=== PATIENT | female | born 1940 | race Caucasian/White ===

== ENCOUNTER 2022-04-04 09:31 | Outpatient (CLI) | payer MEDICARE, BC, SELFPAY | END 2022-04-04 09:32 | disposition home or self-care (01) | LOC: AMB 04-22 16:05 | PROVIDERS: PCP Surgery; Visit Provider Emergency Medicine Emergency Medical Services | DX: R41.82 Altered mental status, unspecified (principal); R53.1 Weakness; R51.9 Headache, unspecified; R47.81 Slurred speech | CPT/HCPCS: A0425; A0427 ==

== ENCOUNTER 2022-04-04 09:51 | Emergency (ER) | payer MEDICARE, BC, SELFPAY ==
[2022-04-04] VITALS (16 sets, daily range): BP systolic 157–187; BP diastolic 68–90; PULSE 104–112; RESP 20; TEMP 36.8; O2SAT 88–97; BMI 27.6
--- NOTE | 2022-04-04 09:53 | CRLHL7_ITS ---
For Patients: As a result of the Century Cures Act, medical imaging exams and procedure reports are released immediately into your electronic medical record. You may view this report before your referring provider. If you have questions, please contact your health care provider. Indication : Right hemiparesis. Technique : CT of the brain without intravenous contrast. Repeated imaging was performed in region of motion. Comparison: CT head 06/23/2021 Findings: Images are degraded by patient motion. No acute blurring of the oswald-white differentiation. There is no intracranial hemorrhage. The ventricles are proportionate to the cerebral sulci. The 4th ventricle is midline. Basal cisterns appear patent. No abnormal extra-axial fluid collection identified. Mild to moderate parenchymal volume loss. There is moderate patchy periventricular hypodensity, favored to represent chronic ischemic microvascular disease. Right basal ganglia mineralization. There is no intracranial mass, mass effect or midline shift identified. No depressed calvarial fracture. Impression: 1. No definite acute intracranial process. 2. Moderate chronic ischemic microvascular disease. The above findings were communicated over the telephone with Dr. Yao by Dr. Morales at 1012 hours on 04/04/2022. Please note that all CT scans at this facility use dose modulation, iterative reconstruction, and/or weight-based dosing when appropriate to reduce radiation dose to as low as reasonably achievable. Dictated by Timothy Morales MD @ 04/04/2022 10:14:30 AM (Electronically Signed)
--- NOTE | 2022-04-04 10:18 | CT_ITS ---
Patient: AKIL PRADO Facility:?[facility] Patient ID:?[id number] Site Patient ID:?[id number]. Site :?[id number] Study:?CT-Neck Angio Angio 95cc Isovue 370-04/04/2022 11:51:53 AM Ordering Physician:Cristela Vaca Final Report: INDICATION: Transient right hemiparesis. TECHNIQUE: CTA neck with contrast bolus tracking and 3D MIP reconstruction. FINDINGS: Heavily calcified plaque at the origin of the left internal carotid artery results in a moderate stenosis, approximately 50 percent by NASCET criteria. There is also calcified plaque at the right carotid bifurcation without significant stenosis. There is no significant vertebral artery stenosis or dissection. The soft tissues of the neck are within normal limits. Advanced degenerative changes are incidentally noted in the cervical spine. Scarring and emphysematous changes are present in the lung apices. IMPRESSION: Moderate left ICA origin stenosis, 50 percent by NASCET criteria. No significant right carotid or vertebral artery stenosis or dissection. Please note that all CT scans at this facility use dose modulation, iterative reconstruction, and/or weight-based dosing when appropriate to reduce radiation dose to as low as reasonably achievable. Dictated by Scott Desai MD @ 04/04/2022 8:10:55 PM Signed by:?Scott Desai MD @04/04/2022 8:10:55 PM (Electronic Signature)
--- NOTE | 2022-04-04 10:18 | CT_ITS ---
Patient: AKIL PRADO Facility:?[facility] Patient ID:?[id number] Site Patient ID:?[id number]. Site :?[id number] Study:?CT-Head Angio 95cc Isovue 370-04/04/2022 11:53:35 AM Ordering Physician:Cristela Vaca Final Report: INDICATION: Transient right hemiparesis. TECHNIQUE: CTA head with contrast bolus tracking and 3D MIP reconstruction. FINDINGS: Heavily calcified atherosclerotic plaque is present around the carotid siphons without significant stenosis. There is no large vessel occlusion. No aneurysm is identified. IMPRESSION: No large vessel occlusion. Please note that all CT scans at this facility use dose modulation, iterative reconstruction, and/or weight-based dosing when appropriate to reduce radiation dose to as low as reasonably achievable. Dictated by Scott Desai MD @ 04/04/2022 8:06:20 PM Signed by:?Scott Desai MD @04/04/2022 8:06:20 PM (Electronic Signature)
--- NOTE | 2022-04-04 10:42 | ED.NEUROSD ---
HPI - Neuro Symptoms/Deficit General Chief Complaint: Neuro Symptoms/Altered Deficit Stated Complaint: Poss stroke Time Seen by Provider: 04/04/22 09:53 History of Present Illness HPI Narrative: This 82-year-old female comes in by ambulance who report a right hemiparesis that began 45 minutes prior to arrival here. 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 Later her daughter arrived who states that she had nausea, vomiting, diarrhea, and diaphoresis. The daughter states her speech seemed a little bit altered at the time that she vomited. The daughter reports that she did not notice any one-sided weakness or deficit. The patient states that she has had a previous TIA over 10 years ago. She arrives with blood pressure at 187/90 and heart rate at 111 beats per minute. She does not report any headache or other pain. Related Data Home Medications Medication Instructions Recorded Confirmed allopurinol 300 mg tablet mg 04/04/22 clopidogrel 75 mg tablet mg 04/04/22 furosemide 20 mg tablet mg 04/04/22 gabapentin 300 mg capsule mg 04/04/22 hydromorphone 8 mg tablet mg 04/04/22 insulin aspart U-100 100 unit/mL subcut 04/04/22 (3 mL) subcutaneous pen (Novolog Flexpen U-100 Insulin aspart) insulin degludec 100 unit/mL (3 unit subcut 04/04/22 mL) subcutaneous pen (Tresiba FlexTouch U-100 insulin) loperamide 2 mg capsule mg 04/04/22 methadone 5 mg tablet mg 04/04/22 rosuvastatin 20 mg tablet mg 04/04/22 semaglutide 1 mg/dose (4 mg/3 mL) mg subcut 04/04/22 subcutaneous pen injector (Ozempic) tamsulosin 0.4 mg capsule mg PO 04/04/22 Allergies Allergy/AdvReac Type Severity Reaction Status Date / Time cortisone Allergy Severe Anaphylaxis Verified 04/04/22 11:25 prednisone Allergy Severe Verified 04/04/22 11:25 amoxicillin Allergy Intermediate Verified 04/04/22 11:25 cephalexin [From Keflex] Allergy Intermediate Diarrhea Verified 04/04/22 11:25 doxycycline Allergy Intermediate Verified 04/04/22 11:25 duloxetine [From Cymbalta] Allergy Intermediate Verified 04/04/22 11:25 escitalopram [From Lexapro] Allergy Intermediate sleep Verified 04/04/22 11:25 disturbance febuxostat Allergy Intermediate vomitting Verified 04/04/22 11:25 latex Allergy Intermediate Verified 04/04/22 10:36 lisinopril Allergy Intermediate Verified 04/04/22 11:25 losartan [From Cozaar] Allergy Intermediate Verified 04/04/22 11:25 nitrofurantoin Allergy Intermediate Verified 04/04/22 11:25 [From Macrobid] pregabalin [From Lyrica] Allergy Intermediate Nausea Verified 04/04/22 11:25 propoxyphene Allergy Intermediate angioedema Verified 04/04/22 11:25 ramelteon [From Rozerem] Allergy Intermediate Verified 04/04/22 11:25 sulfamethoxazole Allergy Intermediate Verified 04/04/22 11:25 [From Bactrim] tramadol [From Ultram] Allergy Intermediate Verified 04/04/22 11:25 trimethoprim [From Bactrim] Allergy Intermediate Verified 04/04/22 11:25 venlafaxine [From Effexor] Allergy Intermediate Verified 04/04/22 11:25 zolpidem [From Ambien] Allergy Intermediate Confusion Verified 04/04/22 11:25 acetaminophen [From Vicodin] Allergy Mild Nausea Verified 04/04/22 11:25 hydrocodone [From Vicodin] Allergy Mild Nausea Verified 04/04/22 11:25 aspirin Allergy Unknown Verified 04/04/22 11:25 clindamycin Allergy Unknown Verified 04/04/22 11:25 ipratropium [From Atrovent] Allergy Unknown Verified 04/04/22 11:25 Penicillins Allergy Unknown Verified 04/04/22 10:36 pramipexole Allergy Unknown Verified 04/04/22 11:25 trazodone Allergy Unknown Verified 04/04/22 11:25 steri strips Allergy Intermediate Uncoded 04/04/22 11:25 Review of Systems Status of ROS: Reports: 10 or more systems reviewed and unremarkable except as noted in History and below Narrative: Constitutional: No fevers, no weight gain or loss. Eyes: No discharge. No vision changes. HENT: No congestion, no sore throat, no ear pain. Cardiovascular: No chest pain, no palpitations. Respiratory: No shortness of breath, no wheezes, no cough. Gastrointestinal: No abdominal pain, no vomiting, no diarrhea. Genitourinary: No dysuria, no hematuria. Musculoskeletal: Normal range of motion. Skin: No rashes, no pruritis. Neurological: Right sided weakness and garbled speech which have now resolved completely. Endo/Heme/Allergies: No bruising or bleeding. No polydipsia. Pysch: no suicidality, no anxiety, no insomnia. All other systems reviewed and are negative. [facility] Medical History (Updated 04/04/22 @ 13:43 by Lio Yoa MD) Acute insomnia CAD (coronary artery disease) Chronic pain Constipation COPD (chronic obstructive pulmonary disease) Depression Diabetes Gastroparesis GERD (gastroesophageal reflux disease) Hypercalcemia Hypertension Hypertriglyceridemia Hypokalemia Hypothyroidism Myocardial infarction Neurogenic bladder Neuropathy HUGO (obstructive sleep apnea) Peripheral vascular disease Pulmonary nodule TIA (transient ischemic attack) Surgical History (Updated 04/04/22 @ 11:34 by Lilliam Vivar RN) H/O: hysterectomy History of cholecystectomy Hx of appendectomy Hx of repair of rotator cuff Hx of tonsillectomy S/P bunionectomy Social History Smoking Status: Former smoker How often do you have a drink containing alcohol: never AUDIT-C Alcohol total score: 0 Non-prescribed substance use: denies use Exam Narrative: Exam Narrative: Constitutional: Well-developed, well-nourished, no acute distress. HEENT: Normocephalic, atraumatic. Neck: Normal range of motion. Nontender. Supple. Heart: Regular. No murmurs. Normal rate. Intact distal pulses. Lungs: Clear to auscultation. No chest discomfort. No wheezes, rhonchi, or rales. Abdomen: Normal bowel sounds. Nontender. No rebound tenderness. Genitalia: Deferred. Back: No midline tenderness. Normal range of motion. Extremities: Normal range of motion. No injury. Skin: Intact. No rash. Warm. No erythema or pallor. Neurologic: No altered sensation. No weakness. Alert and oriented. Normal speech. 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 Repeat neurologic exam after CT scan was completed shows no facial asymmetry, tongue is midline, [id number] is normal, no pronator drift. She is able to raise each leg up to touch my hand. Psychiatric: No suicidality. No anxiety or depression. No insomnia. Nursing notes and vitals signs are reviewed. Const: Vital Signs, click to edit/add: Vital Signs - 24 hr 04/04/22 10:00 04/04/22 10:26 04/04/22 10:25 Temperature 98.3 F Pulse Rate [Pulse Oximeter] 111 H 105 H Respiratory Rate 20 Blood Pressure [Ri ght Upper Arm] 187/90 H 180/78 H Pulse Oximetry 93 91 96 Oxygen Delivery Me thod Room Air Room Air Nasal Cannula Oxygen Flow Rate 2 04/04/22 11:00 Temperature Pulse Rate [Pulse Oximeter] 110 H Respiratory Rate Blood Pressure [Ri ght Upper Arm] 172/78 H Pulse Oximetry 97 Oxygen Delivery Me thod Room Air Oxygen Flow Rate Course Vital Signs Vital signs: Initial Vital Signs Temperature 98.3 F 04/04/22 10:00 Temperature Source Temporal Artery Scan 04/04/22 10:00 Pulse Rate 111 H 04/04/22 10:00 Respiratory Rate 20 04/04/22 10:00 Blood Pressure 187/90 H 04/04/22 10:00 Blood Pressure Mean 122 04/04/22 10:00 Blood Pressure Position Supine 04/04/22 10:00 Pulse Oximetry 93 04/04/22 10:00 Oxygen Delivery Method 04/04/22 10:00 Vital Signs Temperature 98.3 F 04/04/22 10:00 Pulse Rate 111 H 04/04/22 10:00 Respiratory Rate 20 04/04/22 10:00 Blood Pressure 187/90 H 04/04/22 10:00 Pulse Oximetry 93 04/04/22 10:00 Oxygen Delivery Method 04/04/22 10:00 Temperature 98.3 F 04/04/22 10:00 Pulse Rate 110 H 04/04/22 11:00 Respiratory Rate 20 04/04/22 10:00 Blood Pressure 172/78 H 04/04/22 11:00 Pulse Oximetry 97 04/04/22 11:00 Oxygen Delivery Method 04/04/22 11:00 Oxygen Flow Rate 2 04/04/22 10:26 MDM - Neuro Symptoms/Deficit MDM Narrative Medical decision making narrative: This patient comes in by ambulance and ambulance personnel state that she had stroke-like symptoms. Upon arrival here there was no evidence of altered speech or unilateral weakness. She went immediately to CT scan which returns with no acute findings. An IV was established where she had labs drawn in these returned with reassuring results also. Her white count is slightly elevated at 14. COVID and influenza are both negative. The patient is reporting a dry mouth and did receive a L of normal saline intravenously. She continues to have normal neurologic exam throughout her stay here. I did also do a CT a of the neck and head which returns with no acute findings. This patient is okay to return home to continue current plans. It seems unlikely that she had a stroke or even a TIA. More likely this was gastroenteritis with some volume depletion. Lab Data Labs: Lab Results 04/04/22 04/04/22 04/04/22 Range/Units 10:30 10:30 10:30 WBC 14.05 H (4.50-11.00) K/uL RBC 4.95 (4.00-5.20) m/uL Hgb 14.6 (12.0-16.0) gm/dL Hct 43.9 (33.0-51.0) % MCV 89 (80-100) fL MCH 30 (26-34) pg MCHC 33 (32-36) gm/dL RDW Coeff of Thais 13.5 (11.5-15.5) % Plt Count 181 (140-440) K/uL Neut % (Auto) 90.1 H (42.0-72.0) % Lymph % (Auto) 4.3 L (20-44) % Craven % (Auto) 4.6 (0.0-11.0) % Eos % (Auto) 0.4 (0.0-7.0) % Baso % (Auto) 0.1 (0.0-3.0) % Neut # (Auto) 12.70 H (1.7-7.0) K/uL Lymph # (Auto) 0.60 L (0.90-2.90) K/uL Craven # (Auto) 0.60 (0.00-0.90) K/UL Eos # (Auto) 0.10 (0.00-0.50) K/uL Baso # (Auto) 0.00 (0.00-0.30) K/uL Abs Immat Gran (auto) 0.07 (0.00-0.30) K/uL INR 1.09 (0.91-1.10) Sodium 138 (135-149) mmol/L Potassium 3.8 (3.6-5.1) mmol/L Chloride 103 (96-114) mmol/L Carbon Dioxide 25 (20-32) mmol/L BUN 10 (7-30) mg/dL Creatinine 0.8 (0.5-1.5) mg/dL Estimated Creat Clear 34.64 Estimated GFR 73 ml/min Glucose 302 H (60-115) mg/dL Calcium 8.8 (8.4-10.6) mg/dL SARS-CoV-2 (PCR) (Negative) Influenza Type A (PCR) (Negative) Influenza Type B (PCR) (Negative) 04/04/22 Range/Units 10:57 WBC (4.50-11.00) K/uL RBC (4.00-5.20) m/uL Hgb (12.0-16.0) gm/dL Hct (33.0-51.0) % MCV (80-100) fL MCH (26-34) pg MCHC (32-36) gm/dL RDW Coeff of Thais (11.5-15.5) % Plt Count (140-440) K/uL Neut % (Auto) (42.0-72.0) % Lymph % (Auto) (20-44) % Craven % (Auto) (0.0-11.0) % Eos % (Auto) (0.0-7.0) % Baso % (Auto) (0.0-3.0) % Neut # (Auto) (1.7-7.0) K/uL Lymph # (Auto) (0.90-2.90) K/uL Craven # (Auto) (0.00-0.90) K/UL Eos # (Auto) (0.00-0.50) K/uL Baso # (Auto) (0.00-0.30) K/uL Abs Immat Gran (auto) (0.00-0.30) K/uL INR (0.91-1.10) Sodium (135-149) mmol/L Potassium (3.6-5.1) mmol/L Chloride (96-114) mmol/L Carbon Dioxide (20-32) mmol/L BUN (7-30) mg/dL Creatinine (0.5-1.5) mg/dL Estimated Creat Clear Estimated GFR ml/min Glucose (60-115) mg/dL Calcium (8.4-10.6) mg/dL SARS-CoV-2 (PCR) Negative SARS-CoV-2 (Negative) Influenza Type A (PCR) Negative PCR FLU A (Negative) Influenza Type B (PCR) Negative PCR FLU B (Negative) Imaging Data CT scan - head: Radiologist's impression: 1. No definite acute intracranial process. 2. Moderate chronic ischemic microvascular disease. ECG Data Attestation: I personally reviewed and interpreted this ECG as follows: Interpretation: Sinus tachycardia. Rate 110 beats per minute. First degree AV block. There are no specific ST or T-wave abnormalities. Discharge Plan Discharge Clinical Impression: Gastroenteritis, Volume depletion Patient Disposition: Home w/ Parent or Adult Condition: Improved Additional Instructions: Continue current plans. Take plenty of fluids. Return if recurrent or worsening symptoms happen. Prescriptions: No Action loperamide 2 mg capsule hydromorphone 8 mg tablet Label Comments: Take 1 Tablet (8 mg) by mouth every 6 hours if needed for DIABETIC FOOT Pain. DO NOT EXCEED 4 TABLETS IN 24 HOURS. Use dates: 03/13/22-04/11 clopidogrel 75 mg tablet Label Comments: TAKE ONE TABLET BY MOUTH ONE TIME DAILY tamsulosin 0.4 mg capsule PO Label Comments: Take 1 Capsule (0.4 mg) by mouth once daily after a meal. gabapentin 300 mg capsule Label Comments: Take 1 Capsule (300 mg) by mouth once daily. allopurinol 300 mg tablet Label Comments: TAKE 1/2 TABLET BY MOUTH DAILY furosemide 20 mg tablet Label Comments: Take 1 Tablet (20 mg) by mouth every morning. methadone 5 mg tablet Label Comments: Take 1 Tablet (5 mg) by mouth 3 times daily. Use dates: 03/13/22-04/11/22 insulin aspart U-100 [Novolog Flexpen U-100 Insulin] 100 unit/mL (3 mL) insulin pen SUBCUT Label Comments: INJECT 9 UNITS BY SUBCUTANEOUS ROUTE WITH BREAKFAST, 14 UNITS WITH LUNCH, AND 22 UNITS WITH EVENING MEAL PLUS CORRECTIVE DOSE INSULIN NEE rosuvastatin 20 mg tablet Label Comments: Take 1 Tablet (20 mg) by mouth at bedtime. Tresiba FlexTouch U-100 100 unit/mL (3 mL) insulin pen SUBCUT Label Comments: inject 32 units subcutaneously once daily at bedtime. Ozempic 1 mg/dose (4 mg/3 mL) pen injector SUBCUT Follow Up/Referrals: Michael Sandy MD [Primary Care Provider] - Stand Alone Forms: [employer] Info Instructions
[2022-04-04 10:50] LABS: Basophils Percent Auto 0.1 % (0.0-3.0); Eosinophils Percent Auto 0.4 % (0.0-7.0); Hematocrit 43.9 % (33.0-51.0); Hemoglobin* 14.6 gm/dL (12.0-16.0); Immature Granulocytes Abs Auto 0.07 K/uL (0.00-0.30); Lymphocytes Percent Auto 4.3 % (20-44); Mean Corpuscular HGB Conc 33 gm/dL (32-36); Mean Corpuscular Hemoglobin 30 pg (26-34); Mean Corpuscular Volume 89 fL (80-100); Monocytes Percent Auto 4.6 % (0.0-11.0); Neutrophils Percent Auto 90.1 % (42.0-72.0); Platelet Count* 181 K/uL (140-440); RDW Coefficient of Variation % 13.5 % (11.5-15.5); Red Blood Count 4.95 m/uL (4.00-5.20); White Blood Count* 14.05 K/uL (4.50-11.00)
[2022-04-04 10:52] LABS: Slide Review Reflex No
--- NOTE | 2022-04-04 10:57 | ED.NURSE ---
pt arrived by ems at 0950, dr. landis met pt in [place], pt went immediately to ct. upon arrival pt answering questions and speech clear. pt had R side paralysis per ems and garbled speech. pt able to squeeze with R hand. pt arrives incont of stool.
[2022-04-04 11:05] LABS: Chloride* 103 mmol/L (96-114); Potassium* 3.8 mmol/L (3.6-5.1); Sodium* 138 mmol/L (135-149)
[2022-04-04 11:08] LABS: Blood Urea Nitrogen* 10 mg/dL (7-30); Carbon Dioxide* 25 mmol/L (20-32); Creatinine* 0.8 mg/dL (0.5-1.5); Est. Creatinine Clearance* 34.64; Estimated Glomerular Filt Rate 73 ml/min
[2022-04-04 11:09] LABS: Calcium* 8.8 mg/dL (8.4-10.6); Glucose* 302 mg/dL (60-115); INR 1.09 (0.91-1.10); Prothrombin Time 14.6 Seconds
[2022-04-04 12:34] LABS: PCR FLU A Negative PCR FLU A (Negative); PCR FLU B Negative PCR FLU B (Negative)
[2022-04-04 13:02] LABS: SARS PCR* Negative SARS-CoV-2 (Negative)
[2022-04-04] MEDS: 0.9 % SODIUM CHLORIDE 1000 ml 1,000 ML IV (13:15)
--- NOTE | 2022-04-04 14:21 | ED.NURSE ---
pt sitting up on edge of bed, c/o slight dizziness, improves while sitting there. pt requests commode. up to commode with sba, voids large amount. pt took steps to wheelchair and brought to vehicle via wheelchair.
== END 2022-04-04 14:23 | disposition home or self-care (01) ==
PROVIDERS: Emergency Provider Emergency Medicine Emergency Medical Services; PCP Surgery
DX: K52.9 Noninfective gastroenteritis and colitis, unspecified (principal); E86.9 Volume depletion, unspecified
CPT/HCPCS: 36415; 70450; 70496; 70498; 80048; 85025; 85610; 87631; 93005; 94761; 96360; 99284; 99285; J7030; Q9967

== ENCOUNTER 2022-04-11 09:39 | Emergency (ER) | payer MEDICARE, BC, SELFPAY ==
[2022-04-11 09:42] VITALS: BP 116/70; PULSE 86; RESP 18; TEMP 36.1; O2SAT 98; BMI 27.3
--- NOTE | 2022-04-11 11:00 | ED.SKABFB ---
HPI - Skin/Abscess/Foreign Bdy General Date Seen: 04/11/22 Chief complaint: Skin/Abscess/Foreign Body Stated complaint: Cellulitis Time Seen by Provider: 04/11/22 09:52 Source: patient and family Mode of arrival: ambulatory Limitations: no limitations History of Present Illness HPI narrative: Patient is the 82-year-old female who presents here for evaluation of right leg cellulitis she has had now for the last 5 days. She was initially started on Cipro, and this was changed to Cefopoxidime 2 days ago, she want to get her leg checked, because she notices that it is redness, the redness is about the same, in fact when she elevates it wakes up in the morning there is really no swelling at all in her leg. As she gets up and moves around she notes the swelling increases. She has had no fevers or chills associated with this, she was also placed on nystatin rinses, and also vault tracks, for possible most sores. MD complaint: rash Onset (ago): day(s) Tetanus up to date: yes Location: RLE Severity: moderate Quality: burning Pain Consistency: constant Relieving factors: rest and other (Elevation) Exacerbating factors: none Context: recent antibiotic Associated symptoms: denies other symptoms Related Data Home Medications Medication Instructions Recorded Confirmed allopurinol 300 mg tablet mg 04/04/22 clopidogrel 75 mg tablet 75 mg 04/04/22 furosemide 20 mg tablet 20 mg 04/04/22 gabapentin 300 mg capsule 300 mg 04/04/22 hydromorphone 8 mg tablet 8 mg 04/04/22 insulin aspart U-100 100 unit/mL subcut 04/04/22 (3 mL) subcutaneous pen (Novolog Flexpen U-100 Insulin aspart) insulin degludec 100 unit/mL (3 unit subcut 04/04/22 mL) subcutaneous pen (Tresiba FlexTouch U-100 insulin) loperamide 2 mg capsule 5 mg 04/04/22 methadone 5 mg tablet 5 mg 04/04/22 rosuvastatin 20 mg tablet 20 mg 04/04/22 semaglutide 1 mg/dose (4 mg/3 mL) mg subcut 04/04/22 subcutaneous pen injector (Ozempic) tamsulosin 0.4 mg capsule mg PO 04/04/22 benzonatate 100 mg capsule mg PO 04/11/22 cefpodoxime 200 mg tablet mg 04/11/22 colchicine 0.6 mg tablet mg 04/11/22 nystatin 100,000 unit/mL oral 04/11/22 suspension valacyclovir 1 gram tablet mg 04/11/22 Previous Rx's Medication Instructions Recorded cefpodoxime 200 mg tablet 400 mg PO BID #20 tabs 04/11/22 Allergies Allergy/AdvReac Type Severity Reaction Status Date / Time cortisone Allergy Severe Anaphylaxis Verified 04/11/22 10:05 prednisone Allergy Severe Verified 04/11/22 10:05 amoxicillin Allergy Intermediate Verified 04/11/22 10:05 cephalexin [From Keflex] Allergy Intermediate Diarrhea Verified 04/04/22 11:25 doxycycline Allergy Intermediate Verified 04/11/22 10:05 duloxetine [From Cymbalta] Allergy Intermediate Verified 04/11/22 10:05 escitalopram [From Lexapro] Allergy Intermediate sleep Verified 04/04/22 11:25 disturbance febuxostat Allergy Intermediate vomitting Verified 04/04/22 11:25 latex Allergy Intermediate Verified 04/04/22 10:36 lisinopril Allergy Intermediate Verified 04/11/22 10:05 losartan [From Cozaar] Allergy Intermediate Verified 04/04/22 11:25 nitrofurantoin Allergy Intermediate Verified 04/11/22 10:05 [From Macrobid] pregabalin [From Lyrica] Allergy Intermediate Nausea Verified 04/11/22 10:05 propoxyphene Allergy Intermediate angioedema Verified 04/11/22 10:05 ramelteon [From Rozerem] Allergy Intermediate Verified 04/11/22 10:05 sulfamethoxazole Allergy Intermediate Verified 04/11/22 10:05 [From Bactrim] tramadol [From Ultram] Allergy Intermediate Verified 04/11/22 10:05 trimethoprim [From Bactrim] Allergy Intermediate Verified 04/04/22 11:25 venlafaxine [From Effexor] Allergy Intermediate Verified 04/11/22 10:05 zolpidem [From Ambien] Allergy Intermediate Confusion Verified 04/04/22 11:25 acetaminophen [From Vicodin] Allergy Mild Nausea Verified 04/11/22 10:05 hydrocodone [From Vicodin] Allergy Mild Nausea Verified 04/11/22 10:05 aspirin Allergy Unknown Verified 04/04/22 11:25 clindamycin Allergy Unknown Verified 04/04/22 11:25 ipratropium [From Atrovent] Allergy Unknown Verified 04/04/22 11:25 Penicillins Allergy Unknown Verified 04/04/22 10:36 pramipexole Allergy Unknown Verified 04/11/22 10:05 trazodone Allergy Unknown Verified 04/11/22 10:05 clindamycin Allergy Mild Vomiting Uncoded 04/11/22 10:05 Review of Systems Status of ROS: Reports: 10 or more systems reviewed and unremarkable except as noted in History and below PFSH PFS Medical History Acute insomnia CAD (coronary artery disease) Chronic pain Constipation COPD (chronic obstructive pulmonary disease) Depression Diabetes Gastroparesis GERD (gastroesophageal reflux disease) Hypercalcemia Hypertension Hypertriglyceridemia Hypokalemia Hypothyroidism Myocardial infarction Neurogenic bladder Neuropathy HUGO (obstructive sleep apnea) Peripheral vascular disease Pulmonary nodule TIA (transient ischemic attack) Surgical History H/O: hysterectomy History of cholecystectomy Hx of appendectomy Hx of repair of rotator cuff Hx of tonsillectomy S/P bunionectomy Social History Smoking Status: Former smoker Do you use any of these nicotine containing products: None Second hand tobacco smoke exposure: No How often do you have a drink containing alcohol: never How often do you have six or more drinks on one occasion: Never AUDIT-C Alcohol total score: 0 Non-prescribed substance use: denies use service: No Exam Narrative: Exam Narrative: Examination reveals redness on the right lower extremity, her just above her ankle, to approximately 10 cm below the left popliteal fossa. There is areas within the redness, I do not see an open area, associated with this, mild to moderate swelling is noted, in comparison to the right leg. She has good pulses however, good cap refill, she has the plantar callus over her right 2nd and 3rd metatarsal heads. Neurologically she is intact, moving her extremities Const: Vital Signs, click to edit/add: Vital Signs - 24 hr 04/11/22 09:42 Temperature 96.9 F L Pulse Rate [Right Pulse Oximeter] 86 Respiratory Rate 18 Blood Pressure [Ri ght Upper Arm] 116/70 Pulse Oximetry 98 Oxygen Delivery Me thod Room Air Documenting provider has reviewed patient's vital signs: yes Course Course Hospital Course: I went back in and spoke to Kianna, I think her cellulitis is stable, if she continually elevates her leg, this will markedly improve it, her white count, and CRP are very reassuring here today, I have marked it out on her leg, where she has her cellulitis. There is marked worsening of this than I would like to see her back, or if she develops fevers chills or other systemic type symptoms. She was very comfortable this will have her follow up with primary care on Wednesday, and I have given her prescription for another 5 days of her current antibiotic regime. Vital Signs Vital signs: Initial Vital Signs Temperature 96.9 F L 04/11/22 09:42 Temperature Source Temporal Artery Scan 04/11/22 09:42 Pulse Rate 86 04/11/22 09:42 Pulse Rhythm 04/11/22 09:42 Respiratory Rate 18 04/11/22 09:42 Blood Pressure 116/70 04/11/22 09:42 Blood Pressure Mean 85 04/11/22 09:42 Blood Pressure Position Sitting 04/11/22 09:42 Pulse Oximetry 98 04/11/22 09:42 Oxygen Delivery Method 04/11/22 09:42 Vital Signs Temperature 96.9 F L 04/11/22 09:42 Pulse Rate 86 04/11/22 09:42 Respiratory Rate 18 04/11/22 09:42 Blood Pressure 116/70 04/11/22 09:42 Pulse Oximetry 98 04/11/22 09:42 Oxygen Delivery Method 04/11/22 09:42 Temperature 96.9 F L 04/11/22 09:42 Pulse Rate 86 04/11/22 09:42 Respiratory Rate 18 04/11/22 09:42 Blood Pressure 116/70 04/11/22 09:42 Pulse Oximetry 98 04/11/22 09:42 Oxygen Delivery Method 04/11/22 09:42 MDM - Skin/Abscess/Foreign Bdy MDM Narrative Medical decision making narrative: Differential diagnosis include but are not limited to contact dermatitis, allergic reaction, shingles, impetigo, seborrheic dermatitis, Carlos Kieran syndrome, ITP, meningococcus, HSP Differential Diagnosis Differential diagnosis: Likely abscess of skin or subcutaneous tissue, viral exanthem, urticaria, herpes zoster, allergic reaction to drug, cellulitis, eczema, insect bites, impetigo and contact dermatitis Medical Records Attestation: I reviewed the patient's medical records. Lab Data Attestation: I reviewed the patient's lab results. Labs: Lab Results 04/11/22 04/11/22 Range/Units 11:09 11:09 WBC 7.44 (4.50-11.00) K/uL RBC 4.79 (4.00-5.20) m/uL Hgb 14.0 (12.0-16.0) gm/dL Hct 43.0 (33.0-51.0) % MCV 90 (80-100) fL MCH 29 (26-34) pg MCHC 33 (32-36) gm/dL RDW Coeff of Thais 13.4 (11.5-15.5) % Plt Count 263 (140-440) K/uL Neut % (Auto) 65.3 (42.0-72.0) % Lymph % (Auto) 22.6 (20-44) % Mason % (Auto) 7.9 (0.0-11.0) % Eos % (Auto) 2.8 (0.0-7.0) % Baso % (Auto) 0.5 (0.0-3.0) % Neut # (Auto) 4.85 (1.7-7.0) K/uL Lymph # (Auto) 1.68 (0.90-2.90) K/uL Mason # (Auto) 0.60 (0.00-0.90) K/UL Eos # (Auto) 0.21 (0.00-0.50) K/uL Baso # (Auto) 0.04 (0.00-0.30) K/uL Abs Immat Gran (auto) 0.07 (0.00-0.30) K/uL Sodium 138 (135-149) mmol/L Potassium 4.4 (3.6-5.1) mmol/L Chloride 102 (96-114) mmol/L Carbon Dioxide 26 (20-32) mmol/L BUN 15 (7-30) mg/dL Creatinine 0.8 (0.5-1.5) mg/dL Estimated Creat Clear 34.64 Estimated GFR 73 ml/min Glucose 116 H (60-115) mg/dL Calcium 9.3 (8.4-10.6) mg/dL C-Reactive Protein 1.1 H (0.5-1.0) mg/dL Discharge Plan Discharge Clinical Impression: Cellulitis Patient Disposition: Home w/ Parent or Adult Condition: Stable Instructions: Cellulitis (ED) Additional Instructions: Home rest lots of elevation of that right leg above the level of your heart, this is the khalil thing in your improvement. I have given you prescription for more antibiotics x5 more days you should take. I sure think there has been no worsening and probably some improvement. Recommend follow-up with your primary care doctor early next week. I am sorry to hear that you could go to the [facility]. Prescriptions: New cefpodoxime 200 mg tablet 400 mg PO BID Qty: 20 0RF Rx Instructions: must administer with a meal/food No Action nystatin 100,000 unit/mL suspension Label Comments: Swish and spit 5 mL (500,000 units) by mouth four times daily for 7 days. cefpodoxime 200 mg tablet Label Comments: TAKE 2 TABLETS BY MOUTH TWICE DAILY FOR 10 DAYS valacyclovir 1 gram tablet Label Comments: TAKE TWO TABLETS BY MOUTH TWICE DAILY FOR 1 DAY benzonatate 100 mg capsule PO Label Comments: TAKE ONE CAPSULE BY MOUTH THREE TIMES DAILY NEEDED colchicine 0.6 mg tablet Label Comments: TAKE ONE TABLET BY MOUTH TWICE DAILY NEEDED loperamide 2 mg capsule 5 mg hydromorphone 8 mg tablet 8 mg Label Comments: Take 1 Tablet (8 mg) by mouth every 6 hours if needed for DIABETIC FOOT Pain. DO NOT EXCEED 4 TABLETS IN 24 HOURS. Use dates: 03/13/22-04/11 clopidogrel 75 mg tablet 75 mg Label Comments: TAKE ONE TABLET BY MOUTH ONE TIME DAILY tamsulosin 0.4 mg capsule PO Label Comments: Take 1 Capsule (0.4 mg) by mouth once daily after a meal. gabapentin 300 mg capsule 300 mg Label Comments: Take 1 Capsule (300 mg) by mouth once daily. allopurinol 300 mg tablet Label Comments: TAKE 1/2 TABLET BY MOUTH DAILY furosemide 20 mg tablet 20 mg Label Comments: Take 1 Tablet (20 mg) by mouth every morning. methadone 5 mg tablet 5 mg Label Comments: Take 1 Tablet (5 mg) by mouth 3 times daily. Use dates: 03/13/22-04/11/22 insulin aspart U-100 [Novolog Flexpen U-100 Insulin] 100 unit/mL (3 mL) insulin pen SUBCUT Label Comments: INJECT 9 UNITS BY SUBCUTANEOUS ROUTE WITH BREAKFAST, 14 UNITS WITH LUNCH, AND 22 UNITS WITH EVENING MEAL PLUS CORRECTIVE DOSE INSULIN NEE rosuvastatin 20 mg tablet 20 mg Label Comments: Take 1 Tablet (20 mg) by mouth at bedtime. Tresiba FlexTouch U-100 100 unit/mL (3 mL) insulin pen SUBCUT Label Comments: inject 32 units subcutaneously once daily at bedtime. Ozempic 1 mg/dose (4 mg/3 mL) pen injector SUBCUT Follow Up/Referrals: Michael Sandy MD [Primary Care Provider] - Stand Alone [facility]: [facility] Inst[facility]
[2022-04-11 11:29] LABS: Basophils Absolute Auto 0.04 K/uL (0.00-0.30); Basophils Percent Auto 0.5 % (0.0-3.0); Eosinophils Absolute Auto 0.21 K/uL (0.00-0.50); Eosinophils Percent Auto 2.8 % (0.0-7.0); Immature Granulocytes Abs Auto 0.07 K/uL (0.00-0.30); Lymphocytes Absolute Auto 1.68 K/uL (0.90-2.90); Lymphocytes Percent Auto 22.6 % (20-44); Mean Corpuscular HGB Conc 33 gm/dL (32-36); Mean Corpuscular Hemoglobin 29 pg (26-34); Mean Corpuscular Volume 90 fL (80-100); Monocytes Percent Auto 7.9 % (0.0-11.0); Neutrophils Absolute Auto 4.85 K/uL (1.7-7.0); Neutrophils Percent Auto 65.3 % (42.0-72.0); Platelet Count* 263 K/uL (140-440); RDW Coefficient of Variation % 13.4 % (11.5-15.5); Red Blood Count 4.79 m/uL (4.00-5.20); White Blood Count* 7.44 K/uL (4.50-11.00)
[2022-04-11 11:42] LABS: Slide Review Reflex No
[2022-04-11 11:44] LABS: Chloride* 102 mmol/L (96-114); Potassium* 4.4 mmol/L (3.6-5.1); Sodium* 138 mmol/L (135-149)
[2022-04-11 11:47] LABS: Creatinine* 0.8 mg/dL (0.5-1.5); Est. Creatinine Clearance* 34.64; Estimated Glomerular Filt Rate 73 ml/min
[2022-04-11 11:48] LABS: Blood Urea Nitrogen* 15 mg/dL (7-30); Calcium* 9.3 mg/dL (8.4-10.6); Carbon Dioxide* 26 mmol/L (20-32); Glucose* 116 mg/dL (60-115)
[2022-04-11 11:50] LABS: C Reactive Protein* 1.1 mg/dL (0.5-1.0)
== END 2022-04-11 13:12 | disposition home or self-care (01) ==
PROVIDERS: Emergency Provider Family Medicine; PCP Surgery
DX: L03.115 Cellulitis of right lower limb (principal)
CPT/HCPCS: 36415; 80048; 85025; 86140; 87040; 99283

== ENCOUNTER 2022-05-01 16:30 | Outpatient (RCR) | payer MEDICARE, BC, SELFPAY ==
--- NOTE | 2022-05-01 17:41 | OT.OPLE ---
OT Outpatient Lymphedema Eval OT Outpatient Lymphedema Eval Start: 04/30/22 18:44 Freq: Status: Active Protocol: Document 05/01/22 17:10 AMB (Rec: 05/01/22 17:33 AMB [id number]) E-signed By Gisela Kearney, OTR/L, CLT, [employer] OT Outpatient Evaluation Details Type Type Eval Complexity Low OT OP Lymphedema Evaluation Insurance Information Insurance Information Medicare B Current Condition/Medical Diagnosis Referring Provider Dr Sandy Treatment Diagnosis RLE Lymphedema Date Of Onset 04/04/22 Other Precautions Allergic to multiple antibiotics. Pt states she had an episode a couple weeks ago where they thought she was having a stroke and she was brought to the hospital by [facility] with severe diarrhea and vomitting but states once she got there they did not think it was a stroke . Medical Contraindications DM,HTN Current Work Status Current Work Status Retired Subjective Subjective Pt states she developed swelling and pain in the lower part of her right leg 3 weeks ago. She was seen in the clinic and diagnosed with cellulitis, she was given antibiotics and still had swelling on 04/21/22 so she got a different medication, can't remember the name and a referral to therapy. Pt states she went to the pharmacy and purchased some compression stockings and took her medication and the swelling went away and she no longer has pain. Pt has also been elevating her leg when she sits and at night. Pt feels the infection has cleared and she almost cancelled her appointment today. Pt denies any hx of cancer, radiation, or LN surgery. Pt has had one surgery on her right foot many years ago to straighten out a hammer toe. Other surgeries include gallbladder, hysterectomy, appendectomy, laryngeal implants, and RCR. Pt denies every having cellulitis or DVTs. Pt lives independently and still drives a car, independent in all ADLs and IADLs. Medical History Medical History HTN Medications Medications Insullin, BP med, antibiotic Family History Family History of Lymphedema No Living Situation Current Living Situation Private Home/Apartment (Alone) Exercise History Does Patient Exercise Regularly No Pain Pain No Loss of Function/Strength/Mobility Loss Of Function/Strength/Mobility No Previous Treatment Previous Treatment For Swelling/ Compression Garment,Elevation Lymphedema Compression History Does Patient Currently Wear Compression Yes During Daytime Compression During Daytime Comments Pt purchased an OTS compression stocking, really likes it, swelling has receeded and her pain is also gone. Pt is independent in donning and doffing garment. Does Patient Currently Wear Compression No At Night Compression At Night Comments Pt elevated her leg at night. Current Swelling (Location/Pitting/Texture) Pitting Scale: 0 = No pitting 1+ Tissue returns to normal almost immediately 2+ Tissue returns after 15-30 seconds 3+ Tissue returns after 1-1/2 minutes 4+ Tissue returns after 2-3 minutes N/A Tissue no longer pits due to induration Tissue texture: Soft or indurated Clinical Presentation Area Pt has reminents of her recent bout with cellulitis. Leg is still red just superior to the ankle, no longer warm and is not painful. No pitting and no measurable swelling. Pt still has mild scaliness for which she uses lotion daily and states it is so much better than it was. Triggering Event & Start Date of Cellulitis Swelling/Lymphedema Staging Staging Stage 0 Positive Stemmer's Sign No Circumferential Measurements Lower Extremity Left Lower Extremity MPT 21.6 Calcaneous 29.3 Ankle 20.5 10cm 24.8 20cm 34.0 30cm 36.4 Total 166.6 Difference 0.4 Right Lower Extremity MPT 21.5 Calcaneous 29.2 Ankle 20.5 10cm 25.2 20cm 33.8 30cm 36.0 Total 166.2 Difference 0.4 Assessment Assessment Pt presents to OT for lymphedema therapy secondary to RLE swelling due to cellulitis. It appears that the cellulitis has subsided as did the swelling. Pt is using compression and elevating. Pt is no longer having pain and feels her infection is cleared. Pt still has some reddness in the area where the infection was, as well as some residual dry skin. Pt seems well versed on diabetic skin changes and care as well as precations for opened areas , etc. Pt will benefit from today's session where she was provided with education regarding the lympheatic system and it's correlation to infections as well as risk reduction practices and skin care. Pt was also provided with a lymphatic stimulationg HEP. Pt's chart will be left open for a month in case she has recurrence and needs to return. Problem List Problem List Limited Knowledge of Lymphedema Treatment/Condition /Precautions,Limited Knowledge of Skin Care & Infection Precautions,Significant Risk For Infection For Lymphedema Related Complications,Does Not Have a HEP Patient Goals Patient Goals 1. Pt will be independent and compliant with home program for lymphedema management in order to achieve and maintain best outcomes. 1 weeks 2. Pt will demonstrate a general understanding of the lymphatic system, s/s of lymphedema, treatment of lymphedema, implications of untreated lymphedema, s/s of infection and the correlation of infection related to lymphedema. 4 weeks 3. Pt will remain infection- free and maintain the reduction in swelling in her RUE through HEP and compression in order to reduce risk for reoccurance. 6 weeks . Treatment Plan Treatment Plan Evaluation,Edema Control, Manual Therapy,Wound Care/Scar Management,Therapeutic Exercise,Therapeutic Activities,Self-Care/Home Management,Education Expected Frequency 1-2x Week Expected Duration 6-8 Weeks Certification Certification I Certify That: Therapy Services Provided, Therapy Plan Established, Therapy Plan Reviewed Recertification Information Recertification Information Initial Certification Date 05/01/22 Recertification Start Date 08/01/22 Reasons to Continue Skilled Therapy Initiated OT today, see goals above Rehabilitation Potential Good Provider Signature Shows Agreement With POC & Medical Necessity Physician Comment/Change Comment or Changes Physician NPI Number #
== END 2022-10-09 16:00 | disposition home or self-care (01) ==
PROVIDERS: PCP Surgery; Visit Provider Surgery
DX: M25.511 Pain in right shoulder (principal); R22.41 Localized swelling, mass and lump, right lower limb; Z51.89 Encounter for other specified aftercare
CPT/HCPCS: 97162; 97165; 97535

== ENCOUNTER 2022-05-10 03:51 | Outpatient (CLI) | payer MEDICARE, BC, SELFPAY | END 2022-05-10 03:52 | disposition home or self-care (01) | LOC: AMB 05-15 16:36 | PROVIDERS: PCP Surgery; Visit Provider Family Medicine | DX: R06.09 Other forms of dyspnea (principal) | CPT/HCPCS: A0425; A0427 ==

== ENCOUNTER 2022-05-10 04:27 | Inpatient (IN) | payer MEDICARE, BC, SELFPAY ==
[2022-05-10] VITALS (44 sets, daily range): BP systolic 90–164; BP diastolic 35–77; PULSE 82–116; RESP 15–24; TEMP 36.6–38.2; O2SAT 84–99; BMI 27.7
--- NOTE | 2022-05-10 04:34 | ED_ITS ---
HPI - General Adult General Chief complaint: Weakness Stated complaint: short of Breath Time Seen by Provider: 05/10/22 04:34 History of Present Illness HPI narrative: 82-year-old woman brought by EMS to the emergency department with altered mental status and hypoxia. Underlying history of COPD, pulmonary fibrosis, sleep apnea and diabetes and chronic pain was per daughter, starting to get sick a couple days ago. Head cold symptoms. The daughter notes history of recurrent pneumoni a and urinary tract infections. Daughter and are not initially present. Kianna is not particularly communicative. She is wearing a non-rebreather and mumbles incoherently at times. Does not appear to be in any pain. Daughter says that last night appears not to have placed her CPAP or oxygen. Sounds like she missed a nebulization as well. Was found this morning very unclear, out of it with her oxygen saturations of 74% with EMS. It is unclear to me what her baseline oxygen saturation is though I am able to see reference of 95% in clinic the end of February. Does use 2 L of oxygen at night. EMS gave a DuoNeb. No trauma has been noted. Was recently seen in this emergency department about 1 month ago for a right leg cellulitis which seems to have resolved. As she does alert later Kianna is not complaining of any pain. Only thanking us for helping her. Given altered mental status I wonder about being overly narcotized but noted not to have changed any of pain medication in some time. Does not typically have a fever daughter reports so the fact that she presents with a fever today for us is unusual. Related Data Home Medications Medication Instructions Recorded Confirmed allopurinol 300 mg tablet 150 mg PO DAILY 04/04/22 05/10/22 clopidogrel 75 mg tablet 75 mg PO DAILY 04/04/22 05/10/22 furosemide 20 mg tablet 20 mg PO DAILY 04/04/22 05/10/22 gabapentin 300 mg capsule 600 mg PO DAILY 04/04/22 05/10/22 hydromorphone 8 mg tablet 8 mg PO QAM 04/04/22 05/10/22 insulin aspart U-100 100 unit/mL 10 unit subcut DAILY@08 04/04/22 05/10/22 (3 mL) subcutaneous pen (Novolog Flexpen U-100 Insulin aspart) insulin degludec 100 unit/mL (3 26 unit subcut HS 04/04/22 05/10/22 mL) subcutaneous pen (Tresiba FlexTouch U-100 insulin) loperamide 2 mg capsule 2 mg PO BID PRN 04/04/22 05/10/22 methadone 5 mg tablet 5 mg PO QAM 04/04/22 05/10/22 rosuvastatin 20 mg tablet 20 mg PO HS 04/04/22 05/10/22 semaglutide 1 mg/dose (4 mg/3 mL) 1 mg subcut TH@04/04/22 05/10/22 subcutaneous pen injector (Ozempic) tamsulosin 0.4 mg capsule 0.4 mg PO DAILY 04/04/22 05/10/22 colchicine 0.6 mg tablet 0.6 mg PO BID PRN 04/11/22 05/10/22 BIOTENE DRY MOUTH LOZENGES 1 ea mucous membrane QID PRN 05/10/22 05/10/22 cholecalciferol (vitamin D3) 50 4,000 unit PO DAILY 05/10/22 05/10/22 mcg (2,000 unit) tablet (Vitamin D3) cyclobenzaprine 5 mg tablet 5 mg PO Q8H PRN 05/10/22 05/10/22 fexofenadine 180 mg tablet 180 mg PO DAILY PRN 05/10/22 05/11/22 (Aller-ease) hydromorphone 8 mg tablet 16 mg PO HS 05/10/22 05/10/22 (Dilaudid) insulin aspart U-100 100 unit/mL 20 unit subcut DAILY@12 05/10/22 05/10/22 (3 mL) subcutaneous pen (Novolog Flexpen U-100 Insulin aspart) insulin aspart U-100 100 unit/mL 22 unit subcut DAILY@18 05/10/22 05/10/22 (3 mL) subcutaneous pen (Novolog Flexpen U-100 Insulin aspart) levothyroxine 88 mcg tablet 88 mcg PO DAILY 05/10/22 05/10/22 methadone 5 mg tablet 10 mg PO HS 05/10/22 05/10/22 naloxone 4 mg/actuation nasal 4 mg intranasal DIRECTED PRN 05/10/22 05/10/22 spray (Narcan) potassium chloride 20 mEq 20 meq PO BIDWM 05/10/22 05/10/22 tablet,extended release(part/cryst) (Klor-Con M) prochlorperazine maleate 10 mg 10 mg PO Q6H PRN 05/10/22 05/10/22 tablet sennosides 8.6 mg-docusate sodium 2 tab-cap PO BID 05/10/22 05/10/22 50 mg tablet (Senna-S) vitamin A-vitamin C-vit E-min 1 tab PO DAILY 05/10/22 05/10/22 tablet (Ocutabs tablet) Allergies Allergy/AdvReac Type Severity Reaction Status Date / Time cortisone Allergy Severe Anaphylaxis Verified 05/10/22 06:03 prednisone Allergy Severe Verified 05/10/22 06:03 amoxicillin Allergy Intermediate Verified 05/10/22 06:03 cephalexin [From Keflex] Allergy Intermediate Diarrhea Verified 05/10/22 06:03 doxycycline Allergy Intermediate Verified 05/10/22 06:03 duloxetine [From Cymbalta] Allergy Intermediate Verified 05/10/22 06:03 escitalopram [From Lexapro] Allergy Intermediate sleep Verified 05/10/22 06:03 disturbance febuxostat Allergy Intermediate vomitting Verified 05/10/22 06:03 latex Allergy Intermediate Verified 05/10/22 06:11 lisinopril Allergy Intermediate Verified 05/10/22 06:03 losartan [From Cozaar] Allergy Intermediate Verified 05/10/22 06:03 nitrofurantoin Allergy Intermediate Verified 05/10/22 06:03 [From Macrobid] pregabalin [From Lyrica] Allergy Intermediate Nausea Verified 05/10/22 06:03 propoxyphene Allergy Intermediate angioedema Verified 05/10/22 06:03 ramelteon [From Rozerem] Allergy Intermediate Verified 05/10/22 06:03 sulfamethoxazole Allergy Intermediate Verified 05/10/22 06:03 [From Bactrim] tramadol [From Ultram] Allergy Intermediate Verified 05/10/22 06:03 trimethoprim [From Bactrim] Allergy Intermediate Verified 05/10/22 06:03 venlafaxine [From Effexor] Allergy Intermediate Verified 05/10/22 06:03 zolpidem [From Ambien] Allergy Intermediate Confusion Verified 05/10/22 06:03 acetaminophen [From Vicodin] Allergy Mild Nausea Verified 05/10/22 06:03 hydrocodone [From Vicodin] Allergy Mild Nausea Verified 05/10/22 06:03 aspirin Allergy Unknown Verified 05/10/22 06:03 clindamycin Allergy Unknown Verified 05/10/22 06:03 ipratropium [From Atrovent] Allergy Unknown Verified 05/10/22 06:03 Penicillins Allergy Unknown Verified 05/10/22 06:11 pramipexole Allergy Unknown Verified 05/10/22 06:03 trazodone Allergy Unknown Verified 05/10/22 06:03 adhesive tape Allergy huge Verified 05/10/22 06:07 blisters Review of Systems Status of ROS: Reports: unobtainable due to mental status [facility] Medical History (Updated 05/10/22 @ 15:37 by Angelica Bowles MD) Acute insomnia Allergic rhinitis CAD (coronary artery disease) Chronic kidney disease, stage 3b Chronic pain Constipation Controlled substance agreement signed COPD (chronic obstructive pulmonary disease) Depression Gastroparesis GERD (gastroesophageal reflux disease) Gouty arthropathy Hereditary and idiopathic peripheral neuropathy Hypercalcemia Hypertension Hypertriglyceridemia Hypokalemia Hypothyroidism Myocardial infarction Neurogenic bladder Neuropathy HUGO (obstructive sleep apnea) Peripheral autonomic neuropathy due to diabetes mellitus Peripheral vascular disease Pneumonia Pulmonary fibrosis Pulmonary nodule Slow transit constipation Stroke TIA (transient ischemic attack) Type 2 diabetes mellitus with complication, with long-term current use of insulin Surgical History (Updated 05/10/22 @ 15:22 by Angelica Bowles MD) H/O blepharoplasty H/O colonoscopy H/O foot surgery H/O neck surgery H/O: hysterectomy History of cholecystectomy Hx of appendectomy Hx of repair of rotator cuff Hx of tonsillectomy S/P bunionectomy S/P left rotator cuff repair Family History (Updated 05/10/22 @ 15:24 by Angelica Bowles MD) Maternal Grandfather Pancreatic cancer Aunt Breast cancer Uncle Lung cancer Aunt Breast cancer Father Tuberculosis Coronary artery disease Social History (Updated 05/10/22 @ 10:00 by Angelica Bowles MD) Narrative: Lives independently with her boyfriend, Zane, and her daughter, Martín, who lives in the basement. Quit tobacco 1986. No EtOH. Denies recreational drug use. Wants to be DNR/DNI. Highest level of school completed/degree received: some college, no degree Smoking Status: Former smoker Do you use any of these nicotine containing products: None Second hand tobacco smoke exposure: No How often do you have a drink containing alcohol: never How often do you have six or more drinks on one occasion: Never AUDIT-C Alcohol total score: 0 Non-prescribed substance use: denies use Caffeine: Yes service: No Exam Narrative: Exam Narrative: Initial exam eyes are closed. Coarse breathing. Mildly tachypneic. Labored. On non-rebreather mask at this. Oxygenating 94%. Skin is quite warm. Erythematous changes appreciated. Cranial nerves are grossly intact. Moving extremities symmetrically. Well perfused peripherally. Mouth is dry. Later as more alert dry mouth appears to be inhibiting at times her articulation. Aided with a drink of water. Congested breathing. Sounds congested in nasopharynx as well as course crepitus throughout her lungs. There is good air movement though. Cardiovascular is tachycardic. Regular rhythm. No JVD Abdomen is a little overweight soft and nontender. Lower extremities are without notable edema. Const: Vital Signs, click to edit/add: Vital Signs - 24 hr 05/10/22 04:38 05/10/22 04:40 05/10/22 04:40 Temperature 100.7 F H Pulse Rate [Left P ulse Oximeter] 111 H Respiratory Rate 24 Blood Pressure [Ri ght Upper Arm] 159/71 H Pulse Oximetry 94 94 Oxygen Delivery Me thod Non Rebreather Mas k Non Rebreather Mas k Oxygen Flow Rate 10 10 05/10/22 05:25 05/10/22 05:00 05/10/22 05:10 Temperature Pulse Rate [Left P ulse Oximeter] 108 H 102 H Respiratory Rate 20 20 Blood Pressure [Ri ght Upper Arm] 153/64 H 159/63 H Pulse Oximetry 98 84 L 95 Oxygen Delivery Me thod Oxygen Flow Rate 05/10/22 05:20 05/10/22 05:40 05/10/22 06:00 Temperature Pulse Rate [Left P ulse Oximeter] 103 H 116 H 114 H Respiratory Rate 20 20 20 Blood Pressure [Ri ght Upper Arm] 162/63 H 164/77 H 158/62 H Pulse Oximetry 99 89 90 Oxygen Delivery Me thod OxyMask OxyMask Oxygen Flow Rate 05/10/22 06:10 05/10/22 06:20 05/10/22 06:40 Temperature Pulse Rate [Left P ulse Oximeter] 111 H 111 H 111 H Respiratory Rate 20 20 20 Blood Pressure [Ri ght Upper Arm] 129/60 112/52 L 111/51 L Pulse Oximetry 89 89 88 Oxygen Delivery Me thod OxyMask OxyMask OxyMask Oxygen Flow Rate 05/10/22 07:17 Temperature 99.7 F H Pulse Rate [Left P ulse Oximeter] Respiratory Rate Blood Pressure [Ri ght Upper Arm] Pulse Oximetry Oxygen Delivery Me thod Oxygen Flow Rate Documenting provider has reviewed patient's vital signs: yes Course Course Hospital Course: Given albuterol nebulization. Concern of sepsis. Blood cultures obtained. I have ordered for normal saline boluses. Able to be weaned to OxyMask at 4 L when awake satting 90% though when sleeping goes to mid-low 80s. Has since been turned up on the OxyMask. Wakes briefly and then drifts to sleep. I think this is more of an infectious etiology than COPD exacerbation. Chest x-ray by my read with comparison looks to show infiltrate in the right middle and lower lung Pending other evaluations have initiated Rocephin and azithromycin. Numerous allergies are listed however I think many of these are actually intolerances. White count is normal. Rather elevated D-dimer. WNL venous blood gases. Will CT chest. Moderately elevated blood pressures on arrival. Comparing to blood pressure from 6 weeks ago in clinic, it would appear that blood pressures have normalized somewhat though admittedly dropped from arrival to this emergency department. Have spoken with our hospitalist who is thankfully accepting admission. Will continue to resuscitate with IV fluid. Vital Signs Vital signs: Initial Vital Signs Temperature 100.7 F H 05/10/22 04:38 Temperature Source Temporal Artery Scan 05/10/22 04:38 Pulse Rate 111 H 05/10/22 04:38 Respiratory Rate 24 05/10/22 04:38 Blood Pressure 159/71 H 05/10/22 04:38 Blood Pressure Mean 100 05/10/22 04:38 Blood Pressure Position Semi-Fowlers 05/10/22 04:38 Pulse Oximetry 94 05/10/22 04:38 Oxygen Delivery Method 05/10/22 04:38 Oxygen Flow Rate 10 05/10/22 04:38 Vital Signs Temperature 100.7 F H 05/10/22 04:38 Pulse Rate 111 H 05/10/22 04:38 Respiratory Rate 24 05/10/22 04:38 Blood Pressure 159/71 H 05/10/22 04:38 Pulse Oximetry 94 05/10/22 04:38 Oxygen Delivery Method 05/10/22 04:38 Oxygen Flow Rate 10 05/10/22 04:38 Temperature 97.4 F L 05/11/22 10:32 Pulse Rate 93 05/11/22 10:32 Respiratory Rate 20 05/11/22 10:32 Blood Pressure 111/97 H 05/11/22 10:32 Pulse Oximetry 90 05/11/22 10:32 Oxygen Delivery Method 05/11/22 10:32 Oxygen Flow Rate 100 05/11/22 10:32 Fraction of Inspired Oxygen 60 05/11/22 10:32 Medical Decision Making Lab Data Labs: Lab Results 05/10/22 05/10/22 05/10/22 Range/Units 05:00 05:00 05:00 WBC 10.89 (4.50-11.00) K/uL RBC 4.55 (4.00-5.20) m/uL Hgb 13.5 (12.0-16.0) gm/dL Hct 41.2 (33.0-51.0) % MCV 91 (80-100) fL MCH 30 (26-34) pg MCHC 33 (32-36) gm/dL RDW Coeff of Thais 13.8 (11.5-15.5) % Plt Count 176 (140-440) K/uL Neut % (Auto) 83.7 H (42.0-72.0) % Lymph % (Auto) 11.1 L (20-44) % [place] % (Auto) 4.4 (0.0-11.0) % Eos % (Auto) 0.4 (0.0-7.0) % Baso % (Auto) 0.1 (0.0-3.0) % Neut # (Auto) 9.10 H (1.7-7.0) K/uL Lymph # (Auto) 1.20 (0.90-2.90) K/uL [place] # (Auto) 0.50 (0.00-0.90) K/UL Eos # (Auto) 0.04 (0.00-0.50) K/uL Baso # (Auto) 0.01 (0.00-0.30) K/uL Abs Immat Gran (auto) 0.03 (0.00-0.30) K/uL D-Dimer Quant (PE/DVT) (0.00-0.50) ug/ml VBG pH (7.32-7.43) VBG pCO2 (40-50) mmHG VBG pO2 (25-47) mmHG VBG HCO3 (21-28) mmol/L Sodium 138 (135-149) mmol/L Potassium 4.2 (3.6-5.1) mmol/L Chloride 99 (96-114) mmol/L Carbon Dioxide 28 (20-32) mmol/L BUN 17 (7-30) mg/dL Creatinine 1.0 (0.5-1.5) mg/dL Estimated GFR 56 ml/min Glucose 219 H (60-115) mg/dL Venous Lactic Acid (Serial Order) Calcium 8.8 (8.4-10.6) mg/dL Magnesium 2.2 (1.5-2.6) mg/dL Total Bilirubin 0.5 (0.1-1.5) mg/dL Direct Bilirubin 0.1 (0.0-0.5) mg/dL AST 26 (12-35) U/L ALT 13 (4-35) U/L Alkaline Phosphatase 83 (40-150) U/L Troponin I (0.01-0.04) ng/mL C-Reactive Protein 0.7 (0.5-1.0) mg/dL NT-Pro-B Natriuret Pep 86 (0-450) PG/mL Total Protein 7.0 (6.0-8.3) g/dL Albumin 4.0 (3.3-5.0) g/dL Procalcitonin Urine Color (Yellow) Urine Appearance (Clear) Urine pH (5.0-8.5) Ur Specific [place] (1.000-1.030) Urine Protein (Negative) Urine Glucose (UA) (Negative) Urine Ketones (Negative) Urine Blood (Negative) Urine Nitrite (Negative) Urine Bilirubin (Negative) Urine Urobilinogen (0.2-1.0) Ur Leukocyte Esterase (Negative) Urine RBC (0-2) Urine WBC (0-5) Ur Squamous Epith Cells (None-Few) Urine Bacteria (None) Urine Opiates Screen (Negative) Ur Oxycodone Screen (Negative) Urine Methadone Screen (Negative) Ur Propoxyphene Screen (Negative) Ur Barbiturates Screen (Negative) U Tricyclic Antidepress (Negative) Ur Phencyclidine Scrn (Negative) Ur Amphetamines Screen (Negative) U Methamphetamines Scrn (Negative) U Benzodiazepines Scrn (Negative) Urine Cocaine Screen (Negative) U Marijuana (THC) Screen (Negative) Ur Drug Screen Comment SARS-CoV-2 (PCR) (Negative) Influenza Type A (PCR) (Negative) Influenza Type B (PCR) (Negative) POC Troponin I (0.01-0.04) ng/ml 05/10/22 05/10/22 05/10/22 Range/Units 05:00 05:00 05:00 WBC (4.50-11.00) K/uL RBC (4.00-5.20) m/uL Hgb (12.0-16.0) gm/dL Hct (33.0-51.0) % MCV (80-100) fL MCH (26-34) pg MCHC (32-36) gm/dL RDW Coeff of [place]ais (11.5-15.5) % Plt Count (140-440) K/uL Neut % (Auto) (42.0-72.0) % Lymph % (Auto) (20-44) % [place] % (Auto) (0.0-11.0) % Eos % (Auto) (0.0-7.0) % Baso % (Auto) (0.0-3.0) % Neut # (Auto) (1.7-7.0) K/uL Lymph # (Auto) (0.90-2.90) K/uL [place] # (Auto) (0.00-0.90) K/UL Eos # (Auto) (0.00-0.50) K/uL Baso # (Auto) (0.00-0.30) K/uL Abs Immat Gran (auto) (0.00-0.30) K/uL D-Dimer Quant (PE/DVT) 2.47 H (0.00-0.50) ug/ml VBG pH (7.32-7.43) VBG pCO2 (40-50) mmHG VBG pO2 (25-47) mmHG VBG HCO3 (21-28) mmol/L Sodium (135-149) mmol/L Potassium (3.6-5.1) mmol/L Chloride (96-114) mmol/L Carbon Dioxide (20-32) mmol/L BUN (7-30) mg/dL Creatinine (0.5-1.5) mg/dL Estimated GFR ml/min Glucose (60-115) mg/dL Venous Lactic Acid (Serial Order) Calcium (8.4-10.6) mg/dL Magnesium (1.5-2.6) mg/dL Total Bilirubin (0.1-1.5) mg/dL Direct Bilirubin (0.0-0.5) mg/dL AST (12-35) U/L ALT (4-35) U/L Alkaline Phosphatase (40-150) U/L Troponin I < 0.01 L (0.01-0.04) ng/mL C-Reactive Protein (0.5-1.0) mg/dL NT-Pro-B Natriuret Pep (0-450) PG/mL Total Protein (6.0-8.3) g/dL Albumin (3.3-5.0) g/dL Procalcitonin Cancelled Urine Color (Yellow) Urine Appearance (Clear) Urine pH (5.0-8.5) Ur Specific [place] (1.000-1.030) Urine Protein (Negative) Urine Glucose (UA) (Negative) Urine Ketones (Negative) Urine Blood (Negative) Urine Nitrite (Negative) Urine Bilirubin (Negative) Urine Urobilinogen (0.2-1.0) Ur Leukocyte Esterase (Negative) Urine RBC (0-2) Urine WBC (0-5) Ur Squamous Epith Cells (None-Few) Urine Bacteria (None) Urine Opiates Screen (Negative) Ur Oxycodone Screen (Negative) Urine Methadone Screen (Negative) Ur Propoxyphene Screen (Negative) Ur Barbiturates Screen (Negative) U Tricyclic Antidepress (Negative) Ur Phencyclidine Scrn (Negative) Ur Amphetamines Screen (Negative) U Methamphetamines Scrn (Negative) U Benzodiazepines Scrn (Negative) Urine Cocaine Screen (Negative) U Marijuana (THC) Screen (Negative) Ur Drug Screen Comment SARS-CoV-2 (PCR) (Negative) Influenza Type A (PCR) (Negative) Influenza Type B (PCR) (Negative) POC Troponin I 0.00 L (0.01-0.04) ng/ml 05/10/22 05/10/22 05/10/22 Range/Units 05:00 05:08 05:22 WBC (4.50-11.00) K/uL RBC (4.00-5.20) m/uL Hgb (12.0-16.0) gm/dL Hct (33.0-51.0) % MCV (80-100) fL MCH (26-34) pg MCHC (32-36) gm/dL RDW Coeff of [place] (11.5-15.5) % Plt Count (140-440) K/uL Neut % (Auto) (42.0-72.0) % Lymph % (Auto) (20-44) % [place] % (Auto) (0.0-11.0) % Eos % (Auto) (0.0-7.0) % Baso % (Auto) (0.0-3.0) % Neut # (Auto) (1.7-7.0) K/uL Lymph # (Auto) (0.90-2.90) K/uL [place] # (Auto) (0.00-0.90) K/UL Eos # (Auto) (0.00-0.50) K/uL Baso # (Auto) (0.00-0.30) K/uL Abs Immat Gran (auto) (0.00-0.30) K/uL D-Dimer Quant (PE/DVT) (0.00-0.50) ug/ml VBG pH 7.468 H (7.32-7.43) VBG pCO2 40 (40-50) mmHG VBG pO2 37.3 (25-47) mmHG VBG HCO3 28 (21-28) mmol/L Sodium (135-149) mmol/L Potassium (3.6-5.1) mmol/L Chloride (96-114) mmol/L Carbon Dioxide (20-32) mmol/L BUN (7-30) mg/dL Creatinine (0.5-1.5) mg/dL Estimated GFR ml/min Glucose (60-115) mg/dL Venous Lactic Acid (Serial Order) Calcium (8.4-10.6) mg/dL Magnesium (1.5-2.6) mg/dL Total Bilirubin (0.1-1.5) mg/dL Direct Bilirubin (0.0-0.5) mg/dL AST (12-35) U/L ALT (4-35) U/L Alkaline Phosphatase (40-150) U/L Troponin I (0.01-0.04) ng/mL C-Reactive Protein (0.5-1.0) mg/dL NT-Pro-B Natriuret Pep (0-450) PG/mL Total Protein (6.0-8.3) g/dL Albumin (3.3-5.0) g/dL Procalcitonin Urine Color Yellow (Yellow) Urine Appearance Clear (Clear) Urine pH 5.5 (5.0-8.5) Ur Specific [place] 1.020 (1.000-1.030) Urine Protein 1+ A (Negative) Urine Glucose (UA) Negative (Negative) Urine Ketones Negative (Negative) Urine Blood Negative (Negative) Urine Nitrite Negative (Negative) Urine Bilirubin Negative (Negative) Urine Urobilinogen 0.2 (0.2-1.0) Ur Leukocyte Esterase Negative (Negative) Urine RBC 0-2 (0-2) Urine WBC 2-5 (0-5) Ur Squamous Epith Cells None (None-Few) Urine Bacteria Moderate A (None) Urine Opiates Screen (Negative) Ur Oxycodone Screen (Negative) Urine Methadone Screen (Negative) Ur Propoxyphene Screen (Negative) Ur Barbiturates Screen (Negative) U Tricyclic Antidepress (Negative) Ur Phencyclidine Scrn (Negative) Ur Amphetamines Screen (Negative) U Methamphetamines Scrn (Negative) U Benzodiazepines Scrn (Negative) Urine Cocaine Screen (Negative) U Marijuana (THC) Screen (Negative) Ur Drug Screen Comment SARS-CoV-2 (PCR) Negative SARS-CoV-2 (Negative) Influenza Type A (PCR) Negative PCR FLU A (Negative) Influenza Type B (PCR) Negative PCR FLU B (Negative) POC Troponin I (0.01-0.04) ng/ml 05/10/22 Range/Units 05:22 WBC (4.50-11.00) K/uL RBC (4.00-5.20) m/uL Hgb (12.0-16.0) gm/dL Hct (33.0-51.0) % MCV (80-100) fL MCH (26-34) pg MCHC (32-36) gm/dL RDW Coeff of [place] (11.5-15.5) % Plt Count (140-440) K/uL Neut % (Auto) (42.0-72.0) % Lymph % (Auto) (20-44) % [place] % (Auto) (0.0-11.0) % Eos % (Auto) (0.0-7.0) % Baso % (Auto) (0.0-3.0) % Neut # (Auto) (1.7-7.0) K/uL Lymph # (Auto) (0.90-2.90) K/uL [place] # (Auto) (0.00-0.90) K/UL Eos # (Auto) (0.00-0.50) K/uL Baso # (Auto) (0.00-0.30) K/uL Abs Immat Gran (auto) (0.00-0.30) K/uL D-Dimer Quant (PE/DVT) (0.00-0.50) ug/ml VBG pH (7.32-7.43) VBG pCO2 (40-50) mmHG VBG pO2 (25-47) mmHG VBG HCO3 (21-28) mmol/L Sodium (135-149) mmol/L Potassium (3.6-5.1) mmol/L Chloride (96-114) mmol/L Carbon Dioxide (20-32) mmol/L BUN (7-30) mg/dL Creatinine (0.5-1.5) mg/dL Estimated GFR ml/min Glucose (60-115) mg/dL Venous Lactic Acid (Serial Order) Calcium (8.4-10.6) mg/dL Magnesium (1.5-2.6) mg/dL Total Bilirubin (0.1-1.5) mg/dL Direct Bilirubin (0.0-0.5) mg/dL AST (12-35) U/L ALT (4-35) U/L Alkaline Phosphatase (40-150) U/L Troponin I (0.01-0.04) ng/mL C-Reactive Protein (0.5-1.0) mg/dL NT-Pro-B Natriuret Pep (0-450) PG/mL Total Protein (6.0-8.3) g/dL Albumin (3.3-5.0) g/dL Procalcitonin Urine Color (Yellow) Urine Appearance (Clear) Urine pH (5.0-8.5) Ur Specific [place] (1.000-1.030) Urine Protein (Negative) Urine Glucose (UA) (Negative) Urine Ketones (Negative) Urine Blood (Negative) Urine Nitrite (Negative) Urine Bilirubin (Negative) Urine Urobilinogen (0.2-1.0) Ur Leukocyte Esterase (Negative) Urine RBC (0-2) Urine WBC (0-5) Ur Squamous Epith Cells (None-Few) Urine Bacteria (None) Urine Opiates Screen POSITIVE A* (Negative) Ur Oxycodone Screen Negative (Negative) Urine Methadone Screen POSITIVE A* (Negative) Ur Propoxyphene Screen Negative (Negative) Ur Barbiturates Screen Negative (Negative) U Tricyclic Antidepress Negative (Negative) Ur Phencyclidine Scrn Negative (Negative) Ur Amphetamines Screen Negative (Negative) U Methamphetamines Scrn Negative (Negative) U Benzodiazepines Scrn Negative (Negative) Urine Cocaine Screen Negative (Negative) U Marijuana (THC) Screen Negative (Negative) Ur Drug Screen Comment See Note SARS-CoV-2 (PCR) (Negative) Influenza Type A (PCR) (Negative) Influenza Type B (PCR) (Negative) POC Troponin I (0.01-0.04) ng/ml ECG Data Attestation: I personally reviewed and interpreted this ECG as follows: (Sinus tachycardia rate of 110) Discharge Plan Discharge Clinical Impression: Hypoxia, Altered mental status, Pneumonia
--- NOTE | 2022-05-10 04:40 | CRLHL7_ITS ---
For Patients: As a result of the Cures Act, medical imaging exams and procedure reports are released immediately into your electronic medical record. You may view this report before your referring provider. If you have questions, please contact your health care provider. Indication: Hypoxia, recent pneumonia Technique: Chest 1 view Comparison: July 25, 2021 Findings/Impression: Stable cardiomediastinal silhouette. Increased patchy opacities in the mid and lower right lung left base concerning for new pneumonia. No pneumothorax or effusion. No acute osseous abnormality. Dictated by Ina Tirado MD @ 05/10/2022 5:30:59 AM (Electronically Signed)
[2022-05-10 05:08] LABS: Lactate Sepsis w/Reflex* 1.6 mmol/L (0.5-1.9)
[2022-05-10] MEDS: 0.9 % SODIUM CHLORIDE 500 ML 500 ML IV ×2 (05:10→07:16)
[2022-05-10] MEDS: ALBUTEROL SULFATE 2.5 MG/3 ML VIAL.NEB NEB ×2 (05:10→08:10)
[2022-05-10 05:11] LABS: Basophils Absolute Auto 0.01 K/uL (0.00-0.30); Basophils Percent Auto 0.1 % (0.0-3.0); Eosinophils Absolute Auto 0.04 K/uL (0.00-0.50); Eosinophils Percent Auto 0.4 % (0.0-7.0); Hematocrit 41.2 % (33.0-51.0); Hemoglobin* 13.5 gm/dL (12.0-16.0); Immature Granulocytes Abs Auto 0.03 K/uL (0.00-0.30); Lymphocytes Percent Auto 11.1 % (20-44); Mean Corpuscular HGB Conc 33 gm/dL (32-36); Mean Corpuscular Hemoglobin 30 pg (26-34); Mean Corpuscular Volume 91 fL (80-100); Monocytes Percent Auto 4.4 % (0.0-11.0); Neutrophils Percent Auto 83.7 % (42.0-72.0); Platelet Count* 176 K/uL (140-440); RDW Coefficient of Variation % 13.8 % (11.5-15.5); Red Blood Count 4.55 m/uL (4.00-5.20); White Blood Count* 10.89 K/uL (4.50-11.00)
[2022-05-10 05:12] LABS: HCO3 VBG 28 mmol/L (21-28); PCO2 VBG 40 mmHG (40-50); PO2 VBG 37.3 mmHG (25-47); pH VBG 7.468 (7.32-7.43)
[2022-05-10 05:14] LABS: Slide Review Reflex No
[2022-05-10 05:22] LABS: Chloride* 99 mmol/L (96-114)
[2022-05-10 05:23] LABS: Potassium* 4.2 mmol/L (3.6-5.1); Sodium* 138 mmol/L (135-149)
[2022-05-10 05:25] LABS: Estimated Glomerular Filt Rate 56 ml/min
[2022-05-10 05:26] LABS: Alanine Aminotransferase* 13 U/L (4-35); Alkaline Phosphatase* 83 U/L (40-150); Aspartate Amino Transferase* 26 U/L (12-35); Bilirubin Direct* 0.1 mg/dL (0.0-0.5); Bilirubin Total* 0.5 mg/dL (0.1-1.5); Blood Urea Nitrogen* 17 mg/dL (7-30); Calcium* 8.8 mg/dL (8.4-10.6); Carbon Dioxide* 28 mmol/L (20-32); Glucose* 219 mg/dL (60-115); Magnesium* 2.2 mg/dL (1.5-2.6)
[2022-05-10 05:29] LABS: C Reactive Protein* 0.7 mg/dL (0.5-1.0)
[2022-05-10 05:30] LABS: Appearance Urine Clear (Clear); Bilirubin Urine Negative (Negative); Blood Urine Negative (Negative); Color Urine Yellow (Yellow); Glucose Urine Negative (Negative); Ketones Urine Negative (Negative); Leukocyte Esterase Urine Negative (Negative); Nitrite Urine Negative (Negative); Protein Urine 1+ (Negative); Urobilinogen Urine 0.2 (0.2-1.0); pH Urine 5.5 (5.0-8.5)
[2022-05-10 05:30] LABS: D Dimer Quantitative* 2.47 ug/ml (0.00-0.50)
[2022-05-10 05:34] LABS: NT Pro B Type NatriureticPept* 86 PG/mL (0-450)
[2022-05-10 05:40] LABS: Amphetamine Screen Urine Negative (Negative); Barbiturate Screen Urine Negative (Negative); Benzodiazepines Screen Urine Negative (Negative); Cannabinoid Screen Urine Negative (Negative); Cocaine Screen Urine Negative (Negative); Methamphetamines Screen Urine Negative (Negative); Oxycodone Screen Urine Negative (Negative); Phencyclidine Screen Urine Negative (Negative); Tricyclic Antidepressant Urine Negative (Negative)
[2022-05-10 05:43] LABS: Bacteria Urine Moderate; RBC Urine 0-2 (0-2)
[2022-05-10 05:46] LABS: Methadone Screen Urine POSITIVE (Negative); Opiate Screen Urine POSITIVE (Negative)
--- NOTE | 2022-05-10 05:46 | ED.NURSE ---
call from lab ua opiates & methadone, unable to run procalcitonin, dr titus notified.
[2022-05-10 05:48] LABS: Troponin I* < 0.01 ng/mL (0.01-0.04)
[2022-05-10 05:53] LABS: PCR FLU A Negative PCR FLU A (Negative); PCR FLU B Negative PCR FLU B (Negative)
--- NOTE | 2022-05-10 06:09 | ED.NURSE ---
latex and pcn allergies are not in [facility] paperwork. pt daughter states they are Pt allergies.
[2022-05-10 06:16] LABS: SARS PCR* Negative SARS-CoV-2 (Negative)
--- NOTE | 2022-05-10 06:34 | CRLHL7_ITS ---
For Patients: As a result of the Century Cures Act, medical imaging exams and procedure reports are released immediately into your electronic medical record. You may view this report before your referring provider. If you have questions, please contact your health care provider. INDICATION: SOB, ELEVATED D-DIMER COMPARISON: 06/15/2021 TECHNIQUE: CT volumetric acquisition was performed of the thorax during intravenous infusion of 95 cc Isovue 370 nonionic intravenous contrast. Please note that all CT scans at this facility use dose modulation, iterative reconstruction, and/or weight-based dosing when appropriate to reduce radiation dose to as low as reasonably achievable. FINDINGS: The CT images are of acceptable quality and demonstrate normal uniform vascular enhancement within the pulmonary arteries. There are no suspicious filling defects which would indicate pulmonary thromboemboli. There is no evidence of pleural or pericardial fluid. Atherosclerotic disease within the aorta. No aneurysm. Upper limits of normal cardiac size. There is no evidence of lymphadenopathy within the central mediastinum or within either axilla. On lung window settings, there is no evidence of pneumothorax. COPD/emphysema. Parenchymal infiltrates within the right lower lobe and right upper lobe. Stable nodular like densities superior segment left lower lobe. Status post cholecystectomy. Biliary tree appears similar no fracture. IMPRESSION: No evidence of pulmonary thromboembolism. Right-sided infiltrates. Please note that all CT scans at this facility use dose modulation, iterative reconstruction, and/or weight-based dosing when appropriate to reduce radiation dose to as low as reasonably achievable. Dictated by Power Oconnell MD @ 05/10/2022 7:53:51 AM (Electronically Signed)
--- NOTE | 2022-05-10 07:00 | ED.NURSE ---
dr titus notified o2 sats on oxymask and bps, will admin second ns bolus after imaging
[2022-05-10] MEDS: cefTRIAXone 1 GM in 0.9 % SODIUM CHLORIDE Mini-bag 100 ML IVPB (07:15)
[2022-05-10] MEDS: KETOROLAC 15 MG/ML inj IVP (07:17)
--- NOTE | 2022-05-10 07:33 | ED.NURSE ---
Pt states she is allergic to azithromycin, causes her to vomit. Dr Chaney updated. May try IV. Pt agreeable.
--- NOTE | 2022-05-10 07:52 | ED.NURSE ---
RT in to see pt.
--- NOTE | 2022-05-10 08:38 | ED.NURSE ---
Report to PILAR Damon on [facility]
[2022-05-10] MEDS: AZITHROMYCIN 500 MG in 0.9 % SODIUM CHLORIDE 250 ml 250 ML 255 MG IVPB (08:42)
--- NOTE | 2022-05-10 08:49 | RESP.RT ---
Patient had arrived early am with EMS, DuoNeb in route, Albuterol nebulizer treatment later around 05:00 am. arrived on non-rebreather, was placed on simple mask. Patient is on 10 Lpm simple mask, SaO2 90%, respiratory rate 18-22/minute, breathing regular/easy, moist upper air noise. Bilateral breath sounds coarse rales/crackles inspiratory/expiratory all lung joya, with right lung field with expiratory wheeze noted. Albuterol treatment given with small volume nebulizer, mask, and Oxygen flow meter at 7 Lpm. Patient tolerated well, Heart rate stable at 110/minute. Post treatment breath sounds remain coarse, with right lung joya wheeze absent. Patient has fair congested cough, clearing secretions, swallowed them. Patient has home Oxygen, Home CPAP with Oxygen bleed in, home nebulizer treatments, history of smoking. will continue to follow.
--- NOTE | 2022-05-10 09:48 | PM.IMHP1 ---
Hospitalist- H&P: HPI History of Present Illness Time Seen by Provider: 09:30 Date Seen: 05/10/22 Chief complaint: short of Breath Narrative: Kianna Albright is a 82 year old female Started coughing Wednesday (2 days ago), junky cough. 2:30am today Zane (boyfriend) called in Martín dtgregorio who lives in basement. Not breathing well, confused. Seemed dehydrated. Not coughing as much today, breathing more crackly rather than junky. 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 Chills this am. No fever (doesn't usually run fever.) Recurrent pneumonia, last about 6 months ago. UTI frequently, most recent treated with cefpodoxine 04/11/22 for 10 days. Pulm fibrosis and COPD Recently treated PCP: Michael Sandy MD Review of Systems Status of ROS: Reports: 10 or more systems reviewed and unremarkable except as noted in History and below (obtained from boyfriend and patient's daughter) and unobtainable due to medical condition PFSH FORMERLY [facility], 1928–1983 Medical History (Updated 05/10/22 @ 15:37 by Angelica Bowles MD) Acute insomnia Allergic rhinitis CAD (coronary artery disease) Chronic kidney disease, stage 3b Chronic pain Constipation Controlled substance agreement signed COPD (chronic obstructive pulmonary disease) Depression Gastroparesis GERD (gastroesophageal reflux disease) Gouty arthropathy Hereditary and idiopathic peripheral neuropathy Hypercalcemia Hypertension Hypertriglyceridemia Hypokalemia Hypothyroidism Myocardial infarction Neurogenic bladder Neuropathy HUGO (obstructive sleep apnea) Peripheral autonomic neuropathy due to diabetes mellitus Peripheral vascular disease Pneumonia Pulmonary fibrosis Pulmonary nodule Slow transit constipation Stroke TIA (transient ischemic attack) Type 2 diabetes mellitus with complication, with long-term current use of insulin Surgical History (Updated 05/10/22 @ 15:22 by Angelica Bowles MD) H/O blepharoplasty H/O colonoscopy H/O foot surgery H/O neck surgery H/O: hysterectomy History of cholecystectomy Hx of appendectomy Hx of repair of rotator cuff Hx of tonsillectomy S/P bunionectomy S/P left rotator cuff repair Family History (Updated 05/10/22 @ 15:24 by Angelica Bowles MD) Maternal Grandfather Pancreatic cancer Aunt Breast cancer Uncle Lung cancer Aunt Breast cancer Father Tuberculosis Coronary artery disease Social History (Updated 05/10/22 @ 10:00 by Angelica Bowles MD) Narrative: Lives independently with her boyfriend, aZne, and her daughter, Martín, who lives in the basement. Quit tobacco 1986. No EtOH. Denies recreational drug use. Wants to be DNR/DNI. Highest level of school completed/degree received: some college, no degree Smoking Status: Former smoker Do you use any of these nicotine containing products: None Second hand tobacco smoke exposure: No How often do you have a drink containing alcohol: never How often do you have six or more drinks on one occasion: Never AUDIT-C Alcohol total score: 0 Non-prescribed substance use: denies use Caffeine: Yes service: No Meds Home Medications and Allergies Home Medications Medication Instructions Recorded Confirmed Type allopurinol 300 mg tablet 150 mg PO DAILY 04/04/22 05/10/22 History clopidogrel 75 mg tablet 75 mg PO DAILY 04/04/22 05/10/22 History furosemide 20 mg tablet 20 mg PO DAILY 04/04/22 05/10/22 History gabapentin 300 mg capsule 600 mg PO DAILY 04/04/22 05/10/22 History hydromorphone 8 mg tablet 8 mg PO QAM 04/04/22 05/10/22 History insulin aspart U-100 100 unit/mL 10 unit subcut DAILY@04/04/22 05/10/22 History (3 mL) subcutaneous pen (Novolog Flexpen U-100 Insulin aspart) insulin degludec 100 unit/mL (3 26 unit subcut HS 04/04/22 05/10/22 History mL) subcutaneous pen (Tresiba FlexTouch U-100 insulin) loperamide 2 mg capsule 2 mg PO BID PRN 04/04/22 05/10/22 History methadone 5 mg tablet 5 mg PO QAM 04/04/22 05/10/22 History rosuvastatin 20 mg tablet 20 mg PO HS 04/04/22 05/10/22 History semaglutide 1 mg/dose (4 mg/3 mL) 1 mg subcut TH@04/04/22 05/10/22 History subcutaneous pen injector (Ozempic) tamsulosin 0.4 mg capsule 0.4 mg PO DAILY 04/04/22 05/10/22 History colchicine 0.6 mg tablet 0.6 mg PO BID PRN 04/11/22 05/10/22 History BIOTENE DRY MOUTH LOZENGES 1 ea mucous membrane QID PRN 05/10/22 05/10/22 History cholecalciferol (vitamin D3) 50 4,000 unit PO DAILY 05/10/22 05/10/22 History mcg (2,000 unit) tablet (Vitamin D3) cyclobenzaprine 5 mg tablet 5 mg PO Q8H PRN 05/10/22 05/10/22 History fexofenadine 180 mg tablet 180 mg PO DAILY 05/10/22 05/10/22 History (Aller-ease) hydromorphone 8 mg tablet 16 mg PO HS 05/10/22 05/10/22 History (Dilaudid) insulin aspart U-100 100 unit/mL 20 unit subcut DAILY@12 05/10/22 05/10/22 History (3 mL) subcutaneous pen (Novolog Flexpen U-100 Insulin aspart) insulin aspart U-100 100 unit/mL 22 unit subcut DAILY@18 05/10/22 05/10/22 History (3 mL) subcutaneous pen (Novolog Flexpen U-100 Insulin aspart) levothyroxine 88 mcg tablet 88 mcg PO DAILY 05/10/22 05/10/22 History methadone 5 mg tablet 10 mg PO HS 05/10/22 05/10/22 History naloxone 4 mg/actuation nasal 4 mg intranasal DIRECTED PRN 05/10/22 05/10/22 History spray (Narcan) potassium chloride 20 mEq 20 meq PO BIDWM 05/10/22 05/10/22 History tablet,extended release(part/cryst) (Klor-Con M) prochlorperazine maleate 10 mg 10 mg PO Q6H PRN 05/10/22 05/10/22 History tablet sennosides 8.6 mg-docusate sodium 2 tab-cap PO BID 05/10/22 05/10/22 History 50 mg tablet (Senna-S) vitamin A-vitamin C-vit E-min 1 tab PO DAILY 05/10/22 05/10/22 History tablet (Ocutabs tablet) Allergies Allergy/AdvReac Type Severity Reaction Status Date / Time cortisone Allergy Severe Anaphylaxis Verified 05/10/22 06:03 prednisone Allergy Severe Verified 05/10/22 06:03 amoxicillin Allergy Intermediate Verified 05/10/22 06:03 cephalexin [From Keflex] Allergy Intermediate Diarrhea Verified 05/10/22 06:03 doxycycline Allergy Intermediate Verified 05/10/22 06:03 duloxetine [From Cymbalta] Allergy Intermediate Verified 05/10/22 06:03 escitalopram [From Lexapro] Allergy Intermediate sleep Verified 05/10/22 06:03 disturbance febuxostat Allergy Intermediate vomitting Verified 05/10/22 06:03 latex Allergy Intermediate Verified 05/10/22 06:11 lisinopril Allergy Intermediate Verified 05/10/22 06:03 losartan [From Cozaar] Allergy Intermediate Verified 05/10/22 06:03 nitrofurantoin Allergy Intermediate Verified 05/10/22 06:03 [From Macrobid] pregabalin [From Lyrica] Allergy Intermediate Nausea Verified 05/10/22 06:03 propoxyphene Allergy Intermediate angioedema Verified 05/10/22 06:03 ramelteon [From Rozerem] Allergy Intermediate Verified 05/10/22 06:03 sulfamethoxazole Allergy Intermediate Verified 05/10/22 06:03 [From Bactrim] tramadol [From Ultram] Allergy Intermediate Verified 05/10/22 06:03 trimethoprim [From Bactrim] Allergy Intermediate Verified 05/10/22 06:03 venlafaxine [From Effexor] Allergy Intermediate Verified 05/10/22 06:03 zolpidem [From Ambien] Allergy Intermediate Confusion Verified 05/10/22 06:03 acetaminophen [From Vicodin] Allergy Mild Nausea Verified 05/10/22 06:03 hydrocodone [From Vicodin] Allergy Mild Nausea Verified 05/10/22 06:03 aspirin Allergy Unknown Verified 05/10/22 06:03 clindamycin Allergy Unknown Verified 05/10/22 06:03 ipratropium [From Atrovent] Allergy Unknown Verified 05/10/22 06:03 Penicillins Allergy Unknown Verified 05/10/22 06:11 pramipexole Allergy Unknown Verified 05/10/22 06:03 trazodone Allergy Unknown Verified 05/10/22 06:03 adhesive tape Allergy huge Verified 05/10/22 06:07 blisters Aspirin-sod Bicarb-citric Allergy Uncoded 05/10/22 06:07 Acid Exam Narrative: Exam Narrative: General: Somnolent, awakens to voice during the initial part of my interview. About alf through my interview and exam, she woke up, and became alert and oriented times 3. HEENT: Normocephalic atraumatic, pupils equally round and reactive to light and accommodation. Oropharynx clear. Mucous membranes are very dry, tongue parched. No cervical lymphadenopathy, thyromegaly or carotid bruits. No JVD. Cardiovascular: Mildly tachycardic. No murmurs, gallops, or rubs. Chest: No increased work of breathing, on OxyMask. Rhonchi in right lower lung field. No wheezes. Abdomen: Bowel sounds present. Soft, nondistended, nontender. No hepatosplenomegaly or masses. Extremities: No edema, no cyanosis or clubbing. Skin: No jaundice, no pallor, no rashes. Const: Vital Signs, click to edit/add: Vital Signs - 24 hr 05/10/22 04:38 05/10/22 04:40 05/10/22 04:40 Temperature 100.7 F H Pulse Rate Pulse Rate [Left P ulse Oximeter] 111 H Respiratory Rate 24 Blood Pressure Blood Pressure [Ri ght Upper Arm] 159/71 H Pulse Oximetry 94 94 Oxygen Delivery Me thod Non Rebreather Mas k Non Rebreather Mas k Oxygen Flow Rate 10 10 Fraction of Inspir ed Oxygen 05/10/22 05:25 05/10/22 05:00 05/10/22 05:10 Temperature Pulse Rate Pulse Rate [Left P ulse Oximeter] 108 H 102 H Respiratory Rate 20 20 Blood Pressure Blood Pressure [Ri ght Upper Arm] 153/64 H 159/63 H Pulse Oximetry 98 84 L 95 Oxygen Delivery Me thod Oxygen Flow Rate Fraction of Inspir ed Oxygen 05/10/22 05:20 05/10/22 05:40 05/10/22 06:00 Temperature Pulse Rate Pulse Rate [Left P ulse Oximeter] 103 H 116 H 114 H Respiratory Rate 20 20 20 Blood Pressure Blood Pressure [Ri ght Upper Arm] 162/63 H 164/77 H 158/62 H Pulse Oximetry 99 89 90 Oxygen Delivery Me thod OxyMask OxyMask Oxygen Flow Rate Fraction of Inspir ed Oxygen 05/10/22 06:10 05/10/22 06:20 05/10/22 06:40 Temperature Pulse Rate Pulse Rate [Left P ulse Oximeter] 111 H 111 H 111 H Respiratory Rate 20 20 20 Blood Pressure Blood Pressure [Ri ght Upper Arm] 129/60 112/52 L 111/51 L Pulse Oximetry 89 89 88 Oxygen Delivery Me thod OxyMask OxyMask OxyMask Oxygen Flow Rate Fraction of Inspir ed Oxygen 05/10/22 07:17 05/10/22 06:50 05/10/22 07:00 Temperature 99.7 F H Pulse Rate Pulse Rate [Left P ulse Oximeter] 111 H Respiratory Rate 22 Blood Pressure Blood Pressure [Ri ght Upper Arm] 101/49 L 113/52 L Pulse Oximetry 87 L Oxygen Delivery Me thod OxyMask Oxygen Flow Rate Fraction of Inspir ed Oxygen 05/10/22 07:20 05/10/22 07:30 05/10/22 08:00 Temperature 99.3 F Pulse Rate Pulse Rate [Left P ulse Oximeter] 111 H 99 Respiratory Rate 15 20 22 Blood Pressure Blood Pressure [Ri ght Upper Arm] 116/67 128/70 Pulse Oximetry 90 89 90 Oxygen Delivery Me thod OxyMask OxyMask Aerosol Mask Oxygen Flow Rate 10 Fraction of Inspir ed Oxygen 05/10/22 07:40 05/10/22 07:41 05/10/22 07:45 Temperature Pulse Rate 110 H 110 H 110 H Pulse Rate [Left P ulse Oximeter] Respiratory Rate Blood Pressure 119/55 L Blood Pressure [Ri ght Upper Arm] Pulse Oximetry 90 89 89 Oxygen Delivery Me thod Oxygen Flow Rate Fraction of Inspir ed Oxygen 05/10/22 07:51 05/10/22 08:00 05/10/22 08:02 Temperature Pulse Rate 110 H 110 H 109 H Pulse Rate [Left P ulse Oximeter] Respiratory Rate Blood Pressure 98/52 L 102/53 L Blood Pressure [Ri ght Upper Arm] Pulse Oximetry 87 L 88 89 Oxygen Delivery Me thod Oxygen Flow Rate Fraction of Inspir ed Oxygen 05/10/22 08:12 05/10/22 08:15 05/10/22 08:22 Temperature Pulse Rate 109 H 112 H 111 H Pulse Rate [Left P ulse Oximeter] Respiratory Rate Blood Pressure 95/52 L 106/48 L Blood Pressure [Ri ght Upper Arm] Pulse Oximetry 91 89 89 Oxygen Delivery Me thod Oxygen Flow Rate Fraction of Inspir ed Oxygen 05/10/22 08:30 05/10/22 08:31 05/10/22 08:40 Temperature Pulse Rate 111 H 111 H Pulse Rate [Left P ulse Oximeter] Respiratory Rate 18 Blood Pressure 108/49 L Blood Pressure [Ri ght Upper Arm] Pulse Oximetry 90 89 90 Oxygen Delivery Me thod Aerosol Mask Oxygen Flow Rate 10 Fraction of Inspir ed Oxygen 05/10/22 09:37 Temperature Pulse Rate Pulse Rate [Left P ulse Oximeter] Respiratory Rate Blood Pressure Blood Pressure [Ri ght Upper Arm] Pulse Oximetry Oxygen Delivery Me thod Oxygen Flow Rate 30 Fraction of Inspir ed Oxygen 100 Hospitalist - H&P: Result Labs Labs: Short CBC 05/10/22 Range/Units 05:00 WBC 10.89 (4.50-11.00) K/uL Hgb 13.5 (12.0-16.0) gm/dL Hct 41.2 (33.0-51.0) % Plt Count 176 (140-440) K/uL BMP 05/10/22 05:00 Sodium 138 Potassium 4.2 Chloride 99 Carbon Dioxide 28 BUN 17 Creatinine 1.0 Glucose 219 H Calcium 8.8 Cardiac Enzymes 05/10/22 Range/Units 05:00 Troponin I < 0.01 L (0.01-0.04) ng/mL Liver Function 05/10/22 Range/Units 05:00 Total Bilirubin 0.5 (0.1-1.5) mg/dL Direct Bilirubin 0.1 (0.0-0.5) mg/dL AST 26 (12-35) U/L ALT 13 (4-35) U/L Alkaline Phosphatase 83 (40-150) U/L Albumin 4.0 (3.3-5.0) g/dL Urine 05/10/22 Range/Units 05:22 Urine Color Yellow (Yellow) Urine Appearance Clear (Clear) Urine pH 5.5 (5.0-8.5) Ur Specific [place] 1.020 (1.000-1.030) Urine Protein 1+ A (Negative) Urine Glucose (UA) Negative (Negative) Ordering Physician: Power Chaney MD Date of Service: 05/10/22 Procedure(s): XR chest 1V portable Accession Number(s): [id number] cc: Michael Sandy M.D.; Power Chaney MD~ For Patients: As a result of the Cures Act, medical imaging exams and procedure reports are released immediately into your electronic medical record. You may view this report before your referring provider. If you have questions, please contact your health care provider. Indication: Hypoxia, recent pneumonia Technique: Chest 1 view Comparison: July 25, 2021 Findings/Impression: Stable cardiomediastinal silhouette. Increased patchy opacities in the mid and lower right lung left base concerning for new pneumonia. No pneumothorax or effusion. No acute osseous abnormality. Dictated by Ina Tirado MD @ 05/10/2022 5:30:59 AM (Electronically Signed) Ordering Physician: Power Chaney MD Date of Service: 05/10/22 Procedure(s): CT chest w con Accession Number(s): [id number] cc: Michael Sandy M.D.; Pwoer Chaney MD~ For Patients: As a result of the Cures Act, medical imaging exams and procedure reports are released immediately into your electronic medical record. You may view this report before your referring provider. If you have questions, please contact your health care provider. INDICATION: SOB, ELEVATED D-DIMER COMPARISON: 06/15/2021 TECHNIQUE: CT volumetric acquisition was performed of the thorax during intravenous infusion of 95 cc Isovue 370 nonionic intravenous contrast. Please note that all CT scans at this facility use dose modulation, iterative reconstruction, and/or weight-based dosing when appropriate to reduce radiation dose to as low as reasonably achievable. FINDINGS: The CT images are of acceptable quality and demonstrate normal uniform vascular enhancement within the pulmonary arteries. There are no suspicious filling defects which would indicate pulmonary thromboemboli. There is no evidence of pleural or pericardial fluid. Atherosclerotic disease within the aorta. No aneurysm. Upper limits of normal cardiac size. There is no evidence of lymphadenopathy within the central mediastinum or within either axilla. On lung window settings, there is no evidence of pneumothorax. COPD/emphysema. Parenchymal infiltrates within the right lower lobe and right upper lobe. Stable nodular like densities superior segment left lower lobe. Status post cholecystectomy. Biliary tree appears similar no fracture. IMPRESSION: No evidence of pulmonary thromboembolism. Right-sided infiltrates. Please note that all CT scans at this facility use dose modulation, iterative reconstruction, and/or weight-based dosing when appropriate to reduce radiation dose to as low as reasonably achievable. Dictated by Power Oconnell MD @ 05/10/2022 7:53:51 AM (Electronically Signed) EKG 05/10/2022 4:30 a.m. Sinus tachycardia, heart rate 110 beats per minute, possible left atrial enlargement. Borderline EKG. Assessment and Plan Assessment and plan (1) Acute hypoxemic respiratory failure: Status: Acute Assessment and Plan: Start high-flow oxygen and titrate to keep oxygen saturations 88% due to history of COPD. (2) Pneumonia: Problem comment: Right-sided pneumonia Status: Acute Assessment and Plan: Multiple drug allergies. Continue ceftriaxone and azithromycin. (3) Sepsis: Problem comment: Soft BP, responded to fluid. Lactate not elevated. Status: Acute Assessment and Plan: Patient has multiple allergies to medications. She has infiltrates on CXR and notes that she has responded to ceftriaxone and azithromycin in the past when she has had severe pneumonia. Due to multiple allergies and patient preference, this regimen is started again. She is responding to IV fluids. If her condition worsens or BP drops and not responsive to fluid, then consider expanding coverage with Zosyn and vancomycin. Since she is on methadone, she is at risk for prolonged qt with addition of azithromycin. I have reviewed her EKG from admission and her QTC is 416 milliseconds. I will monitor her on telemetry and obtain an EKG in the morning to see if her QTC has changed. (4) Altered mental status: Status: Acute Assessment and Plan: Secondary to sepsis and dehydration, improving with hydration. (5) Dehydration: Status: Acute Assessment and Plan: Got 1 L of IV fluids in the emergency department, giving another L here. Patient is responding with both blood pressure and improved mentation. (6) Gastroparesis: Problem comment: Diagnosed with gastroparesis at [facility] 1990, This was around the time she was diagnosed with diabetes. Status: Chronic Assessment and Plan: Continue usual home medications. (7) Chronic kidney disease, stage 3b: Problem comment: Baseline Cr 0.9 Status: Chronic Assessment and Plan: Stable. (8) HUGO (obstructive sleep apnea): Problem comment: HUGO 06/05/2007 AHI-14.2 Uses CPAP Uses OXYGEN at night with CPAP and approximately 5-6 hours per day in addition. 04/07/2011 Status: Chronic Assessment and Plan: His home CPAP at night with oxygen bleed through (9) COPD (chronic obstructive pulmonary disease): Status: Chronic Assessment and Plan: Not currently in exacerbation. (10) Chronic pain: Status: Chronic Assessment and Plan: Continue current home medications and monitor for withdrawal since patient was unable to take her usual medications this morning. (11) CAD (coronary artery disease): Problem comment: Extensive left main and LAD calcification with at most moderate stenosis on coronary CT 05/2018 Status: Chronic Assessment and Plan: Stable. (12) Pulmonary fibrosis: Status: Chronic (13) Type 2 diabetes mellitus with complication, with long-term current use of insulin: Problem comment: 03/03/22 HgbA1C 6.6% Diabetes mellitus: Diagnosis in 1990 On insulin. On GLP-1 ( ozempic as of January 2021) Macrovascular: CAD, CVA/TIA, PVD: Yes - CVAs. See below. Hypertension: on medications but no MICHAEL (cough). Also note: was no cozaar - had diarrhea (see allergy list) Hyperlipidemia: was on statin, may have had muscle pains on simvastatin (it was stopped December 2012). On rosuva 10mg (update ) Microvascular: Retinopathy: No Last eye exam: with/in last 12 months - Yes. 07/15/21: mild diabetic retinopathy and early macular degernation Nephropathy: No Neuropathy: yes-severe. 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 Now improved with Fentanyl , Oxycontin, Oycodone + Gastroparesis Last foot exam: December 2017 - no monofilament sensation to very distal feet/toes at all, but sensation essentially normal in both proximal feet , just proximal to toes and proximally from there. * except right inner foot. No ulcers. +hammertoes. Callus on tip of right 1st toe. Soft skin. No lesions. ASA use: on plavix. Was on aggrenox in past ( update ) Status: Chronic Assessment and Plan: Continue her usual outpatient medications. She is now awake and hungry, able to eat. Plan VTE prophylaxis with SCDs and low dose nightly enoxaparin.
[2022-05-10] MEDS: LACTATED RINGERS 1000 ML 500 ML IV (09:57)
[2022-05-10] MEDS: PROCHLORPERAZINE 5 MG/ML VIAL IV (15:24)
--- NOTE | 2022-05-10 16:19 | RESP.RT ---
Goal tonight: wean oxygen on HFNC as patients tolerates
[2022-05-10] MEDS: POTASSIUM CHLORIDE 10 MEQ CAPSULE ER 20 MEQ PO (17:23)
[2022-05-10] MEDS: SENNOSIDES/DOCUSATE TABLET 2 TAB PO (22:11)
[2022-05-10] MEDS: METHADONE 5 MG TABLET 10 MG PO (22:12)
[2022-05-10] MEDS: ENOXAPARIN 40 MG/0.4 ML INJ SUBCUT (22:12)
[2022-05-10] MEDS: ROSUVASTATIN CALCIUM 10 MG TABLET 20 MG PO (22:12)
[2022-05-10] MEDS: HYDROmorphone 2 MG TABLET 16 MG PO (22:13)
[2022-05-11] VITALS (19 sets, daily range): BP systolic 104–139; BP diastolic 45–97; PULSE 82–93; RESP 20–22; TEMP 36.3–38; O2SAT 89–98
--- NOTE | 2022-05-11 06:16 | PC.NURSE ---
Shift note: HFNC O2 flow decreased from 100% to 60% overnight, pt maintain sats at 91-93%. No c/o SOB, no emesis during this shift, occasional cough with sputum that was not observed. Blood glucose in PM 277, Levemir administered per eMAR, at 0430 pt's BG is 69, OJ offered, BG recheked 72 and above in 10 min.
[2022-05-11] MEDS: LEVOTHYROXINE 88 MCG TABLET PO (06:38)
[2022-05-11] MEDS: cefTRIAXone 1 GM in 0.9 % SODIUM CHLORIDE Mini-bag 100 ML IVPB (06:41)
[2022-05-11] MEDS: AZITHROMYCIN 250 MG TABLET PO (06:41)
[2022-05-11 07:48] LABS: Basophils Absolute Auto 0.01 K/uL (0.00-0.30); Basophils Percent Auto 0.1 % (0.0-3.0); Eosinophils Absolute Auto 0.21 K/uL (0.00-0.50); Eosinophils Percent Auto 2.4 % (0.0-7.0); Hematocrit 35.5 % (33.0-51.0); Hemoglobin* 11.4 gm/dL (12.0-16.0); Immature Granulocytes Abs Auto 0.01 K/uL (0.00-0.30); Lymphocytes Percent Auto 17.1 % (20-44); Mean Corpuscular HGB Conc 32 gm/dL (32-36); Mean Corpuscular Hemoglobin 30 pg (26-34); Mean Corpuscular Volume 92 fL (80-100); Monocytes Percent Auto 6.6 % (0.0-11.0); Neutrophils Percent Auto 73.7 % (42.0-72.0); Platelet Count* 159 K/uL (140-440); RDW Coefficient of Variation % 14.1 % (11.5-15.5); Red Blood Count 3.86 m/uL (4.00-5.20); White Blood Count* 8.89 K/uL (4.50-11.00)
[2022-05-11 07:53] LABS: Slide Review Reflex No
[2022-05-11 07:59] LABS: Chloride* 103 mmol/L (96-114)
[2022-05-11 08:00] LABS: Potassium* 4.5 mmol/L (3.6-5.1); Sodium* 135 mmol/L (135-149)
[2022-05-11 08:02] LABS: Carbon Dioxide* 26 mmol/L (20-32); Est. Creatinine Clearance* 34.64; Estimated Glomerular Filt Rate 56 ml/min
[2022-05-11 08:03] LABS: Blood Urea Nitrogen* 33 mg/dL (7-30); Glucose* 96 mg/dL (60-115)
[2022-05-11] MEDS: POTASSIUM CHLORIDE 10 MEQ CAPSULE ER 20 MEQ PO ×2 (08:23→18:32)
[2022-05-11] MEDS: CLOPIDOGREL 75 MG TABLET PO (08:29)
[2022-05-11] MEDS: SENNOSIDES/DOCUSATE TABLET 2 TAB PO (08:29)
[2022-05-11] MEDS: TAMSULOSIN HCL 0.4 MG CAPSULE PO (08:29)
[2022-05-11] MEDS: FEXOFENADINE 180 MG TABLET PO (08:29)
[2022-05-11] MEDS: OCUVITE TABLET 1 TAB PO (08:29)
[2022-05-11] MEDS: allopurinoL 300 MG TABLET 150 MG PO (08:29)
[2022-05-11] MEDS: GABAPENTIN 300 MG CAPSULE 600 MG PO (08:30)
[2022-05-11] MEDS: METHADONE 5 MG TABLET PO (08:30)
[2022-05-11] MEDS: HYDROmorphone 2 MG TABLET 8 MG PO ×2 (08:41→09:06)
[2022-05-11] MEDS: ALBUTEROL SULFATE 2.5 MG/3 ML VIAL.NEB NEB ×2 (08:54→16:21)
--- NOTE | 2022-05-11 09:21 | CRLHL7_ITS ---
For Patients: As a result of the Century Cures Act, medical imaging exams and procedure reports are released immediately into your electronic medical record. You may view this report before your referring provider. If you have questions, please contact your health care provider. Indication: No BM or flatus with clinical concern for bowel obstruction Technique: Upright and supine views the abdomen were acquired. Comparison: No prior plain film abdominal imaging. I have reviewed the chest radiograph from 05/10/2022 Findings: Airspace opacities at both lung bases similar to the prior study, likely inflammatory. Prominent loops of small bowel with scattered air-fluid levels. No definite free air. No abnormal dilation of the colon. Suspect small bowel obstruction. An ileus is also possible Impression: Abnormal loops of small bowel suspect small bowel obstruction Dictated by Carlo Caballero MD @ 05/11/2022 10:55:40 AM (Electronically Signed)
--- NOTE | 2022-05-11 12:30 | CRLHL7_ITS ---
For Patients: As a result of the Century Cures Act, medical imaging exams and procedure reports are released immediately into your electronic medical record. You may view this report before your referring provider. If you have questions, please contact your health care provider. INDICATION: SBO. History of gastroparesis. COMPARISON: Portions of a June 15, 2021 CT and of in May 10, [address] TECHNIQUE: CT examination of the abdomen and pelvis was performed following the uneventful intravenous administration of 77 cc of Isovue 370. Thin section axial images were obtained from the lung bases through the pubic symphysis. Oral contrast was not administered. Please note that all CT scans at this facility use dose modulation, iterative reconstruction, and/or weight-based dosing when appropriate to reduce radiation dose to as low as reasonably achievable. FINDINGS: LUNG BASES: Abnormal lung bases. Emphysema, fibrosis and bronchiectasis is present there is also bibasilar airspace disease, right greater than left which probably represents pneumonia/aspiration. The heart size is normal at the lung bases. Vascular calcifications. LIVER/BILIARY SYSTEM:Intra and extrahepatic biliary ductal dilatation. This is significant appearing and more pronounced since 06/15/2021. This might be a reservoir phenomenon though correlate with LFTs. I see no distal choledocholithiasis or distal mass appearance. The gallbladder surgically absent. Additional imaging may be indicated especially if the LFTs are abnormal ADRENALS: Normal KIDNEYS, URETERS and BLADDER:The kidneys are normal in size. Multifocal renal cortical scarring on the right. Right renal lesion measuring 12 millimeters likely a cyst. No obstructive uropathy. Gudino in the bladder which is decompressed SPLEEN:Normal appearance. PANCREAS: Atrophic with diffuse pancreatic ductal dilation. This is a chronic finding and was present as far back as April 24, 2019. No visualized focal mass. There are probable stones within the main pancreatic duct. The stone were present previously RETROPERITONEUM and MESENTERY: There is no mass, adenopathy or aortic aneurysm. Atherosclerotic vascular calcifications GASTROINTESTINAL SYSTEM: Mild fluid distention of the stomach without evidence of mechanical gastric outlet obstruction. Moderately prominent loops of small bowel with scattered air-fluid levels. This has imaging features that overlap between a small-bowel ileus and an incomplete distal small bowel obstruction. PELVIS: No mass, adenopathy or free fluid.Evidence of pelvic floor relaxation. OSSEOUS STRUCTURES and ABDOMINAL WALL: There is an age-appropriate appearance of the osseous structures.No significant abdominal wall defect. OTHER: No free fluid or free air. IMPRESSION: 1. Mild fluid distention of the stomach without evidence of mechanical gastric outlet obstruction. Moderately prominent loops of small bowel with scattered air-fluid levels. This has imaging features that overlap between a small-bowel ileus/enteritis versus an incomplete distal small bowel obstruction. 2. Abnormal lung bases consistent with bibasilar pneumonia or aspiration. Background of chronic lung disease. 3. Intra and extrahepatic biliary ductal dilatation. This might be a reservoir phenomenon. Correlate with LFTs. Please review the comment regarding this finding. 4. Other incidental nonacute appearing findings as discussed above Please note that all CT scans at this facility use dose modulation, iterative reconstruction, and/or weight-based dosing when appropriate to reduce radiation dose to as low as reasonably achievable. Dictated by Carlo Caballero MD @ 05/11/2022 2:37:13 PM (Electronically Signed)
--- NOTE | 2022-05-11 14:23 | PC.NURSE ---
Shift note: HFNC O2 flow 40% per RT, pt maintain sats at 91-93%. No c/o SOB, no emesis during this shift, occasional cough with sputum. Blood glucose low this shift, aware and put scheduled insulin on hold, will use sliding scale if needed, see eMAR. Pt. noonan patent, IV in right arm saline locked. Pt. denies any pain, no N/V. Pt. up to chair for meals and tolerated well. Pt. says she is still feeling weak. NSR on tele, exp. wheezes heard when ausculating lung sounds. No BM this shift, aware.
--- NOTE | 2022-05-11 14:28 | P.IMPN_ITS ---
Progress Note: A&P Assessment and plan (1) Acute hypoxemic respiratory failure: Problem details: Multifactorial secondary to pneumonia and COPD exacerbation. Status: Acute Assessment and Plan: Continue treatment of these conditions and high-flow oxygen, wean to keep O2 sats greater than 88%. (2) Pneumonia: Problem details: Right-sided pneumonia Status: Acute Assessment and Plan: Improving. Continue ceftriaxone and azithromycin. (3) COPD (chronic obstructive pulmonary disease): Status: Chronic Assessment and Plan: Acute on chronic. Patient declines steroids secondary to allergies. Continue nebulizers, high-flow weaning to keep O2 sats 88% and respiratory therapy consultation. (4) Pulmonary fibrosis: Status: Chronic (5) Sepsis: Problem details: Soft BP, responded to fluid. Lactate not elevated. Status: Acute Assessment and Plan: Resolved. (6) Dehydration: Status: Acute Assessment and Plan: Resolved. (7) SBO (small bowel obstruction): Problem details: possible SBO vs ileus Status: Acute Assessment and Plan: Make patient NPO. Obtain CT abdomen and pelvis. (8) Chronic kidney disease, stage 3b: Problem details: Baseline Cr 0.9 Status: Chronic Assessment and Plan: Stable. (9) HUGO (obstructive sleep apnea): Problem details: HUGO 06/05/2007 AHI-14.2 Uses CPAP Uses OXYGEN at night with CPAP and approximately 5-6 hours per day in addition. 04/07/2011 Status: Chronic (10) Chronic pain: Status: Chronic (11) CAD (coronary artery disease): Problem details: Extensive left main and LAD calcification with at most moderate stenosis on coronary CT 05/2018 Status: Chronic Assessment and Plan: Stable. (12) Type 2 diabetes mellitus with complication, with long-term current use of insulin: Problem details: 03/03/22 HgbA1C 6.6% Diabetes mellitus: Diagnosis in 1990 On insulin. On GLP-1 ( ozempic as of January 2021) Macrovascular: CAD, CVA/TIA, PVD: Yes - CVAs. See below. Hypertension: on medications but no MICHAEL (cough). Also note: was no cozaar - had diarrhea (see allergy list) Hyperlipidemia: was on statin, may have had muscle pains on simvastatin (it was stopped December 2012). On rosuva 10mg (update ) Microvascular: Retinopathy: No Last eye exam: with/in last 12 months - Yes. 07/15/21: mild diabetic retinopathy and early macular degernation Nephropathy: No Neuropathy: yes-severe. 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 Now improved with Fentanyl , Oxycontin, Oycodone + Gastroparesis Last foot exam: December 2017 - no monofilament sensation to very distal feet/toes at all, but sensation essentially normal in both proximal feet , just proximal to toes and proximally from there. * except right inner foot. No ulcers. +hammertoes. Callus on tip of right 1st toe. Soft skin. No lesions. ASA use: on plavix. Was on aggrenox in past ( update ) Status: Chronic Assessment and Plan: Since she will be NPO, decrease long-acting insulin and hold mealtime insulin. Check blood sugars q.6 hours in use an insulin sliding scale. (13) Gastroparesis: Problem details: Diagnosed with gastroparesis at [facility] 1990, This was around the time she was diagnosed with diabetes. Status: Chronic (14) Altered mental status: Status: Acute Assessment and Plan: Improved, now at baseline. Plan Since she is on methadone, she is at risk for prolonged qt with addition of azithromycin. I have reviewed her EKG from admission and her QTC is 416 milliseconds. EKG today shows QTC 404 ms. Continue methadone, azithromycin and telemetry. VTE prophylaxis with SCDs and low dose nightly enoxaparin. Subjective Time Seen by Provider: 08:05 Date Seen: 05/11/22 Interval history: Kianna is more awake and alert today. She feels like her breathing is improving on the high-flow oxygen. She had a few emesis yesterday, but has had none today. She was taking it slow with breakfast just in case, but denies nausea she notes that she has had no BM or flatus for several days. She denies abdominal pain. She does have a history of multiple abdominal surgeries. We discussed possibly using steroids for COPD exacerbation. Patient declined stating that she has an allergy to every steroid she has tried and does not want any steroids. Exam Narrative: Exam Narrative: General: No acute distress. Awake alert oriented x3. Cardiovascular: Regular rate and rhythm. No murmurs, gallops, or rubs. Chest: No increased work of breathing, on high-flow. Rhonchi in bilateral lower lung joya. Prolonged expiratory phase. Abdomen: Bowel sounds present. Soft, nondistended, nontender. No hepatosplenomegaly or masses. Extremities: No edema, no cyanosis or clubbing. Skin: No jaundice, no pallor, no rashes. Const: Vital Signs, click to edit/add: Vital Signs - 24 hr 05/10/22 16:01 05/10/22 16:01 05/10/22 16:18 Temperature Pulse Rate Pulse Rate [Right Pulse Oximeter] Respiratory Rate Blood Pressure [Ri ght Arm] Pulse Oximetry Oxygen Delivery Me thod Oxygen Flow Rate 100 Fraction of Inspir ed Oxygen 100 100 30 05/10/22 18:45 05/10/22 19:38 05/10/22 19:40 Temperature 98 F Pulse Rate Pulse Rate [Right Pulse Oximeter] 87 Respiratory Rate 20 Blood Pressure [Ri ght Arm] 101/54 L Pulse Oximetry 94 Oxygen Delivery Me thod High Flow Nasal Ca nnula Oxygen Flow Rate Fraction of Inspir ed Oxygen 30 100 05/10/22 22:00 05/10/22 22:52 05/11/22 00:00 Temperature Pulse Rate 82 Pulse Rate [Right Pulse Oximeter] Respiratory Rate Blood Pressure [Ri ght Arm] Pulse Oximetry Oxygen Delivery Me thod Oxygen Flow Rate Fraction of Inspir ed Oxygen 100 100 05/10/22 23:37 05/11/22 02:00 05/11/22 03:00 Temperature 98 F 98.2 F Pulse Rate Pulse Rate [Right Pulse Oximeter] 92 87 Respiratory Rate 20 20 Blood Pressure [Ri ght Arm] 104/85 Pulse Oximetry 92 92 Oxygen Delivery Me thod High Flow Nasal Ca nnula High Flow Nasal Ca nnula Oxygen Flow Rate Fraction of Inspir ed Oxygen 60 05/11/22 03:53 05/11/22 06:00 05/11/22 07:00 Temperature Pulse Rate Pulse Rate [Right Pulse Oximeter] 89 Respiratory Rate 20 Blood Pressure [Ri ght Arm] Pulse Oximetry Oxygen Delivery Me thod Oxygen Flow Rate Fraction of Inspir ed Oxygen 60 60 05/11/22 07:00 05/11/22 08:00 05/11/22 09:42 Temperature 97.7 F Pulse Rate Pulse Rate [Right Pulse Oximeter] 89 Respiratory Rate 20 Blood Pressure [Ri ght Arm] 105/55 L Pulse Oximetry 93 Oxygen Delivery Me thod High Flow Nasal Ca nnula Oxygen Flow Rate 100 Fraction of Inspir ed Oxygen 60 60 60 05/11/22 07:00 05/11/22 10:32 05/11/22 10:32 Temperature 97.4 F L Pulse Rate 90 Pulse Rate [Right Pulse Oximeter] 93 Respiratory Rate 20 Blood Pressure [Ri ght Arm] 111/97 H Pulse Oximetry 90 90 Oxygen Delivery Me thod High Flow Nasal Ca nnula Oxygen Flow Rate 100 Fraction of Inspir ed Oxygen 60 05/11/22 11:42 05/11/22 13:40 Temperature Pulse Rate Pulse Rate [Right Pulse Oximeter] Respiratory Rate Blood Pressure [Ri ght Arm] Pulse Oximetry Oxygen Delivery Me thod Oxygen Flow Rate Fraction of Inspir ed Oxygen 60 60 Documenting provider has reviewed patient's vital signs: yes Labs Labs: Laboratory Results - last 24 hr 05/11/22 05/11/22 07:42 07:42 WBC 8.89 RBC 3.86 L Hgb 11.4 L Hct 35.5 MCV 92 MCH 30 MCHC 32 RDW Coeff of Thais 14.1 Plt Count 159 Neut % (Auto) 73.7 H Lymph % (Auto) 17.1 L [place] % (Auto) 6.6 Eos % (Auto) 2.4 Baso % (Auto) 0.1 Neut # (Auto) 6.60 Lymph # (Auto) 1.50 [place] # (Auto) 0.60 Eos # (Auto) 0.21 Baso # (Auto) 0.01 Abs Immat Gran (auto) 0.01 Sodium 135 Potassium 4.5 Chloride 103 Carbon Dioxide 26 BUN 33 H Creatinine 1.0 Estimated Creat Clear 34.64 Estimated GFR 56 Glucose 96 Calcium 8.0 L
--- NOTE | 2022-05-11 14:49 | P.GSCN_ITS ---
History of Present Illness Consult details Date Seen: 05/11/22 Consult date: 05/11/22 Narrative: The patient is an 82-year-old female who I was asked to see for emesis after eating yesterday and abdominal x-ray showing air-fluid levels in the small bowel Concerning for possible bowel obstruction. the patient states that she does not remember how she got to the hospital, however her daughter called 911. She was found to have pneumonia. She has had a cough. The patient denies nausea and abdominal pain however yesterday after eating she had emesis. She has a history of chronic pain and takes methadone for this as well as Dilaudid. She states that she does not have bowel movements regularly. Approximately 2 weeks ago she had diarrhea for a month, however she does not remember her last bowel movement. As mention, she was admitted to the hospital yesterday for a diagnosis of pneumonia. She has been maintaining her oxygen saturation on high- flow nasal cannula. She does have a cough. She states that she has some nausea now, however she did eat earlier without issue. She denies flatus. She has never had a bowel obstruction previously. She has a history of gastroparesis, however she states that this does not cause any issues for her. She states she usually takes milk of magnesia to help her have a bowel movement. Review of Systems Status of ROS: Reports: 10 or more systems reviewed and unremarkable except as noted in History and below [facility] Medical History (Updated 05/11/22 @ 17:01 by Elida Javier MD) Acute insomnia Allergic rhinitis CAD (coronary artery disease) Chronic kidney disease, stage 3b Chronic pain Constipation Controlled substance agreement signed COPD (chronic obstructive pulmonary disease) Depression Gastroparesis GERD (gastroesophageal reflux disease) Gouty arthropathy Hereditary and idiopathic peripheral neuropathy Hypercalcemia Hypertension Hypertriglyceridemia Hypokalemia Hypothyroidism Myocardial infarction Neurogenic bladder Neuropathy HUGO (obstructive sleep apnea) Peripheral autonomic neuropathy due to diabetes mellitus Peripheral vascular disease Pneumonia Pulmonary fibrosis Pulmonary nodule Slow transit constipation Stroke TIA (transient ischemic attack) Type 2 diabetes mellitus with complication, with long-term current use of insulin Surgical History (Updated 05/10/22 @ 15:22 by Angelica Bowles MD) H/O blepharoplasty H/O colonoscopy H/O foot surgery H/O neck surgery H/O: hysterectomy History of cholecystectomy Hx of appendectomy Hx of repair of rotator cuff Hx of tonsillectomy S/P bunionectomy S/P left rotator cuff repair Family History (Updated 05/10/22 @ 15:24 by Angelica Bowles MD) Maternal Grandfather Pancreatic cancer Aunt Breast cancer Uncle Lung cancer Aunt Breast cancer Father Tuberculosis Coronary artery disease Social History (Updated 05/10/22 @ 10:00 by Angelica Bowles MD) Narrative: Lives independently with her boyfriend, Zane, and her daughter, Martín, who lives in the basement. Quit tobacco 1986. No EtOH. Denies recreat ional drug use. Wants to be DNR/DNI. Highest level of school completed/degree received: some college, no degree Smoking Status: Former smoker Do you use any of these nicotine containing products: None Second hand tobacco smoke exposure: No How often do you have a drink containing alcohol: never How often do you have six or more drinks on one occasion: Never AUDIT-C Alcohol total score: 0 Non-prescribed substance use: denies use Caffeine: Yes service: No Meds Home Medications and Allergies Home Medications Medication Instructions Recorded Confirmed Type allopurinol 300 mg tablet 150 mg PO DAILY 04/04/22 05/10/22 History clopidogrel 75 mg tablet 75 mg PO DAILY 04/04/22 05/10/22 History furosemide 20 mg tablet 20 mg PO DAILY 04/04/22 05/10/22 History gabapentin 300 mg capsule 600 mg PO DAILY 04/04/22 05/10/22 History hydromorphone 8 mg tablet 8 mg PO QAM 04/04/22 05/10/22 History insulin aspart U-100 100 unit/mL 10 unit subcut DAILY@04/04/22 05/10/22 History (3 mL) subcutaneous pen (Novolog Flexpen U-100 Insulin aspart) insulin degludec 100 unit/mL (3 26 unit subcut HS 04/04/22 05/10/22 History mL) subcutaneous pen (Tresiba FlexTouch U-100 insulin) loperamide 2 mg capsule 2 mg PO BID PRN 04/04/22 05/10/22 History methadone 5 mg tablet 5 mg PO QAM 04/04/22 05/10/22 History rosuvastatin 20 mg tablet 20 mg PO HS 04/04/22 05/10/22 History semaglutide 1 mg/dose (4 mg/3 mL) 1 mg subcut TH@09 04/04/22 05/10/22 History subcutaneous pen injector (Ozempic) tamsulosin 0.4 mg capsule 0.4 mg PO DAILY 04/04/22 05/10/22 History colchicine 0.6 mg tablet 0.6 mg PO BID PRN 04/11/22 05/10/22 History BIOTENE DRY MOUTH LOZENGES 1 ea mucous membrane QID PRN 05/10/22 05/10/22 History cholecalciferol (vitamin D3) 50 4,000 unit PO DAILY 05/10/22 05/10/22 History mcg (2,000 unit) tablet (Vitamin D3) cyclobenzaprine 5 mg tablet 5 mg PO Q8H PRN 05/10/22 05/10/22 History fexofenadine 180 mg tablet 180 mg PO DAILY PRN 05/10/22 05/11/22 History (Aller-ease) hydromorphone 8 mg tablet 16 mg PO HS 05/10/22 05/10/22 History (Dilaudid) insulin aspart U-100 100 unit/mL 20 unit subcut DAILY@12 05/10/22 05/10/22 History (3 mL) subcutaneous pen (Novolog Flexpen U-100 Insulin aspart) insulin aspart U-100 100 unit/mL 22 unit subcut DAILY@18 05/10/22 05/10/22 History (3 mL) subcutaneous pen (Novolog Flexpen U-100 Insulin aspart) levothyroxine 88 mcg tablet 88 mcg PO DAILY 05/10/22 05/10/22 History methadone 5 mg tablet 10 mg PO HS 05/10/22 05/10/22 History naloxone 4 mg/actuation nasal 4 mg intranasal DIRECTED PRN 05/10/22 05/10/22 History spray (Narcan) potassium chloride 20 mEq 20 meq PO BIDWM 05/10/22 05/10/22 History tablet,extended release(part/cryst) (Klor-Con M) prochlorperazine maleate 10 mg 10 mg PO Q6H PRN 05/10/22 05/10/22 History tablet sennosides 8.6 mg-docusate sodium 2 tab-cap PO BID 05/10/22 05/10/22 History 50 mg tablet (Senna-S) vitamin A-vitamin C-vit E-min 1 tab PO DAILY 05/10/22 05/10/22 History tablet (Ocutabs tablet) Allergies Allergy/AdvReac Type Severity Reaction Status Date / Time cortisone Allergy Severe Anaphylaxis Verified 05/10/22 06:03 prednisone Allergy Severe Verified 05/10/22 06:03 amoxicillin Allergy Intermediate Verified 05/10/22 06:03 cephalexin [From Keflex] Allergy Intermediate Diarrhea Verified 05/10/22 06:03 doxycycline Allergy Intermediate Verified 05/10/22 06:03 duloxetine [From Cymbalta] Allergy Intermediate Verified 05/10/22 06:03 escitalopram [From Lexapro] Allergy Intermediate sleep Verified 05/10/22 06:03 disturbance febuxostat Allergy Intermediate vomitting Verified 05/10/22 06:03 latex Allergy Intermediate Verified 05/10/22 06:11 lisinopril Allergy Intermediate Verified 05/10/22 06:03 losartan [From Cozaar] Allergy Intermediate Verified 05/10/22 06:03 nitrofurantoin Allergy Intermediate Verified 05/10/22 06:03 [From Macrobid] pregabalin [From Lyrica] Allergy Intermediate Nausea Verified 05/10/22 06:03 propoxyphene Allergy Intermediate angioedema Verified 05/10/22 06:03 ramelteon [From Rozerem] Allergy Intermediate Verified 05/10/22 06:03 sulfamethoxazole Allergy Intermediate Verified 05/10/22 06:03 [From Bactrim] tramadol [From Ultram] Allergy Intermediate Verified 05/10/22 06:03 trimethoprim [From Bactrim] Allergy Intermediate Verified 05/10/22 06:03 venlafaxine [From Effexor] Allergy Intermediate Verified 05/10/22 06:03 zolpidem [From Ambien] Allergy Intermediate Confusion Verified 05/10/22 06:03 acetaminophen [From Vicodin] Allergy Mild Nausea Verified 05/10/22 06:03 hydrocodone [From Vicodin] Allergy Mild Nausea Verified 05/10/22 06:03 aspirin Allergy Unknown Verified 05/10/22 06:03 clindamycin Allergy Unknown Verified 05/10/22 06:03 ipratropium [From Atrovent] Allergy Unknown Verified 05/10/22 06:03 Penicillins Allergy Unknown Verified 05/10/22 06:11 pramipexole Allergy Unknown Verified 05/10/22 06:03 trazodone Allergy Unknown Verified 05/10/22 06:03 adhesive tape Allergy huge Verified 05/10/22 06:07 blisters Exam Narrative: Exam Narrative: General appearance: Alert, cooperative, and in no distress Eyes: PERRLA, eye lids clear, and sclera white HENT Head: Normocephalic Ears: External ears normal Pulmonary: Breathing is nonlabored, however she has a rattly cough. Cardiovascular Heart: Regular rate Extremities: warm and well perfused Gastrointestinal Abdominal: Mildly protuberant. Scars consistent with surgical history. Nontender. Musculoskeletal: Extremities: Upper: Both upper extremities have normal joint range of motion and intact strength. Lower: Both lower extremities have normal joint range of motion and intact strength. Skin: Normal skin color, texture, and turgor. No rashes or lesions. Neurologic: No focal deficits Psychiatric: Alert, oriented, cooperative, normal affect. Const: Vital Signs, click to edit/add: Vital Signs - 24 hr 05/10/22 16:01 05/10/22 16:01 05/10/22 16:18 Temperature Pulse Rate Pulse Rate [Right Pulse Oximeter] Respiratory Rate Blood Pressure [Ri ght Arm] Pulse Oximetry Oxygen Delivery Me thod Oxygen Flow Rate 100 Fraction of Inspir ed Oxygen 100 100 30 05/10/22 18:45 05/10/22 19:38 05/10/22 19:40 Temperature 98 F Pulse Rate Pulse Rate [Right Pulse Oximeter] 87 Respiratory Rate 20 Blood Pressure [Ri ght Arm] 101/54 L Pulse Oximetry 94 Oxygen Delivery Me thod High Flow Nasal Ca nnula Oxygen Flow Rate Fraction of Inspir ed Oxygen 30 100 05/10/22 22:00 05/10/22 22:52 05/11/22 00:00 Temperature Pulse Rate 82 Pulse Rate [Right Pulse Oximeter] Respiratory Rate Blood Pressure [Ri ght Arm] Pulse Oximetry Oxygen Delivery Me thod Oxygen Flow Rate Fraction of Inspir ed Oxygen 100 100 05/10/22 23:37 05/11/22 02:00 05/11/22 03:00 Temperature 98 F 98.2 F Pulse Rate Pulse Rate [Right Pulse Oximeter] 92 87 Respiratory Rate 20 20 Blood Pressure [Ri ght Arm] 104/85 Pulse Oximetry 92 92 Oxygen Delivery Me thod High Flow Nasal Ca nnula High Flow Nasal Ca nnula Oxygen Flow Rate Fraction of Inspir ed Oxygen 60 05/11/22 03:53 05/11/22 06:00 05/11/22 07:00 Temperature Pulse Rate Pulse Rate [Right Pulse Oximeter] 89 Respiratory Rate 20 Blood Pressure [Ri ght Arm] Pulse Oximetry Oxygen Delivery Me thod Oxygen Flow Rate Fraction of Inspir ed Oxygen 60 60 05/11/22 07:00 05/11/22 08:00 05/11/22 09:42 Temperature 97.7 F Pulse Rate Pulse Rate [Right Pulse Oximeter] 89 Respiratory Rate 20 Blood Pressure [Ri ght Arm] 105/55 L Pulse Oximetry 93 Oxygen Delivery Me thod High Flow Nasal Ca nnula Oxygen Flow Rate 100 Fraction of Inspir ed Oxygen 60 60 60 05/11/22 07:00 05/11/22 10:32 05/11/22 10:32 Temperature 97.4 F L Pulse Rate 90 Pulse Rate [Right Pulse Oximeter] 93 Respiratory Rate 20 Blood Pressure [Ri ght Arm] 111/97 H Pulse Oximetry 90 90 Oxygen Delivery Me thod High Flow Nasal Ca nnula Oxygen Flow Rate 100 Fraction of Inspir ed Oxygen 60 05/11/22 11:42 05/11/22 13:40 Temperature Pulse Rate Pulse Rate [Right Pulse Oximeter] Respiratory Rate Blood Pressure [Ri ght Arm] Pulse Oximetry Oxygen Delivery Me thod Oxygen Flow Rate Fraction of Inspir ed Oxygen 60 60 Results Labs Labs: Abnormal lab results 05/11/22 05/11/22 Range/Units 07:42 07:42 RBC 3.86 L (4.00-5.20) m/uL Hgb 11.4 L (12.0-16.0) gm/dL Neut % (Auto) 73.7 H (42.0-72.0) % Lymph % (Auto) 17.1 L (20-44) % BUN 33 H (7-30) mg/dL Calcium 8.0 L (8.4-10.6) mg/dL Diabetes panel 05/11/22 Range/Units 07:42 Sodium 135 (135-149) mmol/L Potassium 4.5 (3.6-5.1) mmol/L Chloride 103 (96-114) mmol/L Carbon Dioxide 26 (20-32) mmol/L BUN 33 H (7-30) mg/dL Creatinine 1.0 (0.5-1.5) mg/dL Glucose 96 (60-115) mg/dL Calcium 8.0 L (8.4-10.6) mg/dL Calcium panel 05/11/22 Range/Units 07:42 Calcium 8.0 L (8.4-10.6) mg/dL Pituitary panel 05/11/22 Range/Units 07:42 Sodium 135 (135-149) mmol/L Potassium 4.5 (3.6-5.1) mmol/L Chloride 103 (96-114) mmol/L Carbon Dioxide 26 (20-32) mmol/L BUN 33 H (7-30) mg/dL Creatinine 1.0 (0.5-1.5) mg/dL Glucose 96 (60-115) mg/dL Calcium 8.0 L (8.4-10.6) mg/dL Adrenal panel 05/11/22 Range/Units 07:42 Sodium 135 (135-149) mmol/L Potassium 4.5 (3.6-5.1) mmol/L Chloride 103 (96-114) mmol/L Carbon Dioxide 26 (20-32) mmol/L BUN 33 H (7-30) mg/dL Creatinine 1.0 (0.5-1.5) mg/dL Glucose 96 (60-115) mg/dL Calcium 8.0 L (8.4-10.6) mg/dL All other labs normal. Imaging Additional studies: Diagnostic Imaging Report Patient: Kianna Albright [facility]#: [id number]: [id number]:[id number]: [id number] Date: 05/11/22Attending Dr: Angelica Bowles M.D. Ordering Physician: Angelica Bowles MD Date of Service: 05/11/22 Procedure(s): CT abdomen pelvis w con Accession Number(s): [id number] cc: Angelica Bowles MD; Michael Sandy M.D.~ For Patients: As a result of the 21st Century Cures Act, medical imaging exams and procedure reports are released immediately into your electronic medical record. You may view this report before your referring provider. If you have questions, please contact your health care provider. INDICATION: SBO. History of gastroparesis. COMPARISON: Portions of a June 15, 2021 CT and of in May 10, [address] TECHNIQUE: CT examination of the abdomen and pelvis was performed following the uneventful intravenous administration of 77 cc of Isovue 370. Thin section axial images were obtained from the lung bases through the pubic symphysis. Oral contrast was not administered. Please note that all CT scans at this facility use dose modulation, iterative reconstruction, and/or weight-based dosing when appropriate to reduce radiation dose to as low as reasonably achievable. FINDINGS: LUNG BASES: Abnormal lung bases. Emphysema, fibrosis and bronchiectasis is present there is also bibasilar airspace disease, right greater than left which probably represents pneumonia/aspiration. The heart size is normal at the lung bases. Vascular calcifications. LIVER/BILIARY SYSTEM:Intra and extrahepatic biliary ductal dilatation. This is significant appearing and more pronounced since 06/15/2021. This might be a reservoir phenomenon though correlate with LFTs. I see no distal choledocholithiasis or distal mass appearance. The gallbladder surgically absent. Additional imaging may be indicated especially if the LFTs are abnormal ADRENALS: Normal KIDNEYS, URETERS and BLADDER:The kidneys are normal in size. Multifocal renal cortical scarring on the right. Right renal lesion measuring 12 millimeters likely a cyst. No obstructive uropathy. Gudino in the bladder which is decompressed SPLEEN:Normal appearance. PANCREAS: Atrophic with diffuse pancreatic ductal dilation. This is a chronic finding and was present as far back as April 24, 2019. No visualized focal mass. There are probable stones within the main pancreatic duct. The stone were present previously RETROPERITONEUM and MESENTERY: There is no mass, adenopathy or aortic aneurysm. Atherosclerotic vascular calcifications GASTROINTESTINAL SYSTEM: Mild fluid distention of the stomach without evidence of mechanical gastric outlet obstruction. Moderately prominent loops of small bowel with scattered air-fluid levels. This has imaging features that overlap between a small-bowel ileus and an incomplete distal small bowel obstruction. PELVIS: No mass, adenopathy or free fluid.Evidence of pelvic floor relaxation. OSSEOUS STRUCTURES and ABDOMINAL WALL: There is an age-appropriate appearance of the osseous structures.No significant abdominal wall defect. OTHER: No free fluid or free air. IMPRESSION: 1. Mild fluid distention of the stomach without evidence of mechanical gastric outlet obstruction. Moderately prominent loops of small bowel with scattered air-fluid levels. This has imaging features that overlap between a small-bowel ileus/enteritis versus an incomplete distal small bowel obstruction. 2. Abnormal lung bases consistent with bibasilar pneumonia or aspiration. Background of chronic lung disease. 3. Intra and extrahepatic biliary ductal dilatation. This might be a reservoir phenomenon. Correlate with LFTs. Please review the comment regarding this finding. 4. Other incidental nonacute appearing findings as discussed above Please note that all CT scans at this facility use dose modulation, iterative reconstruction, and/or weight-based dosing when appropriate to reduce radiation dose to as low as reasonably achievable. Dictated by Carlo Caballero MD @ 05/11/2022 2:37:13 PM Diagnostic Imaging Report Patient: Kianna Albright [facility]#: [id number]: [id number]:[id number]: [id number] Date: 05/11/22Attending Dr: Angelica Bowles M.D. Ordering Physician: Angelica Bowles MD Date of Service: 05/11/22 Procedure(s): XR abdomen min 2V Accession Number(s): [id number] cc: Angelica Bowles MD; Michael Sandy M.D.~ For Patients: As a result of the Cures Act, medical imaging exams and procedure reports are released immediately into your electronic medical record. You may view this report before your referring provider. If you have questions, please contact your health care provider. Indication: No BM or flatus with clinical concern for bowel obstruction Technique: Upright and supine views the abdomen were acquired. Comparison: No prior plain film abdominal imaging. I have reviewed the chest radiograph from 05/10/2022 Findings: Airspace opacities at both lung bases similar to the prior study, likely inflammatory. Prominent loops of small bowel with scattered air-fluid levels. No definite free air. No abnormal dilation of the colon. Suspect small bowel obstruction. An ileus is also possible Impression: Abnormal loops of small bowel suspect small bowel obstruction Dictated by Carlo Caballero MD @ 05/11/2022 10:55:40 AM \Diagnostic Imaging Report Patient: Kianna Albright [facility]#: [id number]: [id number]:[id number]: EDService Date: 05/10/22Attending Dr: Ordering Physician: Power Chaney MD Date of Service: 10/16/22 Procedure(s): CT chest w con Accession Number(s): [id number] cc: Michael Sandy M.D.; Power Chaney MD~ For Patients: As a result of the 21st Century Cures Act, medical imaging exams and procedure reports are released immediately into your electronic medical record. You may view this report before your referring provider. If you have questions, please contact your health care provider. INDICATION: SOB, ELEVATED D-DIMER COMPARISON: 06/15/2021 TECHNIQUE: CT volumetric acquisition was performed of the thorax during intravenous infusion of 95 cc Isovue 370 nonionic intravenous contrast. Please note that all CT scans at this facility use dose modulation, iterative reconstruction, and/or weight-based dosing when appropriate to reduce radiation dose to as low as reasonably achievable. FINDINGS: The CT images are of acceptable quality and demonstrate normal uniform vascular enhancement within the pulmonary arteries. There are no suspicious filling defects which would indicate pulmonary thromboemboli. There is no evidence of pleural or pericardial fluid. Atherosclerotic disease within the aorta. No aneurysm. Upper limits of normal cardiac size. There is no evidence of lymphadenopathy within the central mediastinum or within either axilla. On lung window settings, there is no evidence of pneumothorax. COPD/emphysema. Parenchymal infiltrates within the right lower lobe and right upper lobe. Stable nodular like densities superior segment left lower lobe. Status post cholecystectomy. Biliary tree appears similar no fracture. IMPRESSION: No evidence of pulmonary thromboembolism. Right-sided infiltrates. Please note that all CT scans at this facility use dose modulation, iterative reconstruction, and/or weight-based dosing when appropriate to reduce radiation dose to as low as reasonably achievable. Dictated by Power Oconnell MD @ 05/10/2022 7:53:51 AM Assessment and Plan Assessment and plan (1) SBO (small bowel obstruction): Problem comment: possible SBO vs ileus Status: Acute (2) Ileus: Status: Acute (3) Chronic constipation: Status: Acute Plan The patient is an 82-year-old female with pneumonia as well as nausea and possible ileus versus small-bowel obstruction. Ileus seems most likely given patient's diagnosis of pneumonia, however certainly she could have a bowel obstruction given her surgical history. Also, the nausea could be secondary to gastroparesis, particularly in the setting of an acute illness. I think it is reasonable to keep her NPO. I would also recommend a bowel regimen - Because she is nauseated and because she has a large amount of stool in the rectosigmoid colon, I recommend starting with an enema. She is overall a very poor surgical candidate; currently she is hypoxic with acute pneumonia, she has severe left main coronary artery disease, history of stroke, and also has had vocal cord paralysis which means that she may have a slightly narrowed airway for intubation. Consider further cardiac work-up with echocardiogram
[2022-05-11] MEDS: FUROSEMIDE 10 MG/ML inj 40 MG IVP (16:50)
[2022-05-11] MEDS: polyethylene glycoL 3350 17 GM PACK PO (16:51)
--- NOTE | 2022-05-11 18:09 | PC.NURSE ---
Shift Summary 15-19: Patient pleasant and cooperative. NPO diet, fluids for medications. Continues to be on hiflow 30L 40%, was sating 95% and attempted to lower to fio2 to 35%, patient dropped to o2 sat of 85% and was placed back on fio2 of 40%. Denies nausea/pain. Crackles noted in bilat lungs, order for lasix given. Neb given x1 for wheezing.
[2022-05-11 18:36] LABS: HCO3 VBG 30 mmol/L (21-28); PCO2 VBG 44 mmHG (40-50); PO2 VBG 26.3 mmHG (25-47); pH VBG 7.442 (7.32-7.43)
[2022-05-11] MEDS: ENOXAPARIN 40 MG/0.4 ML INJ SUBCUT (21:00)
[2022-05-11] MEDS: HYDROmorphone 2 MG TABLET 16 MG PO (21:00)
[2022-05-11] MEDS: ROSUVASTATIN CALCIUM 10 MG TABLET 20 MG PO (21:00)
[2022-05-11] MEDS: SENNOSIDES/DOCUSATE TABLET 4 TAB PO (21:01)
[2022-05-11] MEDS: METHADONE 5 MG TABLET 10 MG PO (21:01)
[2022-05-12] VITALS (14 sets, daily range): BP systolic 123–151; BP diastolic 51–72; PULSE 82–790; RESP 20–26; TEMP 35.9–37.1; O2SAT 9–91
--- NOTE | 2022-05-12 06:07 | PC.NURSE ---
Sift note: O2 flow adjusted throughout the night from 40% to up to 50-60% to keep sats above 90%. Pt is alert and oriented X4, Blood glucose WDL, occasional wet cough, afebrile
[2022-05-12] MEDS: AZITHROMYCIN 250 MG TABLET PO (06:44)
[2022-05-12] MEDS: LEVOTHYROXINE 88 MCG TABLET PO (06:44)
[2022-05-12] MEDS: cefTRIAXone 1 GM in 0.9 % SODIUM CHLORIDE Mini-bag 100 ML IVPB (06:45)
[2022-05-12 07:02] LABS: Basophils Absolute Auto 0.01 K/uL (0.00-0.30); Basophils Percent Auto 0.1 % (0.0-3.0); Eosinophils Absolute Auto 0.18 K/uL (0.00-0.50); Eosinophils Percent Auto 2.2 % (0.0-7.0); Hemoglobin* 11.5 gm/dL (12.0-16.0); Immature Granulocytes Abs Auto 0.02 K/uL (0.00-0.30); Lymphocytes Percent Auto 15.9 % (20-44); Mean Corpuscular HGB Conc 32 gm/dL (32-36); Mean Corpuscular Hemoglobin 29 pg (26-34); Mean Corpuscular Volume 91 fL (80-100); Monocytes Percent Auto 8.4 % (0.0-11.0); Neutrophils Percent Auto 73.2 % (42.0-72.0); Platelet Count* 182 K/uL (140-440); RDW Coefficient of Variation % 14.1 % (11.5-15.5); Red Blood Count 3.95 m/uL (4.00-5.20); White Blood Count* 8.11 K/uL (4.50-11.00)
[2022-05-12 07:04] LABS: Slide Review Reflex No
[2022-05-12 07:15] LABS: Chloride* 100 mmol/L (96-114); Potassium* 4.5 mmol/L (3.6-5.1); Sodium* 134 mmol/L (135-149)
[2022-05-12 07:18] LABS: Blood Urea Nitrogen* 27 mg/dL (7-30); Carbon Dioxide* 29 mmol/L (20-32); Creatinine* 0.9 mg/dL (0.5-1.5); Est. Creatinine Clearance* 34.64; Estimated Glomerular Filt Rate 63 ml/min
[2022-05-12 07:19] LABS: Calcium* 8.3 mg/dL (8.4-10.6); Glucose* 91 mg/dL (60-115)
[2022-05-12 07:21] LABS: C Reactive Protein* 6.6 mg/dL (0.5-1.0)
--- NOTE | 2022-05-12 07:40 | CRLHL7_ITS ---
For Patients: As a result of the Cures Act, medical imaging exams and procedure reports are released immediately into your electronic medical record. You may view this report before your referring provider. If you have questions, please contact your health care provider. INDICATION: acute resp distress, f/u PNA TECHNIQUE: Chest 1 view COMPARISON: 05/10/2022 FINDINGS: COPD/emphysema. Patchy areas of bronchiectasis/bronchial wall thickening within the right upper lobe, right lower lobe and left lower lobe. Similar bibasilar airspace densities. No pleural effusion. Cardiomegaly. Aortic tortuosity. No fracture. IMPRESSION: Mild bilateral infiltrates are similar, superimposed upon chronic COPD/emphysema/bronchiectasis/chronic bronchitis. Dictated by Power Oconnell MD @ 05/12/2022 9:28:27 AM (Electronically Signed)
[2022-05-12] MEDS: FUROSEMIDE 10 MG/ML inj 40 MG IVP (09:15)
[2022-05-12] MEDS: CLOPIDOGREL 75 MG TABLET PO (09:15)
[2022-05-12] MEDS: POTASSIUM CHLORIDE 10 MEQ CAPSULE ER 20 MEQ PO ×2 (09:16→18:04)
[2022-05-12] MEDS: TAMSULOSIN HCL 0.4 MG CAPSULE PO (09:16)
[2022-05-12] MEDS: OCUVITE TABLET 1 TAB PO (09:16)
[2022-05-12] MEDS: allopurinoL 300 MG TABLET 150 MG PO (09:16)
[2022-05-12] MEDS: SENNOSIDES/DOCUSATE TABLET 4 TAB PO ×2 (09:16→21:30)
[2022-05-12] MEDS: GABAPENTIN 300 MG CAPSULE 600 MG PO (09:17)
[2022-05-12] MEDS: HYDROmorphone 2 MG TABLET 8 MG PO (09:17)
[2022-05-12] MEDS: METHADONE 5 MG TABLET PO (09:18)
[2022-05-12] MEDS: PIPERACILLIN/TAZOBACTAM 3.375 GM in 0.9 % SODIUM CHLORIDE Mini-bag 100 ML IVPB ×3 (09:20→22:23)
--- NOTE | 2022-05-12 14:48 | PC.NURSE ---
End of Shift Note: Pt had a productive day today. She received a tap water enema this morning and was able to have results from that see BM documentation. She also received a dose of Lasix see Intake and Output for those results. After having results from the enema her diet was advanced to diabetic. She is checking her blood sugar per her monitor. BS was 94 waited to see how much she ate before administrating her noon insulin she only took a few bites so did not give her insulin with her blood sugar only in the 90's. She did have her daughter here for a bit visiting also otherwise has been tired from the morning activity. Will give report to the next shift shortly.
--- NOTE | 2022-05-12 15:48 | RESP.RT ---
Pt tolerating HFNC well. Keep SPO2 at 88% or greater. PT has mixed sleep apnea. therefore she may desaturate at night. Consider repositioning pt., and keeping HOB up at 30 degrees. If needed increase oxygen, however attempt to wean it back down, as soon as possible. If Pt states she is short of breath, increase the flow rate. It was weaned today, in an attempt to DC her from the modality tomorrow. If pt has a good night, with DC HFNC tomorrow, begin aerobika, oxygen therapy (Pt is o2 dependent at home) and use her CPAP unit.
--- NOTE | 2022-05-12 17:26 | P.IMPN_ITS ---
Progress Note: A&P Assessment and plan (1) Acute hypoxemic respiratory failure: Problem details: Multifactorial secondary to pneumonia and COPD exacerbation. Status: Acute Assessment and Plan: Continue treatment of these conditions and high-flow oxygen, wean to keep O2 sats greater than 88%. (2) Pneumonia: Problem details: Right-sided pneumonia Status: Acute Assessment and Plan: Mildly elevated temp last night. I rechecked a chest x-ray this morning which is essentially unchanged. Will broaden coverage due to elevated temp. Changed to Zosyn and vanco. Monitor creatinine. (3) COPD (chronic obstructive pulmonary disease): Status: Chronic Assessment and Plan: Acute on chronic. I discussed steroids again today and Kianna declined due to allergies. Continue nebulizers, high-flow weaning to keep O2 sats 88% and respiratory therapy consultation. (4) Pulmonary fibrosis: Status: Chronic (5) Chronic kidney disease, stage 3b: Problem details: Baseline Cr 0.9 Status: Chronic Assessment and Plan: Stable. (6) HUGO (obstructive sleep apnea): Problem details: HUGO 06/05/2007 AHI-14.2 Uses CPAP Uses OXYGEN at night with CPAP and approximately 5-6 hours per day in addition. 04/07/2011 Status: Chronic (7) Chronic pain: Status: Chronic (8) CAD (coronary artery disease): Problem details: Extensive left main and LAD calcification with at most moderate stenosis on coronary CT 05/2018 Status: Chronic Assessment and Plan: Stable. (9) Type 2 diabetes mellitus with complication, with long-term current use of insulin: Problem details: 03/03/22 HgbA1C 6.6% Diabetes mellitus: Diagnosis in 1990 On insulin. On GLP-1 ( ozempic as of January 2021) Macrovascular: CAD, CVA/TIA, PVD: Yes - CVAs. See below. Hypertension: on medications but no MICHAEL (cough). Also note: was no cozaar - had diarrhea (see allergy list) Hyperlipidemia: was on statin, may have had muscle pains on simvastatin (it was stopped December 2012). On rosuva 10mg (update ) Microvascular: Retinopathy: No Last eye exam: with/in last 12 months - Yes. 07/15/21: mild diabetic retinopathy and early macular degernation Nephropathy: No Neuropathy: yes-severe. 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 Now improved with Fentanyl , Oxycontin, Oycodone + Gastroparesis Last foot exam: December 2017 - no monofilament sensation to very distal feet/toes at all, but sensation essentially normal in both proximal feet , just proximal to toes and proximally from there. * except right inner foot. No ulcers. +hammertoes. Callus on tip of right 1st toe. Soft skin. No lesions. ASA use: on plavix. Was on aggrenox in past ( update ) Status: Chronic Assessment and Plan: Restart her usual insulin regimen when able to take p.o. again. (10) Gastroparesis: Problem details: Diagnosed with gastroparesis at [facility] 1990, This was around the time she was diagnosed with diabetes. Status: Chronic (11) Altered mental status: Status: Acute Assessment and Plan: Improved, now at baseline. (12) Ileus: Status: Acute (13) Encopresis: Status: Acute Assessment and Plan: Tap water enema today. Restart diet once she has results. Plan VTE prophylaxis with SCDs and low dose nightly enoxaparin. Subjective Time Seen by Provider: 08:05 Date Seen: 05/12/22 Interval history: Feeling better today. She improved after diuresis last evening. She still has not had a bowel movement and is starting to feel hungry. Denies pain. She did have a T-max 100.4? which was at 7:00 p.m. yesterday. Exam Narrative: Exam Narrative: General: No acute distress. Awake alert oriented x3. Cardiovascular: Regular rate and rhythm. No murmurs, gallops, or rubs. Chest: No increased work of breathing, on high-flow. Rhonchi in bilateral lower lung joya. Crackles heard yesterday afternoon have improved. Abdomen: Bowel sounds present. Soft, nondistended, nontender. No hepatosplenomegaly or masses. Rectal exam reveals a large amount of hard stool in the vault. No gross blood. No masses. Good anal tone. Const: Vital Signs, click to edit/add: Vital Signs - 24 hr 05/11/22 17:55 05/11/22 19:00 05/11/22 19:00 Temperature 100.4 F H Pulse Rate Pulse Rate [Right Pulse Oximeter] 92 Respiratory Rate 22 Blood Pressure [Ri ght Arm] 139/68 Pulse Oximetry 90 Oxygen Delivery Me thod High Flow Nasal Ca nnula Oxygen Flow Rate Fraction of Inspir ed Oxygen 35 40 05/11/22 20:45 05/11/22 23:00 05/11/22 23:00 Temperature Pulse Rate 87 Pulse Rate [Right Pulse Oximeter] Respiratory Rate Blood Pressure [Ri ght Arm] Pulse Oximetry Oxygen Delivery Me thod Oxygen Flow Rate Fraction of Inspir ed Oxygen 40 60 05/11/22 23:00 05/12/22 01:00 05/12/22 03:00 Temperature 98.6 F Pulse Rate Pulse Rate [Right Pulse Oximeter] 82 Respiratory Rate 20 Blood Pressure [Ri ght Arm] Pulse Oximetry 90 Oxygen Delivery Me thod High Flow Nasal Ca nnula Oxygen Flow Rate Fraction of Inspir ed Oxygen 60 50 05/12/22 03:00 05/12/22 05:00 05/12/22 07:00 Temperature 98.4 F 98.6 F Pulse Rate Pulse Rate [Right Pulse Oximeter] 88 85 Respiratory Rate 20 22 Blood Pressure [Ri ght Arm] 130/64 151/67 H Pulse Oximetry 91 90 Oxygen Delivery Me thod High Flow Nasal Ca nnula High Flow Nasal Ca nnula Oxygen Flow Rate Fraction of Inspir ed Oxygen 50 05/12/22 07:00 05/12/22 07:00 05/12/22 09:00 Temperature Pulse Rate Pulse Rate [Right Pulse Oximeter] 85 Respiratory Rate 22 Blood Pressure [Ri ght Arm] Pulse Oximetry Oxygen Delivery Me thod Oxygen Flow Rate Fraction of Inspir ed Oxygen 50 40 05/12/22 10:28 05/12/22 10:28 05/12/22 07:00 Temperature Pulse Rate 87 Pulse Rate [Right Pulse Oximeter] Respiratory Rate Blood Pressure [Ri ght Arm] Pulse Oximetry 90 Oxygen Delivery Me thod Oxygen Flow Rate Fraction of Inspir ed Oxygen 40 05/12/22 11:00 05/12/22 11:12 05/12/22 14:53 Temperature 98.7 F Pulse Rate 88 Pulse Rate [Right Pulse Oximeter] 83 Respiratory Rate 20 Blood Pressure [Ri ght Arm] 123/54 L Pulse Oximetry 86 L Oxygen Delivery Me thod High Flow Nasal Ca nnula Oxygen Flow Rate Fraction of Inspir ed Oxygen 45 05/12/22 15:46 05/12/22 16:00 05/12/22 16:00 Temperature 96.6 F L Pulse Rate Pulse Rate [Right Pulse Oximeter] 85 Respiratory Rate 26 H Blood Pressure [Ri ght Arm] 144/72 H Pulse Oximetry 85 L 86 L Oxygen Delivery Me thod High Flow Nasal Ca nnula Oxygen Flow Rate 15 20 Fraction of Inspir ed Oxygen 45 45 05/12/22 16:00 05/12/22 16:00 05/12/22 17:12 Temperature Pulse Rate Pulse Rate [Right Pulse Oximeter] 85 Respiratory Rate 26 H Blood Pressure [Ri ght Arm] Pulse Oximetry Oxygen Delivery Me thod Oxygen Flow Rate Fraction of Inspir ed Oxygen 45 45 Documenting provider has reviewed patient's vital signs: yes Labs Labs: Laboratory Results - last 24 hr 05/11/22 05/12/22 05/12/22 18:33 06:46 06:46 WBC 8.11 RBC 3.95 L Hgb 11.5 L Hct 36.0 MCV 91 MCH 29 MCHC 32 RDW Coeff of Thais 14.1 Plt Count 182 Neut % (Auto) 73.2 H Lymph % (Auto) 15.9 L [place] % (Auto) 8.4 Eos % (Auto) 2.2 Baso % (Auto) 0.1 Neut # (Auto) 5.90 Lymph # (Auto) 1.30 [place] # (Auto) 0.70 Eos # (Auto) 0.18 Baso # (Auto) 0.01 Abs Immat Gran (auto) 0.02 VBG pH 7.442 H VBG pCO2 44 VBG pO2 26.3 VBG HCO3 30 H Sodium 134 L Potassium 4.5 Chloride 100 Carbon Dioxide 29 BUN 27 Creatinine 0.9 Estimated Creat Clear 34.64 Estimated GFR 63 Glucose 91 Calcium 8.3 L C-Reactive Protein 6.6 H Ordering Physician: Angelica Bowles MD Date of Service: 05/12/22 Procedure(s): XR chest 1V portable Accession Number(s): [id number] cc: Angelica Bowles MD; Michael Sandy M.D.~ For Patients: As a result of the Cures Act, medical imaging exams and procedure reports are released immediately into your electronic medical record. You may view this report before your referring provider. If you have questions, please contact your health care provider. INDICATION: acute resp distress, f/u PNA TECHNIQUE: Chest 1 view COMPARISON: 05/10/2022 FINDINGS: COPD/emphysema. Patchy areas of bronchiectasis/bronchial wall thickening within the right upper lobe, right lower lobe and left lower lobe. Similar bibasilar airspace densities. No pleural effusion. Cardiomegaly. Aortic tortuosity. No fracture. IMPRESSION: Mild bilateral infiltrates are similar, superimposed upon chronic COPD/emphysema/bronchiectasis/chronic bronchitis. Dictated by Power Oconnell MD @ 05/12/2022 9:28:27 AM (Electronically Signed)
--- NOTE | 2022-05-12 20:16 | PC.NURSE ---
End of Shift. pt has been pleasant. no pain teds off per pt request. SL went bad x2 and new SL was started in the left FA by mortgage or loan underwriter. Pt;s blood sugars was 155/ she ate 50% of food and only wanted 1/2 of insulin. 11 units given after nurse and pt talked about insulin and what pt would do at home if she only ate 50 %. she can check her own insulin. Respiratory therapy was in to see pt and changed high flow to 25L 45% and 36 temp. Terese is patent. IS to 500 encouraged use and TCDB, cont sao2 in on to keep Sao2 above 88%. she was repositioned every 2 hours in bed. feet are elevated for sore heels. tele is on and shows !st degee HB.
[2022-05-12] MEDS: METHADONE 5 MG TABLET 10 MG PO (21:28)
[2022-05-12] MEDS: HYDROmorphone 2 MG TABLET 16 MG PO (21:31)
[2022-05-12] MEDS: ENOXAPARIN 40 MG/0.4 ML INJ SUBCUT (21:32)
[2022-05-12] MEDS: ROSUVASTATIN CALCIUM 10 MG TABLET 20 MG PO (22:24)
[2022-05-12] MEDS: ALBUTEROL SULFATE 2.5 MG/3 ML VIAL.NEB NEB (23:14)
[2022-05-13] VITALS (20 sets, daily range): BP systolic 112–146; BP diastolic 52–68; PULSE 75–88; RESP 16–24; TEMP 36.4–37.2; O2SAT 86–90
--- NOTE | 2022-05-13 04:36 | PM.IMPN1 ---
Progress Note: A&P Assessment and plan (1) Acute hypoxemic respiratory failure: Problem details: Multifactorial secondary to pneumonia and COPD exacerbation with known underlying pulmonary fibrosis and HUGO. Status: Acute Assessment and Plan: - continue high-flow oxygen and antibiotics - chest x-ray 05/13 exhibits worsening pleural effusions; patient has responded well to Lasix. Will give IV Lasix and continue to monitor respiratory status and fluid balance closely - patient also likely has an element of COPD exacerbation; unable to take steroids - appreciate input from RT (2) Pneumonia: Problem details: Right-sided pneumonia, coverage broadened to Vancomycin and Zosyn 05/12 Status: Acute Assessment and Plan: - continue abx (3) COPD (chronic obstructive pulmonary disease): Status: Chronic (4) Pulmonary fibrosis: Status: Chronic (5) Chronic kidney disease, stage 3b: Problem details: Baseline Cr 0.9 Status: Chronic (6) HUGO (obstructive sleep apnea): Problem details: HUGO 06/05/2007 AHI-14.2 Uses CPAP Uses OXYGEN at night with CPAP and approximately 5-6 hours per day in addition. 04/07/2011 Status: Chronic (7) Chronic pain: Status: Chronic Assessment and Plan: - Quiescent, continue home medications, bowel regimen given history of constipation (8) CAD (coronary artery disease): Problem details: Extensive left main and LAD calcification with at most moderate stenosis on coronary CT 05/2018 Status: Chronic (9) Type 2 diabetes mellitus with complication, with long-term current use of insulin: Problem details: 03/03/22 HgbA1C 6.6% Diabetes mellitus: Diagnosis in 1990 On insulin. On GLP-1 (ozempic as of January 2021) Macrovascular: CAD, CVA/TIA, PVD: Yes - CVAs. See below. Hypertension: on medications but no MICHAEL (cough). Also note: was no cozaar - had diarrhea (see allergy list) Hyperlipidemia: was on statin, may have had muscle pains on simvastatin (it was stopped December 2012). On rosuvastatin 10mg (update ) Microvascular: Retinopathy: No Last eye exam: with/in last 12 months - Yes. 07/15/21: mild diabetic retinopathy and early macular degeneration Nephropathy: No Neuropathy: yes-severe. 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 Now improved with Fentanyl , Oxycontin, Oycodone + Gastroparesis Last foot exam: December 2017 - no monofilament sensation to very distal feet/toes at all, but sensation essentially normal in both proximal feet , just proximal to toes and proximally from there. * except right inner foot. No ulcers. +hammertoes. Callus on tip of right 1st toe. Soft skin. No lesions. ASA use: on plavix. Was on aggrenox in past (update ) Status: Chronic Assessment and Plan: - (10) Gastroparesis: Problem details: Diagnosed at [facility] 1990 Status: Chronic (11) Altered mental status: Status: Acute Assessment and Plan: - resolved (12) Ileus: Status: Acute Assessment and Plan: - resolved, patient now tolerating po intake Plan - per above - continue to follow renal function while on antibiotics and Lovenox - PT/OT evaluations given comorbidities and deconditioning - daughter Deja updated, questions answered Subjective Date Seen: 05/13/22 Interval history: Required increased oxygen overnight. Kianna notes feeling slightly more dyspnea could today, denies any acute pain. Tolerating p.o. intake. Exam Narrative: Exam Narrative: GEN: Alert and oriented, 3-4 word dyspnea HEENT: Normal external ears, EOMIs bilaterally, no scleral icterus CV: RRR, No concerning murmurs, rubs, or gallops R: Decreased air movement bilateral bases Ext: wwp, no concerning edema Skin: No concerning skin lesions or rashes on exposed skin Neuro: Nonfocal Psych: Appropriate Const: Vital Signs, click to edit/add: Vital Signs - 24 hr 05/12/22 05:00 05/12/22 07:00 05/12/22 07:00 Temperature 98.6 F Pulse Rate Pulse Rate [Right Pulse Oximeter] 85 Respiratory Rate 22 Blood Pressure [Ri ght Arm] 151/67 H Pulse Oximetry 90 Oxygen Delivery Me thod High Flow Nasal Ca nnula Oxygen Flow Rate Fraction of Inspir ed Oxygen 50 50 05/12/22 07:00 05/12/22 09:00 05/12/22 10:28 Temperature Pulse Rate Pulse Rate [Right Pulse Oximeter] 85 Respiratory Rate 22 Blood Pressure [Ri ght Arm] Pulse Oximetry 90 Oxygen Delivery Me thod Oxygen Flow Rate Fraction of Inspir ed Oxygen 40 05/12/22 10:28 05/12/22 07:00 05/12/22 11:00 Temperature 98.7 F Pulse Rate 87 Pulse Rate [Right Pulse Oximeter] 83 Respiratory Rate 20 Blood Pressure [Ri ght Arm] 123/54 L Pulse Oximetry 86 L Oxygen Delivery Me thod High Flow Nasal Ca nnula Oxygen Flow Rate Fraction of Inspir ed Oxygen 40 05/12/22 11:12 05/12/22 14:53 05/12/22 15:46 Temperature Pulse Rate 88 Pulse Rate [Right Pulse Oximeter] Respiratory Rate Blood Pressure [Ri ght Arm] Pulse Oximetry Oxygen Delivery Me thod Oxygen Flow Rate 15 Fraction of Inspir ed Oxygen 45 45 05/12/22 16:00 05/12/22 16:00 05/12/22 16:00 Temperature 96.6 F L Pulse Rate Pulse Rate [Right Pulse Oximeter] 85 85 Respiratory Rate 26 H 26 H Blood Pressure [Ri ght Arm] 144/72 H Pulse Oximetry 85 L 86 L Oxygen Delivery Me thod High Flow Nasal Ca nnula Oxygen Flow Rate 20 Fraction of Inspir ed Oxygen 45 05/12/22 16:00 05/12/22 17:12 05/12/22 20:00 Temperature Pulse Rate Pulse Rate [Right Pulse Oximeter] Respiratory Rate Blood Pressure [Ri ght Arm] Pulse Oximetry Oxygen Delivery Me thod Oxygen Flow Rate Fraction of Inspir ed Oxygen 45 45 45 05/13/22 00:00 05/13/22 02:00 05/13/22 03:00 Temperature Pulse Rate Pulse Rate [Right Pulse Oximeter] Respiratory Rate Blood Pressure [Ri ght Arm] Pulse Oximetry Oxygen Delivery Me thod Oxygen Flow Rate Fraction of Inspir ed Oxygen 45 50 55 05/12/22 19:00 05/13/22 00:00 Temperature 98.5 F Pulse Rate Pulse Rate [Right Pulse Oximeter] 82 Respiratory Rate Blood Pressure [Ri ght Arm] 135/56 L Pulse Oximetry 91 88 Oxygen Delivery Me thod OxyMask Oxygen Flow Rate 35 Fraction of Inspir ed Oxygen 55 Labs Labs: Laboratory Results - last 24 hr 05/12/22 05/12/22 06:46 06:46 WBC 8.11 RBC 3.95 L Hgb 11.5 L Hct 36.0 MCV 91 MCH 29 MCHC 32 RDW Coeff of Thais 14.1 Plt Count 182 Neut % (Auto) 73.2 H Lymph % (Auto) 15.9 L [place] % (Auto) 8.4 Eos % (Auto) 2.2 Baso % (Auto) 0.1 Neut # (Auto) 5.90 Lymph # (Auto) 1.30 [place] # (Auto) 0.70 Eos # (Auto) 0.18 Baso # (Auto) 0.01 Abs Immat Gran (auto) 0.02 Sodium 134 L Potassium 4.5 Chloride 100 Carbon Dioxide 29 BUN 27 Creatinine 0.9 Estimated Creat Clear 34.64 Estimated GFR 63 Glucose 91 Calcium 8.3 L C-Reactive Protein 6.6 H
[2022-05-13] MEDS: PIPERACILLIN/TAZOBACTAM 3.375 GM in 0.9 % SODIUM CHLORIDE Mini-bag 100 ML IVPB ×4 (05:21→21:04)
[2022-05-13] MEDS: ALBUTEROL SULFATE 2.5 MG/3 ML VIAL.NEB NEB ×2 (05:34→16:53)
[2022-05-13] MEDS: LEVOTHYROXINE 88 MCG TABLET PO (07:12)
[2022-05-13 07:16] LABS: Chloride* 100 mmol/L (96-114); Potassium* 4.3 mmol/L (3.6-5.1); Sodium* 133 mmol/L (135-149)
[2022-05-13 07:18] LABS: Creatinine* 0.9 mg/dL (0.5-1.5); Est. Creatinine Clearance* 34.64; Estimated Glomerular Filt Rate 63 ml/min
[2022-05-13 07:19] LABS: Blood Urea Nitrogen* 21 mg/dL (7-30); Calcium* 8.1 mg/dL (8.4-10.6); Carbon Dioxide* 27 mmol/L (20-32); Glucose* 164 mg/dL (60-115)
--- NOTE | 2022-05-13 07:30 | PC.NURSE ---
Pt pleasant and cooperative. She is very SOB. On High flow NC @ 35/55/35.with sats 86-90. BS WNL no SSI given. Gudino with straw colored urine. 500 out. No stool.
--- NOTE | 2022-05-13 08:09 | CRLHL7_ITS ---
For Patients: As a result of the Century Cures Act, medical imaging exams and procedure reports are released immediately into your electronic medical record. You may view this report before your referring provider. If you have questions, please contact your health care provider. INDICATION: Abnormal prior imaging. Follow-up evaluation. COMPARISON: May 12, 2022 at 9:05 a.m. TECHNIQUE: Single-view study May 13, 2022 at 8:58 a.m. FINDINGS: TUBES AND LINES: None. HEART AND MEDIASTINUM: The heart size is normal. The mediastinal contour appears normal for patient age. LUNGS AND PLEURAL SPACES: Diffuse airspace disease on the right. Airspace disease on the left at the base.Probable small right effusion. OSSEOUS STRUCTURES: Age-appropriate appearance. No acute focal finding. IMPRESSION: Diffuse airspace disease on the right and airspace disease at the left base. Small right effusion. The overall appearance has mildly worsened. The right effusion is new. Dictated by Carlo Caballero MD @ 05/13/2022 9:12:38 AM (Electronically Signed)
[2022-05-13] MEDS: POTASSIUM CHLORIDE 10 MEQ CAPSULE ER 20 MEQ PO ×2 (08:29→18:25)
[2022-05-13] MEDS: HYDROmorphone 2 MG TABLET 8 MG PO (08:30)
[2022-05-13] MEDS: OCUVITE TABLET 1 TAB PO (08:30)
[2022-05-13] MEDS: SENNOSIDES/DOCUSATE TABLET 4 TAB PO ×2 (08:30→21:04)
[2022-05-13] MEDS: CLOPIDOGREL 75 MG TABLET PO (08:30)
[2022-05-13] MEDS: allopurinoL 300 MG TABLET 150 MG PO (08:31)
[2022-05-13] MEDS: GABAPENTIN 300 MG CAPSULE 600 MG PO (08:31)
[2022-05-13] MEDS: METHADONE 5 MG TABLET PO (08:31)
[2022-05-13] MEDS: TAMSULOSIN HCL 0.4 MG CAPSULE PO (08:31)
--- NOTE | 2022-05-13 09:59 | REH.OT ---
Orders received for OT/PT. Per respiratory therapist and hospitalist, hold therapies today secondary to medical condition.
[2022-05-13] MEDS: FUROSEMIDE 10 MG/ML inj 20 MG IVP (11:35)
--- NOTE | 2022-05-13 16:08 | RESP.RT ---
Not able to wean pt today. Noted CXR is a bit worse today. Pt. continues to cough up thick yellow sputum. She states she is SOB when flow is decreased on HFNC. With Pts COPD and Pulmonary fibrosis, she may be chronically SOB. Pt's oxygenation needs may have increased. Continue attempts to wean pt. Start aerobika when Pt. liter flow is decreased, and she is not noting SOB
--- NOTE | 2022-05-13 19:52 | CRLHL7_ITS ---
For Patients: As a result of the Cures Act, medical imaging exams and procedure reports are released immediately into your electronic medical record. You may view this report before your referring provider. If you have questions, please contact your health care provider. INDICATION: Worsening condition. TECHNIQUE: Chest 1 views. COMPARISON: Chest x-ray from 05/03/2022 at 8:58 a.m. FINDINGS: Lungs: Patchy right lower lobe opacity. Pleura: Small left pleural effusion. Heart and Mediastinum: The cardiomediastinal silhouette is upper normal. The vessels are unremarkable. Bones: Unremarkable. IMPRESSION: Stable chest. Dictated by David Moeller MD @ 05/13/2022 8:46:53 PM (Electronically Signed)
[2022-05-13 20:47] LABS: HCO3 VBG 30 mmol/L (21-28); PCO2 VBG 42 mmHG (40-50); PO2 VBG 47.3 mmHG (25-47); pH VBG 7.457 (7.32-7.43)
[2022-05-13 20:53] LABS: Hematocrit 37.3 % (33.0-51.0); Hemoglobin* 12.1 gm/dL (12.0-16.0); Lactate Sepsis w/Reflex* 1.6 mmol/L (0.5-1.9); Mean Corpuscular Volume 91 fL (80-100); Red Blood Count 4.11 m/uL (4.00-5.20)
[2022-05-13 20:54] LABS: Basophils Percent Auto 0.1 % (0.0-3.0); Eosinophils Percent Auto 2.2 % (0.0-7.0); Lymphocytes Percent Auto 10.3 % (20-44); Mean Corpuscular HGB Conc 32 gm/dL (32-36); Mean Corpuscular Hemoglobin 29 pg (26-34); Monocytes Percent Auto 9.3 % (0.0-11.0); Neutrophils Percent Auto 77.5 % (42.0-72.0); Platelet Count* 184 K/uL (140-440); Slide Review Reflex No
[2022-05-13 21:01] LABS: Chloride* 99 mmol/L (96-114); Potassium* 4.3 mmol/L (3.6-5.1); Sodium* 134 mmol/L (135-149)
[2022-05-13] MEDS: HYDROmorphone 2 MG TABLET 16 MG PO (21:03)
[2022-05-13 21:04] LABS: Blood Urea Nitrogen* 17 mg/dL (7-30); Carbon Dioxide* 27 mmol/L (20-32); Creatinine* 0.8 mg/dL (0.5-1.5); Est. Creatinine Clearance* 34.64; Estimated Glomerular Filt Rate 73 ml/min
[2022-05-13] MEDS: METHADONE 5 MG TABLET 10 MG PO (21:04)
[2022-05-13] MEDS: ENOXAPARIN 40 MG/0.4 ML INJ SUBCUT (21:04)
[2022-05-13] MEDS: ROSUVASTATIN CALCIUM 10 MG TABLET 20 MG PO (21:04)
[2022-05-13 21:05] LABS: Calcium* 8.7 mg/dL (8.4-10.6); Glucose* 279 mg/dL (60-115)
[2022-05-13 21:43] LABS: Ammonia* < 9.0 umol/L (13.1-30.0)
[2022-05-14] VITALS (16 sets, daily range): BP systolic 116–146; BP diastolic 49–76; PULSE 68–91; RESP 16–20; TEMP 36.1–37.1; O2SAT 86–93
[2022-05-14] MEDS: PIPERACILLIN/TAZOBACTAM 3.375 GM in 0.9 % SODIUM CHLORIDE Mini-bag 100 ML IVPB ×4 (03:30→21:03)
--- NOTE | 2022-05-14 04:58 | PC.NURSE ---
Pt rested well during shift, helped pt to repo prn. Tolerating HFNC at current settings, no adjustments needed during shift. Pt has occasional productive cough, encouraged pt to cough, deep breath and use IS. Gudino patent and draining. pt denies pain, difficutly breathing, sob, headache, chest pain or N/V.
[2022-05-14] MEDS: ALBUTEROL SULFATE 2.5 MG/3 ML VIAL.NEB NEB (05:20)
[2022-05-14] MEDS: LEVOTHYROXINE 88 MCG TABLET PO (06:01)
[2022-05-14 07:06] LABS: Basophils Absolute Auto 0.03 K/uL (0.00-0.30); Basophils Percent Auto 0.5 % (0.0-3.0); Eosinophils Absolute Auto 0.24 K/uL (0.00-0.50); Eosinophils Percent Auto 3.7 % (0.0-7.0); Hemoglobin* 11.8 gm/dL (12.0-16.0); Immature Granulocytes Abs Auto 0.04 K/uL (0.00-0.30); Lymphocytes Percent Auto 23.2 % (20-44); Mean Corpuscular HGB Conc 32 gm/dL (32-36); Mean Corpuscular Hemoglobin 29 pg (26-34); Mean Corpuscular Volume 92 fL (80-100); Monocytes Percent Auto 12.5 % (0.0-11.0); Neutrophils Absolute Auto 3.84 K/uL (1.7-7.0); Neutrophils Percent Auto 59.5 % (42.0-72.0); Platelet Count* 216 K/uL (140-440); RDW Coefficient of Variation % 13.4 % (11.5-15.5); Red Blood Count 4.04 m/uL (4.00-5.20); White Blood Count* 6.46 K/uL (4.50-11.00)
[2022-05-14 07:07] LABS: Slide Review Reflex No
[2022-05-14 07:26] LABS: Chloride* 101 mmol/L (96-114); Potassium* 4.4 mmol/L (3.6-5.1); Sodium* 137 mmol/L (135-149)
[2022-05-14 07:29] LABS: Blood Urea Nitrogen* 15 mg/dL (7-30); Carbon Dioxide* 28 mmol/L (20-32); Creatinine* 0.9 mg/dL (0.5-1.5); Est. Creatinine Clearance* 34.64; Estimated Glomerular Filt Rate 63 ml/min
[2022-05-14 07:30] LABS: Calcium* 8.5 mg/dL (8.4-10.6); Glucose* 103 mg/dL (60-115)
--- NOTE | 2022-05-14 08:58 | PM.IMPN1 ---
Progress Note: A&P Assessment and plan (1) Acute hypoxemic respiratory failure: Problem details: Multifactorial secondary to pneumonia and COPD exacerbation with known underlying pulmonary fibrosis and HUGO. Also noted to have small pleural effusion Status: Acute Assessment and Plan: - continue antibiotics, nebs, supplement oxygen. Patient unfortunately intolerant of steroids - restart home dose of Lasix 05/14. Noted to have pulmonary effusion on imaging, will obtain TTE to evaluate whether there is an element of CHF contributing to respiratory failure - appreciate RT input (2) Pneumonia: Problem details: Right-sided pneumonia, coverage broadened to Vancomycin and Zosyn 05/12. Status: Acute (3) COPD (chronic obstructive pulmonary disease): Status: Chronic (4) Pulmonary fibrosis: Status: Chronic (5) Chronic kidney disease, stage 3b: Problem details: Baseline Cr 0.9 Status: Chronic Assessment and Plan: - current creatinine 0.9, continue to follow given current medication list (6) HUGO (obstructive sleep apnea): Problem details: HUGO 06/05/2007 AHI-14.2 Uses CPAP Uses OXYGEN at night with CPAP and approximately 5-6 hours per day in addition. 04/07/2011 Status: Chronic (7) Chronic pain: Status: Chronic Assessment and Plan: - continue home medications, pain is at baseline (8) CAD (coronary artery disease): Problem details: Extensive left main and LAD calcification with at most moderate stenosis on coronary CT 05/2018 Status: Chronic (9) Type 2 diabetes mellitus with complication, with long-term current use of insulin: Problem details: 03/03/22 HgbA1C 6.6% Diabetes mellitus: Diagnosis in 1990 On insulin. On GLP-1 (ozempic as of January 2021) Macrovascular: CAD, CVA/TIA, PVD: Yes - CVAs. See below. Hypertension: on medications but no MICHAEL (cough). Also note: was no cozaar - had diarrhea (see allergy list) Hyperlipidemia: was on statin, may have had muscle pains on simvastatin (it was stopped December 2012). On rosuvastatin 10mg (update ) Microvascular: Retinopathy: No Last eye exam: with/in last 12 months - Yes. 07/15/21: mild diabetic retinopathy and early macular degeneration Nephropathy: No Neuropathy: yes-severe. 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 Now improved with Fentanyl , Oxycontin, Oycodone + Gastroparesis Last foot exam: December 2017 - no monofilament sensation to very distal feet/toes at all, but sensation essentially normal in both proximal feet , just proximal to toes and proximally from there. * except right inner foot. No ulcers. +hammertoes. Callus on tip of right 1st toe. Soft skin. No lesions. ASA use: on plavix. Was on aggrenox in past (update ) Status: Chronic (10) Gastroparesis: Problem details: Diagnosed at [facility] 1990 Status: Chronic (11) Altered mental status: Status: Acute Assessment and Plan: - intermittently, source unclear. VBG obtained during one episode, reassuring. Query sundowning vs iatrogenic given chronic narcotic use (12) Ileus: Status: Acute Assessment and Plan: - on admission, resolved - known chronic constipation, on bowel regimen Plan - per above - Lovenox for ppx - PT and OT to help assess for additional needs upon discharge Time Spent With Patient Total time spent: 35, including updates to family at bedside Subjective Date Seen: 05/14/22 Interval history: Ben had an episode of confusion overnight, resolved (this happened previously during stay as well). Source of confusion unclear (when this happened previously, VBG was wnl, no focal neurological deficits). Ben feels like she's startin to improve from a respiratory standpoint. She continues to tolerate po intake, denies any acute pain. Exam Narrative: Exam Narrative: GEN: Alert and oriented, sitting in bedside chair and eating breakfast HEENT: Normal external ears, EOMIs bilaterally, no scleral icterus CV: RRR, No concerning murmurs, rubs, or gallops R: No wheezing, rhonchi throughout (more prominent at bilateral bases) Ext: wwp, no concerning edema Skin: No concerning skin lesions or rashes on exposed skin Neuro: Nonfocal Psych: Appropriate Const: Vital Signs, click to edit/add: Vital Signs - 24 hr 05/13/22 10:05 05/13/22 11:33 05/13/22 12:53 Temperature 97.7 F Pulse Rate Pulse Rate [Right Pulse Oximeter] 76 Respiratory Rate 20 Blood Pressure [Le ft Arm] Blood Pressure [Ri ght Arm] 131/59 L Pulse Oximetry 89 Oxygen Delivery Me thod High Flow Nasal Ca nnula Oxygen Flow Rate Fraction of Inspir ed Oxygen 55 55 05/13/22 13:52 05/13/22 15:08 05/13/22 15:08 Temperature 97.8 F Pulse Rate Pulse Rate [Right Pulse Oximeter] 77 Respiratory Rate 20 Blood Pressure [Le ft Arm] Blood Pressure [Ri ght Arm] 112/65 Pulse Oximetry 90 Oxygen Delivery Me thod High Flow Nasal Ca nnula Oxygen Flow Rate 35 Fraction of Inspir ed Oxygen 45 55 05/13/22 15:13 05/13/22 15:16 05/13/22 18:23 Temperature Pulse Rate 75 Pulse Rate [Right Pulse Oximeter] Respiratory Rate Blood Pressure [Le ft Arm] Blood Pressure [Ri ght Arm] Pulse Oximetry 90 Oxygen Delivery Me thod Oxygen Flow Rate Fraction of Inspir ed Oxygen 55 05/13/22 19:00 05/13/22 20:00 05/13/22 22:00 Temperature 99.0 F Pulse Rate Pulse Rate [Right Pulse Oximeter] 88 Respiratory Rate 20 Blood Pressure [Le ft Arm] Blood Pressure [Ri ght Arm] 146/68 H Pulse Oximetry 90 Oxygen Delivery Me thod High Flow Nasal Ca nnula Oxygen Flow Rate 35 Fraction of Inspir ed Oxygen 55 55 55 05/13/22 23:11 05/13/22 23:15 05/13/22 23:17 Temperature 97.6 F Pulse Rate 88 Pulse Rate [Right Pulse Oximeter] 88 88 Respiratory Rate 16 16 Blood Pressure [Le ft Arm] Blood Pressure [Ri ght Arm] 118/52 L Pulse Oximetry 90 Oxygen Delivery Me thod High Flow Nasal Ca nnula Oxygen Flow Rate 35 Fraction of Inspir ed Oxygen 05/13/22 23:38 05/13/22 23:38 05/14/22 01:42 Temperature Pulse Rate Pulse Rate [Right Pulse Oximeter] Respiratory Rate Blood Pressure [Le ft Arm] Blood Pressure [Ri ght Arm] Pulse Oximetry 86 L Oxygen Delivery Me thod Oxygen Flow Rate Fraction of Inspir ed Oxygen 55 55 05/14/22 03:00 05/14/22 04:00 05/14/22 05:50 Temperature 98.7 F Pulse Rate Pulse Rate [Right Pulse Oximeter] 91 Respiratory Rate 16 Blood Pressure [Le ft Arm] 116/61 Blood Pressure [Ri ght Arm] Pulse Oximetry 90 Oxygen Delivery Me thod High Flow Nasal Ca nnula Oxygen Flow Rate 35 Fraction of Inspir ed Oxygen 55 55 55 10/20/22 07:41 05/14/22 07:41 05/14/22 07:41 Temperature 97.4 F L Pulse Rate Pulse Rate [Right Pulse Oximeter] 75 Respiratory Rate 16 Blood Pressure [Le ft Arm] 117/49 L Blood Pressure [Ri ght Arm] Pulse Oximetry 86 L 86 L Oxygen Delivery Me thod High Flow Nasal Ca nnula Oxygen Flow Rate Fraction of Inspir ed Oxygen 55 05/14/22 07:39 05/14/22 07:48 Temperature Pulse Rate 86 Pulse Rate [Right Pulse Oximeter] Respiratory Rate Blood Pressure [Le ft Arm] Blood Pressure [Ri ght Arm] Pulse Oximetry Oxygen Delivery Me thod Oxygen Flow Rate Fraction of Inspir ed Oxygen 60 Labs Labs: Laboratory Results - last 24 hr 05/13/22 05/13/22 05/13/22 20:44 20:44 20:44 WBC 6.70 RBC 4.11 Hgb 12.1 Hct 37.3 MCV 91 MCH 29 MCHC 32 RDW Coeff of Thais Plt Count 184 Neut % (Auto) 77.5 H Lymph % (Auto) 10.3 L Alfalfa % (Auto) 9.3 Eos % (Auto) 2.2 Baso % (Auto) 0.1 Neut # (Auto) 5.20 Lymph # (Auto) 0.70 L Alfalfa # (Auto) 0.60 Eos # (Auto) 0.10 Baso # (Auto) 0.00 Abs Immat Gran (auto) VBG pH VBG pCO2 VBG pO2 VBG HCO3 Sodium 134 L Potassium 4.3 Chloride 99 Carbon Dioxide 27 BUN 17 Creatinine 0.8 Estimated Creat Clear 34.64 Estimated GFR 73 Glucose 279 H Venous Lactic Acid (Serial Order) Calcium 8.7 Ammonia < 9.0 L 05/13/22 05/13/22 05/14/22 20:44 20:44 06:21 WBC 6.46 RBC 4.04 Hgb 11.8 L Hct 37.0 MCV 92 MCH 29 MCHC 32 RDW Coeff of Thais 13.4 Plt Count 216 Neut % (Auto) 59.5 Lymph % (Auto) 23.2 Alfalfa % (Auto) 12.5 H Eos % (Auto) 3.7 Baso % (Auto) 0.5 Neut # (Auto) 3.84 Lymph # (Auto) 1.50 Alfalfa # (Auto) 0.80 Eos # (Auto) 0.24 Baso # (Auto) 0.03 Abs Immat Gran (auto) 0.04 VBG pH 7.457 H VBG pCO2 42 VBG pO2 47.3 H VBG HCO3 30 H Sodium Potassium Chloride Carbon Dioxide BUN Creatinine Estimated Creat Clear Estimated GFR Glucose Venous Lactic Acid (Serial Order) Calcium Ammonia 05/14/22 06:21 WBC RBC Hgb Hct MCV MCH MCHC RDW Coeff of Thais Plt Count Neut % (Auto) Lymph % (Auto) Alfalfa % (Auto) Eos % (Auto) Baso % (Auto) Neut # (Auto) Lymph # (Auto) Alfalfa # (Auto) Eos # (Auto) Baso # (Auto) Abs Immat Gran (auto) VBG pH VBG pCO2 VBG pO2 VBG HCO3 Sodium 137 Potassium 4.4 Chloride 101 Carbon Dioxide 28 BUN 15 Creatinine 0.9 Estimated Creat Clear 34.64 Estimated GFR 63 Glucose 103 Venous Lactic Acid (Serial Order) Calcium 8.5 Ammonia
[2022-05-14] MEDS: HYDROmorphone 2 MG TABLET 8 MG PO (09:01)
[2022-05-14] MEDS: METHADONE 5 MG TABLET PO (09:02)
[2022-05-14] MEDS: allopurinoL 300 MG TABLET 150 MG PO (09:02)
[2022-05-14] MEDS: GABAPENTIN 300 MG CAPSULE 600 MG PO (09:02)
[2022-05-14] MEDS: SENNOSIDES/DOCUSATE TABLET 4 TAB PO ×2 (09:02→21:02)
[2022-05-14] MEDS: POTASSIUM CHLORIDE 10 MEQ CAPSULE ER 20 MEQ PO ×2 (09:02→18:08)
[2022-05-14] MEDS: CLOPIDOGREL 75 MG TABLET PO (09:02)
[2022-05-14] MEDS: TAMSULOSIN HCL 0.4 MG CAPSULE PO (09:02)
[2022-05-14] MEDS: OCUVITE TABLET 1 TAB PO (09:02)
--- NOTE | 2022-05-14 09:39 | CRLHL7_ITS ---
For Patients: As a result of the Century Cures Act, medical imaging exams and procedure reports are released immediately into your electronic medical record. You may view this report before your referring provider. If you have questions, please contact your health care provider. INDICATION: Pulmonary edema COMPARISON: May 13, 2022 TECHNIQUE: Single-view study May 14, 2022 at 10:15 a.m. FINDINGS: TUBES AND LINES: None. HEART AND MEDIASTINUM: Heart size normal. Mediastinal contour within normal limits.. LUNGS AND PLEURAL SPACES: Airspace opacities primarily at the bases, right greater than left, essentially unchanged.The pleural spaces are unremarkable. OSSEOUS STRUCTURES: Age-appropriate appearance. No acute focal finding. IMPRESSION: Airspace opacities primarily at the bases, right greater than left, essentially unchanged. Dictated by Carlo Caballero MD @ 05/14/2022 10:10:25 AM (Electronically Signed)
[2022-05-14] MEDS: FUROSEMIDE 20 MG TABLET PO (11:12)
[2022-05-14] MEDS: MAGNESIUM HYDROXIDE 30 ML ORAL.SUSP PO (13:56)
[2022-05-14] MEDS: ROSUVASTATIN CALCIUM 10 MG TABLET 20 MG PO (20:59)
[2022-05-14] MEDS: METHADONE 5 MG TABLET 10 MG PO (20:59)
[2022-05-14] MEDS: HYDROmorphone 2 MG TABLET 16 MG PO (21:00)
[2022-05-14] MEDS: ENOXAPARIN 40 MG/0.4 ML INJ SUBCUT (21:04)
[2022-05-15] VITALS (18 sets, daily range): BP systolic 126–153; BP diastolic 56–74; PULSE 66–83; RESP 16–24; TEMP 36.4–37.1; O2SAT 88–92
[2022-05-15] MEDS: PIPERACILLIN/TAZOBACTAM 3.375 GM in 0.9 % SODIUM CHLORIDE Mini-bag 100 ML IVPB (02:58)
--- NOTE | 2022-05-15 05:19 | PC.NURSE ---
Patient's respiratory status has been maintained with high flow alternating with CPAP. Intermittent sleep apnea episode noted. Denied pain, no N/V. Blood Glucose level at 0100 was 68, pt complained of shaking and sweating. Crackers with peanut butter given, rechecked at 0130 and 0500 recorded as 80 and 96 respectively. Lungs sound have crackles with diminished breath sound. Standby assist with walker.
[2022-05-15] MEDS: LEVOTHYROXINE 88 MCG TABLET PO (07:08)
--- NOTE | 2022-05-15 08:01 | PM.IMPN1 ---
Progress Note: A&P Assessment and plan (1) Acute hypoxemic respiratory failure: Problem details: Multifactorial secondary to pneumonia and COPD exacerbation with known underlying pulmonary fibrosis and HUGO. Also noted to have small pleural effusion. Status: Acute Assessment and Plan: - current treatments include supplemental oxygen, ceftriaxone and azithromycin, home dose of Lasix, neb treatments, and Aerobika - appreciate input from RT - no acute findings on TTE (2) Pneumonia: Problem details: Right-sided pneumonia, coverage broadened to Vancomycin and Zosyn 05/12. Transitioned to ceftriaxone and azithromycin on 05/15. Status: Acute (3) COPD (chronic obstructive pulmonary disease): Status: Chronic (4) Pulmonary fibrosis: Status: Chronic (5) Chronic kidney disease, stage 3b: Problem details: Baseline Cr 0.9 Status: Chronic Assessment and Plan: - creatinine remains stable, continue to follow given current medication list (6) HUGO (obstructive sleep apnea): Problem details: HUGO 06/05/2007 AHI-14.2 Uses CPAP Uses OXYGEN at night with CPAP and approximately 5-6 hours per day in addition. 04/07/2011 Status: Chronic (7) Chronic pain: Status: Chronic Assessment and Plan: - stable on home medications (8) CAD (coronary artery disease): Problem details: Extensive left main and LAD calcification with at most moderate stenosis on coronary CT 05/2018. TTE 05/14/22 Final Impressions: 1. Normal left ventricular size, normal wall thickness, normal global systolic function, calculated EF of 63 %. 2. The aortic valve is trileaflet and sclerotic, no stenosis and mild regurgitation. 3. The mitral valve is sclerotic, mild mitral regurgitation. Status: Chronic Assessment and Plan: - TTE findings as noted above (9) Type 2 diabetes mellitus with complication, with long-term current use of insulin: Problem details: 03/03/22 HgbA1C 6.6% Diabetes mellitus: Diagnosis in 1990 On insulin. On GLP-1 (ozempic as of January 2021) Macrovascular: CAD, CVA/TIA, PVD: Yes - CVAs. See below. Hypertension: on medications but no MICHAEL (cough). Also note: was no cozaar - had diarrhea (see allergy list) Hyperlipidemia: was on statin, may have had muscle pains on simvastatin (it was stopped December 2012). On rosuvastatin 10mg (update ) Microvascular: Retinopathy: No Last eye exam: with/in last 12 months - Yes. 07/15/21: mild diabetic retinopathy and early macular degeneration Nephropathy: No Neuropathy: yes-severe. 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 Now improved with Fentanyl , Oxycontin, Oycodone + Gastroparesis Last foot exam: December 2017 - no monofilament sensation to very distal feet/toes at all, but sensation essentially normal in both proximal feet , just proximal to toes and proximally from there. * except right inner foot. No ulcers. +hammertoes. Callus on tip of right 1st toe. Soft skin. No lesions. ASA use: on plavix. Was on aggrenox in past (update ) Status: Chronic Assessment and Plan: - hypoglycemia overnight, will decrease her supper dose of insulin and continue to monitor closely (10) Gastroparesis: Problem details: Diagnosed at [facility] 1990 Status: Chronic (11) Altered mental status: Status: Acute Assessment and Plan: - intermittent, source unclear. Overall very stable (12) Ileus: Status: Acute Assessment and Plan: - early in hospital stay, resolved. Tolerating p.o. intake Plan - per above - Lovenox for ppx - continue PT/OT, appreciate input from their teams regarding dispo planning Subjective Date Seen: 05/15/22 Interval history: Patient noted to have some hypoglycemia overnight (blood sugar in the 60s); improved after p.o. intake. Ben is noting some mild pain today; history of thrush. She continues to work with therapies, is tolerating oxygen titration. Amenable to removing Gudino today. TTE performed yesterday: Final Impressions: 1. Normal left ventricular size, normal wall thickness, normal global systolic function, calculated EF of 63 %. 2. The aortic valve is trileaflet and sclerotic, no stenosis and mild regurgitation. 3. The mitral valve is sclerotic, mild mitral regurgitation. Exam Narrative: Exam Narrative: GEN: Alert and oriented, sitting comfortably in bedside chair HEENT: Normal external ears, EOMIs bilaterally, mild thrush on palate, + torus palatinus CV: RRR, No concerning murmurs, rubs, or gallops R: Expiratory rhonchi bilaterally, more prominent at bases Ext: wwp, no concerning edema Skin: No concerning skin lesions or rashes on exposed skin Neuro: Nonfocal Psych: Appropriate Const: Vital Signs, click to edit/add: Vital Signs - 24 hr 05/14/22 09:31 05/14/22 11:20 05/14/22 11:20 Temperature 98.3 F Pulse Rate Pulse Rate [Right Pulse Oximeter] 86 Respiratory Rate 20 Blood Pressure [Le ft Arm] 125/59 L Blood Pressure [Ri ght Arm] Pulse Oximetry 89 Oxygen Delivery Me thod High Flow Nasal Ca nnula Oxygen Flow Rate Fraction of Inspir ed Oxygen 60 55 05/14/22 11:26 05/14/22 13:59 05/14/22 15:00 Temperature 98.1 F Pulse Rate Pulse Rate [Right Pulse Oximeter] 71 Respiratory Rate 20 Blood Pressure [Le ft Arm] Blood Pressure [Ri ght Arm] 124/63 Pulse Oximetry 93 Oxygen Delivery Me thod High Flow Nasal Ca nnula Oxygen Flow Rate 35 35 Fraction of Inspir ed Oxygen 55 55 55 05/14/22 15:00 05/14/22 16:00 05/14/22 16:00 Temperature Pulse Rate Pulse Rate [Right Pulse Oximeter] 73 Respiratory Rate 20 Blood Pressure [Le ft Arm] Blood Pressure [Ri ght Arm] Pulse Oximetry 93 Oxygen Delivery Me thod Oxygen Flow Rate Fraction of Inspir ed Oxygen 50 05/14/22 15:00 05/14/22 18:00 05/14/22 21:23 Temperature 97.7 F Pulse Rate 77 Pulse Rate [Right Pulse Oximeter] 86 Respiratory Rate 20 Blood Pressure [Le ft Arm] 124/67 Blood Pressure [Ri ght Arm] Pulse Oximetry 90 Oxygen Delivery Me thod High Flow Nasal Ca nnula Oxygen Flow Rate 35 Fraction of Inspir ed Oxygen 45 45 05/14/22 21:24 05/15/22 00:00 05/14/22 23:55 Temperature Pulse Rate Pulse Rate [Right Pulse Oximeter] Respiratory Rate Blood Pressure [Le ft Arm] Blood Pressure [Ri ght Arm] Pulse Oximetry 90 Oxygen Delivery Me thod Oxygen Flow Rate Fraction of Inspir ed Oxygen 45 45 05/14/22 23:55 05/14/22 23:55 05/15/22 03:00 Temperature 97 F L 97.7 F Pulse Rate Pulse Rate [Right Pulse Oximeter] 68 68 69 Respiratory Rate 20 20 20 Blood Pressure [Le ft Arm] 146/76 H 152/68 H Blood Pressure [Ri ght Arm] Pulse Oximetry 90 90 Oxygen Delivery Me thod High Flow Nasal Ca nnula CPAP High Flow Nasal Ca nnula CPAP Oxygen Flow Rate 35 35 Fraction of Inspir ed Oxygen 45 45 05/14/22 23:55 05/15/22 05:00 05/15/22 07:34 Temperature Pulse Rate 70 Pulse Rate [Right Pulse Oximeter] Respiratory Rate Blood Pressure [Le ft Arm] Blood Pressure [Ri ght Arm] Pulse Oximetry Oxygen Delivery Me thod Oxygen Flow Rate Fraction of Inspir ed Oxygen 45 40 05/15/22 07:00 Temperature 97.6 F Pulse Rate Pulse Rate [Right Pulse Oximeter] 75 Respiratory Rate 16 Blood Pressure [Le ft Arm] Blood Pressure [Ri ght Arm] 137/56 L Pulse Oximetry 90 Oxygen Delivery Me thod High Flow Nasal Ca nnula Oxygen Flow Rate 35 Fraction of Inspir ed Oxygen 40
[2022-05-15 08:16] LABS: Chloride* 101 mmol/L (96-114); Potassium* 4.2 mmol/L (3.6-5.1); Sodium* 137 mmol/L (135-149)
[2022-05-15 08:19] LABS: Blood Urea Nitrogen* 11 mg/dL (7-30); Carbon Dioxide* 26 mmol/L (20-32); Creatinine* 0.8 mg/dL (0.5-1.5); Est. Creatinine Clearance* 34.64; Estimated Glomerular Filt Rate 73 ml/min
[2022-05-15 08:20] LABS: Calcium* 8.6 mg/dL (8.4-10.6); Glucose* 110 mg/dL (60-115)
[2022-05-15] MEDS: MAGNESIUM HYDROXIDE 30 ML ORAL.SUSP PO (08:24)
[2022-05-15] MEDS: POTASSIUM CHLORIDE 10 MEQ CAPSULE ER 20 MEQ PO ×2 (08:24→17:38)
[2022-05-15] MEDS: ALBUTEROL SULFATE 2.5 MG/3 ML VIAL.NEB NEB (08:26)
[2022-05-15] MEDS: SODIUM CHLORIDE 0.9 % (FLUSH) 10 ML SYRINGE IVF ×2 (08:49→20:56)
[2022-05-15] MEDS: FUROSEMIDE 20 MG TABLET PO (08:52)
[2022-05-15] MEDS: OCUVITE TABLET 1 TAB PO (08:52)
[2022-05-15] MEDS: GABAPENTIN 300 MG CAPSULE 600 MG PO (08:52)
[2022-05-15] MEDS: HYDROmorphone 2 MG TABLET 8 MG PO (08:52)
[2022-05-15] MEDS: SENNOSIDES/DOCUSATE TABLET 4 TAB PO ×2 (08:52→20:53)
[2022-05-15] MEDS: allopurinoL 300 MG TABLET 150 MG PO (08:53)
[2022-05-15] MEDS: METHADONE 5 MG TABLET PO (08:53)
[2022-05-15] MEDS: TAMSULOSIN HCL 0.4 MG CAPSULE PO (08:53)
[2022-05-15] MEDS: CLOPIDOGREL 75 MG TABLET PO (08:53)
[2022-05-15] MEDS: AZITHROMYCIN 250 MG TABLET PO (09:36)
[2022-05-15] MEDS: DIPHEN/LIDO/ALUM/MAG/SIMETH 5 ML SUSPENSION MUCOUS MEM ×3 (09:38→17:38)
[2022-05-15] MEDS: cefTRIAXone 1 GM in 0.9 % SODIUM CHLORIDE Mini-bag 100 ML IVPB (12:49)
--- NOTE | 2022-05-15 19:30 | PC.NURSE ---
End of shift-- Very pleasant and cooperative, alert and oriented patient. VSS and pt is afebrile. SPO2 maintained 88-93% on high flow nasal cannula at 35L with 40% FiO2. She denied pain. Crackles auscultated in bilateral bases of lungs that were increased this afternoon and this morning pt had deep expiratory wheezes that cleared following a neb. She has a frequent productive cough with thick, yellowish sputum. Pt has been using her aerobika and IS independently. She denied nausea and ate a regular diabetic diet without difficulty. Blood sugars 115-148 and pt was given scheduled insulin only. Telemetry shows NSR with 1st degree AV block. Gudino was removed this afternoon and pt has voided >600ml since removal. Report to PILAR Damon.
[2022-05-15] MEDS: ENOXAPARIN 40 MG/0.4 ML INJ SUBCUT (20:53)
[2022-05-15] MEDS: ROSUVASTATIN CALCIUM 10 MG TABLET 20 MG PO (20:54)
[2022-05-15] MEDS: HYDROmorphone 2 MG TABLET 16 MG PO (20:55)
[2022-05-15] MEDS: METHADONE 5 MG TABLET 10 MG PO (20:55)
--- NOTE | 2022-05-15 22:33 | PC.NURSE ---
End of Shift ([id number]): Patient pleasant and cooperative. Afebrile. Denies pain. O2 sats 89-92% on HFNC. Up to chair and bathroom with 1 assist, walker and gait belt. Blood glucose 76 at bedtime. Updated MD and will hold insulin tonight. Snack and juice given and BG 111 on recheck.
[2022-05-16] VITALS (15 sets, daily range): BP systolic 130–153; BP diastolic 58–70; PULSE 67–82; RESP 20; TEMP 36–37; O2SAT 88–97
--- NOTE | 2022-05-16 06:06 | PC.NURSE ---
Shift note: CPAP overnight with 2-4L O2, sats 88-92%. Pt had 2 large BM during this shift. Ambulates with SBA and walker, no c/o SOB
[2022-05-16] MEDS: LEVOTHYROXINE 88 MCG TABLET PO (07:32)
[2022-05-16] MEDS: ALBUTEROL SULFATE 2.5 MG/3 ML VIAL.NEB NEB (07:59)
[2022-05-16] MEDS: POTASSIUM CHLORIDE 10 MEQ CAPSULE ER 20 MEQ PO ×2 (08:52→17:33)
[2022-05-16] MEDS: CLOPIDOGREL 75 MG TABLET PO (08:53)
[2022-05-16] MEDS: allopurinoL 300 MG TABLET 150 MG PO (08:53)
[2022-05-16] MEDS: TAMSULOSIN HCL 0.4 MG CAPSULE PO (08:53)
[2022-05-16] MEDS: AZITHROMYCIN 250 MG TABLET PO (08:53)
[2022-05-16] MEDS: METHADONE 5 MG TABLET PO (08:54)
[2022-05-16] MEDS: FUROSEMIDE 20 MG TABLET PO (08:54)
[2022-05-16] MEDS: OCUVITE TABLET 1 TAB PO (08:55)
[2022-05-16] MEDS: GABAPENTIN 300 MG CAPSULE 600 MG PO (08:55)
[2022-05-16] MEDS: SENNOSIDES/DOCUSATE TABLET 4 TAB PO (08:55)
[2022-05-16] MEDS: HYDROmorphone 2 MG TABLET 8 MG PO (08:56)
[2022-05-16] MEDS: DIPHEN/LIDO/ALUM/MAG/SIMETH 5 ML SUSPENSION MUCOUS MEM ×3 (08:58→18:27)
--- NOTE | 2022-05-16 10:36 | P.IMPN_ITS ---
Progress Note: A&P Assessment and plan (1) Acute hypoxemic respiratory failure: Problem details: Multifactorial secondary to pneumonia and COPD exacerbation with known underlying pulmonary fibrosis and HUGO. Also noted to have small pleural effusions on imaging. TTE 05/14/22 Final Impressions: 1. Normal left ventricular size, normal wall thickness, normal global systolic function, calculated EF of 63 %. 2. The aortic valve is trileaflet and sclerotic, no stenosis and mild regurgitation. 3. The mitral valve is sclerotic, mild mitral regurgitation. Status: Acute Assessment and Plan: - improving, continue current therapies (antibiotics, nebs, Aerobika, Lasix). Patient allergic to steroids - appreciate input from RT (2) Pneumonia: Problem details: Right-sided pneumonia, Ceftriaxone and Azithromycin initiated 05/10; coverage broadened to Vancomycin and Zosyn 05/12. Transitioned back to Ceftriaxone and Azithromycin on 05/15. Status: Acute (3) COPD (chronic obstructive pulmonary disease): Status: Chronic (4) Pulmonary fibrosis: Status: Chronic (5) Chronic kidney disease, stage 3b: Problem details: Baseline Cr 0.9 Status: Chronic Assessment and Plan: - stable (6) HUGO (obstructive sleep apnea): Problem details: HUGO 06/05/2007 AHI-14.2 Uses CPAP Uses OXYGEN at night with CPAP and approximately 5-6 hours per day in addition. 04/07/2011 Status: Chronic (7) Chronic pain: Status: Chronic Assessment and Plan: - stable on home medications (8) CAD (coronary artery disease): Problem details: Extensive left main and LAD calcification with at most moderate stenosis on coronary CT 05/2018. TTE 05/14/22 Final Impressions: 1. Normal left ventricular size, normal wall thickness, normal global systolic function, calculated EF of 63 %. 2. The aortic valve is trileaflet and sclerotic, no stenosis and mild regurgitation. 3. The mitral valve is sclerotic, mild mitral regurgitation. Status: Chronic Assessment and Plan: - quiescent, continue home medications (9) Type 2 diabetes mellitus with complication, with long-term current use of insulin: Problem details: 03/03/22 HgbA1C 6.6% Diabetes mellitus: Diagnosis in 1990 On insulin. On GLP-1 (ozempic as of January 2021) Macrovascular: CAD, CVA/TIA, PVD: Yes - CVAs. See below. Hypertension: on medications but no MICHAEL (cough). Also note: was no cozaar - had diarrhea (see allergy list) Hyperlipidemia: was on statin, may have had muscle pains on simvastatin (it was stopped December 2012). On rosuvastatin 10mg (update ) Microvascular: Retinopathy: No Last eye exam: with/in last 12 months - Yes. 07/15/21: mild diabetic retinopathy and early macular degeneration Nephropathy: No Neuropathy: yes-severe. 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 Now improved with Fentanyl , Oxycontin, Oycodone + Gastroparesis Last foot exam: December 2017 - no monofilament sensation to very distal feet/toes at all, but sensation essentially normal in both proximal feet , just proximal to toes and proximally from there. * except right inner foot. No ulcers. +hammertoes. Callus on tip of right 1st toe. Soft skin. No lesions. ASA use: on plavix. Was on aggrenox in past (update ) Status: Chronic Assessment and Plan: - sugars are stable, continue home medications and SSI (10) Gastroparesis: Problem details: Diagnosed at [facility] 1990 Status: Chronic (11) Ileus: Problem details: On admission, improved without significant intervention Status: Acute Assessment and Plan: - stable and tolerating regualar diet Plan - per above - Lovenox for prophylaxis - continue OT and PT. Patient is not willing to undergo SNF stay upon discharge; plans to go home with home health when medically stable Subjective Date Seen: 05/16/22 Interval history: No acute events overnight. Ben continues to and is tolerating reductions in her supplemental oxygen. Gudino catheter was removed yesterday; she is tolerating getting up to the [facility] hroo and is also working with therapies. She has no concerns for hospitalist team today. Exam Narrative: Exam Narrative: GEN: Alert and oriented, sitting in bedside chair, wearing supplemental oxygen and starting breakfast HEENT: Normal external ears, EOMIs bilaterally, CV: RRR, No concerning murmurs, rubs, or gallops R: Mild rhonchi bilateral bases, air movement adequate Ext: wwp, no concerning edema Skin: No concerning skin lesions or rashes on exposed skin Neuro: Nonfocal Psych: Appropriate Const: Vital Signs, click to edit/add: Vital Signs - 24 hr 05/15/22 12:56 05/15/22 11:00 05/15/22 13:00 Temperature 98.2 F Pulse Rate Pulse Rate [Right Pulse Oximeter] 72 Respiratory Rate 24 Blood Pressure [Le ft Arm] Blood Pressure [Ri ght Arm] 132/69 Pulse Oximetry 90 Oxygen Delivery Me thod Oxygen Flow Rate Fraction of Inspir ed Oxygen 0.40 0.40 05/15/22 15:00 05/15/22 15:00 05/15/22 15:11 Temperature 97.5 F L Pulse Rate 73 Pulse Rate [Right Pulse Oximeter] 72 Respiratory Rate 16 Blood Pressure [Le ft Arm] 126/59 L Blood Pressure [Ri ght Arm] Pulse Oximetry 88 Oxygen Delivery Me thod High Flow Nasal Ca nnula Oxygen Flow Rate 35 Fraction of Inspir ed Oxygen 0.40 40 05/15/22 15:00 05/15/22 16:00 05/15/22 17:00 Temperature Pulse Rate Pulse Rate [Right Pulse Oximeter] 72 Respiratory Rate 16 Blood Pressure [Le ft Arm] Blood Pressure [Ri ght Arm] Pulse Oximetry 92 Oxygen Delivery Me thod Oxygen Flow Rate Fraction of Inspir ed Oxygen 40 05/15/22 19:00 05/15/22 19:00 05/15/22 20:06 Temperature 98.8 F Pulse Rate 66 Pulse Rate [Right Pulse Oximeter] 71 Respiratory Rate 18 Blood Pressure [Le ft Arm] Blood Pressure [Ri ght Arm] 128/57 L Pulse Oximetry 92 Oxygen Delivery Me thod High Flow Nasal Ca nnula Oxygen Flow Rate Fraction of Inspir ed Oxygen 40 05/15/22 21:00 05/15/22 23:00 05/15/22 23:00 Temperature Pulse Rate 71 Pulse Rate [Right Pulse Oximeter] Respiratory Rate Blood Pressure [Le ft Arm] Blood Pressure [Ri ght Arm] Pulse Oximetry Oxygen Delivery Me thod Oxygen Flow Rate Fraction of Inspir ed Oxygen 40 40 05/15/22 23:00 05/15/22 23:00 05/16/22 00:00 Temperature 98.6 F Pulse Rate Pulse Rate [Right Pulse Oximeter] 71 83 Respiratory Rate 22 22 Blood Pressure [Le ft Arm] Blood Pressure [Ri ght Arm] 153/74 H Pulse Oximetry 90 90 Oxygen Delivery Me thod High Flow Nasal Ca nnula Oxygen Flow Rate 35 Fraction of Inspir ed Oxygen 40 05/16/22 00:08 05/16/22 03:00 05/16/22 07:00 Temperature 98.6 F 97.3 F L Pulse Rate Pulse Rate [Right Pulse Oximeter] 68 68 Respiratory Rate 20 20 Blood Pressure [Le ft Arm] Blood Pressure [Ri ght Arm] 140/58 H Pulse Oximetry 90 89 Oxygen Delivery Me thod CPAP Nasal Cannula Oxygen Flow Rate 2 2 Fraction of Inspir ed Oxygen 40 05/16/22 07:19 05/16/22 08:00 05/16/22 09:00 Temperature Pulse Rate 73 Pulse Rate [Right Pulse Oximeter] Respiratory Rate Blood Pressure [Le ft Arm] Blood Pressure [Ri ght Arm] Pulse Oximetry 88 Oxygen Delivery Me thod Oxygen Flow Rate Fraction of Inspir ed Oxygen 45 05/16/22 07:00 Temperature Pulse Rate Pulse Rate [Right Pulse Oximeter] 68 Respiratory Rate 20 Blood Pressure [Le ft Arm] Blood Pressure [Ri ght Arm] Pulse Oximetry Oxygen Delivery Me thod Oxygen Flow Rate Fraction of Inspir ed Oxygen
[2022-05-16] MEDS: cefTRIAXone 1 GM in 0.9 % SODIUM CHLORIDE Mini-bag 100 ML IVPB (11:59)
[2022-05-16] MEDS: SODIUM CHLORIDE 0.9 % (FLUSH) 10 ML SYRINGE IVF ×2 (12:00→20:40)
--- NOTE | 2022-05-16 17:39 | PC.NURSE ---
End of shift-- Very pleasant and cooperative, alert and oriented patient. VSS and pt is afebrile. SPO2 currently maintained >88% on high flow n.c. at 35L with 35% FiO2. She denied any pain. Telemetry showed NSR and was DC'd per MD order. LS diminished with a few crackles in the bases and deep expiratory rhonchi and wheezes throughout. She continues to have a productive cough with yellowish sputum. She denied nausea and tolerated a regular diet without difficulty. She has had several small loose stools today. BS as high as 277 and 310 this afternoon and pt was given additional insulin per sliding scale. See eMAR for details. She was up to the BR and showered with SBA and walker and tolerated it well. Report to oncoming shift.
[2022-05-16] MEDS: HYDROmorphone 2 MG TABLET 16 MG PO (20:37)
[2022-05-16] MEDS: ROSUVASTATIN CALCIUM 10 MG TABLET 20 MG PO (20:38)
[2022-05-16] MEDS: ENOXAPARIN 40 MG/0.4 ML INJ SUBCUT (20:39)
[2022-05-16] MEDS: METHADONE 5 MG TABLET 10 MG PO (20:39)
[2022-05-17] VITALS (16 sets, daily range): BP systolic 115–129; BP diastolic 55–76; PULSE 70–90; RESP 18–20; TEMP 36.1–36.5; O2SAT 88–94
--- NOTE | 2022-05-17 05:18 | PC.NURSE ---
Shift note: The pt was on High Flow at 55/55 with Spo2 in the 90s. Throughout the night the pt has been using CPAP with 2L of oxygen bleeding in to it with Spo2 in the 90s. Denied chest pain and other distress throughout the shift. C/O of loose stool throughout the shift; the HS senna was held. Mild cough throughout the night. The pt appeared without any distress throughout the night
[2022-05-17] MEDS: LEVOTHYROXINE 88 MCG TABLET PO (06:24)
--- NOTE | 2022-05-17 07:00 | CRLHL7_ITS ---
For Patients: As a result of the Cures Act, medical imaging exams and procedure reports are released immediately into your electronic medical record. You may view this report before your referring provider. If you have questions, please contact your health care provider. INDICATION: Followup pulmonary edema. COMPARISON: Chest x-ray dated 14 May 2022. FINDINGS: A single portable chest x-ray shows a normal cardiac silhouette. Atherosclerotic aorta. The lungs show mild bibasilar atelectasis. Sharp pleural margins. No pneumothorax. Impression : 1. Mild bibasilar atelectasis is not significantly changed. Dictated by Mike Marion MD @ 05/17/2022 7:47:28 AM Dictated by: Mike Marion MD @ 05/17/2022 07:47:39 (Electronically Signed)
[2022-05-17 07:38] LABS: Chloride* 100 mmol/L (96-114)
[2022-05-17 07:39] LABS: Potassium* 4.3 mmol/L (3.6-5.1); Sodium* 136 mmol/L (135-149)
[2022-05-17 07:41] LABS: Creatinine* 0.6 mg/dL (0.5-1.5); Est. Creatinine Clearance* 34.64; Estimated Glomerular Filt Rate 88 ml/min
[2022-05-17 07:42] LABS: Blood Urea Nitrogen* 7 mg/dL (7-30); Calcium* 9.4 mg/dL (8.4-10.6); Carbon Dioxide* 28 mmol/L (20-32); Glucose* 172 mg/dL (60-115)
[2022-05-17] MEDS: POTASSIUM CHLORIDE 10 MEQ CAPSULE ER 20 MEQ PO ×2 (08:57→17:19)
[2022-05-17] MEDS: HYDROmorphone 2 MG TABLET 8 MG PO (08:59)
[2022-05-17] MEDS: ALBUTEROL SULFATE 2.5 MG/3 ML VIAL.NEB NEB (08:59)
[2022-05-17] MEDS: GABAPENTIN 300 MG CAPSULE 600 MG PO (09:00)
[2022-05-17] MEDS: OCUVITE TABLET 1 TAB PO (09:00)
[2022-05-17] MEDS: allopurinoL 300 MG TABLET 150 MG PO (09:00)
[2022-05-17] MEDS: TAMSULOSIN HCL 0.4 MG CAPSULE PO (09:00)
[2022-05-17] MEDS: CLOPIDOGREL 75 MG TABLET PO (09:00)
[2022-05-17] MEDS: FUROSEMIDE 20 MG TABLET PO (09:01)
[2022-05-17] MEDS: AZITHROMYCIN 250 MG TABLET PO (09:01)
[2022-05-17] MEDS: DIPHEN/LIDO/ALUM/MAG/SIMETH 5 ML SUSPENSION MUCOUS MEM ×3 (09:03→17:20)
[2022-05-17] MEDS: METHADONE 5 MG TABLET PO (09:11)
[2022-05-17] MEDS: LOPERAMIDE HCL 2 MG CAPSULE PO (10:06)
--- NOTE | 2022-05-17 10:08 | RESP.RT ---
Patient has home O2 already through [employer]. She has only been using the home O2 during the night even though she was set up with home O2 including a POC for her to ambulate with O2. Her daughter will be bringing in her portable oxygen concentrator today for me to review how high of flow it is capable of. She will stay on the HFNC as she needs the humidity to cough up all of the secretions she is struggling with. When she is ready for discharge we will switch her over to a regular nasal cannula.
[2022-05-17] MEDS: cefTRIAXone 1 GM in 0.9 % SODIUM CHLORIDE Mini-bag 100 ML IVPB (12:07)
[2022-05-17] MEDS: SODIUM CHLORIDE 0.9 % (FLUSH) 10 ML SYRINGE IVF ×2 (12:07→20:46)
[2022-05-17 12:22] LABS: Hematocrit 40.7 % (33.0-51.0); Hemoglobin* 13.1 gm/dL (12.0-16.0); Mean Corpuscular HGB Conc 32 gm/dL (32-36); Mean Corpuscular Hemoglobin 29 pg (26-34); Mean Corpuscular Volume 90 fL (80-100); Platelet Count* 274 K/uL (140-440); Red Blood Count 4.53 m/uL (4.00-5.20); White Blood Count* 6.73 K/uL (4.50-11.00)
[2022-05-17 12:23] LABS: Slide Review Reflex No
[2022-05-17 12:27] LABS: HCO3 VBG 30 mmol/L (21-28); PCO2 VBG 45 mmHG (40-50); PO2 VBG 30.2 mmHG (25-47); pH VBG 7.434 (7.32-7.43)
--- NOTE | 2022-05-17 14:33 | P.IMPN_ITS ---
Progress Note: A&P Assessment and plan (1) Acute hypoxemic respiratory failure: Problem details: Multifactorial secondary to pneumonia and COPD exacerbation with known underlying pulmonary fibrosis and HUGO. Also noted to have small pleural effusions on imaging. TTE 05/14/22 Final Impressions: 1. Normal left ventricular size, normal wall thickness, normal global systolic function, calculated EF of 63 %. 2. The aortic valve is trileaflet and sclerotic, no stenosis and mild regurgitation. 3. The mitral valve is sclerotic, mild mitral regurgitation. Status: Acute Assessment and Plan: 1. Continue on current high-flow settings for now. 2. Will check for home O2 needs tomorrow. 3. Patient may possibly be ready for discharge home tomorrow on continuous oxygen support via low-flow system. (2) Pneumonia: Problem details: Right-sided pneumonia, Ceftriaxone and Azithromycin initiated 05/10; coverage broadened to Vancomycin and Zosyn 05/12. Transitioned back to Ceftriaxone and Azithromycin on 05/15. Status: Acute Assessment and Plan: 1. Today is day 8 of IV antibiotics. 2. Stop IV antibiotics after today's dosing is completed. (3) COPD (chronic obstructive pulmonary disease): Status: Chronic Assessment and Plan: 1. Continue with supportive efforts including bronchodilators. (4) Pulmonary fibrosis: Status: Chronic (5) Chronic kidney disease, stage 3b: Problem details: Baseline Cr 0.9 Status: Chronic Assessment and Plan: 1. Stable. (6) HUGO (obstructive sleep apnea): Problem details: HUGO 06/05/2007 AHI-14.2 Uses CPAP Uses OXYGEN at night with CPAP and approximately 5-6 hours per day in addition. 04/07/2011 Status: Chronic Assessment and Plan: 1. Continue with CPAP and oxygen bleeding as needed. (7) Chronic pain: Status: Chronic Assessment and Plan: 1. Continue with supportive interventions as she presented with. (8) CAD (coronary artery disease): Problem details: Extensive left main and LAD calcification with at most moderate stenosis on dorothy nary CT 05/2018. TTE 05/14/22 Final Impressions: 1. Normal left ventricular size, normal wall thickness, normal global systolic function, calculated EF of 63 %. 2. The aortic valve is trileaflet and sclerotic, no stenosis and mild regurgitation. 3. The mitral valve is sclerotic, mild mitral regurgitation. Status: Chronic Assessment and Plan: 1. Asymptomatic. 2. Continue with supportive efforts as presently instituted. (9) Type 2 diabetes mellitus with complication, with long-term current use of insulin: Problem details: 03/03/22 HgbA1C 6.6% Diabetes mellitus: Diagnosis in 1990 On insulin. On GLP-1 (ozempic as of January 2021) Macrovascular: CAD, CVA/TIA, PVD: Yes - CVAs. See below. Hypertension: on medications but no MICHAEL (cough). Also note: was no cozaar - had diarrhea (see allergy list) Hyperlipidemia: was on statin, may have had muscle pains on simvastatin (it was stopped December 2012). On rosuvastatin 10mg (update ) Microvascular: Retinopathy: No Last eye exam: with/in last 12 months - Yes. 07/15/21: mild diabetic retinopathy and early macular degeneration Nephropathy: No Neuropathy: yes-severe. 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 Now improved with Fentanyl , Oxycontin, Oycodone + Gastroparesis Last foot exam: December 2017 - no monofilament sensation to very distal feet/toes at all, but sensation essentially normal in both proximal feet , just proximal to toes and proximally from there. * except right inner foot. No ulcers. +hammertoes. Callus on tip of right 1st toe. Soft skin. No lesions. ASA use: on plavix. Was on aggrenox in past (update ) Status: Chronic Assessment and Plan: 1. Continue with supportive efforts. (10) Gastroparesis: Problem details: Diagnosed at [facility] 1990 Status: Chronic Assessment and Plan: 1. Stable on current efforts. (11) Ileus: Problem details: On admission, improved without significant intervention Status: Acute Assessment and Plan: Plan 1. Reviewed above with patient. 2. Answered patient's questions are satisfaction. 3. Patient declines placement outside the home. She indicates she is ready to go home when her condition allows her to do so safely. She indicates she has adequate support. Time Spent With Patient Total time spent: 30 minutes Subjective Time Seen by Provider: 10:00 Date Seen: 05/17/22 Interval history: Hospital day 7. Did well overnight. Able to cough up sputum better since starting the Aerobika device. Still on the high-flow, humidified oxygen at 35 liters/minute with an FiO2 of 0.35. Tolerating ambulation in room to bathroom or to sink and back to her bed. Denies chest heaviness, pressure, tightness, or pain. Denies syncope or near-syncope. Denies orthostasis. Denies dyspnea at rest with oxygen support. Denies dyspnea with exertion with oxygen support. Denies paroxysmal nocturnal dyspnea or orthopnea. States appetite is adequate. Denies nausea vomiting. No other concerns today. Exam Narrative: Exam Narrative: No acute distress. Appears comfortable. Alert, oriented to self, place, time, situation. Friendly, cooperative, articulate. Mood and affect are congruent. Lungs with scattered rhonchi. No rales. No wheezes when I listen to her. Heart tones with regular rhythm, normal S1-S2. Abdomen with active bowel sounds, soft, nontender. Extremities without edema. Palpable pulses upper and lower extremities. Skin is warm, dry, intact. Independent with transfers, station, gait in her room. No new focal motor neurologic deficits. Const: Vital Signs, click to edit/add: Vital Signs - 24 hr 05/16/22 15:00 05/16/22 15:00 05/16/22 16:00 Temperature 97.9 F Pulse Rate [Right Pulse Oximeter] 76 76 Respiratory Rate 20 Blood Pressure [Le ft Arm] Blood Pressure [Ri ght Arm] 130/62 Pulse Oximetry 91 Oxygen Delivery Me thod High Flow Nasal Ca nnula Oxygen Flow Rate 35 Fraction of Inspir ed Oxygen 40 35 05/16/22 16:00 05/16/22 18:00 05/16/22 20:00 Temperature 97.6 F Pulse Rate [Right Pulse Oximeter] 67 Respiratory Rate 20 Blood Pressure [Le ft Arm] 153/65 H Blood Pressure [Ri ght Arm] Pulse Oximetry 93 97 Oxygen Delivery Me thod High Flow Nasal Ca nnula Oxygen Flow Rate 35 Fraction of Inspir ed Oxygen 35 35 05/16/22 20:00 05/16/22 22:06 05/16/22 23:00 Temperature Pulse Rate [Right Pulse Oximeter] 76 Respiratory Rate 20 Blood Pressure [Le ft Arm] Blood Pressure [Ri ght Arm] Pulse Oximetry Oxygen Delivery Me thod Oxygen Flow Rate Fraction of Inspir ed Oxygen 35 35 05/16/22 23:00 05/17/22 01:39 05/17/22 04:52 Temperature 97.6 F 97 F L Pulse Rate [Right Pulse Oximeter] 76 70 Respiratory Rate 20 20 Blood Pressure [Le ft Arm] 153/70 H 129/69 Blood Pressure [Ri ght Arm] Pulse Oximetry 95 92 92 Oxygen Delivery Me thod CPAP CPAP Oxygen Flow Rate 2 2 Fraction of Inspir ed Oxygen 05/17/22 07:00 05/17/22 10:07 05/17/22 09:00 Temperature 97.7 F Pulse Rate [Right Pulse Oximeter] 84 Respiratory Rate 18 Blood Pressure [Le ft Arm] 128/76 Blood Pressure [Ri ght Arm] Pulse Oximetry 88 88 Oxygen Delivery Me thod High Flow Nasal Ca nnula Oxygen Flow Rate 35 35 Fraction of Inspir ed Oxygen 35 0.35 05/17/22 07:00 05/17/22 12:00 05/17/22 12:00 Temperature 97.3 F L Pulse Rate [Right Pulse Oximeter] 84 79 Respiratory Rate 18 18 Blood Pressure [Le ft Arm] Blood Pressure [Ri ght Arm] 120/62 Pulse Oximetry 93 Oxygen Delivery Me thod High Flow Nasal Ca nnula Oxygen Flow Rate 35 Fraction of Inspir ed Oxygen 35 35 Documenting provider has reviewed patient's vital signs: yes Labs Labs: Laboratory Results - last 24 hr 05/17/22 05/17/22 05/17/22 06:42 06:42 12:23 WBC 6.73 RBC 4.53 Hgb 13.1 Hct 40.7 MCV 90 MCH 29 MCHC 32 Plt Count 274 VBG pH 7.434 H VBG pCO2 45 VBG pO2 30.2 VBG HCO3 30 H Sodium 136 Potassium 4.3 Chloride 100 Carbon Dioxide 28 BUN 7 Creatinine 0.6 Estimated Creat Clear 34.64 Estimated GFR 88 Glucose 172 H Calcium 9.4
--- NOTE | 2022-05-17 17:40 | PC.NURSE ---
End of shift-- Very pleasant and cooperative, alert and oriented patient. VSS and pt is afebrile. SPO2 maintained >89% on high flow nasal cannula today with 35L and 35% FiO2. She denied any pain. LS coarse with occ expiratory wheezes and pt continues to have a productive cough with yellow sputum. She denied nausea and ate a reg diet without difficulty. BS 167, 230 and 121 today and pt was given insulin per sliding scale. She continued to have small loose stools today and was given Imodium once this morning. She was up to the BR, chair and shower with SBA and walker and tolerated it very well. Report to oncoming shift.
[2022-05-17] MEDS: ROSUVASTATIN CALCIUM 10 MG TABLET 20 MG PO (20:44)
[2022-05-17] MEDS: HYDROmorphone 2 MG TABLET 16 MG PO (20:44)
[2022-05-17] MEDS: METHADONE 5 MG TABLET 10 MG PO (20:45)
[2022-05-17] MEDS: ENOXAPARIN 40 MG/0.4 ML INJ SUBCUT (20:47)
[2022-05-18] VITALS (11 sets, daily range): BP systolic 108–120; BP diastolic 49–80; PULSE 65–83; RESP 18–22; TEMP 36.2–36.3; O2SAT 80–91
--- NOTE | 2022-05-18 04:54 | PC.NURSE ---
PATIENT PLEASANT AND COOPERATIVE, UP SBA WITH WALKER TOLERATING WELL, FAMILY PRESENT AT BEDSIDE, BLOOD SUGAR 127 AT BEDSIDE AFTER NIGHT INSULIN SUGAR DID DROP TO 78 SNACK GIVEN AND PRIOR TO BED BG 98, PATIENT RESTING WITH CPAP 2L.
[2022-05-18] MEDS: LEVOTHYROXINE 88 MCG TABLET PO (06:24)
[2022-05-18] MEDS: POTASSIUM CHLORIDE 10 MEQ CAPSULE ER 20 MEQ PO (09:18)
[2022-05-18] MEDS: GABAPENTIN 300 MG CAPSULE 600 MG PO (09:19)
[2022-05-18] MEDS: TAMSULOSIN HCL 0.4 MG CAPSULE PO (09:19)
[2022-05-18] MEDS: HYDROmorphone 2 MG TABLET 8 MG PO (09:21)
[2022-05-18] MEDS: allopurinoL 300 MG TABLET 150 MG PO (09:22)
[2022-05-18] MEDS: OCUVITE TABLET 1 TAB PO (09:23)
[2022-05-18] MEDS: METHADONE 5 MG TABLET PO (09:23)
[2022-05-18] MEDS: CLOPIDOGREL 75 MG TABLET PO (09:23)
[2022-05-18] MEDS: FUROSEMIDE 20 MG TABLET PO (09:24)
--- NOTE | 2022-05-18 11:25 | PC.SOCIAL ---
Met with pt., pt.'s boyfriend, and daughter Sapphire to discuss discharge plans. Pt. 's daughter lives in the basement of pt.'s home and assists with meals and groceries. Pt. had been independent at home with oxygen. Pt. will discharge today with [facility] for nursing and OT at discharge. [facility] will be out tomorrow at 10:30 to see pt.
--- NOTE | 2022-05-18 14:35 | PC.NURSE ---
Pt slept in until 0900 am using her CPAP on home settings with 2L/oxygen flowing through the machine. Replaced pt on High Flow Oxygen during bkfst. RT consult with Uvaldo. Please see eMar for scheduled med and scheduled insulin provided for BG's of 113 & 126. No sliding scale insulin required. Eval by PT and ADLS with OT who dressed patient for planned discharge. No dysphagia with meds. Sats maintained on 2L/NC which is already available to patient at home. Plan home PT and OT. Pt using Aerobika and IS appropriately. Significant other Zane and jolene Ingram present for Dr. Joanne monae this morning. IV discontinued. Awaiting d/c paperwork which has been delayed by power outtage at this time.
--- NOTE | 2022-05-18 15:33 | PC.NURSE ---
Pt, significant other and pt's dtr Nataly present for discharge instructions. They verbalized understanding of d/c diagnosis, home meds, prescription meds, home oxygen, plan for OT and PT, f/up appt and sx to report urgently. Magic mouthwash and personal belongings provided to pt. Pt discharged via w/c @ 1442 pm to her own home with sig. other and dtr as transportation.
--- NOTE | 2022-05-25 12:49 | P.DS_ITS ---
DS: Providers Provider Time Seen by Provider: 09:00 Date Seen: 05/18/22 Date of admission: 05/10/22 10:19 Primary care physician: Michael Sandy MD Admitting Clinician: Angelica Bowles MD Consults: 05/10/22 10:19 Consult to Respiratory Therapy [CONS] Routine Comment: Reason(s) for RT Consult:: Consult 05/13/22 08:07 Consult to Occupational Therapy [CONS] Routine Comment: Reason(s) for OT Consult:: Evaluate and Treat Any Restrictions?:: Wt Bearing as Tolerated Consult to Physical Therapy [CONS] Routine Comment: Reason(s) for PT Consult:: Evaluate and Treat Any Restrictions?:: Wt Bearing as Tolerated Attending Physician on discharge: Iggy Rubio MD Date of Discharge: 05/18/22 DS: Diagnosis Discharge Diagnosis (1) Acute hypoxemic respiratory failure: Status: Acute Problem details: Multifactorial secondary to pneumonia and COPD exacerbation with known underlying pulmonary fibrosis and HUGO. Also noted to have small pleural effusions on imaging. TTE 05/14/22 Final Impressions: 1. Normal left ventricular size, normal wall thickness, normal global systolic function, calculated EF of 63 %. 2. The aortic valve is trileaflet and sclerotic, no stenosis and mild regurgitation. 3. The mitral valve is sclerotic, mild mitral regurgitation. (2) Pneumonia: Status: Acute Problem details: Right-sided pneumonia, Ceftriaxone and Azithromycin initiated 05/10; coverage broadened to Vancomycin and Zosyn 05/12. Transitioned back to Ceftriaxone and Azithromycin on 05/15. (3) COPD (chronic obstructive pulmonary disease): Status: Chronic (4) HUGO (obstructive sleep apnea): Status: Chronic Problem details: HUGO 06/05/2007 AHI-14.2 Uses CPAP Uses OXYGEN at night with CPAP and approximately 5-6 hours per day in addition. 04/07/2011 (5) Pulmonary interstitial fibrosis: Status: Acute (6) CAD (coronary artery disease): Status: Chronic Problem details: Extensive left main and LAD calcification with at most moderate stenosis on coronary CT 05/2018. TTE 05/14/22 Final Impressions: 1. Normal left ventricular size, normal wall thickness, normal global systolic function, calculated EF of 63 %. 2. The aortic valve is trileaflet and sclerotic, no stenosis and mild regurgitation. 3. The mitral valve is sclerotic, mild mitral regurgitation. (7) Dehydration: Status: Acute (8) Sepsis: Status: Acute Problem details: Soft BP, responded to fluid. Lactate not elevated. (9) Ileus: Status: Acute Problem details: On admission, improved without significant intervention (10) Chronic constipation: Status: Acute (11) Encopresis: Status: Acute (12) Positive urine culture: Status: Acute (13) Chronic kidney disease, stage 3b: Status: Chronic Problem details: Baseline Cr 0.9 (14) Chronic pain: Status: Chronic (15) Type 2 diabetes mellitus with complication, with long-term current use of insulin: Status: Chronic Problem details: 03/03/22 HgbA1C 6.6% Diabetes mellitus: Diagnosis in 1990 On insulin. On GLP-1 (ozempic as of January 2021) Macrovascular: CAD, CVA/TIA, PVD: Yes - CVAs. See below. Hypertension: on medications but no MICHAEL (cough). Also note: was no cozaar - had diarrhea (see allergy list) Hyperlipidemia: was on statin, may have had muscle pains on simvastatin (it was stopped December 2012). On rosuvastatin 10mg (update ) Microvascular: Retinopathy: No Last eye exam: with/in last 12 months - Yes. 07/15/21: mild diabetic retinopathy and early macular degeneration Nephropathy: No Neuropathy: yes-severe. 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 Now improved with Fentanyl , Oxycontin, Oycodone + Gastroparesis Last foot exam: December 2017 - no monofilament sensation to very distal feet/toes at all, but sensation essentially normal in both proximal feet , just proximal to toes and proximally from there. * except right inner foot. No ulcers. +hammertoes. Callus on tip of right 1st toe. Soft skin. No lesions. ASA use: on plavix. Was on aggrenox in past (update ) (16) Gastroparesis: Status: Chronic Problem details: Diagnosed at [facility] 1990 (17) Altered mental status: Status: Acute DS: Summary Hospital Course Hospital Course: Started coughing Wednesday (2 days ago), junky cough. 2:30am today Zane (boyfriend) called in jolene Resendiz who lives in basement. Not breathing well, confused. Seemed dehydrated. Not coughing as much today, breathing more crackly rather than junky. 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 Chills this am. No fever (doesn't usually run fever.) Recurrent pneumonia, last about 6 months ago. UTI frequently, most recent treated with cefpodoxine 04/11/22 for 10 days. Pulm fibrosis and COPD Assessment on presentation consistent with pneumonia and sepsis. Treated initially with ceftriaxone and azithromycin. Later changed to Zosyn and vanc omycin antibiotics due to persistent fever. After fever and other symptoms stabilized, changed back to ceftriaxone and azithromycin. Completed 8 days of IV antibiotics in hospital. Blood cultures negative throughout hospitalization. Her mentation eventually normalized as we treated the underlying condition. Required ventilatory and oxygenation support throught much of the hospitalization. For some time she was on high-flow, humidified oxygen. Eventually she tolerated oxygen 2 LPM via nasal cannula continuously in the day and CPAP plus bleed-in at night, as she was on prior to this hospitalization. Physical and occupational therapy assisted with mobility and strengthening. Was dehydrated on presentation. Treated with IVF. eventually she was able to resume usual diet. We did modify her insulin therapy in hospital to reflect her current condition, including slidding scale aspart insulin in addition to her usual insulin doses. Status at Discharge Functional status at discharge: uses cane/walker Overall status at discharge: patient is progressing back to baseline Time Spent with Patient Time attestation: Total time spent providing and/or coordinating discharge services: Time spent: Greater than 30 minutes Exam Narrative: Exam Narrative: No acute distress.? Appears comfortable. Alert, oriented to self, place, time, situation.? Friendly, cooperative, articulate.? Mood and affect are congruent. Lungs with scattered rhonchi.? No rales.? No wheezes when I listen to her. Heart tones with regular rhythm, normal S1-S2. Abdomen with active bowel sounds, soft, nontender. Extremities without edema.? Palpable pulses upper and lower extremities.? Skin is warm, dry, intact. Independent with transfers, station, gait in her room. No new focal motor neurologic deficits. Const: Documenting provider has reviewed patient's vital signs: yes Discharge Plan Discharge Disposition: Home Health Service Date of Admission: 05/10/22 10:19 Attending Provider on Discharge: Iggy Rubio Primary Care Provider: Michael Sandy Condition: Improved Anticipated Discharge Date/Time: 05/18/22 14:30 Discharge Medications: New insulin aspart U-100 [Novolog Flexpen U-100 Insulin] 100 unit/mL (3 mL) Insulin Pen 18 unit subcut DAILY@18 Qty: 15 0RF sennosides-docusate sodium [Stool Softener-Laxative] 8.6-50 mg Tablet 4 tab PO BID 30 Days Qty: 240 0RF Continued colchicine 0.6 mg tablet 0.6 mg PO BID PRN Label Comments: TAKE ONE TABLET BY MOUTH TWICE DAILY NEEDED levothyroxine 88 mcg tablet 88 mcg PO DAILY Label Comments: Take 1 Tablet (88 mcg) by mouth before breakfast naloxone [Narcan] 4 mg/actuation spray,non-aerosol 4 mg INTRANASAL DIRECTED PRN Label Comments: Inhale 1 [place] into affected nostril(s) each time if needed for Patient Diff To Arouse or Resp Rate < 8 / min. Additional doses may be given fexofenadine [Aller-ease] 180 mg tablet 180 mg PO DAILY PRN cholecalciferol (vitamin D3) [Vitamin D3] 50 mcg (2,000 unit) tablet 4,000 unit PO DAILY cyclobenzaprine 5 mg tablet 5 mg PO Q8H PRN Ocutabs Tablet 1 tab PO DAILY prochlorperazine maleate 10 mg tablet 10 mg PO Q6H PRN Label Comments: TAKE ONE TABLET BY MOUTH EVERY SIX HOURS NEEDED potassium chloride [Klor-Con M20] 20 mEq tablet,ER particles/crystals 20 meq PO BIDWM Label Comments: Take 1 Tablet (20 mEq) by mouth 2 times daily with meals insulin aspart U-100 [Novolog Flexpen U-100 Insulin] 100 unit/mL (3 mL) insulin pen 20 unit subcut DAILY@12 Rx Instructions: 20 UNITS WITH LUNCH PLUS SLIDING SCALE methadone 5 mg tablet 10 mg PO HS BIOTENE DRY MOUTH LOZENGES 1 ea mucous membrane QID PRN hydromorphone [Dilaudid] 8 mg tablet 16 mg PO HS loperamide 2 mg capsule 2 mg PO BID PRN hydromorphone 8 mg tablet 8 mg PO QAM Rx Instructions: TAKES 1 PILL IN AM AND 2 IN PM clopidogrel 75 mg tablet 75 mg PO DAILY Label Comments: TAKE ONE TABLET BY MOUTH ONE TIME DAILY tamsulosin 0.4 mg capsule 0.4 mg PO DAILY Label Comments: Take 1 Capsule (0.4 mg) by mouth once daily after a meal. gabapentin 300 mg capsule 600 mg PO DAILY Label Comments: Take 1 Capsule (300 mg) by mouth once daily. allopurinol 300 mg tablet 150 mg PO DAILY Label Comments: TAKE 1/2 TABLET BY MOUTH DAILY furosemide 20 mg tablet 20 mg PO DAILY Label Comments: Take 1 Tablet (20 mg) by mouth every morning. methadone 5 mg tablet 5 mg PO QAM insulin aspart U-100 [Novolog Flexpen U-100 Insulin] 100 unit/mL (3 mL) insuli n pen 10 unit SUBCUT DAILY@08 Rx Instructions: 10 UNITS WITH BREAKFAST PLUS SLIDING SCALE rosuvastatin 20 mg tablet 20 mg PO HS Label Comments: Take 1 Tablet (20 mg) by mouth at bedtime. insulin degludec [Tresiba FlexTouch U-100] 100 unit/mL (3 mL) insulin pen 26 unit SUBCUT HS Ozempic 1 mg/dose (4 mg/3 mL) pen injector 1 mg SUBCUT TH@09 Rx Instructions: WEEKLY ON WEDNESDAY Discontinued insulin aspart U-100 [Novolog Flexpen U-100 Insulin] 100 unit/mL (3 mL) insulin pen 22 unit subcut DAILY@18 Rx Instructions: 22 UNITS WITH SUPPER PLUS SLIDING SCALE sennosides-docusate sodium [Senna-S] 8.6-50 mg tablet 2 tab-cap PO BID Discharge Orders: Discharge Order (Routine); Ordered 05/18/22 Ordered By: Iggy Rubio Patient Education: Laxative, Stimulant (By mouth), Using Oxygen at Home (GEN), Sepsis (GEN), Bacterial Pneumonia (DC), PEP Therapy (GEN) Activity Level: No Restrictions and Activity as Tolerated Discharge Diet: Diabetic Follow Up Appointments: Michael Sandy MD [Primary Care Provider] - 05/22/22 11:45 am (Follow up appointment with at [facility] in [place]) Forms: [facility] Info Instructions Hospital Course: Started coughing Wednesday (2 days ago), junky cough. 2:30am today Zane (boyfriend) called in jolene Resendiz who lives in basement. Not breathing well, confused. Seemed dehydrated. Not coughing as much today, breathing more crackly rather than junky. 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 Chills this am. No fever (doesn't usually run fever.) Recurrent pneumonia, last about 6 months ago. UTI frequently, most recent treated with cefpodoxine 04/11/22 for 10 days. Pulm fibrosis and COPD Assessment on presentation consistent with pneumonia and sepsis. Treated initially with ceftriaxone and azithromycin. Later changed to Zosyn and vancomycin antibiotics due to persistent fever. After fever and other symptoms stabilized, changed back to ceftriaxone and azithromycin. Completed 8 days of IV antibiotics in hospital. Blood cultures negative throughout hospitalization. Her mentation eventually normalized as we treated the underlying condition. Required ventilatory and oxygenation support throught much of the hospitalization. For some time she was on high-flow, humidified oxygen. Eventually she tolerated oxygen 2 LPM via nasal cannula continuously in the day and CPAP plus bleed-in at night, as she was on prior to this hospitalization. Physical and occupational therapy assisted with mobility and strengthening. Was dehydrated on presentation. Treated with IVF. eventually she was able to r esume usual diet. We did modify her insulin therapy in hospital to reflect her current condition, including slidding scale aspart insulin in addition to her usual insulin doses.
== END 2022-05-18 15:43 | disposition home health service (06) | DRG 871 ==
LOC: ED 05:10 → MEDSURG 08:40
PROVIDERS: Family Medicine; Hospitalist; Internal Medicine; Admitting Provider Family Medicine; Emergency Provider Family Medicine; PCP Surgery; Visit Provider Family Medicine
DX: A41.9 Sepsis, unspecified organism (principal); J18.9 Pneumonia, unspecified organism; J96.01 Acute respiratory failure with hypoxia; J91.8 Pleural effusion in other conditions classified elsewhere; J44.0 Chronic obstructive pulmonary disease with (acute) lower respiratory infection; J44.1 Chronic obstructive pulmonary disease with (acute) exacerbation; K56.7 Ileus, unspecified; N39.0 Urinary tract infection, site not specified; B37.0 Candidal stomatitis; J84.10 Pulmonary fibrosis, unspecified; E86.0 Dehydration; G47.33 Obstructive sleep apnea (adult) (pediatric); G89.29 Other chronic pain; I13.10 Hypertensive heart and chronic kidney disease without heart failure, with stage 1 through stage 4 chronic kidney disease, or unspecified chronic kidney disease; E11.43 Type 2 diabetes mellitus with diabetic autonomic (poly)neuropathy; E11.22 Type 2 diabetes mellitus with diabetic chronic kidney disease; N18.32 Chronic kidney disease, stage 3b; K31.84 Gastroparesis; E11.319 Type 2 diabetes mellitus with unspecified diabetic retinopathy without macular edema; E11.649 Type 2 diabetes mellitus with hypoglycemia without coma; H35.30 Unspecified macular degeneration; I25.10 Atherosclerotic heart disease of native coronary artery without angina pectoris; G60.9 Hereditary and idiopathic neuropathy, unspecified; I73.9 Peripheral vascular disease, unspecified; Z79.4 Long term (current) use of insulin; K59.09 Other constipation; M10.9 Gout, unspecified; B95.2 Enterococcus as the cause of diseases classified elsewhere; I08.0 Rheumatic disorders of both mitral and aortic valves; I25.2 Old myocardial infarction; Z86.73 Personal history of transient ischemic attack (TIA), and cerebral infarction without residual deficits; F32.A Depression, unspecified; E03.9 Hypothyroidism, unspecified; E78.5 Hyperlipidemia, unspecified
CPT/HCPCS: 36415; 36600; 71045; 71260; 74019; 74177; 80048; 80076; 80306; 81001; 82140; 82803; 82947; 82962; 83735; 83880; 83986; 84145; 84484; 85025; 85027; 85379; 86140; 87040; 87086; 87186; 87631; 93005; 93306; 94640; 94664; 94761; 97110; 97116; 97162; 97166; 97530; 97535; 99284; 99285; A9153; A9270; J0456; J0696; J0780; J1650; J1885; J1940; J2543; J3370; J7050; J7120; Q9967

== ENCOUNTER 2022-07-06 11:22 | Outpatient (CLI) | payer MEDICARE, BC, SELFPAY | END 2022-07-06 11:23 | disposition home or self-care (01) | LOC: AMB 07-16 18:32 | PROVIDERS: PCP Surgery; Visit Provider Family Medicine | DX: R41.82 Altered mental status, unspecified (principal); R50.9 Fever, unspecified | CPT/HCPCS: A0425; A0427 ==

== ENCOUNTER 2022-07-06 11:56 | Inpatient (IN) | payer MEDICARE, BC, SELFPAY ==
[2022-07-06] VITALS (13 sets, daily range): BP systolic 100–178; BP diastolic 50–85; PULSE 69–125; RESP 16–20; TEMP 36.7–37.6; O2SAT 82–98; BMI 27.2; BMI 28.5
--- NOTE | 2022-07-06 12:17 | CRLHL7_ITS ---
For Patients: As a result of the Cures Act, medical imaging exams and procedure reports are released immediately into your electronic medical record. You may view this report before your referring provider. If you have questions, please contact your health care provider. INDICATION: Fever of unknown origin TECHNIQUE: Chest radiograph 1 view COMPARISON: 05/17/2022 FINDINGS: The sensitivity and specificity of the exam are moderately limited by the patient`s body habitus. Mediastinum: The mediastinum is normal in appearance. The heart silhouette is normal in size and morphology. Lung: Mild reticulonodular interstitial infiltrates are seen throughout the right lung and left lung base. No sign of pleural effusion seen. No pneumothorax is identified. Bone and Soft tissue: Unremarkable for age. IMPRESSION: 1. Mild reticulonodular interstitial infiltrates are seen throughout the right lung and left lung base. Dictated by Josr Glaser MD @ 07/06/2022 1:05:26 PM Dictated by: Josr Glaser MD @ 07/06/2022 13:05:30 (Electronically Signed)
--- NOTE | 2022-07-06 12:21 | ED.GENADULT ---
HPI - General Adult General Chief complaint: Altered Mental Status Stated complaint: Possible stroke Time Seen by Provider: 07/06/22 12:05 Source: patient and family Mode of arrival: ambulatory History of Present Illness HPI narrative: 82-year-old female with a notable prior history of stroke and hospitalization for severe sepsis 2 months ago presents to the emergency department with weakness and altered mental status. Per her she was ?not quite right. She did vomit x1 at home but has had no other localizing symptoms of infection or illness. Episode is similar to when her sepsis started per her . She states that she pulled her back a couple of days ago and has some mild bilateral mid back pain, nonlocalizing. No specific flank pain or dysuria. Her previous hospitalization in it up showing if a callus sepsis secondary to what was likely a urinary source, pansensitive and completed therapy on antibiotics. She is DNR. She denies any other areas of pain today. She was not aware that she had a fever. No known exposures to influenza, COVID or other specific illness. She denies any feeling of confusion or neurological change. Per she is weak but no other focal neuro changes beyond her known at baseline. She does typically use oxygen at night but not during the day. She is requiring oxygen here. She does have a history of previous pneumonias as well. She has multiple drug allergies. She denies any recent changes in her medications. Past medical history is rather extensive. She has a history of pulmonary fibrosis, chronic kidney disease stage 3, obstructive sleep apnea, chronic pain, coronary artery disease, type 2 diabetes, gastroparesis. Her medications are reviewed and updated. She reports these are unchanged from hospitalization in the do seem consistent with previous dosing. She is on chronic narcotics. Socially she continues to live independently but requires assistance with ADLs from her spouse. No alcohol or illicit drug use. No pertinent travel. She states that her family history is unchanged from previous hospitalization, reviewed. ROS is notable for the generalized, GI symptoms described by . Patient denies times 12 systems. Related Data Home Medications Medication Instructions Recorded Confirmed allopurinol 300 mg tablet 150 mg PO DAILY 04/04/22 05/10/22 clopidogrel 75 mg tablet 75 mg PO DAILY 04/04/22 05/10/22 furosemide 20 mg tablet 20 mg PO DAILY 04/04/22 05/10/22 gabapentin 300 mg capsule 600 mg PO DAILY 04/04/22 05/10/22 hydromorphone 8 mg tablet 8 mg PO QAM 04/04/22 05/10/22 insulin aspart U-100 100 unit/mL 10 unit subcut DAILY@04/04/22 05/10/22 (3 mL) subcutaneous pen (Novolog Flexpen U-100 Insulin aspart) insulin degludec 100 unit/mL (3 26 unit subcut HS 04/04/22 05/10/22 mL) subcutaneous pen (Tresiba FlexTouch U-100 insulin) loperamide 2 mg capsule 2 mg PO BID PRN 04/04/22 05/10/22 methadone 5 mg tablet 5 mg PO QAM 04/04/22 05/10/22 rosuvastatin 20 mg tablet 20 mg PO HS 04/04/22 05/10/22 semaglutide 1 mg/dose (4 mg/3 mL) 1 mg subcut TH@04/04/22 05/10/22 subcutaneous pen injector (Ozempic) tamsulosin 0.4 mg capsule 0.4 mg PO DAILY 04/04/22 05/10/22 colchicine 0.6 mg tablet 0.6 mg PO BID PRN 04/11/22 05/10/22 BIOTENE DRY MOUTH LOZENGES 1 ea mucous membrane QID PRN 05/10/22 05/10/22 cholecalciferol (vitamin D3) 50 4,000 unit PO DAILY 05/10/22 05/10/22 mcg (2,000 unit) tablet (Vitamin D3) cyclobenzaprine 5 mg tablet 5 mg PO Q8H PRN 05/10/22 05/10/22 fexofenadine 180 mg tablet 180 mg PO DAILY PRN 05/10/22 05/11/22 (Aller-ease) hydromorphone 8 mg tablet 16 mg PO HS 05/10/22 05/10/22 (Dilaudid) insulin aspart U-100 100 unit/mL 20 unit subcut DAILY@12 05/10/22 05/10/22 (3 mL) subcutaneous pen (Novolog Flexpen U-100 Insulin aspart) levothyroxine 88 mcg tablet 88 mcg PO DAILY 05/10/22 05/10/22 methadone 5 mg tablet 10 mg PO HS 05/10/22 05/10/22 naloxone 4 mg/actuation nasal 4 mg intranasal DIRECTED PRN 05/10/22 05/10/22 spray (Narcan) potassium chloride 20 mEq 20 meq PO BIDWM 05/10/22 05/10/22 tablet,extended release(part/cryst) (Klor-Con M) prochlorperazine maleate 10 mg 10 mg PO Q6H PRN 05/10/22 05/10/22 tablet vitamin A-vitamin C-vit E-min 1 tab PO DAILY 05/10/22 05/10/22 tablet (Ocutabs tablet) Previous Rx's Medication Instructions Recorded insulin aspart U-100 100 unit/mL 18 unit (0.18 mL) subcut DAILY@18 05/18/22 (3 mL) subcutaneous pen (Novolog #15 mL Flexpen U-100 Insulin aspart) sennosides 8.6 mg-docusate sodium 4 tab PO BID 30 days #240 tabs 05/18/22 50 mg tablet (Stool Softener-Laxative) Allergies Allergy/AdvReac Type Severity Reaction Status Date / Time cortisone Allergy Severe Anaphylaxis Verified 05/10/22 06:03 prednisone Allergy Severe Verified 05/10/22 06:03 amoxicillin Allergy Intermediate Verified 05/10/22 06:03 cephalexin [From Keflex] Allergy Intermediate Diarrhea Verified 05/10/22 06:03 doxycycline Allergy Intermediate Verified 05/10/22 06:03 duloxetine [From Cymbalta] Allergy Intermediate Verified 05/10/22 06:03 escitalopram [From Lexapro] Allergy Intermediate sleep Verified 05/10/22 06:03 disturbance febuxostat Allergy Intermediate vomitting Verified 05/10/22 06:03 latex Allergy Intermediate Verified 05/10/22 06:11 lisinopril Allergy Intermediate Verified 05/10/22 06:03 losartan [From Cozaar] Allergy Intermediate Verified 05/10/22 06:03 nitrofurantoin Allergy Intermediate Verified 05/10/22 06:03 [From Macrobid] pregabalin [From Lyrica] Allergy Intermediate Nausea Verified 05/10/22 06:03 propoxyphene Allergy Intermediate angioedema Verified 05/10/22 06:03 ramelteon [From Rozerem] Allergy Intermediate Verified 05/10/22 06:03 sulfamethoxazole Allergy Intermediate Verified 05/10/22 06:03 [From Bactrim] tramadol [From Ultram] Allergy Intermediate Verified 05/10/22 06:03 trimethoprim [From Bactrim] Allergy Intermediate Verified 05/10/22 06:03 venlafaxine [From Effexor] Allergy Intermediate Verified 05/10/22 06:03 zolpidem [From Ambien] Allergy Intermediate Confusion Verified 05/10/22 06:03 acetaminophen [From Vicodin] Allergy Mild Nausea Verified 05/10/22 06:03 hydrocodone [From Vicodin] Allergy Mild Nausea Verified 05/10/22 06:03 aspirin Allergy Unknown Verified 05/10/22 06:03 clindamycin Allergy Unknown Verified 05/10/22 06:03 ipratropium [From Atrovent] Allergy Unknown Verified 05/10/22 06:03 Penicillins Allergy Unknown Verified 05/10/22 06:11 pramipexole Allergy Unknown Verified 05/10/22 06:03 trazodone Allergy Unknown Verified 05/10/22 06:03 adhesive tape Allergy huge Verified 05/10/22 06:07 blisters PFSH PFSH Medical History Acute insomnia Allergic rhinitis CAD (coronary artery disease) Chronic kidney disease, stage 3b Chronic pain Constipation Controlled substance agreement signed COPD (chronic obstructive pulmonary disease) Depression Gastroparesis GERD (gastroesophageal reflux disease) Gouty arthropathy Hereditary and idiopathic peripheral neuropathy Hypercalcemia Hypertension Hypertriglyceridemia Hypokalemia Hypothyroidism Myocardial infarction Neurogenic bladder Neuropathy HUGO (obstructive sleep apnea) Peripheral autonomic neuropathy due to diabetes mellitus Peripheral vascular disease Pneumonia Pulmonary fibrosis Pulmonary nodule SBO (small bowel obstruction) Slow transit constipation Stroke TIA (transient ischemic attack) Type 2 diabetes mellitus with complication, with long-term current use of insulin Surgical History H/O blepharoplasty H/O colonoscopy H/O foot surgery H/O neck surgery H/O: hysterectomy History of cholecystectomy Hx of appendectomy Hx of repair of rotator cuff Hx of tonsillectomy S/P bunionectomy S/P left rotator cuff repair Family History Maternal Grandfather Pancreatic cancer Aunt Breast cancer Uncle Lung cancer Aunt Breast cancer Father Tuberculosis Coronary artery disease Social History Narrative: Lives independently with her boyfriend, Zane, and her daughter, Martín, who lives in the basement. Quit tobacco 1986. No EtOH. Denies recreational drug use. Wants to be DNR/DNI. Highest level of school completed/degree received: some college, no degree Smoking Status: Former smoker Do you use any of these nicotine containing products: None Second hand tobacco smoke exposure: No How often do you have a drink containing alcohol: never How often do you have six or more drinks on one occasion: Never AUDIT-C Alcohol total score: 0 Non-prescribed substance use: denies use Caffeine: Yes service: No Exam Const: Vital Signs, click to edit/add: Vital Signs - 24 hr 07/06/22 12:00 07/06/22 12:13 07/06/22 13:10 Temperature 99.7 F H Pulse Rate [Pulse Oximeter] 107 H 107 H 101 H Respiratory Rate 18 20 20 Blood Pressure [Ri ght Upper Arm] 178/81 H 156/61 H 151/78 H Pulse Oximetry 97 92 96 Oxygen Delivery Me thod Nasal Cannula Nasal Cannula Nasal Cannula Oxygen Flow Rate 3 3 3 07/06/22 13:30 07/06/22 14:00 07/06/22 14:30 Temperature 99.2 F 99.2 F Pulse Rate [Pulse Oximeter] 98 125 H 95 Respiratory Rate 20 18 18 Blood Pressure [Ri ght Upper Arm] 135/72 130/63 125/62 Pulse Oximetry 93 82 L 98 Oxygen Delivery Me thod Nasal Cannula Room Air Nasal Cannula Oxygen Flow Rate 3 3 07/06/22 14:05 Temperature Pulse Rate [Pulse Oximeter] Respiratory Rate Blood Pressure [Ri ght Upper Arm] Pulse Oximetry 94 Oxygen Delivery Me thod Nasal Cannula Oxygen Flow Rate 3 Documenting provider has reviewed patient's vital signs: yes Common normals: no apparent distress and alert General appearance: cooperative and well kempt Orientation/consciousness: Yes awake Other: Seems mildly disoriented, not sharp is usual for her. Chronic left-sided facial droop is unchanged from previous visit. She can answer questions but seems a bit dismissive of answers, she is normally very particular about details. HENMT: Common normals: normocephalic Head and scalp: normocephalic Mouth: oral and palatal mucosa normal Throat: posterior oropharynx normal Other: Lips are dry, membranes are tacky but otherwise normal in appearance. Chronic facial asymmetry from prior stroke Eye: Common normals: PERRL, EOMs intact bilaterally and conjunctivae normal Conjunctiva: conjunctiva(e) normal Pupil: PERRL Neck & C-Spine: Common normals: full ROM and no lymphadenopathy Resp: Common normals: normal respiratory effort and no use of accessory muscles Other: Initial coarse upper airway sounds do clear with cough. The bases are a little decreased but otherwise no obvious crackles or wheeze. Cardio: Common normals: regular rate, regular rhythm, S1 normal heart sound, S2 normal heart sound and peripheral pulses 2+ throughout Rate: regular rate Rhythm: regular rhythm Heart sounds: S1 normal and S2 normal Peripheral pulses: pulses 2+ throughout Other: Heart sounds are distant, but sound regular. I hear a slight systolic murmur but cannot remember if this is chronic GI: Common normals: Normal to inspection, nondistended, normoactive bowel sounds present Other: Surgical scarring consistent with prior surgeries, nontender, nondistended. Normoactive bowel sounds. : Common normals: no CVA tenderness Bladder/kidney exam: no CVA tenderness Back & Pelvis: Common normals: no CVA tenderness Extremity: Common normals: normal capillary refill and no pedal edema Neuro: Sensorium/orientation: awake and alert Motor exam: strength 5/5 throughout, no tremor noted and no movement abnormalities noted Other: Chronic left-sided facial droop. Speech is normal. Thought process is logical. As stated she just seems a little less sharp than her typical baseline but it has been a couple of years since they have cared for her. No obvious new focal deficit besides some mental slowing. Psych: Common normals: cooperative and speech normal Appearance: well kempt Activity/motor behavior: appropriate eye contact Speech: normal speech Insight: fair Judgement: fair Skin: Common normals: no rashes or lesions noted General skin exam: no rashes or lesions noted Course Vital Signs Vital signs: Initial Vital Signs Temperature 99.7 F H 07/06/22 12:00 Temperature Source Temporal Artery Scan 07/06/22 12:00 Pulse Rate 107 H 07/06/22 12:00 Pulse Rhythm 07/06/22 12:00 Pulse Strength 3+ Normal 07/06/22 12:00 Respiratory Rate 18 07/06/22 12:00 Blood Pressure 178/81 H 07/06/22 12:00 Blood Pressure Mean 113 07/06/22 12:00 Blood Pressure Position Supine 07/06/22 12:00 Pulse Oximetry 97 07/06/22 12:00 Oxygen Delivery Method 07/06/22 12:00 Oxygen Flow Rate 3 07/06/22 12:00 Vital Signs Temperature 99.7 F H 07/06/22 12:00 Pulse Rate 107 H 07/06/22 12:00 Respiratory Rate 18 07/06/22 12:00 Blood Pressure 178/81 H 07/06/22 12:00 Pulse Oximetry 97 07/06/22 12:00 Oxygen Delivery Method 07/06/22 12:00 Oxygen Flow Rate 3 07/06/22 12:00 Temperature 99.2 F 07/06/22 14:00 Pulse Rate 95 07/06/22 14:30 Respiratory Rate 18 07/06/22 14:30 Blood Pressure 125/62 07/06/22 14:30 Pulse Oximetry 98 07/06/22 14:30 Oxygen Delivery Method 07/06/22 14:30 Oxygen Flow Rate 3 07/06/22 14:30 Medical Decision Making [facility] Narrative Medical decision making narrative: Patient with tachycardia and mild fever, most likely etiology of her weakness is sepsis. Uncertain source. Swabs for COVID and influenza collected. Differential diagnosis also including pneumonia, intra-abdominal infection, blood infection, pneumonia. She is hypoxic I would favor pneumonia or urine which were the etiologies of her last episode of sepsis. Will have a low threshold to empirically start antibiotics. Awaiting chest x-ray. Will place IV and bolus 1 L of fluids. [place] body weight would be 50 kilos, sepsis fluids would need to be 1500. Cannot exclude stroke or other systemic process. Will investigate these further if no findings of infection or suggested by labs. Update 140: And significant elevated neutrophil count, concern for severe infection or sepsis initial lactate is reassuring, fluids given anyway. Tachycardia persists. Will start Zosyn and vancomycin, uncertain of source at this time. Will need to get a catheterized urine prior to starting antibiotics. production department supervisor notified that patient will likely need admission. At this point I think pursuing infection is the most likely etiology of her altered mental status is worthwhile. I do not see any persistent signs of focal neurological changes that would warrant stroke investigation to turning us from her primary problem. Update 315: UA is most suspicious for infection, please note that the urine culture may not be fully accurate as it was collected after antibiotics were started. Unfortunately the message was missed prior to the antibiotics being started. Zosyn and vancomycin have been started, repeat lactate is canceled because 1st lactate is normal. Tachycardia has improved after fluids. Differential diagnosis most likely urinary source of sepsis but cannot exclude pulmonary especially with a chronic underlying lung disease. Patient has been accepted for admission by hospitalist team. She would like to continue her DNR code status. Lab Data Lab results reviewed: Yes I reviewed the patient's lab results Labs: Lab Results 07/06/22 07/06/22 07/06/22 Range/Units 12:17 12:33 12:33 WBC 16.60 H (4.50-11.00) K/uL RBC 4.90 (4.00-5.20) m/uL Hgb 14.2 (12.0-16.0) gm/dL Hct 44.7 (33.0-51.0) % MCV 91 (80-100) fL MCH 29 (26-34) pg MCHC 32 (32-36) gm/dL RDW Coeff of Thais 14.5 (11.5-15.5) % Plt Count 232 (140-440) K/uL Neut % (Auto) 89.5 H (42.0-72.0) % Lymph % (Auto) 5.3 L (20-44) % [place] % (Auto) 3.6 (0.0-11.0) % Eos % (Auto) 0.6 (0.0-7.0) % Baso % (Auto) 0.2 (0.0-3.0) % Neut # (Auto) 14.90 H (1.7-7.0) K/uL Lymph # (Auto) 0.90 (0.90-2.90) K/uL [place] # (Auto) 0.60 (0.00-0.90) K/UL Eos # (Auto) 0.10 (0.00-0.50) K/uL Baso # (Auto) 0.00 (0.00-0.30) K/uL Abs Immat Gran (auto) 0.10 (0.00-0.30) K/uL Imm/Tot Granulo (auto) 0.8 % Sodium 140 (135-149) mmol/L Potassium 4.6 (3.6-5.1) mmol/L Chloride 105 (96-114) mmol/L Carbon Dioxide 26 (20-32) mmol/L BUN 11 (7-30) mg/dL Creatinine 0.8 (0.5-1.5) mg/dL Estimated Creat Clear 34.64 Estimated GFR 73 ml/min Glucose 274 H (60-115) mg/dL Venous Lactic Acid (Serial Order) Calcium 8.8 (8.4-10.6) mg/dL Total Bilirubin 0.6 (0.1-1.5) mg/dL AST 28 (12-35) U/L ALT 18 (4-35) U/L Alkaline Phosphatase 83 (40-150) U/L Troponin I < 0.01 L (0.01-0.04) ng/mL C-Reactive Protein < 0.5 L (0.5-1.0) mg/dL Total Protein 7.4 (6.0-8.3) g/dL Albumin 4.3 (3.3-5.0) g/dL Urine Color (Yellow) Urine Appearance (Clear) Urine pH (5.0-8.5) Ur Specific [place] (1.000-1.030) Urine Protein (Negative) Urine Glucose (UA) (Negative) Urine Ketones (Negative) Urine Blood (Negative) Urine Nitrite (Negative) Urine Bilirubin (Negative) Urine Urobilinogen (0.2-1.0) Ur Leukocyte Esterase (Negative) Urine RBC (0-2) Urine WBC (0-5) Ur Squamous Epith Cells (None-Few) Urine Bacteria (None) SARS-CoV-2 (PCR) Negative SARS-CoV-2 (Negative) Influenza Type A (PCR) Negative PCR FLU A (Negative) Influenza Type B (PCR) Negative PCR FLU B (Negative) 07/06/22 07/06/22 Range/Units 12:33 14:17 WBC (4.50-11.00) K/uL RBC (4.00-5.20) m/uL Hgb (12.0-16.0) gm/dL Hct (33.0-51.0) % MCV (80-100) fL MCH (26-34) pg MCHC (32-36) gm/dL RDW Coeff of [place]ais (11.5-15.5) % Plt Count (140-440) K/uL Neut % (Auto) (42.0-72.0) % Lymph % (Auto) (20-44) % [place] % (Auto) (0.0-11.0) % Eos % (Auto) (0.0-7.0) % Baso % (Auto) (0.0-3.0) % Neut # (Auto) (1.7-7.0) K/uL Lymph # (Auto) (0.90-2.90) K/uL [place] # (Auto) (0.00-0.90) K/UL Eos # (Auto) (0.00-0.50) K/uL Baso # (Auto) (0.00-0.30) K/uL Abs Immat Gran (auto) (0.00-0.30) K/uL Imm/Tot Granulo (auto) % Sodium (135-149) mmol/L Potassium (3.6-5.1) mmol/L Chloride (96-114) mmol/L Carbon Dioxide (20-32) mmol/L BUN (7-30) mg/dL Creatinine (0.5-1.5) mg/dL Estimated Creat Clear Estimated GFR ml/min Glucose (60-115) mg/dL Venous Lactic Acid (Serial Order) Calcium (8.4-10.6) mg/dL Total Bilirubin (0.1-1.5) mg/dL AST (12-35) U/L ALT (4-35) U/L Alkaline Phosphatase (40-150) U/L Troponin I (0.01-0.04) ng/mL C-Reactive Protein (0.5-1.0) mg/dL Total Protein (6.0-8.3) g/dL Albumin (3.3-5.0) g/dL Urine Color Yellow (Yellow) Urine Appearance Cloudy A (Clear) Urine pH 6.0 (5.0-8.5) Ur Specific [place] 1.025 (1.000-1.030) Urine Protein 2+ A (Negative) Urine Glucose (UA) Negative (Negative) Urine Ketones Negative (Negative) Urine Blood Trace-lysed A (Negative) Urine Nitrite Positive A (Negative) Urine Bilirubin Negative (Negative) Urine Urobilinogen 0.2 (0.2-1.0) Ur Leukocyte Esterase Negative (Negative) Urine RBC 5-10 A (0-2) Urine WBC 5-10 A (0-5) Ur Squamous Epith Cells Few (None-Few) Urine Bacteria Many A (None) SARS-CoV-2 (PCR) (Negative) Influenza Type A (PCR) (Negative) Influenza Type B (PCR) (Negative) ECG Data Attestation: I personally reviewed and interpreted this ECG as follows: Prior ECG tracings: available for review Interpretation: Rate 102, normal sinus rhythm. Overall poor R-wave progression left atrial enlargement. No obvious ST or T-wave abnormalities or signs of acute ischemia Discharge Plan Discharge Clinical Impression: Sepsis Patient Disposition: Admitted As Inpatient Condition: Improved Activity Level: Activity as Tolerated
[2022-07-06] MEDS: 0.9 % SODIUM CHLORIDE 1000 ml 1,000 ML 500 ML IV (12:50)
[2022-07-06 12:56] LABS: Basophils Percent Auto 0.2 % (0.0-3.0); Eosinophils Percent Auto 0.6 % (0.0-7.0); Hematocrit 44.7 % (33.0-51.0); Hemoglobin* 14.2 gm/dL (12.0-16.0); Immature Granulocytes Pct Auto 0.8 %; Lymphocytes Percent Auto 5.3 % (20-44); Mean Corpuscular HGB Conc 32 gm/dL (32-36); Mean Corpuscular Hemoglobin 29 pg (26-34); Mean Corpuscular Volume 91 fL (80-100); Monocytes Percent Auto 3.6 % (0.0-11.0); Neutrophils Percent Auto 89.5 % (42.0-72.0); Platelet Count* 232 K/uL (140-440); RDW Coefficient of Variation % 14.5 % (11.5-15.5)
[2022-07-06 12:57] LABS: Albumin* 4.3 g/dL (3.3-5.0); Chloride* 105 mmol/L (96-114); Slide Review Reflex No
[2022-07-06 12:58] LABS: Potassium* 4.6 mmol/L (3.6-5.1); Sodium* 140 mmol/L (135-149)
[2022-07-06 13:00] LABS: Bilirubin Total* 0.6 mg/dL (0.1-1.5); Creatinine* 0.8 mg/dL (0.5-1.5); Est. Creatinine Clearance* 34.64; Estimated Glomerular Filt Rate 73 ml/min
[2022-07-06 13:01] LABS: Alanine Aminotransferase* 18 U/L (4-35); Alkaline Phosphatase* 83 U/L (40-150); Aspartate Amino Transferase* 28 U/L (12-35); Blood Urea Nitrogen* 11 mg/dL (7-30); Calcium* 8.8 mg/dL (8.4-10.6); Carbon Dioxide* 26 mmol/L (20-32); Glucose* 274 mg/dL (60-115); Total Protein* 7.4 g/dL (6.0-8.3)
[2022-07-06 13:04] LABS: C Reactive Protein* < 0.5 mg/dL (0.5-1.0)
[2022-07-06 13:04] LABS: PCR FLU A Negative PCR FLU A (Negative); PCR FLU B Negative PCR FLU B (Negative); SARS PCR* Negative SARS-CoV-2 (Negative)
[2022-07-06 13:13] LABS: Troponin I* < 0.01 ng/mL (0.01-0.04)
[2022-07-06] MEDS: PIPERACILLIN/TAZOBACTAM 3.375 GM in 0.9 % SODIUM CHLORIDE Mini-bag 100 ML IVPB (13:45)
--- NOTE | 2022-07-06 14:22 | PC.NURSE ---
Patient was straight cathed for 250cc of urine. Sample sent to lab. This was obtained 1/2 way through administration of zosyn. MD stephens.
[2022-07-06 14:26] LABS: Appearance Urine Cloudy (Clear); Bilirubin Urine Negative (Negative); Blood Urine Trace-lysed (Negative); Color Urine Yellow (Yellow); Glucose Urine Negative (Negative); Ketones Urine Negative (Negative); Leukocyte Esterase Urine Negative (Negative); Nitrite Urine Positive (Negative); Protein Urine 2+ (Negative); Specific Gravity Urine 1.025 (1.000-1.030); Urobilinogen Urine 0.2 (0.2-1.0)
[2022-07-06 14:36] LABS: Bacteria Urine Many; Squamous Epithelial Cell Urine Few (None-Few)
--- NOTE | 2022-07-06 14:51 | PC.NURSE ---
Per Dr. Leal- no need to recheck 2 hour lactate as first one was okay. Also notified MD that patient was 82% on room air. on 3L NC and sating 94%.
--- NOTE | 2022-07-06 16:14 | ED.NURSE ---
Patient was admitted to M/S room CCU4. Report was given to PILAR Guevara. All belongings were sent with patient. accompanied patient down in w/c.
[2022-07-06 17:54] LABS: HCO3 VBG 26 mmol/L (21-28); PCO2 VBG 48 mmHG (40-50); PO2 VBG 46.4 mmHG (25-47)
[2022-07-06] MEDS: POTASSIUM CHLORIDE 10 MEQ CAPSULE ER 20 MEQ PO (18:18)
--- NOTE | 2022-07-06 18:25 | P.IMHP_ITS ---
Hospitalist- H&P: HPI History of Present Illness Date Seen: 07/06/22 Chief complaint: Possible stroke Narrative: Kianna Albright is a 82 year old female with chronic hypoxic respiratory failure due to COPD, history of cerebrovascular disease, diabetes mellitus presents with onset today of weakness, diarrhea, vomiting. She reports she was in her usual state of health yesterday. This morning she did not wake up and her significant other went in to wake her up from bed. At that time she was quite weak. She had an emesis and an episode of diarrhea. These were nonbloody. She is not aware of shortness of breath. She does use oxygen at night with her CPAP but today needed at during the day as well. O2 sat was 82% . She had a fever She reports she has otherwise been well though she notes that she has mid low back pain for about the last 4 days. She feels like she might have pulled a muscle. She was hospitalized here 2 months ago with similar circumstances. Diagnosed with pneumonia and sepsis and UTI and COPD. Review of Systems Narrative: Patient reports she was generally doing pretty well since her last hospitalization, up until the above symptoms starting today. Prior to today,no other fever, dyspnea, chest pain, nausea, vomiting, diarrhea. Is having no urinary symptoms. [facility] Medical History (Updated 07/06/22 @ 18:43 by Pranav Marcum MD) Acute insomnia Allergic rhinitis CAD (coronary artery disease) Chronic kidney disease, stage 3b Chronic pain Constipation Controlled substance agreement signed COPD (chronic obstructive pulmonary disease) Depression Gastroparesis GERD (gastroesophageal reflux disease) Gouty arthropathy Hereditary and idiopathic peripheral neuropathy Hypercalcemia Hypertension Hypertriglyceridemia Hypokalemia Hypothyroidism Myocardial infarction Neurogenic bladder Neuropathy HUGO (obstructive sleep apnea) Peripheral autonomic neuropathy due to diabetes mellitus Peripheral vascular disease Pneumonia Pulmonary fibrosis Pulmonary nodule SBO (small bowel obstruction) Slow transit constipation Stroke TIA (transient ischemic attack) Type 2 diabetes mellitus with complication, with long-term current use of insulin Urinary tract infection Surgical History H/O blepharoplasty H/O colonoscopy H/O foot surgery H/O neck surgery H/O: hysterectomy History of cholecystectomy Hx of appendectomy Hx of repair of rotator cuff Hx of tonsillectomy S/P bunionectomy S/P left rotator cuff repair Family History Maternal Grandfather Pancreatic cancer Aunt Breast cancer Uncle Lung cancer Aunt Breast cancer Father Tuberculosis Coronary artery disease Social History Narrative: Lives independently with her boyfriend, Zane, and her daughter, Martín, who lives in the basement. Quit tobacco 1986. No EtOH. Denies recreational drug use. Wants to be DNR/DNI. Highest level of school completed/degree received: some college, no degree Smoking Status: Former smoker Do you use any of these nicotine containing products: None Second hand tobacco smoke exposure: No How often do you have a drink containing alcohol: never How often do you have six or more drinks on one occasion: Never AUDIT-C Alcohol total score: 0 Non-prescribed substance use: denies use Caffeine: Yes service: No Meds Home Medications and Allergies Home Medications Medication Instructions Recorded Confirmed Type allopurinol 300 mg tablet 150 mg PO DAILY 04/04/22 07/06/22 History clopidogrel 75 mg tablet 75 mg PO DAILY 04/04/22 07/06/22 History furosemide 20 mg tablet 20 mg PO DAILY 04/04/22 07/06/22 History gabapentin 300 mg capsule 600 mg PO DAILY 04/04/22 07/06/22 History hydromorphone 8 mg tablet 8 mg PO QAM 04/04/22 07/06/22 History insulin aspart U-100 100 unit/mL 12 unit subcut DAILY@08 04/04/22 07/06/22 History (3 mL) subcutaneous pen (Novolog Flexpen U-100 Insulin aspart) insulin degludec 100 unit/mL (3 26 unit subcut HS 04/04/22 07/06/22 History mL) subcutaneous pen (Tresiba FlexTouch U-100 insulin) loperamide 2 mg capsule 2 mg PO BID PRN 04/04/22 07/06/22 History methadone 5 mg tablet 5 mg PO QAM 04/04/22 07/06/22 History rosuvastatin 20 mg tablet 20 mg PO HS 04/04/22 07/06/22 History semaglutide 1 mg/dose (4 mg/3 mL) 1 mg subcut TH@04/04/22 07/06/22 History subcutaneous pen injector (Ozempic) tamsulosin 0.4 mg capsule 0.4 mg PO DAILY 04/04/22 07/06/22 History colchicine 0.6 mg tablet 0.6 mg PO BID PRN 04/11/22 07/06/22 History BIOTENE DRY MOUTH LOZENGES 1 ea mucous membrane QID PRN 05/10/22 07/06/22 History cholecalciferol (vitamin D3) 50 4,000 unit PO DAILY 05/10/22 07/06/22 History mcg (2,000 unit) tablet (Vitamin D3) cyclobenzaprine 5 mg tablet 5 mg PO Q8H PRN 05/10/22 07/06/22 History fexofenadine 180 mg tablet 180 mg PO DAILY PRN 05/10/22 07/06/22 History (Aller-ease) hydromorphone 8 mg tablet 16 mg PO HS 05/10/22 07/06/22 History (Dilaudid) insulin aspart U-100 100 unit/mL 18 unit subcut DAILY@12 05/10/22 07/06/22 History (3 mL) subcutaneous pen (Novolog Flexpen U-100 Insulin aspart) levothyroxine 88 mcg tablet 88 mcg PO DAILY 05/10/22 07/06/22 History methadone 5 mg tablet 10 mg PO HS 05/10/22 07/06/22 History naloxone 4 mg/actuation nasal 4 mg intranasal DIRECTED PRN 05/10/22 07/06/22 History spray (Narcan) potassium chloride 20 mEq 20 meq PO BIDWM 05/10/22 07/06/22 History tablet,extended release(part/cryst) (Klor-Con M) prochlorperazine maleate 10 mg 10 mg PO Q6H PRN 05/10/22 07/06/22 History tablet vitamin A-vitamin C-vit E-min 1 tab PO DAILY 05/10/22 07/06/22 History tablet (Ocutabs tablet) albuterol sulfate 2.5 mg/3 mL 2.5 mg inhalation Q4H PRN 07/06/22 07/06/22 History (0.083 %) solution for nebulization insulin aspart U-100 100 unit/mL 26 unit subcut DAILY@18 07/06/22 07/06/22 History (3 mL) subcutaneous pen (Novolog Flexpen U-100 Insulin aspart) Allergies Allergy/AdvReac Type Severity Reaction Status Date / Time cortisone Allergy Severe Anaphylaxis Verified 05/10/22 06:03 prednisone Allergy Severe Verified 05/10/22 06:03 amoxicillin Allergy Intermediate Verified 05/10/22 06:03 cephalexin [From Keflex] Allergy Intermediate Diarrhea Verified 05/10/22 06:03 doxycycline Allergy Intermediate Verified 05/10/22 06:03 duloxetine [From Cymbalta] Allergy Intermediate Verified 05/10/22 06:03 escitalopram [From Lexapro] Allergy Intermediate sleep Verified 05/10/22 06:03 disturbance febuxostat Allergy Intermediate vomitting Verified 05/10/22 06:03 latex Allergy Intermediate Verified 05/10/22 06:11 lisinopril Allergy Intermediate Verified 05/10/22 06:03 losartan [From Cozaar] Allergy Intermediate Verified 05/10/22 06:03 nitrofurantoin Allergy Intermediate Verified 05/10/22 06:03 [From Macrobid] pregabalin [From Lyrica] Allergy Intermediate Nausea Verified 05/10/22 06:03 propoxyphene Allergy Intermediate angioedema Verified 05/10/22 06:03 ramelteon [From Rozerem] Allergy Intermediate Verified 05/10/22 06:03 sulfamethoxazole Allergy Intermediate Verified 05/10/22 06:03 [From Bactrim] tramadol [From Ultram] Allergy Intermediate Verified 05/10/22 06:03 trimethoprim [From Bactrim] Allergy Intermediate Verified 05/10/22 06:03 venlafaxine [From Effexor] Allergy Intermediate Verified 05/10/22 06:03 zolpidem [From Ambien] Allergy Intermediate Confusion Verified 05/10/22 06:03 acetaminophen [From Vicodin] Allergy Mild Nausea Verified 05/10/22 06:03 hydrocodone [From Vicodin] Allergy Mild Nausea Verified 05/10/22 06:03 aspirin Allergy Unknown Verified 05/10/22 06:03 clindamycin Allergy Unknown Verified 05/10/22 06:03 ipratropium [From Atrovent] Allergy Unknown Verified 05/10/22 06:03 Penicillins Allergy Unknown Verified 05/10/22 06:11 pramipexole Allergy Unknown Verified 05/10/22 06:03 trazodone Allergy Unknown Verified 05/10/22 06:03 adhesive tape Allergy huge Verified 05/10/22 06:07 blisters Exam Narrative: Exam Narrative: She is alert and able to give her own history. She is oriented to her circumstances. Head is normal. Eyes normal. Extraocular movements are full. Visual joya are intact. No facial asymmetry. Oropharynx with dry mucous membranes otherwise normal. Neck is supple. She does have a nodule in her right thyroid area. No mass no tenderness. Respirations with diminished breath sounds throughout. No marked wheezing. Bilateral fine and coarse crackles greater at the lung bases. Cardiovascular: S1, S2, regular rate and rhythm. Abdomen: Bowel sounds active. Abdomen is soft without tenderness or mass. Extremities with diminished pulses no edema. She has absent sensation in both feet. Deformities of her toes including hammertoe deformities with some calluses no open ulcers or draining wounds. Const: Vital Signs, click to edit/add: Vital Signs - 24 hr 07/06/22 12:00 07/06/22 12:13 07/06/22 13:10 Temperature 99.7 F H Pulse Rate Pulse Rate [Pulse Oximeter] 107 H 107 H 101 H Respiratory Rate 18 20 20 Blood Pressure [Ri ght Arm] Blood Pressure [Ri ght Upper Arm] 178/81 H 156/61 H 151/78 H Pulse Oximetry 97 92 96 Oxygen Delivery Me thod Nasal Cannula Nasal Cannula Nasal Cannula Oxygen Flow Rate 3 3 3 07/06/22 13:30 07/06/22 14:00 07/06/22 14:30 Temperature 99.2 F 99.2 F Pulse Rate Pulse Rate [Pulse Oximeter] 98 125 H 95 Respiratory Rate 20 18 18 Blood Pressure [Ri ght Arm] Blood Pressure [Ri ght Upper Arm] 135/72 130/63 125/62 Pulse Oximetry 93 82 L 98 Oxygen Delivery Me thod Nasal Cannula Room Air Nasal Cannula Oxygen Flow Rate 3 3 07/06/22 14:05 07/06/22 15:00 07/06/22 16:00 Temperature Pulse Rate Pulse Rate [Pulse Oximeter] 92 98 Respiratory Rate 16 16 Blood Pressure [Ri ght Arm] Blood Pressure [Ri ght Upper Arm] 120/58 L 123/85 Pulse Oximetry 94 93 94 Oxygen Delivery Me thod Nasal Cannula Nasal Cannula Nasal Cannula Oxygen Flow Rate 3 3 3 07/06/22 16:18 07/06/22 16:18 07/06/22 16:56 Temperature 99.2 F Pulse Rate 90 Pulse Rate [Pulse Oximeter] 92 Respiratory Rate 16 18 Blood Pressure [Ri ght Arm] 100/60 Blood Pressure [Ri ght Upper Arm] Pulse Oximetry 95 95 Oxygen Delivery Me thod Room Air Nasal Cannula Oxygen Flow Rate 2 2 Hospitalist - H&P: Result Labs Labs: Short CBC 07/06/22 Range/Units 12:33 WBC 16.60 H (4.50-11.00) K/uL Hgb 14.2 (12.0-16.0) gm/dL Hct 44.7 (33.0-51.0) % Plt Count 232 (140-440) K/uL BMP 07/06/22 12:33 Sodium 140 Potassium 4.6 Chloride 105 Carbon Dioxide 26 BUN 11 Creatinine 0.8 Glucose 274 H Calcium 8.8 Cardiac Enzymes 07/06/22 Range/Units 12:33 Troponin I < 0.01 L (0.01-0.04) ng/mL Liver Function 07/06/22 Range/Units 12:33 Total Bilirubin 0.6 (0.1-1.5) mg/dL AST 28 (12-35) U/L ALT 18 (4-35) U/L Alkaline Phosphatase 83 (40-150) U/L Albumin 4.3 (3.3-5.0) g/dL Urine 07/06/22 Range/Units 14:17 Urine Color Yellow (Yellow) Urine Appearance Cloudy A (Clear) Urine pH 6.0 (5.0-8.5) Ur Specific [place] 1.025 (1.000-1.030) Urine Protein 2+ A (Negative) Urine Glucose (UA) Negative (Negative) Assessment and Plan Assessment and plan (1) Sepsis: Problem comment: Favor pneumonia versus UTI as source. Treat with Levaquin. Tachycardia, fever, altered mental status Status: Acute (2) Pneumonia: Problem comment: Clinically tachypnea, hypoxia, altered mental status and abnormal chest x-ray support pneumonia diagnosis in the context of chronic lung disease Status: Acute (3) Altered mental status: Problem comment: Improved with fluids and antibiotics Status: Acute (4) Type 2 diabetes mellitus with complication, with long-term current use of insulin: Problem comment: 03/03/22 HgbA1C 6.6% Diabetes mellitus: Diagnosis in 1990 On insulin. On GLP-1 (ozempic as of January 2021) Macrovascular: CAD, CVA/TIA, PVD: Yes - CVAs. See below. Hypertension: on medications but no MICHAEL (cough). Also note: was no cozaar - had diarrhea (see allergy list) Hyperlipidemia: was on statin, may have had muscle pains on simvastatin (it was stopped December 2012). On rosuvastatin 10mg (update ) Microvascular: Retinopathy: No Last eye exam: with/in last 12 months - Yes. 07/15/21: mild diabetic retinopathy and early macular degeneration Nephropathy: No Neuropathy: yes-severe. 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 Now improved with Fentanyl , Oxycontin, Oycodone + Gastroparesis Last foot exam: December 2017 - no monofilament sensation to very distal feet/toes at all, but sensation essentially normal in both proximal feet , just proximal to toes and proximally from there. * except right inner foot. No ulcers. +hammertoes. Callus on tip of right 1st toe. Soft skin. No lesions. ASA use: on plavix. Was on aggrenox in past (update ) Status: Chronic (5) Pulmonary fibrosis: Status: Chronic (6) COPD (chronic obstructive pulmonary disease): Status: Chronic (7) Chronic kidney disease, stage 3b: Problem comment: Baseline Cr 0.9 Status: Chronic (8) Chronic pain: Status: Chronic (9) CAD (coronary artery disease): Problem comment: Extensive left main and LAD calcification with at most moderate stenosis on coronary CT 05/2018. TTE 05/14/22 Final Impressions: 1. Normal left ventricular size, normal wall thickness, normal global systolic function, calculated EF of 63 %. 2. The aortic valve is trileaflet and sclerotic, no stenosis and mild regurgitation. 3. The mitral valve is sclerotic, mild mitral regurgitation. Status: Chronic (10) Acute hypoxemic respiratory failure: Problem comment: Primarily due to pneumonia with background of COPD and pulmonary fibrosis Status: Acute (11) Urinary tract infection: Problem comment: Also possible source of sepsis. Await cultures. Empiric antibiotics. Status: Acute Plan Admit to the hospital for IV fluids, antibiotics, oxygen, monitoring for source of sepsis. Total time spent today is 80 minutes, 50 minutes in coordination of care and discussing with patient, her partner and other providers ongoing evaluation management of sepsis, pneumonia, UTI
--- NOTE | 2022-07-06 18:47 | CRLHL7_ITS ---
For Patients: As a result of the Century Cures Act, medical imaging exams and procedure reports are released immediately into your electronic medical record. You may view this report before your referring provider. If you have questions, please contact your health care provider. INDICATION: Sepsis, vomiting, hypoxia TECHNIQUE: CT chest, abdomen and pelvis acquired 95 milliliters Isovue 370 contrast. COMPARISON: Exams dating back to April 2022 FINDINGS: CHEST: Pulmonary arteries: Respiratory motion degrades evaluation of the distal segmental and subsegmental pulmonary arteries. No central or proximal segmental pulmonary thromboembolic disease. Lungs and Airways: Improving but persistent multifocal airspace disease. Severe upper lobe predominant centrilobular and paraseptal emphysema. Bibasilar subsegmental atelectasis. Superior segment left lower lobe indeterminate pulmonary nodule, axial image 81 measuring 10 millimeters, unchanged compared to the previous exam. No central endoluminal lesion Heart and Mediastinum: Thyroid not visualized. No axillary or supraclavicular lymphadenopathy. No mediastinal, hilar or retrocrural lymphadenopathy. Normal heart size. Normal caliber aorta. Atherosclerotic calcifications of the aorta and its branches. Coronary artery calcifications. Mitral annular calcifications. Pleura: The pleural spaces are normal. ABDOMEN: Liver: Normal enhancement. No focal suspicious hepatic lesions. Gallbladder and biliary: Cholecystectomy. Stable dilation of the hepatic ducts and common bile duct measuring up to 14 millimeters with smooth distal tapering. Spleen: Normal size and enhancement. Pancreas: Atrophic pancreas. Multiple pancreatic duct stones within the pancreatic body, axial image 42. Adrenal glands: Normal adrenal glands. Kidneys and ureters: Normal enhancement. No radio-opaque calculi. No hydroureteronephrosis. Subcentimeter hypodensities are too small to characterize however statistically represent cysts. Cortical thinning in the right upper pole. GI tract: Stomach is partially distended with oral debris. Tiny hiatal hernia. Massive duodenal diverticulum measuring 80 millimeters. Normal caliber small and large bowel loops. Appendix is not definitively visualized. Vascular structures: Patent abdominal aorta with atherosclerotic vascular calcifications. Severe atherosclerotic vascular calcifications. Patent portosplenic confluence, portal veins, and hepatic veins. Lymph nodes: No lymphadenopathy in the abdomen or pelvis by size criteria. Peritoneum: No free air, free fluid, or focal drainable fluid collection. PELVIS: Genitourinary system: Normal urinary bladder. Hysterectomy. Ovaries not definitively visualized. SKELETAL STRUCTURES AND SOFT TISSUES: Right posterior and left posterior subcutaneous calcifications at the level of the gluteus musculature, likely sequela of prior trauma. IMPRESSION: 1. Improved airspace disease compared to the April exam. 2. Persistent nodular focus in the superior segment left upper lobe, recommend unenhanced chest CT in 6 months to document stability and assess for underlying malignant potential. 3. Stable dilated intrahepatic and extrahepatic bile ducts, which can be seen in a normal postcholecystectomy setting. 4. Respiratory motion degrades evaluation of the distal segmental and subsegmental pulmonary arteries. No central or proximal segmental pulmonary embolus. Please note that all CT scans at this facility use dose modulation, iterative reconstruction, and/or weight-based dosing when appropriate to reduce radiation dose to as low as reasonably achievable. Dictated by Power Pepper MD @ 07/06/2022 9:49:45 PM (Electronically Signed)
--- NOTE | 2022-07-06 18:51 | PC.NURSE ---
Addendum entered by Orquidea Lima RN 07/06/22 19:10: Patient's tele NS w/1 degree HB. Original Note: End of Shift: Patient pleasant and cooperative. Patient arrived to the floor at about 1600 by bed. Patient is vitally stable, lungs clear on 2 L of o2 NS with sats in the low to mid 90's. Patient's BS WNL, IV's intact both in left extremity. Patient SBA when ambulating does not use a walker at home. Patient alert and oriented x5. Patient dinner BS was 283. Patient tolerating regular diet and has not yet used the toilet since being admitted. Patient reports lower back pain and leg pain from peripheral neuropathy, no pain meds given.
[2022-07-06] MEDS: PIPERACILLIN/TAZOBACTAM 2.25 GM in 0.9 % SODIUM CHLORIDE Mini-bag 100 ML IVPB (19:41)
[2022-07-06] MEDS: 0.9 % SODIUM CHLORIDE 250 ml IV (21:13)
[2022-07-06] MEDS: METHADONE 5 MG TABLET 10 MG PO (21:16)
[2022-07-06] MEDS: SODIUM CHLORIDE 0.9 % (FLUSH) 10 ML SYRINGE 5 ML IVF (21:16)
[2022-07-06] MEDS: ROSUVASTATIN CALCIUM 10 MG TABLET 20 MG PO (21:17)
[2022-07-06] MEDS: HYDROmorphone 2 MG TABLET 16 MG PO (21:17)
[2022-07-07] VITALS (7 sets, daily range): BP systolic 102–142; BP diastolic 54–84; PULSE 61–90; RESP 18–22; TEMP 36.5–36.7; O2SAT 90–95
[2022-07-07] MEDS: PIPERACILLIN/TAZOBACTAM 2.25 GM in 0.9 % SODIUM CHLORIDE Mini-bag 100 ML IVPB ×4 (02:10→20:01)
[2022-07-07] MEDS: SODIUM CHLORIDE 0.9 % (FLUSH) 10 ML SYRINGE 5 ML IVF ×3 (02:10→20:01)
[2022-07-07 04:04] LABS: Lactate* 1.8 mmol/L (0.5-1.9)
--- NOTE | 2022-07-07 06:02 | PC.NURSE ---
[id number]: Patient pleasant and cooperative. SO Zane at bedside and supportive. SBA. Denies SOB. 2 Lt O2 to maintain >90% sat. Afebrile. Rested well during noc.
[2022-07-07] MEDS: LEVOTHYROXINE 88 MCG TABLET PO (06:09)
[2022-07-07 07:43] LABS: Basophils Absolute Auto 0.03 K/uL (0.00-0.30); Basophils Percent Auto 0.3 % (0.0-3.0); Eosinophils Absolute Auto 0.32 K/uL (0.00-0.50); Eosinophils Percent Auto 3.3 % (0.0-7.0); Hematocrit 36.3 % (33.0-51.0); Hemoglobin* 11.5 gm/dL (12.0-16.0); Immature Granulocytes Abs Auto 0.01 K/uL (0.00-0.30); Immature Granulocytes Pct Auto 0.1 %; Lymphocytes Percent Auto 18.4 % (20-44); Mean Corpuscular HGB Conc 32 gm/dL (32-36); Mean Corpuscular Hemoglobin 29 pg (26-34); Mean Corpuscular Volume 92 fL (80-100); Monocytes Percent Auto 5.3 % (0.0-11.0); Neutrophils Percent Auto 72.6 % (42.0-72.0); Platelet Count* 188 K/uL (140-440); RDW Coefficient of Variation % 14.5 % (11.5-15.5); Red Blood Count 3.94 m/uL (4.00-5.20); White Blood Count* 9.83 K/uL (4.50-11.00)
[2022-07-07 07:47] LABS: Slide Review Reflex No
[2022-07-07] MEDS: POTASSIUM CHLORIDE 10 MEQ CAPSULE ER 20 MEQ PO ×2 (08:06→18:22)
[2022-07-07] MEDS: OCUVITE TABLET 1 TAB PO (08:07)
[2022-07-07] MEDS: GABAPENTIN 300 MG CAPSULE 600 MG PO (08:07)
[2022-07-07] MEDS: CLOPIDOGREL 75 MG TABLET PO (08:07)
[2022-07-07] MEDS: SENNOSIDES/DOCUSATE TABLET 4 TAB PO ×2 (08:08→21:07)
[2022-07-07] MEDS: TAMSULOSIN HCL 0.4 MG CAPSULE PO (08:08)
[2022-07-07] MEDS: allopurinoL 300 MG TABLET 150 MG PO (08:08)
[2022-07-07] MEDS: FUROSEMIDE 20 MG TABLET PO (08:09)
[2022-07-07] MEDS: METHADONE 5 MG TABLET PO (08:21)
[2022-07-07] MEDS: HYDROmorphone 2 MG TABLET 8 MG PO (08:28)
--- NOTE | 2022-07-07 10:35 | RESP.RT ---
Pt familiar to RT from late April admission. She uses 2 L oxygen at home. She stated today only at night. ON discharge of last admission it was to be continuous. Reinforced this with Pt today. She does work with IS and aerobika at home. Gave her an aerobika here, and she does excellent with it. Strong dry [employer] cough 2L NC, SPO2 92-95%. BBS are decreased, with scattered Rhonchi.
[2022-07-07] MEDS: SODIUM CHLORIDE 0.9 % (FLUSH) 10 ML SYRINGE IVF (13:25)
--- NOTE | 2022-07-07 13:49 | PC.NURSE ---
End of Shift Note: Patient has been in bed all shift. Did try and enc her to at least get to the chair but no success. Also tired her on room air but she desats into the low 80's. Pain is being controlled with her chronic medications. Did eat better for lunch then she did for breakfast. Will continue to monitor.
--- NOTE | 2022-07-07 15:09 | PM.IMHP1 ---
Hospitalist- H&P: HPI History of Present Illness Date Seen: 07/07/22 Chief complaint: Possible stroke Narrative: Kianna Albright is a 82 year old female seen in followup of hospitalization for clinical sepsis. Patient reports feeling a little better today. She is still requiring oxygen to maintain her O2 sats. [facility] Medical History (Updated 07/06/22 @ 18:43 by Pranav Marcum MD) Acute insomnia Allergic rhinitis CAD (coronary artery disease) Chronic kidney disease, stage 3b Chronic pain Constipation Controlled substance agreement signed COPD (chronic obstructive pulmonary disease) Depression Gastroparesis GERD (gastroesophageal reflux disease) Gouty arthropathy Hereditary and idiopathic peripheral neuropathy Hypercalcemia Hypertension Hypertriglyceridemia Hypokalemia Hypothyroidism Myocardial infarction Neurogenic bladder Neuropathy HUGO (obstructive sleep apnea) Peripheral autonomic neuropathy due to diabetes mellitus Peripheral vascular disease Pneumonia Pulmonary fibrosis Pulmonary nodule SBO (small bowel obstruction) Slow transit constipation Stroke TIA (transient ischemic attack) Type 2 diabetes mellitus with complication, with long-term current use of insulin Urinary tract infection Surgical History H/O blepharoplasty H/O colonoscopy H/O foot surgery H/O neck surgery H/O: hysterectomy History of cholecystectomy Hx of appendectomy Hx of repair of rotator cuff Hx of tonsillectomy S/P bunionectomy S/P left rotator cuff repair Family History Maternal Grandfather Pancreatic cancer Aunt Breast cancer Uncle Lung cancer Aunt Breast cancer Father Tuberculosis Coronary artery disease Social History Narrative: Lives independently with her boyfriend, Zane, and her daughter, Marítn, who lives in the basement. Quit tobacco 1986. No EtOH. Denies recreational drug use. Wants to be DNR/DNI. Highest level of school completed/degree received: some college, no degree Smoking Status: Former smoker Do you use any of these nicotine containing products: None Second hand tobacco smoke exposure: No How often do you have a drink containing alcohol: never How often do you have six or more drinks on one occasion: Never AUDIT-C Alcohol total score: 0 Non-prescribed substance use: denies use Caffeine: Yes service: No Meds Home Medications and Allergies Home Medications Medication Instructions Recorded Confirmed Type allopurinol 300 mg tablet 150 mg PO DAILY 04/04/22 07/06/22 History clopidogrel 75 mg tablet 75 mg PO DAILY 04/04/22 07/06/22 History furosemide 20 mg tablet 20 mg PO DAILY 04/04/22 07/06/22 History gabapentin 300 mg capsule 600 mg PO DAILY 04/04/22 07/06/22 History hydromorphone 8 mg tablet 8 mg PO QAM 04/04/22 07/06/22 History insulin aspart U-100 100 unit/mL 12 unit subcut DAILY@08 04/04/22 07/06/22 History (3 mL) subcutaneous pen (Novolog Flexpen U-100 Insulin aspart) insulin degludec 100 unit/mL (3 26 unit subcut HS 04/04/22 07/06/22 History mL) subcutaneous pen (Tresiba FlexTouch U-100 insulin) loperamide 2 mg capsule 2 mg PO BID PRN 04/04/22 07/06/22 History methadone 5 mg tablet 5 mg PO QAM 04/04/22 07/06/22 History rosuvastatin 20 mg tablet 20 mg PO HS 04/04/22 07/06/22 History semaglutide 1 mg/dose (4 mg/3 mL) 1 mg subcut TH@04/04/22 07/06/22 History subcutaneous pen injector (Ozempic) tamsulosin 0.4 mg capsule 0.4 mg PO DAILY 04/04/22 07/06/22 History colchicine 0.6 mg tablet 0.6 mg PO BID PRN 04/11/22 07/06/22 History BIOTENE DRY MOUTH LOZENGES 1 ea mucous membrane QID PRN 05/10/22 07/06/22 History cholecalciferol (vitamin D3) 50 4,000 unit PO DAILY 05/10/22 07/06/22 History mcg (2,000 unit) tablet (Vitamin D3) cyclobenzaprine 5 mg tablet 5 mg PO Q8H PRN 05/10/22 07/06/22 History fexofenadine 180 mg tablet 180 mg PO DAILY PRN 05/10/22 07/06/22 History (Aller-ease) hydromorphone 8 mg tablet 16 mg PO HS 05/10/22 07/06/22 History (Dilaudid) insulin aspart U-100 100 unit/mL 18 unit subcut DAILY@12 05/10/22 07/06/22 History (3 mL) subcutaneous pen (Novolog Flexpen U-100 Insulin aspart) levothyroxine 88 mcg tablet 88 mcg PO DAILY 05/10/22 07/06/22 History methadone 5 mg tablet 10 mg PO HS 05/10/22 07/06/22 History naloxone 4 mg/actuation nasal 4 mg intranasal DIRECTED PRN 05/10/22 07/06/22 History spray (Narcan) potassium chloride 20 mEq 20 meq PO BIDWM 05/10/22 07/06/22 History tablet,extended release(part/cryst) (Klor-Con M) prochlorperazine maleate 10 mg 10 mg PO Q6H PRN 05/10/22 07/06/22 History tablet vitamin A-vitamin C-vit E-min 1 tab PO DAILY 05/10/22 07/06/22 History tablet (Ocutabs tablet) albuterol sulfate 2.5 mg/3 mL 2.5 mg inhalation Q4H PRN 07/06/22 07/06/22 History (0.083 %) solution for nebulization insulin aspart U-100 100 unit/mL 26 unit subcut DAILY@18 07/06/22 07/06/22 History (3 mL) subcutaneous pen (Novolog Flexpen U-100 Insulin aspart) Allergies Allergy/AdvReac Type Severity Reaction Status Date / Time cortisone Allergy Severe Anaphylaxis Verified 07/06/22 21:09 prednisone Allergy Severe Verified 07/06/22 21:09 amoxicillin Allergy Intermediate Verified 07/06/22 21:09 cephalexin [From Keflex] Allergy Intermediate Diarrhea Verified 07/06/22 21:09 doxycycline Allergy Intermediate Verified 07/06/22 21:09 duloxetine [From Cymbalta] Allergy Intermediate Verified 07/06/22 21:09 escitalopram [From Lexapro] Allergy Intermediate sleep Verified 07/06/22 21:09 disturbance febuxostat Allergy Intermediate vomitting Verified 07/06/22 21:09 latex Allergy Intermediate Verified 07/06/22 21:09 lisinopril Allergy Intermediate Verified 07/06/22 21:09 losartan [From Cozaar] Allergy Intermediate Verified 07/06/22 21:09 nitrofurantoin Allergy Intermediate Verified 07/06/22 21:09 [From Macrobid] pregabalin [From Lyrica] Allergy Intermediate Nausea Verified 07/06/22 21:09 propoxyphene Allergy Intermediate angioedema Verified 07/06/22 21:09 ramelteon [From Rozerem] Allergy Intermediate Verified 07/06/22 21:09 sulfamethoxazole Allergy Intermediate Verified 07/06/22 21:09 [From Bactrim] tramadol [From Ultram] Allergy Intermediate Verified 07/06/22 21:09 trimethoprim [From Bactrim] Allergy Intermediate Verified 07/06/22 21:09 venlafaxine [From Effexor] Allergy Intermediate Verified 07/06/22 21:09 zolpidem [From Ambien] Allergy Intermediate Confusion Verified 07/06/22 21:09 acetaminophen [From Vicodin] Allergy Mild Nausea Verified 07/06/22 21:09 hydrocodone [From Vicodin] Allergy Mild Nausea Verified 07/06/22 21:09 aspirin Allergy Unknown Verified 07/06/22 21:09 clindamycin Allergy Unknown Verified 07/06/22 21:09 ipratropium [From Atrovent] Allergy Unknown Verified 07/06/22 21:09 Penicillins Allergy Unknown Verified 07/06/22 21:09 pramipexole Allergy Unknown Verified 07/06/22 21:09 trazodone Allergy Unknown Verified 07/06/22 21:09 adhesive tape Allergy huge Verified 07/06/22 21:09 blisters Exam Const: Vital Signs, click to edit/add: Vital Signs - 24 hr 07/06/22 16:00 07/06/22 16:18 07/06/22 16:18 Temperature 99.2 F Pulse Rate Pulse Rate [Pulse Oximeter] 98 92 Respiratory Rate 16 16 18 Blood Pressure [Ri ght Arm] 100/60 Blood Pressure [Ri ght Upper Arm] 123/85 Pulse Oximetry 94 95 95 Oxygen Delivery Me thod Nasal Cannula Room Air Nasal Cannula Oxygen Flow Rate 3 2 2 07/06/22 16:56 07/06/22 19:00 07/06/22 23:00 Temperature 98.1 F 98.3 F Pulse Rate 90 Pulse Rate [Pulse Oximeter] 80 81 Respiratory Rate 20 20 Blood Pressure [Ri ght Arm] 116/50 L 115/50 L Blood Pressure [Ri ght Upper Arm] Pulse Oximetry 93 95 Oxygen Delivery Me thod Nasal Cannula Nasal Cannula Oxygen Flow Rate 2 2 12/12/22 23:00 07/07/22 02:36 07/07/22 07:00 Temperature 97.9 F 97.9 F Pulse Rate 69 Pulse Rate [Pulse Oximeter] 81 63 Respiratory Rate 22 20 Blood Pressure [Ri ght Arm] 138/82 123/54 L Blood Pressure [Ri ght Upper Arm] Pulse Oximetry 92 93 Oxygen Delivery Me thod Nasal Cannula Room Air Oxygen Flow Rate 2 07/07/22 07:00 07/07/22 11:00 Temperature 97.7 F Pulse Rate 61 Pulse Rate [Pulse Oximeter] 67 Respiratory Rate Blood Pressure [Ri ght Arm] 123/54 L Blood Pressure [Ri ght Upper Arm] Pulse Oximetry 94 Oxygen Delivery Me thod Nasal Cannula Oxygen Flow Rate 1.5 Hospitalist - H&P: Result Labs Labs: Short CBC 07/07/22 Range/Units 07:21 WBC 9.83 (4.50-11.00) K/uL Hgb 11.5 L (12.0-16.0) gm/dL Hct 36.3 (33.0-51.0) % Plt Count 188 (140-440) K/uL
--- NOTE | 2022-07-07 15:12 | P.IMPN_ITS ---
Progress Note: A&P Assessment and plan (1) Sepsis: Problem details: Favor pneumonia versus UTI as source. Treat with piperacillin tazobactam. Clinically improving. Await cultures Status: Acute (2) Pneumonia: Problem details: Still hypoxic. Tachypnea and tachycardia are improved. Fever has resolved. Mental status is improved. Status: Acute (3) Altered mental status: Problem details: Improved with fluids and antibiotics. Status: Acute (4) Type 2 diabetes mellitus with complication, with long-term current use of insulin: Problem details: 03/03/22 HgbA1C 6.6% Diabetes mellitus: Diagnosis in 1990 On insulin. On GLP-1 (ozempic as of January 2021) Macrovascular: CAD, CVA/TIA, PVD: Yes - CVAs. See below. Hypertension: on medications but no MICHAEL (cough). Also note: was no cozaar - had diarrhea (see allergy list) Hyperlipidemia: was on statin, may have had muscle pains on simvastatin (it was stopped December 2012). On rosuvastatin 10mg (update ) Microvascular: Retinopathy: No Last eye exam: with/in last 12 months - Yes. 07/15/21: mild diabetic retinopathy and early macular degeneration Nephropathy: No Neuropathy: yes-severe. 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 Now improved with Fentanyl , Oxycontin, Oycodone + Gastroparesis Last foot exam: December 2017 - no monofilament sensation to very distal feet/toes at all, but sensation essentially normal in both proximal feet , just proximal to toes and proximally from there. * except right inner foot. No ulcers. +hammertoes. Callus on tip of right 1st toe. Soft skin. No lesions. ASA use: on plavix. Was on aggrenox in past (update ) Status: Chronic (5) Pulmonary fibrosis: Status: Chronic (6) COPD (chronic obstructive pulmonary disease): Status: Chronic (7) Chronic kidney disease, stage 3b: Problem details: Baseline Cr 0.9 Status: Chronic (8) Chronic pain: Problem details: Chronic opioid therapy Status: Chronic (9) CAD (coronary artery disease): Problem details: Extensive left main and LAD calcification with at most moderate stenosis on coronary CT 05/2018. TTE 05/14/22 Final Impressions: 1. Normal left ventricular size, normal wall thickness, normal global systolic function, calculated EF of 63 %. 2. The aortic valve is trileaflet and sclerotic, no stenosis and mild regurgitation. 3. The mitral valve is sclerotic, mild mitral regurgitation. Status: Chronic (10) Acute hypoxemic respiratory failure: Problem details: Primarily due to pneumonia with background of COPD and pulmonary fibrosis Status: Acute (11) Urinary tract infection: Problem details: Also possible source of sepsis. Await cultures. Zosyn pending cultures Status: Acute Plan Continue in hospital for IV antibiotics, management of sepsis, management of acute on chronic hypoxic respiratory failure and chronic pulmonary disease. Time Spent With Patient Total time spent: Total time spent today is 40 minutes, 25 minutes in coordination of care and discussing the patient with providers ongoing evaluation management of respiratory failure and sepsis Subjective Date Seen: 07/07/22 Interval history: 82-year-old female admitted with sepsis. Her fever and tachycardia have resolved. She is still hypoxic requiring 2 L of oxygen to maintain her O2 sats at 90%. She reports more coughing and congestion today. No chest pain. No abdominal pain. She does have dysuria this morning. She has been treated with piperacillin tazobactam overnight. She is oriented to her circumstances. She reports profound fatigue and malaise and has spent the day in bed so far. Exam Narrative: Exam Narrative: Tired appearing but otherwise in no distress. Head is normal. Eyes normal. Oropharynx normal. No facial asymmetry. Respirations with diminished breath sounds throughout all lung joya. She has fine crackles and musical crackles heard especially at her lung bases. No marked wheezing. Mild prolongation of expiratory phase. Cardiovascular: S1, S2, regular rate and rhythm. Abdomen is soft without tenderness or mass. Extremities without edema. Const: Vital Signs, click to edit/add: Vital Signs - 24 hr 07/06/22 16:00 07/06/22 16:18 07/06/22 16:18 Temperature 99.2 F Pulse Rate Pulse Rate [Pulse Oximeter] 98 92 Respiratory Rate 16 16 18 Blood Pressure [Ri ght Arm] 100/60 Blood Pressure [Ri ght Upper Arm] 123/85 Pulse Oximetry 94 95 95 Oxygen Delivery Me thod Nasal Cannula Room Air Nasal Cannula Oxygen Flow Rate 3 2 2 07/06/22 16:56 07/06/22 19:00 07/06/22 23:00 Temperature 98.1 F 98.3 F Pulse Rate 90 Pulse Rate [Pulse Oximeter] 80 81 Respiratory Rate 20 20 Blood Pressure [Ri ght Arm] 116/50 L 115/50 L Blood Pressure [Ri ght Upper Arm] Pulse Oximetry 93 95 Oxygen Delivery Me thod Nasal Cannula Nasal Cannula Oxygen Flow Rate 2 2 07/06/22 23:00 07/07/22 02:36 07/07/22 07:00 Temperature 97.9 F 97.9 F Pulse Rate 69 Pulse Rate [Pulse Oximeter] 81 63 Respiratory Rate 22 20 Blood Pressure [Ri ght Arm] 138/82 123/54 L Blood Pressure [Ri ght Upper Arm] Pulse Oximetry 92 93 Oxygen Delivery Me thod Nasal Cannula Room Air Oxygen Flow Rate 2 07/07/22 07:00 07/07/22 11:00 Temperature 97.7 F Pulse Rate 61 Pulse Rate [Pulse Oximeter] 67 Respiratory Rate Blood Pressure [Ri ght Arm] 123/54 L Blood Pressure [Ri ght Upper Arm] Pulse Oximetry 94 Oxygen Delivery Me thod Nasal Cannula Oxygen Flow Rate 1.5 Documenting provider has reviewed patient's vital signs: yes Labs Labs: Laboratory Results - last 24 hr 07/06/22 07/06/22 07/07/22 12:33 17:48 07:21 WBC 9.83 RBC 3.94 L Hgb 11.5 L Hct 36.3 MCV 92 MCH 29 MCHC 32 RDW Coeff of Thais 14.5 Plt Count 188 Neut % (Auto) 72.6 H Lymph % (Auto) 18.4 L [place] % (Auto) 5.3 Eos % (Auto) 3.3 Baso % (Auto) 0.3 Neut # (Auto) 7.10 H Lymph # (Auto) 1.80 [place] # (Auto) 0.50 Eos # (Auto) 0.32 Baso # (Auto) 0.03 Abs Immat Gran (auto) 0.01 Imm/Tot Granulo (auto) 0.1 VBG pH 7.350 VBG pCO2 48 VBG pO2 46.4 VBG HCO3 26 Lactate 1.8 Venous Lactic Acid (Serial Order) Cancelled
[2022-07-07] MEDS: 0.9 % SODIUM CHLORIDE 250 ml IV (20:02)
[2022-07-07] MEDS: METHADONE 5 MG TABLET 10 MG PO (21:06)
[2022-07-07] MEDS: HYDROmorphone 2 MG TABLET 16 MG PO (21:07)
[2022-07-07] MEDS: ROSUVASTATIN CALCIUM 10 MG TABLET 20 MG PO (21:07)
--- NOTE | 2022-07-07 22:32 | PC.NURSE ---
Shift Summary: Patient pleasant and cooperative. Up with SBA. Tolerating regular diet well. Using call light appropriately. C/o lower back pain this evening, relieved with scheduled medication. O2 @2L/NC maintaining o2 sat >90%.
[2022-07-08] VITALS (8 sets, daily range): BP systolic 120–167; BP diastolic 60–84; PULSE 67–90; RESP 16–18; TEMP 36.6–37.2; O2SAT 90–95
[2022-07-08] MEDS: PIPERACILLIN/TAZOBACTAM 2.25 GM in 0.9 % SODIUM CHLORIDE Mini-bag 100 ML IVPB ×4 (02:08→20:55)
[2022-07-08] MEDS: LEVOTHYROXINE 88 MCG TABLET PO (06:19)
--- NOTE | 2022-07-08 06:25 | PC.NURSE ---
23-: pt compliant and cooperative. SBA to bathroom. Remained on 2L NC, desats to mid 80s with ambulation to BR, rebounds quickly with rest.
[2022-07-08] MEDS: POTASSIUM CHLORIDE 10 MEQ CAPSULE ER 20 MEQ PO ×2 (07:47→17:34)
[2022-07-08 07:50] LABS: Basophils Absolute Auto 0.04 K/uL (0.00-0.30); Basophils Percent Auto 0.5 % (0.0-3.0); Eosinophils Absolute Auto 0.34 K/uL (0.00-0.50); Eosinophils Percent Auto 4.6 % (0.0-7.0); Hemoglobin* 12.3 gm/dL (12.0-16.0); Immature Granulocytes Abs Auto 0.02 K/uL (0.00-0.30); Immature Granulocytes Pct Auto 0.3 %; Lymphocytes Absolute Auto 1.82 K/uL (0.90-2.90); Lymphocytes Percent Auto 24.5 % (20-44); Mean Corpuscular HGB Conc 32 gm/dL (32-36); Mean Corpuscular Hemoglobin 29 pg (26-34); Mean Corpuscular Volume 92 fL (80-100); Monocytes Percent Auto 7.7 % (0.0-11.0); Neutrophils Absolute Auto 4.65 K/uL (1.7-7.0); Neutrophils Percent Auto 62.4 % (42.0-72.0); Platelet Count* 199 K/uL (140-440); RDW Coefficient of Variation % 14.6 % (11.5-15.5); Red Blood Count 4.24 m/uL (4.00-5.20); White Blood Count* 7.44 K/uL (4.50-11.00)
[2022-07-08 07:51] LABS: Slide Review Reflex No
[2022-07-08 08:17] LABS: Chloride* 104 mmol/L (96-114)
[2022-07-08 08:18] LABS: Sodium* 137 mmol/L (135-149)
[2022-07-08 08:21] LABS: Blood Urea Nitrogen* 9 mg/dL (7-30); Carbon Dioxide* 28 mmol/L (20-32); Creatinine* 0.8 mg/dL (0.5-1.5); Est. Creatinine Clearance* 34.64; Estimated Glomerular Filt Rate 73 ml/min
[2022-07-08 08:22] LABS: Calcium* 8.6 mg/dL (8.4-10.6); Glucose* 243 mg/dL (60-115)
[2022-07-08] MEDS: CLOPIDOGREL 75 MG TABLET PO (08:51)
[2022-07-08] MEDS: TAMSULOSIN HCL 0.4 MG CAPSULE PO (08:52)
[2022-07-08] MEDS: METHADONE 5 MG TABLET PO (08:52)
[2022-07-08] MEDS: allopurinoL 300 MG TABLET 150 MG PO (08:52)
[2022-07-08] MEDS: OCUVITE TABLET 1 TAB PO (08:52)
[2022-07-08] MEDS: FUROSEMIDE 20 MG TABLET PO (08:52)
[2022-07-08] MEDS: SENNOSIDES/DOCUSATE TABLET 4 TAB PO ×2 (08:52→21:01)
[2022-07-08] MEDS: HYDROmorphone 2 MG TABLET 8 MG PO (08:59)
--- NOTE | 2022-07-08 14:16 | P.IMPN_ITS ---
Progress Note: A&P Assessment and plan (1) Sepsis: Problem details: - UTI vs pneumonia (+ Citrobacter on urine culture, sensitivities pending) - leukocytosis from admission has resolved - tolerating Zosyn - hemodynamically stable, on home dose of supplemental oxygen Status: Acute (2) Pneumonia: Problem details: - significantly improved: hypoxia, tachypnea, and tachycardia all resolved Status: Acute (3) Altered mental status: Problem details: - as of 07/08, back to baseline Status: Acute (4) Type 2 diabetes mellitus with complication, with long-term current use of insulin: Problem details: 03/03/22 HgbA1C 6.6% Diabetes mellitus: Diagnosis in 1990 On insulin. On GLP-1 (ozempic as of January 2021) Macrovascular: CAD, CVA/TIA, PVD: Yes - CVAs. See below. Hypertension: on medications but no MICHAEL (cough). Also note: was no cozaar - had diarrhea (see allergy list) Hyperlipidemia: was on statin, may have had muscle pains on simvastatin (it was stopped December 2012). On rosuvastatin 10mg (update ) Microvascular: Retinopathy: No Last eye exam: with/in last 12 months - Yes. 07/15/21: mild diabetic retinopathy and early macular degeneration Nephropathy: No Neuropathy: yes-severe. 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 Now improved with Fentanyl , Oxycontin, Oycodone + Gastroparesis Last foot exam: December 2017 - no monofilament sensation to very distal feet/toes at all, but sensation essentially normal in both proximal feet , just proximal to toes and proximally from there. * except right inner foot. No ulcers. +hammertoes. Callus on tip of right 1st toe. Soft skin. No lesions. ASA use: on plavix. Was on aggrenox in past (update ) Status: Chronic (5) COPD (chronic obstructive pulmonary disease): Status: Chronic Assessment and Plan: - quiescent (6) Chronic kidney disease, stage 3b: Problem details: Baseline Cr 0.9 Status: Chronic (7) Chronic pain: Problem details: - chronic opioid therapy Status: Chronic (8) CAD (coronary artery disease): Problem details: Extensive left main and LAD calcification with at most moderate stenosis on coronary CT 05/2018. TTE 05/14/22 Final Impressions: 1. Normal left ventricular size, normal wall thickness, normal global systolic function, calculated EF of 63 %. 2. The aortic valve is trileaflet and sclerotic, no stenosis and mild regurgitation. 3. The mitral valve is sclerotic, mild mitral regurgitation. Status: Chronic Plan - per above - Plavix for ppx, will add Lovenox today - possibly home as early as tomorrow, P results from UTI sensitivities Subjective Date Seen: 07/08/22 Interval history: No acute events overnight. Ben continues to feel better each day, has been seen by OT/PT. Tolerating antibiotics. Supplemental oxygen stable at 2L (baseline). Exam Narrative: Exam Narrative: GEN: Alert and oriented, sitting comfortably in bed and speaking in full sentences HEENT: Normal external ears, EOMIs bilaterally CV: RRR, No concerning murmurs, rubs, or gallops R: No tachypnea at rest, mild rhonchi bilateral bases Ext: wwp, no concerning edema Skin: No concerning skin lesions or rashes on exposed skin Neuro: Nonfocal Psych: Appropriate Const: Vital Signs, click to edit/add: Vital Signs - 24 hr 07/07/22 16:10 07/07/22 16:15 07/07/22 20:00 Temperature 98.1 F 98.1 F Pulse Rate 80 Pulse Rate [Pulse Oximeter] 69 89 Respiratory Rate 18 18 Blood Pressure [Ri t Arm] 102/84 142/71 H Pulse Oximetry 90 95 Oxygen Delivery Me thod Nasal Cannula Nasal Cannula Oxygen Flow Rate 2 2 07/07/22 23:00 07/07/22 23:00 07/08/22 00:00 Temperature 99 F Pulse Rate 90 Pulse Rate [Pulse Oximeter] 90 90 Respiratory Rate 18 18 Blood Pressure [Ri ght Arm] 160/83 H Pulse Oximetry 95 Oxygen Delivery Me thod Nasal Cannula Oxygen Flow Rate 2 07/08/22 04:00 07/08/22 08:00 07/08/22 08:00 Temperature 98.6 F 98.1 F Pulse Rate 67 Pulse Rate [Pulse Oximeter] 85 80 Respiratory Rate 18 18 Blood Pressure [Ri t Arm] 120/60 131/84 Pulse Oximetry 95 90 Oxygen Delivery Me thod Nasal Cannula Nasal Cannula Oxygen Flow Rate 2 2 07/08/22 11:38 Temperature 98.2 F Pulse Rate Pulse Rate [Pulse Oximeter] 71 Respiratory Rate 16 Blood Pressure [Ri ght Arm] 149/63 H Pulse Oximetry 95 Oxygen Delivery Me thod Nasal Cannula Oxygen Flow Rate 2 Labs Labs: Laboratory Results - last 24 hr 07/08/22 07/08/22 07:39 07:39 WBC 7.44 RBC 4.24 Hgb 12.3 Hct 39.0 MCV 92 MCH 29 MCHC 32 RDW Coeff of Thais 14.6 Plt Count 199 Neut % (Auto) 62.4 Lymph % (Auto) 24.5 [place] % (Auto) 7.7 Eos % (Auto) 4.6 Baso % (Auto) 0.5 Neut # (Auto) 4.65 Lymph # (Auto) 1.82 [place] # (Auto) 0.60 Eos # (Auto) 0.34 Baso # (Auto) 0.04 Abs Immat Gran (auto) 0.02 Imm/Tot Granulo (auto) 0.3 Sodium 137 Potassium 5.0 Chloride 104 Carbon Dioxide 28 BUN 9 Creatinine 0.8 Estimated Creat Clear 34.64 Estimated GFR 73 Glucose 243 H Calcium 8.6
--- NOTE | 2022-07-08 17:30 | PC.NURSE ---
Shift Summary: Patient pleasant and cooperative. Up with SBA assist. Continues to use o2 @ 2L/NC. Vitals stable and WNL. Tolerating regular diet, appetite good. C/o pain this morning, managed with scheduled medication. Denies nausea or SOB.
[2022-07-08] MEDS: 0.9 % SODIUM CHLORIDE 250 ml IV (20:53)
[2022-07-08] MEDS: GABAPENTIN 300 MG CAPSULE 600 MG PO (20:59)
[2022-07-08] MEDS: METHADONE 5 MG TABLET 10 MG PO (21:00)
[2022-07-08] MEDS: ROSUVASTATIN CALCIUM 10 MG TABLET 20 MG PO (21:01)
[2022-07-08] MEDS: HYDROmorphone 2 MG TABLET 16 MG PO (21:01)
[2022-07-09] VITALS: BP 155/64; PULSE 67; RESP 16; TEMP 36.6; O2SAT 94
[2022-07-09] MEDS: PIPERACILLIN/TAZOBACTAM 2.25 GM in 0.9 % SODIUM CHLORIDE Mini-bag 100 ML IVPB ×2 (02:23→09:37)
[2022-07-09 04:00] VITALS: BP 141/71; PULSE 63; RESP 18; TEMP 36.6; O2SAT 91
--- NOTE | 2022-07-09 05:43 | PC.NURSE ---
Patient is alert and oriented x 4, able to make needs known to staff. Pain is managed with scheduled pain medications. Patient is SBA, up to bathroom x2 this shift. Patient accidentally removed IV this shift, new one started. Patient received IV antibiotic x2. Patient had elevated SBP, all other vitals stable on 2L of oxygen via NC. Continent of bowel and bladder. Slept most of shift.
[2022-07-09] MEDS: LEVOTHYROXINE 88 MCG TABLET PO (06:23)
[2022-07-09 06:32] LABS: Basophils Absolute Auto 0.04 K/uL (0.00-0.30); Basophils Percent Auto 0.6 % (0.0-3.0); Eosinophils Absolute Auto 0.36 K/uL (0.00-0.50); Eosinophils Percent Auto 5.7 % (0.0-7.0); Hematocrit 37.7 % (33.0-51.0); Hemoglobin* 12.2 gm/dL (12.0-16.0); Immature Granulocytes Abs Auto 0.01 K/uL (0.00-0.30); Immature Granulocytes Pct Auto 0.2 %; Lymphocytes Absolute Auto 1.91 K/uL (0.90-2.90); Lymphocytes Percent Auto 30.3 % (20-44); Mean Corpuscular HGB Conc 32 gm/dL (32-36); Mean Corpuscular Hemoglobin 29 pg (26-34); Mean Corpuscular Volume 90 fL (80-100); Monocytes Percent Auto 8.7 % (0.0-11.0); Neutrophils Absolute Auto 3.43 K/uL (1.7-7.0); Neutrophils Percent Auto 54.5 % (42.0-72.0); Platelet Count* 209 K/uL (140-440); RDW Coefficient of Variation % 14.4 % (11.5-15.5); Red Blood Count 4.18 m/uL (4.00-5.20)
[2022-07-09 06:34] LABS: Slide Review Reflex No
[2022-07-09 06:48] LABS: Chloride* 105 mmol/L (96-114); Sodium* 137 mmol/L (135-149)
[2022-07-09 06:51] LABS: Blood Urea Nitrogen* 10 mg/dL (7-30); Carbon Dioxide* 27 mmol/L (20-32); Creatinine* 0.7 mg/dL (0.5-1.5); Est. Creatinine Clearance* 34.64; Estimated Glomerular Filt Rate 85 ml/min
[2022-07-09 06:52] LABS: Calcium* 8.8 mg/dL (8.4-10.6); Glucose* 120 mg/dL (60-115)
[2022-07-09 07:41] VITALS: PULSE 71
[2022-07-09 08:00] VITALS: PULSE 68; RESP 18
[2022-07-09 08:02] VITALS: BP 153/79; PULSE 68; RESP 18; TEMP 36.4; O2SAT 92
[2022-07-09] MEDS: POTASSIUM CHLORIDE 10 MEQ CAPSULE ER 20 MEQ PO (09:37)
[2022-07-09] MEDS: HYDROmorphone 2 MG TABLET 8 MG PO (09:38)
[2022-07-09] MEDS: SENNOSIDES/DOCUSATE TABLET 4 TAB PO (09:39)
[2022-07-09] MEDS: allopurinoL 300 MG TABLET 150 MG PO (09:39)
[2022-07-09] MEDS: CLOPIDOGREL 75 MG TABLET PO (09:40)
[2022-07-09] MEDS: OCUVITE TABLET 1 TAB PO (09:40)
[2022-07-09] MEDS: METHADONE 5 MG TABLET PO (09:40)
[2022-07-09] MEDS: TAMSULOSIN HCL 0.4 MG CAPSULE PO (09:41)
[2022-07-09] MEDS: FUROSEMIDE 20 MG TABLET PO (09:41)
[2022-07-09 10:50] VITALS: PULSE 71; RESP 18; TEMP 36.4
--- NOTE | 2022-07-09 11:39 | PC.NURSE ---
Discharge. Pt has been very pleasant. she is alert and oriented x 4. no pain this am she is getting scheduled pain medications. Patient is up ab margret. SL was d/c intact. she is eating, drinking and voiding. went over discharge packet with pt, went over medications, instructions appointments and education. pt went over and signed personal belonging sheet. she took all belongings and paperwork with her.
--- NOTE | 2022-07-09 12:15 | PM.DS1 ---
DS: Providers Provider Date Seen: 07/09/22 Date of admission: 07/06/22 17:07 Primary care physician: Michael Sandy MD Admitting Clinician: Pranav Marcum MD Consults: RT, OT, PT Attending Physician on discharge: Whitney Fajardo MD Date of Discharge: 07/09/22 DS: Diagnosis Discharge Diagnosis (1) Sepsis: Status: Acute Problem details: - concern for sepsis on admission given mildly hypotensive on admission, but had reassuring lactate and negative blood cultures - + UTI, also concern for PNA on imaging (although this is overall improved on appearance from 05/16) - leukocytosis noted on admission, resolved - Zosyn initiated upon admission - by hospital day #1, was hemodynamically stable and doing well on home dose of supplemental oxygen (2) Urinary tract infection: Status: Acute Problem details: - Citrobacter freundii, sensitive to Levaquin (3) Acute hypoxemic respiratory failure: Status: Acute Problem details: - improved throughout stay, history of COPD and pulmonary fibrosis (4) Type 2 diabetes mellitus with complication, with long-term current use of insulin: Status: Chronic Problem details: 03/03/22 HgbA1C 6.6% Diabetes mellitus: Diagnosis in 1990 On insulin. On GLP-1 (ozempic as of January 2021) Macrovascular: CAD, CVA/TIA, PVD: Yes - CVAs. See below. Hypertension: on medications but no MICHAEL (cough). Also note: was no cozaar - had diarrhea (see allergy list) Hyperlipidemia: was on statin, may have had muscle pains on simvastatin (it was stopped December 2012). On rosuvastatin 10mg (update ) Microvascular: Retinopathy: No Last eye exam: with/in last 12 months - Yes. 07/15/21: mild diabetic retinopathy and early macular degeneration Nephropathy: No Neuropathy: yes-severe. 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 Now improved with Fentanyl , Oxycontin, Oycodone + Gastroparesis Last foot exam: December 2017 - no monofilament sensation to very distal feet/toes at all, but sensation essentially normal in both proximal feet , just proximal to toes and proximally from there. * except right inner foot. No ulcers. +hammertoes. Callus on tip of right 1st toe. Soft skin. No lesions. ASA use: on plavix. Was on aggrenox in past (update ) DS: Summary Hospital Course Hospital Course: Very pleasant 82-year-old female, admitted to the hospital on 07/06/22 for weakness after having a 1 day history of vomiting and diarrhea. On admission, patient was noted to be hypotensive with leukocytosis, requiring more than baseline 2 L of supplemental oxygen; concern for sepsis noted. Lactate within normal limits. Zosyn initiated; patient improved significantly throughout hospital stay, was able to wean down to baseline O2 supplementation and her white count normalized. Urine culture positive for Citrobacter, blood cultures remained negative. Based on urine culture sensitivities, she was discharged home on Levofloxacin. Seen by PT and OT; both teams comfortable with patient discharging home on 07/09/22 with partner. Ben will see her PCP, Dr. Sandy, early next week in f/u. She was comfortable discharging home today with the above plan. Status at Discharge Functional status at discharge: uses cane/walker Overall status at discharge: patient is progressing back to baseline Time Spent with Patient Time attestation: Total time spent providing and/or coordinating discharge services: Time spent: Greater than 30 minutes Specific discharge activities: Care coordination, medication reconciliation Exam Narrative: Exam Narrative: GEN: Alert and oriented, sitting comfortably on edge of bed and eating breakfast when I see her, speaking in full sentences HEENT: Normal external ears, EOMIs bilaterally CV: RRR, No concerning murmurs, rubs, or gallops R: LCTA bilaterally without concerning wheezing or rales. Mild rhonchi bilateral bases, air movement adequate Ext: wwp, no concerning edema Skin: No concerning skin lesions or rashes on exposed skin Neuro: Nonfocal Psych: Appropriate Const: Vital Signs, click to edit/add: Vital Signs - 24 hr 07/08/22 15:53 07/08/22 16:08 07/08/22 20:00 Temperature 98 F 98.2 F Pulse Rate 77 Pulse Rate [Pulse Oximeter] 81 79 Respiratory Rate 18 18 Blood Pressure [Ri ght Arm] 143/64 H 167/81 H Pulse Oximetry 91 93 Oxygen Delivery Me thod Nasal Cannula Nasal Cannula Oxygen Flow Rate 2 2 07/08/22 23:00 07/09/22 00:00 07/08/22 23:00 Temperature 98 F Pulse Rate 77 Pulse Rate [Pulse Oximeter] 79 67 Respiratory Rate 18 16 Blood Pressure [Ri ght Arm] 155/64 H Pulse Oximetry 94 Oxygen Delivery Me thod Nasal Cannula Oxygen Flow Rate 2 07/09/22 04:00 07/09/22 07:41 07/09/22 08:00 Temperature 98 F Pulse Rate 71 Pulse Rate [Pulse Oximeter] 63 68 Respiratory Rate 18 18 Blood Pressure [Ri ght Arm] 141/71 H Pulse Oximetry 91 Oxygen Delivery Me thod Room Air Nasal Can nula Oxygen Flow Rate 2 07/09/22 08:02 07/09/22 10:50 Temperature 97.5 F L 97.5 F L Pulse Rate 71 Pulse Rate [Pulse Oximeter] 68 Respiratory Rate 18 18 Blood Pressure [Ri ght Arm] 153/79 H Pulse Oximetry 92 Oxygen Delivery Me thod Nasal Cannula Oxygen Flow Rate 2 DS: Data Data Completed and Pending Completed studies during hospitalization: Procedures Assistance with Respiratory Ventilation, 24-96 Consecutive Hours, High Nasal Flow/Velocity (05/10/22) Labs on day of discharge: Labs from last 24 hours 07/09/22 07/09/22 06:02 06:02 WBC 6.30 RBC 4.18 Hgb 12.2 Hct 37.7 MCV 90 MCH 29 MCHC 32 RDW Coeff of Thais 14.4 Plt Count 209 Neut % (Auto) 54.5 Lymph % (Auto) 30.3 Wood % (Auto) 8.7 Eos % (Auto) 5.7 Baso % (Auto) 0.6 Neut # (Auto) 3.43 Lymph # (Auto) 1.91 Wood # (Auto) 0.50 Eos # (Auto) 0.36 Baso # (Auto) 0.04 Abs Immat Gran (auto) 0.01 Imm/Tot Granulo (auto) 0.2 Sodium 137 Potassium 4.0 Chloride 105 Carbon Dioxide 27 BUN 10 Creatinine 0.7 Estimated Creat Clear 34.64 Estimated GFR 85 Glucose 120 H Calcium 8.8 Preliminary micro results at discharge 07/06/22 12:40 Blood Culture - Preliminary Blood NO GROWTH AFTER 48 HOURS 07/06/22 12:33 Blood Culture - Preliminary Blood NO GROWTH AFTER 48 HOURS 07/06/22 14:17 Urine Culture - Preliminary Urine Catheterized Citrobacter freundii Discharge Plan Discharge Disposition: Home, Self-Care Date of Admission: 07/06/22 17:07 Attending Provider on Discharge: Whitney Fajardo Primary Care Provider: Michael Sandy Condition: Improved Anticipated Discharge Date/Time: 07/09/22 12:00 Discharge Medications: New levofloxacin 500 mg tablet 500 mg PO DAILY 5 Days Qty: 5 0RF Continued colchicine 0.6 mg tablet 0.6 mg PO BID PRN Label Comments: TAKE ONE TABLET BY MOUTH TWICE DAILY NEEDED levothyroxine 88 mcg tablet 88 mcg PO DAILY Label Comments: Take 1 Tablet (88 mcg) by mouth before breakfast naloxone [Narcan] 4 mg/actuation spray,non-aerosol 4 mg INTRANASAL DIRECTED PRN Label Comments: Inhale 1 [place] into affected nostril(s) each time if needed for Patient Diff To Arouse or Resp Rate < 8 / min. Additional doses may be given fexofenadine [Aller-ease] 180 mg tablet 180 mg PO DAILY PRN cholecalciferol (vitamin D3) [Vitamin D3] 50 mcg (2,000 unit) tablet 4,000 unit PO DAILY cyclobenzaprine 5 mg tablet 5 mg PO Q8H PRN Ocutabs Tablet 1 tab PO DAILY prochlorperazine maleate 10 mg tablet 10 mg PO Q6H PRN Label Comments: TAKE ONE TABLET BY MOUTH EVERY SIX HOURS NEEDED potassium chloride [Klor-Con M20] 20 mEq tablet,ER particles/crystals 20 meq PO BIDWM Label Comments: Take 1 Tablet (20 mEq) by mouth 2 times daily with meals insulin aspart U-100 [Novolog Flexpen U-100 Insulin] 100 unit/mL (3 mL) insulin pen 18 unit subcut DAILY@12 methadone 5 mg tablet 10 mg PO HS BIOTENE DRY MOUTH LOZENGES 1 ea mucous membrane QID PRN hydromorphone [Dilaudid] 8 mg tablet 16 mg PO HS sennosides-docusate sodium [Stool Softener-Laxative] 8.6-50 mg Tablet 4 tab PO BID 30 Days Qty: 240 0RF albuterol sulfate 2.5 mg /3 mL (0.083 %) solution for nebulization 2.5 mg inhalation Q4H PRN insulin aspart U-100 [Novolog Flexpen U-100 Insulin] 100 unit/mL (3 mL) Insulin Pen 26 unit subcut DAILY@18 loperamide 2 mg capsule 2 mg PO BID PRN hydromorphone 8 mg tablet 8 mg PO QAM Rx Instructions: TAKES 1 PILL IN AM AND 2 IN PM clopidogrel 75 mg tablet 75 mg PO DAILY Label Comments: TAKE ONE TABLET BY MOUTH ONE TIME DAILY tamsulosin 0.4 mg capsule 0.4 mg PO DAILY Label Comments: Take 1 Capsule (0.4 mg) by mouth once daily after a meal. gabapentin 300 mg capsule 600 mg PO HS allopurinol 300 mg tablet 150 mg PO DAILY furosemide 20 mg tablet 20 mg PO DAILY Label Comments: Take 1 Tablet (20 mg) by mouth every morning. methadone 5 mg tablet 5 mg PO QAM insulin aspart U-100 [Novolog Flexpen U-100 Insulin] 100 unit/mL (3 mL) insulin pen 12 unit SUBCUT DAILY@08 rosuvastatin 20 mg tablet 20 mg PO HS Label Comments: Take 1 Tablet (20 mg) by mouth at bedtime. insulin degludec [Tresiba FlexTouch U-100] 100 unit/mL (3 mL) insulin pen 26 unit SUBCUT HS Ozempic 1 mg/dose (4 mg/3 mL) pen injector 1 mg SUBCUT TH@09 Rx Instructions: WEEKLY ON WEDNESDAY Discharge Orders: Discharge Order (Routine); Ordered 07/09/22 Ordered By: Whitney Fajardo Patient Education: Levofloxacin (By mouth), Urinary Tract Infection in Women (DC) Additional Instructions: Antibiotic at [facility] - start this today, take for 5 more days to treat your UTI (would also cover pneumonia). Consider starting topical estrogen to prevent recurrent UTIs (can discuss with Dr. Sandy next week). Activity Level: Activity as Tolerated Discharge Diet: Diabetic Follow Up Appointments: Michael Sandy MD [Primary Care Provider] - 07/16/22 12:45 pm Forms: [employer] Info Instructions
== END 2022-07-09 11:45 | disposition home or self-care (01) | DRG 871 ==
LOC: ED 15:23 → MEDSURG 20:30
PROVIDERS: Family Medicine; Admitting Provider Family Medicine; Emergency Provider Family Medicine; PCP Surgery; Visit Provider Family Medicine
DX: A41.9 Sepsis, unspecified organism (principal); J18.9 Pneumonia, unspecified organism; J96.01 Acute respiratory failure with hypoxia; N39.0 Urinary tract infection, site not specified; B96.89 Other specified bacterial agents as the cause of diseases classified elsewhere; J44.9 Chronic obstructive pulmonary disease, unspecified; J84.10 Pulmonary fibrosis, unspecified; Z79.4 Long term (current) use of insulin; E11.319 Type 2 diabetes mellitus with unspecified diabetic retinopathy without macular edema; Z79.85 Long-term (current) use of injectable non-insulin antidiabetic drugs; H35.30 Unspecified macular degeneration; E11.43 Type 2 diabetes mellitus with diabetic autonomic (poly)neuropathy; K31.84 Gastroparesis; G47.33 Obstructive sleep apnea (adult) (pediatric); I25.10 Atherosclerotic heart disease of native coronary artery without angina pectoris; I12.9 Hypertensive chronic kidney disease with stage 1 through stage 4 chronic kidney disease, or unspecified chronic kidney disease; G89.29 Other chronic pain; E11.22 Type 2 diabetes mellitus with diabetic chronic kidney disease; N18.32 Chronic kidney disease, stage 3b; K21.9 Gastro-esophageal reflux disease without esophagitis; M10.9 Gout, unspecified; N31.9 Neuromuscular dysfunction of bladder, unspecified; I73.9 Peripheral vascular disease, unspecified; E03.9 Hypothyroidism, unspecified; E78.1 Pure hyperglyceridemia; E78.5 Hyperlipidemia, unspecified; F32.A Depression, unspecified
CPT/HCPCS: 36415; 71045; 71260; 74177; 80048; 80053; 81003; 81015; 82803; 82962; 83605; 84484; 85025; 86140; 87040; 87081; 87086; 87184; 87631; 93005; 94664; 94761; 97110; 97161; 97165; 99284; 99285; A9153; A9270; J2543; J3370; J7030; J7050; J7120; Q9967

== ENCOUNTER 2022-08-10 06:07 | Day surgery (SDC) | payer MEDICARE, BC, SELFPAY ==
[2022-08-10] VITALS (8 sets, daily range): BP systolic 129–157; BP diastolic 57–79; PULSE 70–80; RESP 14–16; TEMP 36.3–36.4; O2SAT 91–100; BMI 28.4
[2022-08-10] MEDS: LACTATED RINGERS 1000 ML 1,000 ML 100 ML IV ×2 (06:00→09:01)
--- NOTE | 2022-08-10 07:08 | CRLHL7_ITS ---
For Patients: As a result of the Cures Act, medical imaging exams and procedure reports are released immediately into your electronic medical record. You may view this report before your referring provider. If you have questions, please contact your health care provider. Indication: INTRA-OP FOR HAMMERTOE Technique: Two fluoroscopic images of the left 2nd toe. Fluoroscopic time 7.5 seconds. IMPRESSION: Fluoroscopic guidance for 2nd hammertoe correction. Dictated by Power Oconnell MD @ 08/10/2022 9:21:42 AM (Electronically Signed)
[2022-08-10] MEDS: SODIUM CHLORIDE 0.9 % (FLUSH) 10 ML SYRINGE IVF (07:29)
[2022-08-10] MEDS: BUPIVACAINE 0.5% 30 ML INJECTION (07:50)
--- NOTE | 2022-08-10 08:21 | W.ANESCHARGE ---
Anesthesia Charges Start Date/Time Anesthesia Start Date: 08/10/22 Anesthesia Start Time: 07:40 Stop Date/Time Anesthesia Stop Date: 08/10/22 Anesthesia Stop Time: 09:04 Summary Emergency: No Extremes of Age: Over 68-CPT 12132
--- NOTE | 2022-08-10 09:13 | P.GSOP_ITS ---
Operative Note Date of procedure: 08/10/22 Pre-op diagnosis: Hammertoe 2nd digit left Post-op diagnosis: Hammertoe 2nd digit left Type of Procedure: Hammertoe repair 2nd digit left Procedure Description: Preop diagnosis: Hammertoe 2nd digit left Postop diagnosis: Hammertoe 2nd digit left Procedure: Hammertoe correction 2nd digit left After discussing the risks and benefits of the procedure, the patient signed informed consent.? The operative site was marked and the patient was brought to the operating room and placed on the operating table in supine position.? Care was taken to pad the patient's pressure points.?? The patient was then given sedation by anesthesia.?? The operative site was then prepped and draped in the usual sterile fashion.? A time-out was then performed. The left limb was exsanguinated and ankle tourniquet inflated to 250 mm Hg. Transverse incision made at the DIPJ 2nd toe left foot. Incision was carried down through skin subcutaneous tissues. Transverse incision through the extensor tendon and joint capsule was made. Mediolateral collateral ligaments released. Oscillating saw was used to resect the head of the middle phalanx and base of the distal phalanx. Wound was thoroughly irrigated normal sterile saline. Linear incision was made over the proximal interphalangeal joint extending proximal to the metatarsophalangeal joint. Incision was carried down through skin subcutaneous tissues. Transverse incision was made through the extensor tendon and joint capsule at the MPJ level releasing both. Transverse incision was then made through the extensor tendon at the PIPJ entering the joint. Mediolateral collateral ligaments released. Oscillating saw was used to remove the head of the proximal phalanx and base of the middle phalanx. Wound was irrigated normal sterile saline. Guide pin was then placed across the distal middle and proximal phalanx. C-arm confirmed excellent position of the guide pin. 3.0 cannulated headless screw was then inserted using standard technique. Excellent compression noted across both the PIPJ fusion and DIPJ fusion. Extensor tendon at the PIPJ was remodeled and repaired with 4-0 Vicryl. Toe sitting in excellent position confirmed with C-arm. Skin closed with 4-0 Prolene. Sterile dressing was applied the tourniquet was released. Normal capillary fill time returned all digits. She was transferred from OR to PACU vital signs stable and vascular status intact. The patient tolerated the procedure well. She was discharged per Anesthesia. She was given written and verbal postop instructions. She does not require pain medication as she is currently being seen at the pain clinic. She is weight-bearing as tolerated in a postsurgical shoe. Indications: Patient is seen in clinic for ongoing problematic hammertoe and is at risk for ulceration. She wishes to proceed with surgical correction of the toe. I r eviewed the procedure, recovery, expectations and potential complications. These include but are not limited to: Poor wound healing, infection, potential need for future surgery, deep venous thrombosis, pulmonary embolism possible . She understands risks written consent was obtained. Findings: Complications: None Implants: Arthrex 3.0 cannulated headless screw x1 Anesthesia: MAC and local Surgeon: Dwayne Manuel DPM Estimated blood loss (mL): 2 Condition: stable Disposition: same day
--- NOTE | 2022-08-10 09:16 | W.ANESCHARGE ---
Anesthesia Charges Start Date/Time Anesthesia Start Date: 08/10/22 Anesthesia Start Time: 07:40 Stop Date/Time Anesthesia Stop Date: 08/10/22 Anesthesia Stop Time: 09:04 Summary Emergency: No Extremes of Age: Over 68-CPT 80392
== END 2022-08-10 10:53 | disposition home or self-care (01) ==
PROVIDERS: PCP Surgery; Visit Provider Podiatrist
PROC: (CPT 28285; principal; 2022-08-10 07:15)
DX: M20.42 Other hammer toe(s) (acquired), left foot (principal)
CPT/HCPCS: 28285; 01480; 73660; 76000; 82962; 99100; C1713; J2250; J2704; J3010; J3490; J7120

== ENCOUNTER 2022-08-28 13:31 | Emergency (ER) | payer MEDICARE, BC, SELFPAY ==
[2022-08-28 13:39] VITALS: BP 134/70; PULSE 93; RESP 24; TEMP 36.4; BMI 27.5
--- NOTE | 2022-08-28 13:48 | ED_ITS ---
HPI - SOB/Dyspnea General Time Seen by Provider: 14:08 Date Seen: 08/28/22 Chief Complaint: Shortness of Breath/Dyspnea Stated Complaint: Short of breath Time Seen by Provider: 08/28/22 13:32 Source: patient, RN notes reviewed and old records reviewed Mode of arrival: ambulatory Limitations: no limitations History of Present Illness HPI Narrative: Kianna is a very pleasant 82-year-old female with known history of COPD, interstitial pulmonary fibrosis, sepsis within the last 4 months who comes to the emergency room for evaluation of shortness of breath. Patient states that she has noticed this for the past 1 and half weeks. It has been gradually increasing but is particularly present today. She definitely gets worse with any sort of activity. She notes that she has been using the method ?blowing out the candle and ?in order to help her breathe. I believe this is a self PEEP maneuver. She notes that when this initially started she did have some coughing but no coughing since that 1st day. She has not had any ill contacts. She does report wheezing. She notes that she wear CPAP with oxygen at night that is helpful. She has tried to use oxygen during the day but does not really think it has helped. She notes no chest pain but does describe chest wall discomfort from trying to breathe. She notes that she had a nebulizer this morning which did not help. She states to me that she is allergic to steroids especially hydrocortisone and cannot take them. Patient denies fever, night sweats, nausea, vomiting, diarrhea, painful urination or blood in urine. She has not noted any lower extremity edema and denies any fluid retention. In review of her records I do note that she does have known coronary artery disease. In 2018 and ejection fraction was 63%. Related Data Home Medications Medication Instructions Recorded Confirmed allopurinol 300 mg tablet 150 mg PO DAILY 04/04/22 08/10/22 clopidogrel 75 mg tablet 75 mg PO DAILY 04/04/22 08/10/22 furosemide 20 mg tablet 20 mg PO DAILY 04/04/22 08/10/22 gabapentin 300 mg capsule 600 mg PO 04/04/22 08/10/22 hydromorphone 8 mg tablet 8 mg PO QAM 04/04/22 08/10/22 insulin aspart U-100 100 unit/mL 12 unit subcut DAILY@08 04/04/22 08/10/22 (3 mL) subcutaneous pen (Novolog FlexPen U-100 Insulin aspart) insulin degludec 100 unit/mL (3 26 unit subcut HS 04/04/22 08/10/22 mL) subcutaneous pen (Tresiba FlexTouch U-100 insulin) loperamide 2 mg capsule 2 mg PO BID PRN 04/04/22 08/10/22 methadone 5 mg tablet 5 mg PO QAM 04/04/22 08/10/22 rosuvastatin 20 mg tablet 20 mg PO HS 04/04/22 08/10/22 semaglutide 1 mg/dose (4 mg/3 mL) 1 mg subcut TH@09 04/04/22 08/10/22 subcutaneous pen injector (Ozempic) tamsulosin 0.4 mg capsule 0.4 mg PO DAILY 04/04/22 08/10/22 colchicine 0.6 mg tablet 0.6 mg PO BID PRN 04/11/22 08/10/22 BIOTENE DRY MOUTH LOZENGES 1 ea mucous membrane QID PRN 05/10/22 08/10/22 cholecalciferol (vitamin D3) 50 4,000 unit PO DAILY 05/10/22 08/10/22 mcg (2,000 unit) tablet (Vitamin D3) cyclobenzaprine 5 mg tablet 5 mg PO Q8H PRN 05/10/22 08/10/22 fexofenadine 180 mg tablet 180 mg PO DAILY PRN 05/10/22 08/10/22 (Aller-ease) hydromorphone 8 mg tablet 16 mg PO HS 05/10/22 08/10/22 (Dilaudid) insulin aspart U-100 100 unit/mL 18 unit subcut DAILY@12 05/10/22 08/10/22 (3 mL) subcutaneous pen (Novolog FlexPen U-100 Insulin aspart) levothyroxine 88 mcg tablet 88 mcg PO DAILY 05/10/22 08/10/22 methadone 5 mg tablet 10 mg PO HS 05/10/22 08/10/22 naloxone 4 mg/actuation nasal 4 mg intranasal DIRECTED PRN 05/10/22 08/10/22 spray (Narcan) potassium chloride 20 mEq 20 meq PO BIDWM 05/10/22 08/10/22 tablet,extended release(part/cryst) (Klor-Con M) prochlorperazine maleate 10 mg 10 mg PO Q6H PRN 05/10/22 08/10/22 tablet vitamin A-vitamin C-vit E-min 1 tab PO DAILY 05/10/22 08/10/22 tablet (Ocutabs tablet) albuterol sulfate 2.5 mg/3 mL 2.5 mg inhalation Q4H PRN 07/06/22 08/06/22 (0.083 %) solution for nebulization insulin aspart U-100 100 unit/mL 26 unit subcut DAILY@18 07/06/22 08/10/22 (3 mL) subcutaneous pen (Novolog FlexPen U-100 Insulin aspart) Previous Rx's Medication Instructions Recorded sennosides 8.6 mg-docusate sodium 4 tab PO BID 30 days #240 tabs 05/18/22 50 mg tablet (Stool Softener-Laxative) levofloxacin 500 mg tablet 500 mg PO DAILY 5 days #5 tabs 07/09/22 Allergies Allergy/AdvReac Type Severity Reaction Status Date / Time cortisone Allergy Severe Anaphylaxis Verified 08/28/22 16:11 prednisone Allergy Severe Verified 08/28/22 16:11 amoxicillin Allergy Intermediate Verified 08/28/22 16:11 cephalexin [From Keflex] Allergy Intermediate Diarrhea Verified 08/28/22 16:11 doxycycline Allergy Intermediate Verified 08/28/22 16:11 duloxetine [From Cymbalta] Allergy Intermediate Verified 08/28/22 16:11 escitalopram [From Lexapro] Allergy Intermediate sleep Verified 08/28/22 16:11 disturbance febuxostat Allergy Intermediate vomitting Verified 08/28/22 16:11 latex Allergy Intermediate Verified 08/28/22 16:11 lisinopril Allergy Intermediate Verified 08/28/22 16:11 losartan [From Cozaar] Allergy Intermediate Verified 08/28/22 16:11 nitrofurantoin Allergy Intermediate Verified 08/28/22 16:11 [From Macrobid] pregabalin [From Lyrica] Allergy Intermediate Nausea Verified 08/28/22 16:11 propoxyphene Allergy Intermediate angioedema Verified 08/28/22 16:11 ramelteon [From Rozerem] Allergy Intermediate Verified 08/28/22 16:11 sulfamethoxazole Allergy Intermediate Verified 08/28/22 16:11 [From Bactrim] tramadol [From Ultram] Allergy Intermediate Verified 08/28/22 16:11 trimethoprim [From Bactrim] Allergy Intermediate Verified 08/28/22 16:11 venlafaxine [From Effexor] Allergy Intermediate Verified 08/28/22 16:11 zolpidem [From Ambien] Allergy Intermediate Confusion Verified 08/28/22 16:11 acetaminophen [From Vicodin] Allergy Mild Nausea Verified 08/28/22 16:11 hydrocodone [From Vicodin] Allergy Mild Nausea Verified 08/28/22 16:11 aspirin Allergy Unknown Verified 08/28/22 16:11 clindamycin Allergy Unknown Verified 08/28/22 16:11 ipratropium [From Atrovent] Allergy Unknown Verified 08/28/22 16:11 Penicillins Allergy Unknown Verified 08/28/22 16:11 pramipexole Allergy Unknown Verified 08/28/22 16:11 trazodone Allergy Unknown Verified 08/28/22 16:11 adhesive tape Allergy huge Verified 08/28/22 16:11 blisters Review of Systems Status of ROS: Reports: 10 or more systems reviewed and unremarkable except as noted in History and below Const: Denies: fever, chills or night sweats Eyes: Denies: change in vision ENMT: Denies: throat pain, neck pain, throat swelling or difficulty swallowing Cardio: Reports: lightheadedness and shortness of breath with exertion; Denies: chest pain, palpitations, edema or swelling of feet/ankles Resp: Reports: shortness of breath, cough and wheezing; Denies: stridor, pain on inspiration or coughing up blood GI: Denies: abdominal pain, nausea, vomiting, diarrhea or difficulty swallowing : Denies: painful urination, urinary frequency or blood in urine Musculo: Denies: neck pain Integ/Breast: Denies: rash or itching Neuro: Denies: headache, numbness in extremities or weakness in extremities Allergy/Immuno: Reports: wheezing; Denies: throat swelling PFSH [facility] Medical History (Updated 08/28/22 @ 18:50 by Yoli Vaca MD) Acute insomnia Allergic rhinitis CAD (coronary artery disease) Chronic kidney disease, stage 3b Chronic pain Constipation Controlled substance agreement signed COPD (chronic obstructive pulmonary disease) Depression Gastroparesis GERD (gastroesophageal reflux disease) Gouty arthropathy Hereditary and idiopathic peripheral neuropathy Hypercalcemia Hypertension Hypertriglyceridemia Hypokalemia Hypothyroidism Myocardial infarction Neurogenic bladder Neuropathy HUGO (obstructive sleep apnea) Peripheral autonomic neuropathy due to diabetes mellitus Peripheral vascular disease Pneumonia POLST (Physician Orders for Life-Sustaining Treatment) Pulmonary fibrosis Pulmonary nodule SBO (small bowel obstruction) Slow transit constipation Stroke TIA (transient ischemic attack) Type 2 diabetes mellitus with complication, with long-term current use of insulin Urinary tract infection Surgical History H/O blepharoplasty H/O colonoscopy H/O foot surgery H/O neck surgery H/O: hysterectomy History of cholecystectomy Hx of appendectomy Hx of repair of rotator cuff Hx of tonsillectomy S/P bunionectomy S/P left rotator cuff repair Family History Maternal Grandfather Pancreatic cancer Aunt Breast cancer Uncle Lung cancer Aunt Breast cancer Father Tuberculosis Coronary artery disease Social History Narrative: Lives independently with her boyfriend, Zane, and her daughter, Martín, who lives in the basement. Quit tobacco 1986. No EtOH. Denies recreational drug use. Wants to be DNR/DNI. Highest level of school completed/degree received: some college, no degree Smoking Status: Former smoker Do you use any of these nicotine containing products: None Second hand tobacco smoke exposure: No How often do you have a drink containing alcohol: never How often do you have six or more drinks on one occasion: Never AUDIT-C Alcohol total score: 0 Non-prescribed substance use: denies use Caffeine: Yes Are you using contraception or practicing any form of control: No service: No Exam Narrative: Exam Narrative: Kianna is alert and oriented. Mentating normally. Oral cavity with moist mucous membranes but no excessive saliva. Neck is supple without lymphadenopathy. Heart is with regular rate and rhythm. Lungs are clear bilaterally with the exception of decreased breath sounds in the right lower lung base. I do not auscultate any wheezing. Abdomen is soft and nontender. Lower extremities without edema. Moving all extremities. Const: Vital Signs, click to edit/add: Vital Signs - 24 hr 08/28/22 13:39 08/28/22 14:25 08/28/22 18:08 Temperature 97.5 F L Pulse Rate [Pulse Oximeter] 93 Respiratory Rate 24 Blood Pressure [Ri t Upper Arm] 134/70 Pulse Oximetry 90 93 Oxygen Delivery Me thod Room Air Nasal Cannula Oxygen Flow Rate 2 Documenting provider has reviewed patient's vital signs: yes Course Course Hospital Course: Differential diagnosis includes but is not limited to COPD flare, pneumonia, URI, acute coronary syndrome, congestive heart failure, anxiety. Kianna is in agreement to place an IV, blood draw will include CBC, comprehensive panel, CRP, troponin and urinalysis. Chest x-ray portable in the room at this time. In addition will get a triple swab for viral infections. Consultations Consultation #1: Respiratory therapy kindly offered consult. They note that Kianna should be wearing oxygen 24 hours a day. No wheezing noted or need for nebulizer in the ED. oxygen levels rebounded to 94% with 2 L nasal cannula. I have stressed the importance of wearing oxygen 24 hours a day with Kianna. Consultation #2: Dr. Gallegos, surgical services assistant, was consulted in regards to thoracentesis for both diagnostic and therapeutic reasons. She notes that Kianna is on Plavix and will need to discontinue that for 5 days. Outpatient thoracentesis can be done at our endoscopy Clinic next week September 03 or . Vital Signs Vital signs: Initial Vital Signs Temperature 97.5 F L 08/28/22 13:39 Temperature Source Temporal Artery Scan 08/28/22 13:39 Pulse Rate 93 08/28/22 13:39 Respiratory Rate 24 08/28/22 13:39 Blood Pressure 134/70 08/28/22 13:39 Blood Pressure Mean 91 08/28/22 13:39 Oxygen Delivery Method 08/28/22 13:39 Vital Signs Temperature 97.5 F L 08/28/22 13:39 Pulse Rate 93 08/28/22 13:39 Respiratory Rate 24 08/28/22 13:39 Blood Pressure 134/70 08/28/22 13:39 Oxygen Delivery Method 08/28/22 13:39 Temperature 97.5 F L 08/28/22 13:39 Pulse Rate 93 08/28/22 13:39 Respiratory Rate 24 08/28/22 13:39 Blood Pressure 134/70 08/28/22 13:39 Pulse Oximetry 93 08/28/22 18:08 Oxygen Delivery Method 08/28/22 18:08 Oxygen Flow Rate 2 08/28/22 18:08 MDM - SOB/Dyspnea MDM Narrative Medical decision making narrative: 1. Pleural effusion-this appears to be new in onset compared to previous x-rays. Patient notes 1-1/2 weeks of increasing shortness of breath not responsive to nebulizers. Differential diagnosis does include heart failure, hemothorax although there is no reported trauma and hemoglobin is normal, malignancy, infection although white count and CRP are reassuring and patient is afebrile at this time. We do not have a bed for overnight hospitalization and patient would not be candidate for thoracentesis for at least 5 days of being off her Plavix. She feels comfortable going home in fact she is requesting to go home. I think this is okay as long as she does wear her oxygen 24 hours a day. I would ask that she return to the ER for any worsening symptoms or onset of new symptoms. Patient is instructed to use her nebulizer every 6 hours. She does ask if she can be out and about and I do state that she would need to wear her oxygen if she travels. 2. Disposition-patient is discharged into the care of her daughter. We will provide the number for the endoscopy Clinic where the thoracentesis will be done. I would also ask Kianna to contact her primary MD Dr. Sandy as I will request results to go to him. Of course if Kianna has worsening symptoms would have her return to the ER. Patient has reassuring EKGs and negative cardiac enzyme x2. In addition COVID/influenza/RSV are negative. Note initial potassium was 5.3. A redraw was 3.8 and thus I suspect hemolyzed sample Medical Records Attestation: I reviewed the patient's medical records. Lab Data Attestation: I reviewed the patient's lab results. Labs: Lab Results 08/28/22 08/28/22 08/28/22 Range/Units 14:00 14:37 14:37 WBC 8.43 (4.50-11.00) K/uL RBC 4.86 (4.00-5.20) m/uL Hgb 14.0 (12.0-16.0) gm/dL Hct 43.6 (33.0-51.0) % MCV 90 (80-100) fL MCH 29 (26-34) pg MCHC 32 (32-36) gm/dL RDW Coeff of Thais 14.3 (11.5-15.5) % Plt Count 278 (140-440) K/uL Neut % (Auto) 70.9 (42.0-72.0) % Lymph % (Auto) 18.3 L (20-44) % [place] % (Auto) 7.0 (0.0-11.0) % Eos % (Auto) 2.5 (0.0-7.0) % Baso % (Auto) 0.5 (0.0-3.0) % Neut # (Auto) 5.98 (1.7-7.0) K/uL Lymph # (Auto) 1.50 (0.90-2.90) K/uL [place] # (Auto) 0.60 (0.00-0.90) K/UL Eos # (Auto) 0.21 (0.00-0.50) K/uL Baso # (Auto) 0.04 (0.00-0.30) K/uL Sodium 139 (135-149) mmol/L Potassium 5.3 H (3.6-5.1) mmol/L Chloride 107 (96-114) mmol/L Carbon Dioxide 27 (20-32) mmol/L BUN 11 (7-30) mg/dL Creatinine 0.7 (0.5-1.5) mg/dL Estimated Creat Clear 34.64 Estimated GFR 85 ml/min Glucose 149 H (60-115) mg/dL Calcium 9.2 (8.4-10.6) mg/dL Total Bilirubin 1.1 (0.1-1.5) mg/dL AST 55 H (12-35) U/L ALT 20 (4-35) U/L Alkaline Phosphatase 49 (40-150) U/L Troponin I (0.01-0.04) ng/mL C-Reactive Protein 0.6 (0.5-1.0) mg/dL NT-Pro-B Natriuret Pep pg/mL Total Protein 7.4 (6.0-8.3) g/dL Albumin 4.1 (3.3-5.0) g/dL Urine Color (Yellow) Urine Appearance (Clear) Urine pH (5.0-8.5) Ur Specific [place] (1.000-1.030) Urine Protein (Negative) Urine Glucose (UA) (Negative) Urine Ketones (Negative) Urine Blood (Negative) Urine Nitrite (Negative) Urine Bilirubin (Negative) Urine Urobilinogen (0.2-1.0) Ur Leukocyte Esterase (Negative) Urine RBC (0-2) Urine WBC (0-5) Ur Squamous Epith Cells (None-Few) Urine Bacteria (None) SARS-CoV-2 (PCR) Negative SARS-CoV-2 (Negative) Influenza Type A (PCR) Negative PCR FLU A (Negative) Influenza Type B (PCR) Negative PCR FLU B (Negative) RSV (PCR) Negative PCR RSV (Negative) POC Troponin I (0.01-0.04) ng/ml 08/28/22 08/28/22 08/28/22 Range/Units 14:37 14:37 15:37 WBC (4.50-11.00) K/uL RBC (4.00-5.20) m/uL Hgb (12.0-16.0) gm/dL Hct (33.0-51.0) % MCV (80-100) fL MCH (26-34) pg MCHC (32-36) gm/dL RDW Coeff of Thais (11.5-15.5) % Plt Count (140-440) K/uL Neut % (Auto) (42.0-72.0) % Lymph % (Auto) (20-44) % [place] % (Auto) (0.0-11.0) % Eos % (Auto) (0.0-7.0) % Baso % (Auto) (0.0-3.0) % Neut # (Auto) (1.7-7.0) K/uL Lymph # (Auto) (0.90-2.90) K/uL [place] # (Auto) (0.00-0.90) K/UL Eos # (Auto) (0.00-0.50) K/uL Baso # (Auto) (0.00-0.30) K/uL Sodium (135-149) mmol/L Potassium (3.6-5.1) mmol/L Chloride (96-114) mmol/L Carbon Dioxide (20-32) mmol/L BUN (7-30) mg/dL Creatinine (0.5-1.5) mg/dL Estimated Creat Clear Estimated GFR ml/min Glucose (60-115) mg/dL Calcium (8.4-10.6) mg/dL Total Bilirubin (0.1-1.5) mg/dL AST (12-35) U/L ALT (4-35) U/L Alkaline Phosphatase (40-150) U/L Troponin I (0.01-0.04) ng/mL C-Reactive Protein (0.5-1.0) mg/dL NT-Pro-B Natriuret Pep 65 pg/mL Total Protein (6.0-8.3) g/dL Albumin (3.3-5.0) g/dL Urine Color Yellow (Yellow) Urine Appearance Clear (Clear) Urine pH 7.5 (5.0-8.5) Ur Specific [place] 1.020 (1.000-1.030) Urine Protein Negative (Negative) Urine Glucose (UA) Negative (Negative) Urine Ketones Negative (Negative) Urine Blood Negative (Negative) Urine Nitrite Negative (Negative) Urine Bilirubin Negative (Negative) Urine Urobilinogen 0.2 (0.2-1.0) Ur Leukocyte Esterase Negative (Negative) Urine RBC 0-2 (0-2) Urine WBC 0-2 (0-5) Ur Squamous Epith Cells Few (None-Few) Urine Bacteria None (None) SARS-CoV-2 (PCR) (Negative) Influenza Type A (PCR) (Negative) Influenza Type B (PCR) (Negative) RSV (PCR) (Negative) POC Troponin I 0.01 (0.01-0.04) ng/ml 08/28/22 Range/Units 16:32 WBC (4.50-11.00) K/uL RBC (4.00-5.20) m/uL Hgb (12.0-16.0) gm/dL Hct (33.0-51.0) % MCV (80-100) fL MCH (26-34) pg MCHC (32-36) gm/dL RDW Coeff of Thais (11.5-15.5) % Plt Count (140-440) K/uL Neut % (Auto) (42.0-72.0) % Lymph % (Auto) (20-44) % [place] % (Auto) (0.0-11.0) % Eos % (Auto) (0.0-7.0) % Baso % (Auto) (0.0-3.0) % Neut # (Auto) (1.7-7.0) K/uL Lymph # (Auto) (0.90-2.90) K/uL [place] # (Auto) (0.00-0.90) K/UL Eos # (Auto) (0.00-0.50) K/uL Baso # (Auto) (0.00-0.30) K/uL Sodium (135-149) mmol/L Potassium 3.8 (3.6-5.1) mmol/L Chloride (96-114) mmol/L Carbon Dioxide (20-32) mmol/L BUN (7-30) mg/dL Creatinine (0.5-1.5) mg/dL Estimated Creat Clear Estimated GFR ml/min Glucose (60-115) mg/dL Calcium (8.4-10.6) mg/dL Total Bilirubin (0.1-1.5) mg/dL AST (12-35) U/L ALT (4-35) U/L Alkaline Phosphatase (40-150) U/L Troponin I < 0.01 L (0.01-0.04) ng/mL C-Reactive Protein (0.5-1.0) mg/dL NT-Pro-B Natriuret Pep pg/mL Total Protein (6.0-8.3) g/dL Albumin (3.3-5.0) g/dL Urine Color (Yellow) Urine Appearance (Clear) Urine pH (5.0-8.5) Ur Specific [place] (1.000-1.030) Urine Protein (Negative) Urine Glucose (UA) (Negative) Urine Ketones (Negative) Urine Blood (Negative) Urine Nitrite (Negative) Urine Bilirubin (Negative) Urine Urobilinogen (0.2-1.0) Ur Leukocyte Esterase (Negative) Urine RBC (0-2) Urine WBC (0-5) Ur Squamous Epith Cells (None-Few) Urine Bacteria (None) SARS-CoV-2 (PCR) (Negative) Influenza Type A (PCR) (Negative) Influenza Type B (PCR) (Negative) RSV (PCR) (Negative) POC Troponin I (0.01-0.04) ng/ml Imaging Data Chest x-ray: Attestation: I have reviewed the pertinent imaging results. My impression: Large right-sided pleural effusion. Radiologist's impression: Cardiovascular and mediastinum: Normal heart size with atherosclerotic calcification. Lungs and pleural space: Moderate to large right pleural effusion extending to the right hilar level. Associated atelectasis right lung base. Minimal discoid atelectasis left lung base. Bones and soft tissues: No acute findings. CT scan - chest: Attestation: I have reviewed the pertinent imaging results. My impression: Large right-sided pleural effusion. Radiologist's impression: ediastinum: Pulmonary artery unremarkable. Prominent atherosclerotic calcification. Thoracic aorta is normal in caliber. Severe coronary atherosclerosis. No pericardial effusion. Lungs and Pleural Space: Moderate to large right pleural effusion with partial atelectasis of the right middle lobe and atelectasis of the right lower lobe. Severe underlying centrilobular emphysema. Superior segment left lower lobe nodule redemonstrated measuring 10 millimeters, similar to prior. Chest wall: No masses. Upper abdomen: Trace ascites with intra and extrahepatic biliary dilatation redemonstrated. Pancreatic atrophy with prominent calcification within the main pancreatic duct. Bones: Mild degenerative disc disease lumbar spine. IMPRESSION: 1. New moderate to large right pleural effusion with associated atelectasis of the right lower lobe and partial atelectasis of the right middle lobe. 2. Severe centrilobular emphysema with stable left lower lobe superior segment pulmonary nodule. ECG Data Attestation: I personally reviewed and interpreted this ECG as follows: ECG interpretation date: 08/28/22 Prior ECG tracings: available for review Interpretation: EKG 1. Shows sinus rhythm at a rate of 92. There are occasional PVCs noted. Rather diffuse T-wave flattening throughout. However, comparison with EKG from June of 2022 actually shows improvement with resolution of ST elevation in V1 and V2. EKG 2. By my read shows sinus rhythm at a rate of 92. No acute ST or T-wave changes are noted. Discharge Plan Discharge Clinical Impression: Pleural effusion, Hypoxia, Interstitial pulmonary fibrosis Patient Disposition: Home, Self-Care Condition: Improved Instructions: Pleural Effusion (ED) Additional Instructions: 1. Wear oxygen 24 hours a day. Nebulizers every 6 hours as needed. 2. Follow-up appointment for drainage of fluid in lung (paracentesis) will need to be made through our Endoscopy clinic for next September 03 or Ricardo February 10th. Do not take your Plavix over the next 5 days. The number is [phone]. 3. Alert Dr. Sandy to your upcoming appointment so that he can be looking for those results. 4. Return to the emergency room for worsening symptoms Prescriptions: No Action colchicine 0.6 mg tablet 0.6 mg PO BID PRN Label Comments: TAKE ONE TABLET BY MOUTH TWICE DAILY NEEDED levothyroxine 88 mcg tablet 88 mcg PO DAILY Label Comments: Take 1 Tablet (88 mcg) by mouth before breakfast naloxone [Narcan] 4 mg/actuation spray,non-aerosol 4 mg INTRANASAL DIRECTED PRN Label Comments: Inhale 1 [place] into affected nostril(s) each time if needed for Patient Diff To Arouse or Resp Rate < 8 / min. Additional doses may be given fexofenadine [Aller-ease] 180 mg tablet 180 mg PO DAILY PRN cholecalciferol (vitamin D3) [Vitamin D3] 50 mcg (2,000 unit) tablet 4,000 unit PO DAILY cyclobenzaprine 5 mg tablet 5 mg PO Q8H PRN Ocutabs Tablet 1 tab PO DAILY prochlorperazine maleate 10 mg tablet 10 mg PO Q6H PRN Label Comments: TAKE ONE TABLET BY MOUTH EVERY SIX HOURS NEEDED potassium chloride [Klor-Con M20] 20 mEq tablet,ER particles/crystals 20 meq PO BIDWM Label Comments: Take 1 Tablet (20 mEq) by mouth 2 times daily with meals insulin aspart U-100 [Novolog FlexPen U-100 Insulin] 100 unit/mL (3 mL) insulin pen 18 unit subcut DAILY@12 methadone 5 mg tablet 10 mg PO HS BIOTENE DRY MOUTH LOZENGES 1 ea mucous membrane QID PRN hydromorphone [Dilaudid] 8 mg tablet 16 mg PO HS sennosides-docusate sodium [Stool Softener-Laxative] 8.6-50 mg Tablet 4 tab PO BID 30 Days Qty: 240 0RF albuterol sulfate 2.5 mg /3 mL (0.083 %) solution for nebulization 2.5 mg inhalation Q4H PRN insulin aspart U-100 [Novolog FlexPen U-100 Insulin] 100 unit/mL (3 mL) Insulin Pen 26 unit subcut DAILY@18 levofloxacin 500 mg tablet 500 mg PO DAILY 5 Days Qty: 5 0RF loperamide 2 mg capsule 2 mg PO BID PRN hydromorphone 8 mg tablet 8 mg PO QAM Rx Instructions: TAKES 1 PILL IN AM AND 2 IN PM clopidogrel 75 mg tablet 75 mg PO DAILY Label Comments: TAKE ONE TABLET BY MOUTH ONE TIME DAILY tamsulosin 0.4 mg capsule 0.4 mg PO DAILY Label Comments: Take 1 Capsule (0.4 mg) by mouth once daily after a meal. gabapentin 300 mg capsule 600 mg PO HS allopurinol 300 mg tablet 150 mg PO DAILY furosemide 20 mg tablet 20 mg PO DAILY Label Comments: Take 1 Tablet (20 mg) by mouth every morning. methadone 5 mg tablet 5 mg PO QAM insulin aspart U-100 [Novolog FlexPen U-100 Insulin] 100 unit/mL (3 mL) insulin pen 12 unit SUBCUT DAILY@08 rosuvastatin 20 mg tablet 20 mg PO HS Label Comments: Take 1 Tablet (20 mg) by mouth at bedtime. insulin degludec [Tresiba FlexTouch U-100] 100 unit/mL (3 mL) insulin pen 26 unit SUBCUT HS Ozempic 1 mg/dose (4 mg/3 mL) pen injector 1 mg SUBCUT TH@09 Rx Instructions: WEEKLY ON WEDNESDAY Follow Up/Referrals: Michael Sandy MD [Primary Care Provider] - Stand Alone Forms: [facility] System Info Instructions
--- NOTE | 2022-08-28 14:02 | CRLHL7_ITS ---
For Patients: As a result of the Century Cures Act, medical imaging exams and procedure reports are released immediately into your electronic medical record. You may view this report before your referring provider. If you have questions, please contact your health care provider. Indication: Shortness of breath Technique: Chest 1 view Comparison: Chest x-ray 07/06/2022 Findings/Impression: Cardiovascular and mediastinum: Normal heart size with atherosclerotic calcification. Lungs and pleural space: Moderate to large right pleural effusion extending to the right hilar level. Associated atelectasis right lung base. Minimal discoid atelectasis left lung base. Bones and soft tissues: No acute findings. Dictated by Kurtis Fairchild MD @ 08/28/2022 3:26:33 PM (Electronically Signed)
[2022-08-28 14:25] VITALS: O2SAT 90
[2022-08-28 14:49] LABS: Basophils Absolute Auto 0.04 K/uL (0.00-0.30); Basophils Percent Auto 0.5 % (0.0-3.0); Eosinophils Absolute Auto 0.21 K/uL (0.00-0.50); Eosinophils Percent Auto 2.5 % (0.0-7.0); Hematocrit 43.6 % (33.0-51.0); Immature Granulocytes Abs Auto 0.07 K/uL (0.00-0.30); Immature Granulocytes Pct Auto 0.8 %; Lymphocytes Percent Auto 18.3 % (20-44); Mean Corpuscular HGB Conc 32 gm/dL (32-36); Mean Corpuscular Hemoglobin 29 pg (26-34); Mean Corpuscular Volume 90 fL (80-100); Neutrophils Absolute Auto 5.98 K/uL (1.7-7.0); Neutrophils Percent Auto 70.9 % (42.0-72.0); Platelet Count* 278 K/uL (140-440); RDW Coefficient of Variation % 14.3 % (11.5-15.5); Red Blood Count 4.86 m/uL (4.00-5.20); White Blood Count* 8.43 K/uL (4.50-11.00)
[2022-08-28 14:52] LABS: Slide Review Reflex No
[2022-08-28 14:54] LABS: Troponin, Point-of-Care* 0.01 ng/ml (0.01-0.04)
[2022-08-28 15:04] LABS: Chloride* 107 mmol/L (96-114)
[2022-08-28 15:05] LABS: Albumin* 4.1 g/dL (3.3-5.0); Potassium* 5.3 mmol/L (3.6-5.1); Sodium* 139 mmol/L (135-149)
[2022-08-28 15:08] LABS: Alanine Aminotransferase* 20 U/L (4-35); Alkaline Phosphatase* 49 U/L (40-150); Aspartate Amino Transferase* 55 U/L (12-35); Bilirubin Total* 1.1 mg/dL (0.1-1.5); Blood Urea Nitrogen* 11 mg/dL (7-30); Carbon Dioxide* 27 mmol/L (20-32); Creatinine* 0.7 mg/dL (0.5-1.5); Est. Creatinine Clearance* 34.64; Estimated Glomerular Filt Rate 85 ml/min; Glucose* 149 mg/dL (60-115); Total Protein* 7.4 g/dL (6.0-8.3)
[2022-08-28 15:09] LABS: Calcium* 9.2 mg/dL (8.4-10.6)
[2022-08-28 15:11] LABS: C Reactive Protein* 0.6 mg/dL (0.5-1.0)
[2022-08-28 15:14] LABS: PCR FLU A Negative PCR FLU A (Negative); PCR FLU B Negative PCR FLU B (Negative); PCR RSV Negative PCR RSV (Negative)
[2022-08-28 15:16] LABS: SARS PCR* Negative SARS-CoV-2 (Negative)
[2022-08-28 15:26] LABS: NT Pro B Type NatriureticPept* 65 pg/mL
--- NOTE | 2022-08-28 15:30 | CRLHL7_ITS ---
For Patients: As a result of the Century Cures Act, medical imaging exams and procedure reports are released immediately into your electronic medical record. You may view this report before your referring provider. If you have questions, please contact your health care provider. INDICATION: Dyspnea, new right pleural effusion. TECHNIQUE: Axial images were obtained from the thoracic inlet to the diaphragm. Reformats: Coronal and sagittal IV Contrast: 75 cc Isovue 370 COMPARISON: Chest CT 07/06/2022 FINDINGS: Mediastinum: Pulmonary artery unremarkable. Prominent atherosclerotic calcification. Thoracic aorta is normal in caliber. Severe coronary atherosclerosis. No pericardial effusion. Lungs and Pleural Space: Moderate to large right pleural effusion with partial atelectasis of the right middle lobe and atelectasis of the right lower lobe. Severe underlying centrilobular emphysema. Superior segment left lower lobe nodule redemonstrated measuring 10 millimeters, similar to prior. Chest wall: No masses. Upper abdomen: Trace ascites with intra and extrahepatic biliary dilatation redemonstrated. Pancreatic atrophy with prominent calcification within the main pancreatic duct. Bones: Mild degenerative disc disease lumbar spine. IMPRESSION: 1. New moderate to large right pleural effusion with associated atelectasis of the right lower lobe and partial atelectasis of the right middle lobe. 2. Severe centrilobular emphysema with stable left lower lobe superior segment pulmonary nodule. Please note that all CT scans at this facility use dose modulation, iterative reconstruction, and/or weight-based dosing when appropriate to reduce radiation dose to as low as reasonably achievable. Dictated by Kurtis Fairchild MD @ 08/28/2022 5:59:26 PM (Electronically Signed)
[2022-08-28 15:57] LABS: Appearance Urine Clear (Clear); Bilirubin Urine Negative (Negative); Blood Urine Negative (Negative); Color Urine Yellow (Yellow); Glucose Urine Negative (Negative); Ketones Urine Negative (Negative); Leukocyte Esterase Urine Negative (Negative); Nitrite Urine Negative (Negative); Protein Urine Negative (Negative); Urobilinogen Urine 0.2 (0.2-1.0); pH Urine 7.5 (5.0-8.5)
[2022-08-28 16:06] LABS: RBC Urine 0-2 (0-2); Squamous Epithelial Cell Urine Few (None-Few); WBC Urine 0-2 (0-5)
--- NOTE | 2022-08-28 16:57 | RESP.RT ---
Patient is SATing 92% on 2L NC. Patient was reminded to wear supplemental O2 as prescribed. We had prescribed for her to wear supplemental O2 on a previous visit, but she said that her PCP provider told her not to wear it, but to only wear it with her CPAP.
[2022-08-28 17:04] LABS: Potassium* 3.8 mmol/L (3.6-5.1)
[2022-08-28 17:21] LABS: Troponin I* < 0.01 ng/mL (0.01-0.04)
--- NOTE | 2022-08-28 17:29 | ED.NURSE ---
Patient ambulated around ED hallways. Sats dropped as low as 85% on room air.
[2022-08-28 18:08] VITALS: O2SAT 93
== END 2022-08-28 18:59 | disposition home or self-care (01) ==
PROVIDERS: Emergency Provider Family Medicine; PCP Surgery
DX: J84.10 Pulmonary fibrosis, unspecified (principal); J90 Pleural effusion, not elsewhere classified; R09.02 Hypoxemia
CPT/HCPCS: 36415; 71045; 71260; 80053; 81001; 83880; 84132; 84484; 85025; 86140; 87502; 87634; 87635; 93005; 94761; 99285; Q9967

== ENCOUNTER 2022-08-31 15:38 | Observation (INO) | payer MEDICARE, BC, SELFPAY ==
[2022-08-31] VITALS (17 sets, daily range): BP systolic 160–177; BP diastolic 73–90; PULSE 78–95; RESP 16–21; TEMP 36.5–36.6; O2SAT 87–98; BMI 27.5; BMI 63.9
--- NOTE | 2022-08-31 16:27 | ED_ITS ---
HPI - SOB/Dyspnea General Chief Complaint: Shortness of Breath/Dyspnea Stated Complaint: short of breath Time Seen by Provider: 08/31/22 15:40 History of Present Illness HPI Narrative: This 82-year-old female comes in reporting worsening shortness of breath. She is scheduled to have a thoracentesis in 3 days. She has not had this procedure done in the past. She discontinued her Plavix on Wednesday, 2 days ago. This is a significant reason why the thoracentesis is scheduled 5 days later. She states that she became more short of breath. She has oxygen at home and has been on 2 L. She increased it to 4 L which helped her symptoms. Currently here she is on an OxyMask at 5 L. This brought her oximetry from 87% on room air to 94%. Related Data Home Medications Medication Instructions Recorded Confirmed allopurinol 300 mg tablet 150 mg PO DAILY 04/04/22 08/10/22 clopidogrel 75 mg tablet 75 mg PO DAILY 04/04/22 08/10/22 furosemide 20 mg tablet 20 mg PO DAILY 04/04/22 08/10/22 gabapentin 300 mg capsule 600 mg PO HS 04/04/22 08/10/22 hydromorphone 8 mg tablet 8 mg PO QAM 04/04/22 08/10/22 insulin aspart U-100 100 unit/mL 12 unit subcut DAILY@04/04/22 08/10/22 (3 mL) subcutaneous pen (Novolog FlexPen U-100 Insulin aspart) insulin degludec 100 unit/mL (3 26 unit subcut HS 04/04/22 08/10/22 mL) subcutaneous pen (Tresiba FlexTouch U-100 insulin) loperamide 2 mg capsule 2 mg PO BID PRN 04/04/22 08/10/22 methadone 5 mg tablet 5 mg PO QAM 04/04/22 08/10/22 rosuvastatin 20 mg tablet 20 mg PO HS 04/04/22 08/10/22 semaglutide 1 mg/dose (4 mg/3 mL) 1 mg subcut TH@04/04/22 08/10/22 subcutaneous pen injector (Ozempic) tamsulosin 0.4 mg capsule 0.4 mg PO DAILY 04/04/22 08/10/22 colchicine 0.6 mg tablet 0.6 mg PO BID PRN 04/11/22 08/10/22 BIOTENE DRY MOUTH LOZENGES 1 ea mucous membrane QID PRN 05/10/22 08/10/22 cholecalciferol (vitamin D3) 50 4,000 unit PO DAILY 05/10/22 08/10/22 mcg (2,000 unit) tablet (Vitamin D3) cyclobenzaprine 5 mg tablet 5 mg PO Q8H PRN 05/10/22 08/10/22 fexofenadine 180 mg tablet 180 mg PO DAILY PRN 05/10/22 08/10/22 (Aller-ease) hydromorphone 8 mg tablet 16 mg PO HS 05/10/22 08/10/22 (Dilaudid) insulin aspart U-100 100 unit/mL 18 unit subcut DAILY@12 05/10/22 08/10/22 (3 mL) subcutaneous pen (Novolog FlexPen U-100 Insulin aspart) levothyroxine 88 mcg tablet 88 mcg PO DAILY 05/10/22 08/10/22 methadone 5 mg tablet 10 mg PO HS 05/10/22 08/10/22 naloxone 4 mg/actuation nasal 4 mg intranasal DIRECTED PRN 05/10/22 08/10/22 spray (Narcan) potassium chloride 20 mEq 20 meq PO BIDWM 05/10/22 08/10/22 tablet,extended release(part/cryst) (Klor-Con M) prochlorperazine maleate 10 mg 10 mg PO Q6H PRN 05/10/22 08/10/22 tablet vitamin A-vitamin C-vit E-min 1 tab PO DAILY 05/10/22 08/10/22 tablet (Ocutabs tablet) albuterol sulfate 2.5 mg/3 mL 2.5 mg inhalation Q4H PRN 07/06/22 08/06/22 (0.083 %) solution for nebulization insulin aspart U-100 100 unit/mL 26 unit subcut DAILY@18 07/06/22 08/10/22 (3 mL) subcutaneous pen (Novolog FlexPen U-100 Insulin aspart) Previous Rx's Medication Instructions Recorded sennosides 8.6 mg-docusate sodium 4 tab PO BID 30 days #240 tabs 05/18/22 50 mg tablet (Stool Softener-Laxative) levofloxacin 500 mg tablet 500 mg PO DAILY 5 days #5 tabs 07/09/22 Allergies Allergy/AdvReac Type Severity Reaction Status Date / Time cortisone Allergy Severe Anaphylaxis Verified 08/31/22 15:51 prednisone Allergy Severe Verified 08/31/22 15:51 amoxicillin Allergy Intermediate Verified 08/31/22 15:51 cephalexin [From Keflex] Allergy Intermediate Diarrhea Verified 08/31/22 15:51 doxycycline Allergy Intermediate Verified 08/31/22 15:51 duloxetine [From Cymbalta] Allergy Intermediate Verified 08/31/22 15:51 escitalopram [From Lexapro] Allergy Intermediate sleep Verified 08/31/22 15:51 disturbance febuxostat Allergy Intermediate vomitting Verified 08/31/22 15:51 latex Allergy Intermediate Verified 08/31/22 15:51 lisinopril Allergy Intermediate Verified 08/31/22 15:51 losartan [From Cozaar] Allergy Intermediate Verified 08/31/22 15:51 nitrofurantoin Allergy Intermediate Verified 08/31/22 15:51 [From Macrobid] pregabalin [From Lyrica] Allergy Intermediate Nausea Verified 08/31/22 15:51 propoxyphene Allergy Intermediate angioedema Verified 08/31/22 15:51 ramelteon [From Rozerem] Allergy Intermediate Verified 08/31/22 15:51 sulfamethoxazole Allergy Intermediate Verified 08/31/22 15:51 [From Bactrim] tramadol [From Ultram] Allergy Intermediate Verified 08/31/22 15:51 trimethoprim [From Bactrim] Allergy Intermediate Verified 08/31/22 15:51 venlafaxine [From Effexor] Allergy Intermediate Verified 08/31/22 15:51 zolpidem [From Ambien] Allergy Intermediate Confusion Verified 08/31/22 15:51 acetaminophen [From Vicodin] Allergy Mild Nausea Verified 08/31/22 15:51 hydrocodone [From Vicodin] Allergy Mild Nausea Verified 08/31/22 15:51 aspirin Allergy Unknown Verified 08/31/22 15:51 clindamycin Allergy Unknown Verified 08/31/22 15:51 ipratropium [From Atrovent] Allergy Unknown Verified 08/31/22 15:51 Penicillins Allergy Unknown Verified 08/31/22 15:51 pramipexole Allergy Unknown Verified 08/31/22 15:51 trazodone Allergy Unknown Verified 08/31/22 15:51 adhesive tape Allergy huge Verified 08/31/22 15:51 blisters Review of Systems Status of ROS: Reports: 10 or more systems reviewed and unremarkable except as noted in History and below Narrative: Constitutional: No fevers, no weight gain or loss. Eyes: No discharge. No vision changes. HENT: No congestion, no sore throat, no ear pain. Cardiovascular: No chest pain, no palpitations. Respiratory: Worsening shortness of breath as described above. Gastrointestinal: No abdominal pain, no vomiting, no diarrhea. Genitourinary: No dysuria, no hematuria. Musculoskeletal: Normal range of motion. Skin: No rashes, no pruritis. Neurological: No dizziness, weakness, sensory change, speech change. Endo/Heme/Allergies: No bruising or bleeding. No polydipsia. Pysch: no suicidality, no anxiety, no insomnia. All other systems reviewed and are negative. [facility] Medical History (Updated 08/31/22 @ 17:27 by Lio Yao MD) Acute insomnia Allergic rhinitis CAD (coronary artery disease) Chronic kidney disease, stage 3b Chronic pain Constipation Controlled substance agreement signed COPD (chronic obstructive pulmonary disease) Depression Gastroparesis GERD (gastroesophageal reflux disease) Gouty arthropathy Hereditary and idiopathic peripheral neuropathy Hypercalcemia Hypertension Hypertriglyceridemia Hypokalemia Hypothyroidism Myocardial infarction Neurogenic bladder Neuropathy HUGO (obstructive sleep apnea) Peripheral autonomic neuropathy due to diabetes mellitus Peripheral vascular disease Pneumonia POLST (Physician Orders for Life-Sustaining Treatment) Pulmonary fibrosis Pulmonary nodule SBO (small bowel obstruction) Slow transit constipation Stroke TIA (transient ischemic attack) Type 2 diabetes mellitus with complication, with long-term current use of insulin Urinary tract infection Surgical History H/O blepharoplasty H/O colonoscopy H/O foot surgery H/O neck surgery H/O: hysterectomy History of cholecystectomy Hx of appendectomy Hx of repair of rotator cuff Hx of tonsillectomy S/P bunionectomy S/P left rotator cuff repair Family History Maternal Grandfather Pancreatic cancer Aunt Breast cancer Uncle Lung cancer Aunt Breast cancer Father Tuberculosis Coronary artery disease Social History Narrative: Lives independently with her boyfriend, Zane, and her daughter, Martín, who lives in the basement. Quit tobacco 1986. No EtOH. Denies recreational drug use. Wants to be DNR/DNI. Highest level of school completed/degree received: some college, no degree Smoking Status: Former smoker Do you use any of these nicotine containing products: None Second hand tobacco smoke exposure: No How often do you have a drink containing alcohol: never How often do you have six or more drinks on one occasion: Never AUDIT-C Alcohol total score: 0 Non-prescribed substance use: denies use Caffeine: Yes Are you using contraception or practicing any form of control: No service: No Exam Narrative: Exam Narrative: Constitutional: Well-developed, well-nourished, no acute distress. HEENT: Normocephalic, atraumatic. Neck: Normal range of motion. Nontender. Supple. Heart: Regular. No murmurs. Normal rate. Intact distal pulses. Lungs: Decreased lung sounds on the right. Mild use of accessory muscles for breathing. No chest discomfort. No wheezes, rhonchi, or rales. Abdomen: Normal bowel sounds. Nontender. No rebound tenderness. Genitalia: Deferred. Back: No midline tenderness. Normal range of motion. Extremities: Normal range of motion. No injury. Skin: Intact. No rash. Warm. No erythema or pallor. Neurologic: No altered sensation. No weakness. Alert and oriented. Psychiatric: No suicidality. No anxiety or depression. No insomnia. Nursing notes and vitals signs are reviewed. Const: Vital Signs, click to edit/add: Vital Signs - 24 hr 08/31/22 15:44 Temperature 97.9 F Pulse Rate [Pulse Oximeter] 94 Respiratory Rate 21 Blood Pressure [Ri ght Upper Arm] 160/73 H Pulse Oximetry 94 Oxygen Delivery Me thod Nasal Cannula Course Vital Signs Vital signs: Initial Vital Signs Temperature 97.9 F 08/31/22 15:44 Temperature Source Temporal Artery Scan 08/31/22 15:44 Pulse Rate 94 08/31/22 15:44 Pulse Rhythm 08/31/22 15:44 Pulse Strength 3+ Normal 08/31/22 15:44 Respiratory Rate 21 08/31/22 15:44 Blood Pressure 160/73 H 08/31/22 15:44 Blood Pressure Mean 102 08/31/22 15:44 Pulse Oximetry 94 08/31/22 15:44 Oxygen Delivery Method 08/31/22 15:44 Vital Signs Temperature 97.9 F 08/31/22 15:44 Pulse Rate 94 08/31/22 15:44 Respiratory Rate 21 08/31/22 15:44 Blood Pressure 160/73 H 08/31/22 15:44 Pulse Oximetry 94 08/31/22 15:44 Oxygen Delivery Method 08/31/22 15:44 Temperature 97.9 F 08/31/22 15:44 Pulse Rate 94 08/31/22 15:44 Respiratory Rate 21 08/31/22 15:44 Blood Pressure 160/73 H 08/31/22 15:44 Pulse Oximetry 94 08/31/22 15:44 Oxygen Delivery Method 08/31/22 15:44 MDM - SOB/Dyspnea MDM Narrative Medical decision making narrative: This patient comes in with worsening shortness of breath. She has a pleural effusion on the right side that is scheduled to be drained in 3 days. She stopped her Plavix a couple days ago but comes in today wondering if this thoracentesis can happen earlier as she is more short of breath. Chest x-ray shows no distinct change from previous exam according to radiology report. By my reviewed there does appear to be some increase of fluid on the right side. She is maintaining 94% oximetry while on an OxyMask at 5 L. I did speak with Dr. Corcoran, surgeon on-call, who would like to have her admitted overnight and plan to do a thoracentesis tomorrow. I spoke with Dr. Marcum who agrees to bring her in for admission. Discharge Plan Discharge Clinical Impression: Pleural effusion, Hypoxia Patient Disposition: Admitted As Inpatient Condition: Unchanged Prescriptions: No Action colchicine 0.6 mg tablet 0.6 mg PO BID PRN Label Comments: TAKE ONE TABLET BY MOUTH TWICE DAILY NEEDED levothyroxine 88 mcg tablet 88 mcg PO DAILY Label Comments: Take 1 Tablet (88 mcg) by mouth before breakfast naloxone [Narcan] 4 mg/actuation spray,non-aerosol 4 mg INTRANASAL DIRECTED PRN Label Comments: Inhale 1 [place] into affected nostril(s) each time if needed for Patient Diff To Arouse or Resp Rate < 8 / min. Additional doses may be given fexofenadine [Aller-ease] 180 mg tablet 180 mg PO DAILY PRN cholecalciferol (vitamin D3) [Vitamin D3] 50 mcg (2,000 unit) tablet 4,000 unit PO DAILY cyclobenzaprine 5 mg tablet 5 mg PO Q8H PRN Ocutabs Tablet 1 tab PO DAILY prochlorperazine maleate 10 mg tablet 10 mg PO Q6H PRN Label Comments: TAKE ONE TABLET BY MOUTH EVERY SIX HOURS NEEDED potassium chloride [Klor-Con M20] 20 mEq tablet,ER particles/crystals 20 meq PO BIDWM Label Comments: Take 1 Tablet (20 mEq) by mouth 2 times daily with meals insulin aspart U-100 [Novolog FlexPen U-100 Insulin] 100 unit/mL (3 mL) insulin pen 18 unit subcut DAILY@12 methadone 5 mg tablet 10 mg PO HS BIOTENE DRY MOUTH LOZENGES 1 ea mucous membrane QID PRN hydromorphone [Dilaudid] 8 mg tablet 16 mg PO HS sennosides-docusate sodium [Stool Softener-Laxative] 8.6-50 mg Tablet 4 tab PO BID 30 Days Qty: 240 0RF albuterol sulfate 2.5 mg /3 mL (0.083 %) solution for nebulization 2.5 mg inhalation Q4H PRN insulin aspart U-100 [Novolog FlexPen U-100 Insulin] 100 unit/mL (3 mL) Insulin Pen 26 unit subcut DAILY@18 levofloxacin 500 mg tablet 500 mg PO DAILY 5 Days Qty: 5 0RF loperamide 2 mg capsule 2 mg PO BID PRN hydromorphone 8 mg tablet 8 mg PO QAM Rx Instructions: TAKES 1 PILL IN AM AND 2 IN PM clopidogrel 75 mg tablet 75 mg PO DAILY Label Comments: TAKE ONE TABLET BY MOUTH ONE TIME DAILY tamsulosin 0.4 mg capsule 0.4 mg PO DAILY Label Comments: Take 1 Capsule (0.4 mg) by mouth once daily after a meal. gabapentin 300 mg capsule 600 mg PO HS allopurinol 300 mg tablet 150 mg PO DAILY furosemide 20 mg tablet 20 mg PO DAILY Label Comments: Take 1 Tablet (20 mg) by mouth every morning. methadone 5 mg tablet 5 mg PO QAM insulin aspart U-100 [Novolog FlexPen U-100 Insulin] 100 unit/mL (3 mL) insulin pen 12 unit SUBCUT DAILY@08 rosuvastatin 20 mg tablet 20 mg PO HS Label Comments: Take 1 Tablet (20 mg) by mouth at bedtime. insulin degludec [Tresiba FlexTouch U-100] 100 unit/mL (3 mL) insulin pen 26 unit SUBCUT HS Ozempic 1 mg/dose (4 mg/3 mL) pen injector 1 mg SUBCUT 09 Rx Instructions: WEEKLY ON WEDNESDAY Follow Up/Referrals: Michael Sandy MD [Primary Care Provider] -
--- NOTE | 2022-08-31 16:27 | CRLHL7_ITS ---
For Patients: As a result of the Century Cures Act, medical imaging exams and procedure reports are released immediately into your electronic medical record. You may view this report before your referring provider. If you have questions, please contact your health care provider. INDICATION: [id number]. TECHNIQUE: Chest 1 views. COMPARISON: August 28, 2022. FINDINGS: Cardiovascular and mediastinum: Stable heart size and vasculature. Lungs and pleural spaces: Redemonstration of moderate right pleural effusion with associated atelectasis. No pneumothorax. Bones and soft tissues: No significant findings. IMPRESSION: Redemonstration of moderate right pleural effusion with associated atelectasis. No significant changes from the prior exam. Dictated by Laureano Bennett MD @ 08/31/2022 5:02:20 PM (Electronically Signed)
--- NOTE | 2022-08-31 18:44 | W.PC.EDHO ---
Primary Language: Preferred Language: Orientation Status: [x] Alert & Oriented [] Slight Confusion [] Known Dx Dementia Transfers By: [x] Assist of 1 [] Assist of 2 [] Lift Description of Symptoms ED Triage Present Problem The earliest pt can get a thoracentesis on her Description right lung is morning because she had been taking her Plavix. She states she is having increased SOB and turned her O2 up from 2L to 4L. O2 sats on 4L 93-94% Female History Patient No Pain Pain Description [Chest] Tightness Pain Radiation Location [Chest chest wall pain per patient ] Pain Intensity [Chest] 4 Pain Scale Used [Chest] Numeric (1 - 10) Oxygen Administration Pulse Oximetry 96 Pulse Oximetry 98 Pulse Oximetry 97 Pulse Oximetry 94 Pulse Oximetry 90 Pulse Oximetry 95 Pulse Oximetry 95 Pulse Oximetry 95 Pulse Oximetry 96 Pulse Oximetry 95 Pulse Oximetry 94 Pulse Oximetry 87 Pulse Oximetry 94 Oxygen Delivery Method OxyMask Oxygen Delivery Method OxyMask Oxygen Delivery Method Room Air Oxygen Delivery Method Nasal Cannula Oxygen Flow Rate 5 Oxygen Flow Rate 5
[2022-08-31 19:10] LABS: SARS PCR* Negative SARS-CoV-2 (Negative)
--- NOTE | 2022-08-31 20:09 | PM.IMHP1 ---
Hospitalist- H&P: HPI History of Present Illness Date Seen: 08/31/22 Chief complaint: Short of Breath Narrative: Kianna Albright is a 82 year old female with COPD on home oxygen admitted through the emergency department with worsening dyspnea. Patient reports progressive dyspnea over the last week and a half. She presented to the emergency room 3 days ago with these symptoms. She was diagnosed with a moderate right pleural effusion. It was felt that this was the cause of her worsening dyspnea as this is a new finding in the last couple months. Recommendation was for a thoracentesis for diagnostic and therapeutic purposes. Because she was on clopidogrel as recommended this be postponed for 5 days off clopidogrel. She reports now that she can not tolerate her dyspnea at home and returns to the emergency room for evaluation and treatment. She normally uses oxygen at home, primarily at night with her CPAP. She has increased her oxygen at home today to 4 L to see if she can maintain her oxygen saturations. She has not had a fever, cough, cold, sore throat, chest pain. Her only new symptom is this dyspnea over the last week and half. She is not known to have a pleural effusion in the past. She does not have a history of heart failure. Her proBNP was normal 3 days ago. She is not known to have cancer. She did have pneumonia 3 months ago but it appeared to resolve completely without obvious parapneumonic effusion. Review of Systems Narrative: Other than her dyspnea she reports generally doing well [facility] Medical History (Updated 08/31/22 @ 20:23 by Pranav Marcum MD) Acute insomnia Allergic rhinitis CAD (coronary artery disease) Chronic kidney disease, stage 3b Chronic pain Constipation Controlled substance agreement signed COPD (chronic obstructive pulmonary disease) Depression Gastroparesis GERD (gastroesophageal reflux disease) Gouty arthropathy Hereditary and idiopathic peripheral neuropathy Hypercalcemia Hypertension Hypertriglyceridemia Hypokalemia Hypothyroidism Myocardial infarction Neurogenic bladder Neuropathy HUGO (obstructive sleep apnea) Peripheral autonomic neuropathy due to diabetes mellitus Peripheral vascular disease Pneumonia POLST (Physician Orders for Life-Sustaining Treatment) Pulmonary fibrosis Pulmonary nodule SBO (small bowel obstruction) Slow transit constipation Stroke TIA (transient ischemic attack) Type 2 diabetes mellitus with complication, with long-term current use of insulin Urinary tract infection Surgical History H/O blepharoplasty H/O colonoscopy H/O foot surgery H/O neck surgery H/O: hysterectomy History of cholecystectomy Hx of appendectomy Hx of repair of rotator cuff Hx of tonsillectomy S/P bunionectomy S/P left rotator cuff repair Family History Maternal Grandfather Pancreatic cancer Aunt Breast cancer Uncle Lung cancer Aunt Breast cancer Father Tuberculosis Coronary artery disease Social History Narrative: Lives independently with her boyfriend, Zane, and her daughter, Martín, who lives in the basement. Quit tobacco 1986. No EtOH. Denies recreational drug use. Wants to be DNR/DNI. Highest level of school completed/degree received: some college, no degree Smoking Status: Former smoker Do you use any of these nicotine containing products: None Second hand tobacco smoke exposure: No How often do you have a drink containing alcohol: never How often do you have six or more drinks on one occasion: Never AUDIT-C Alcohol total score: 0 Non-prescribed substance use: denies use Caffeine: Yes Are you using contraception or practicing any form of control: No service: No Meds Home Medications and Allergies Home Medications Medication Instructions Recorded Confirmed Type allopurinol 300 mg tablet 150 mg PO DAILY 04/04/22 08/10/22 History clopidogrel 75 mg tablet 75 mg PO DAILY 04/04/22 08/10/22 History furosemide 20 mg tablet 20 mg PO DAILY 04/04/22 08/10/22 History gabapentin 300 mg capsule 600 mg PO HS 04/04/22 08/10/22 History hydromorphone 8 mg tablet 8 mg PO QAM 04/04/22 08/10/22 History insulin aspart U-100 100 unit/mL 12 unit subcut DAILY@08 04/04/22 08/10/22 History (3 mL) subcutaneous pen (Novolog FlexPen U-100 Insulin aspart) insulin degludec 100 unit/mL (3 26 unit subcut HS 04/04/22 08/10/22 History mL) subcutaneous pen (Tresiba FlexTouch U-100 insulin) loperamide 2 mg capsule 2 mg PO BID PRN 04/04/22 08/10/22 History methadone 5 mg tablet 5 mg PO QAM 04/04/22 08/10/22 History rosuvastatin 20 mg tablet 20 mg PO HS 04/04/22 08/10/22 History semaglutide 1 mg/dose (4 mg/3 mL) 1 mg subcut TH@09 04/04/22 08/10/22 History subcutaneous pen injector (Ozempic) tamsulosin 0.4 mg capsule 0.4 mg PO DAILY 04/04/22 08/10/22 History colchicine 0.6 mg tablet 0.6 mg PO BID PRN 04/11/22 08/10/22 History BIOTENE DRY MOUTH LOZENGES 1 ea mucous membrane QID PRN 05/10/22 08/10/22 History cholecalciferol (vitamin D3) 50 4,000 unit PO DAILY 05/10/22 08/10/22 History mcg (2,000 unit) tablet (Vitamin D3) cyclobenzaprine 5 mg tablet 5 mg PO Q8H PRN 05/10/22 08/10/22 History fexofenadine 180 mg tablet 180 mg PO DAILY PRN 05/10/22 08/10/22 History (Aller-ease) hydromorphone 8 mg tablet 16 mg PO HS 05/10/22 08/10/22 History (Dilaudid) insulin aspart U-100 100 unit/mL 18 unit subcut DAILY@12 05/10/22 08/10/22 History (3 mL) subcutaneous pen (Novolog FlexPen U-100 Insulin aspart) levothyroxine 88 mcg tablet 88 mcg PO DAILY 05/10/22 08/10/22 History methadone 5 mg tablet 10 mg PO HS 05/10/22 08/10/22 History naloxone 4 mg/actuation nasal 4 mg intranasal DIRECTED PRN 05/10/22 08/10/22 History spray (Narcan) potassium chloride 20 mEq 20 meq PO BIDWM 05/10/22 08/10/22 History tablet,extended release(part/cryst) (Klor-Con M) prochlorperazine maleate 10 mg 10 mg PO Q6H PRN 05/10/22 08/10/22 History tablet vitamin A-vitamin C-vit E-min 1 tab PO DAILY 05/10/22 08/10/22 History tablet (Ocutabs tablet) albuterol sulfate 2.5 mg/3 mL 2.5 mg inhalation Q4H PRN 07/06/22 08/06/22 History (0.083 %) solution for nebulization insulin aspart U-100 100 unit/mL 26 unit subcut DAILY@18 07/06/22 08/10/22 History (3 mL) subcutaneous pen (Novolog FlexPen U-100 Insulin aspart) Allergies Allergy/AdvReac Type Severity Reaction Status Date / Time cortisone Allergy Severe Anaphylaxis Verified 08/31/22 15:51 prednisone Allergy Severe Verified 08/31/22 15:51 amoxicillin Allergy Intermediate Verified 08/31/22 15:51 cephalexin [From Keflex] Allergy Intermediate Diarrhea Verified 08/31/22 15:51 doxycycline Allergy Intermediate Verified 08/31/22 15:51 duloxetine [From Cymbalta] Allergy Intermediate Verified 08/31/22 15:51 escitalopram [From Lexapro] Allergy Intermediate sleep Verified 08/31/22 15:51 disturbance febuxostat Allergy Intermediate vomitting Verified 08/31/22 15:51 latex Allergy Intermediate Verified 08/31/22 15:51 lisinopril Allergy Intermediate Verified 08/31/22 15:51 losartan [From Cozaar] Allergy Intermediate Verified 08/31/22 15:51 nitrofurantoin Allergy Intermediate Verified 08/31/22 15:51 [From Macrobid] pregabalin [From Lyrica] Allergy Intermediate Nausea Verified 08/31/22 15:51 propoxyphene Allergy Intermediate angioedema Verified 08/31/22 15:51 ramelteon [From Rozerem] Allergy Intermediate Verified 08/31/22 15:51 sulfamethoxazole Allergy Intermediate Verified 08/31/22 15:51 [From Bactrim] tramadol [From Ultram] Allergy Intermediate Verified 08/31/22 15:51 trimethoprim [From Bactrim] Allergy Intermediate Verified 08/31/22 15:51 venlafaxine [From Effexor] Allergy Intermediate Verified 08/31/22 15:51 zolpidem [From Ambien] Allergy Intermediate Confusion Verified 08/31/22 15:51 acetaminophen [From Vicodin] Allergy Mild Nausea Verified 08/31/22 15:51 hydrocodone [From Vicodin] Allergy Mild Nausea Verified 08/31/22 15:51 aspirin Allergy Unknown Verified 08/31/22 15:51 clindamycin Allergy Unknown Verified 08/31/22 15:51 ipratropium [From Atrovent] Allergy Unknown Verified 08/31/22 15:51 Penicillins Allergy Unknown Verified 08/31/22 15:51 pramipexole Allergy Unknown Verified 08/31/22 15:51 trazodone Allergy Unknown Verified 08/31/22 15:51 adhesive tape Allergy huge Verified 08/31/22 15:51 blisters Exam Narrative: Exam Narrative: She is alert and appears in mild increased work of breathing but otherwise in no distress. She gives her own history. She gives good detail of recent events. Eyes are normal. Oropharynx normal. Neck is supple without mass or adenopathy. Respirations with absent breath sounds on the right side up about 2/3. Upper right lung joya and left lung joya with diminished breath sounds but no significant wheezing. Cardiovascular: S1, S2, regular rate and rhythm. No murmur gallop or rub. Abdomen: Bowel sounds active. Abdomen is soft without tenderness or mass. Extremities without edema. She has intact pedal pulses. She moves all 4 extremities well. No rash. Const: Vital Signs, click to edit/add: Vital Signs - 24 hr 08/31/22 15:44 08/31/22 16:00 08/31/22 17:55 Temperature 97.9 F Pulse Rate Pulse Rate [Pulse Oximeter] 94 Respiratory Rate 21 16 Blood Pressure Blood Pressure [Ri ght Upper Arm] 160/73 H Pulse Oximetry 94 87 L 94 Oxygen Delivery Me thod Nasal Cannula Room Air OxyMask Oxygen Flow Rate 5 08/31/22 16:27 08/31/22 16:30 08/31/22 16:45 Temperature Pulse Rate 87 90 Pulse Rate [Pulse Oximeter] Respiratory Rate Blood Pressure Blood Pressure [Ri ght Upper Arm] Pulse Oximetry 94 95 96 Oxygen Delivery Me thod OxyMask Oxygen Flow Rate 5 08/31/22 17:00 08/31/22 17:15 08/31/22 17:30 Temperature Pulse Rate 83 82 88 Pulse Rate [Pulse Oximeter] Respiratory Rate Blood Pressure Blood Pressure [Ri ght Upper Arm] Pulse Oximetry 95 95 95 Oxygen Delivery Me thod Oxygen Flow Rate 08/31/22 17:45 08/31/22 18:02 08/31/22 18:15 Temperature Pulse Rate 95 82 83 Pulse Rate [Pulse Oximeter] Respiratory Rate Blood Pressure Blood Pressure [Ri ght Upper Arm] Pulse Oximetry 90 97 98 Oxygen Delivery Me thod Oxygen Flow Rate 08/31/22 18:30 08/31/22 18:45 Temperature Pulse Rate 83 84 Pulse Rate [Pulse Oximeter] Respiratory Rate Blood Pressure 177/83 H Blood Pressure [Ri ght Upper Arm] Pulse Oximetry 96 92 Oxygen Delivery Me thod OxyMask Oxygen Flow Rate 5 Documenting provider has reviewed patient's vital signs: yes Assessment and Plan Assessment and plan (1) Pleural effusion: Problem comment: Recommend therapeutic and diagnostic thoracentesis. Cause of the pleural effusion is not clear. Deserves further testing and outpatient follow-up. I warned the patient that these have a tendency to come back. Status: Acute (2) Hypoxia: Problem comment: Acute on chronic due to pleural effusion plus underlying interstitial lung disease and COPD Status: Acute (3) Interstitial pulmonary fibrosis: Status: Acute (4) HUGO (obstructive sleep apnea): Problem comment: HUGO 06/05/2007 AHI-14.2 Uses CPAP Uses OXYGEN at night with CPAP and approximately 5-6 hours per day in addition. 04/07/2011 Status: Chronic (5) COPD (chronic obstructive pulmonary disease): Status: Acute Plan Admit for thoracentesis and management of hypoxia. Anticipate discharge to home after thoracentesis for outpatient follow-up of pleural effusion and further diagnostic testing Total time spent today is 75 minutes, 55 minutes in coordination of care and discussing with patient and other providers management of hypoxia and pleural effusion
[2022-08-31 21:31] LABS: Lab Add On Test RN
[2022-08-31] MEDS: ROSUVASTATIN CALCIUM 10 MG TABLET 20 MG PO (21:59)
[2022-08-31] MEDS: SENNOSIDES/DOCUSATE TABLET 2 TAB PO (21:59)
[2022-08-31] MEDS: METHADONE 5 MG TABLET 10 MG PO (22:00)
[2022-08-31] MEDS: GABAPENTIN 300 MG CAPSULE 600 MG PO (22:00)
[2022-08-31] MEDS: HYDROmorphone 2 MG TABLET 16 MG PO (22:01)
[2022-08-31] MEDS: SODIUM CHLORIDE 0.9 % (FLUSH) 10 ML SYRINGE 5 ML IVF (22:02)
[2022-08-31] MEDS: LACTATED RINGERS 1000 ML 1,000 ML 75 ML IV (23:33)
[2022-09-01] VITALS (8 sets, daily range): BP systolic 120–144; BP diastolic 52–83; PULSE 56–88; RESP 16–20; TEMP 36.2–36.9; O2SAT 90–95
[2022-09-01] MEDS: LEVOTHYROXINE 88 MCG TABLET PO (06:01)
--- NOTE | 2022-09-01 06:53 | PC.NURSE ---
Patient was admitted to medsurg unit from ED this shift. She is alert and oriented x4, able to communicate needs to staff. VSS on 4L of O2 via oxmask. continent of bowel and bladder, transfers with SBA. Patient appears stable, call light within reach
[2022-09-01] MEDS: ALBUTEROL SULFATE 2.5 MG/3 ML VIAL.NEB NEB (07:39)
[2022-09-01] MEDS: POTASSIUM CITRATE 10 MEQ TABLET.ER 20 MEQ PO ×2 (08:18→17:46)
[2022-09-01] MEDS: TAMSULOSIN HCL 0.4 MG CAPSULE PO (08:31)
[2022-09-01] MEDS: FUROSEMIDE 20 MG TABLET PO (08:34)
[2022-09-01] MEDS: SENNOSIDES/DOCUSATE TABLET 2 TAB PO ×2 (08:34→20:42)
[2022-09-01] MEDS: CLOPIDOGREL 75 MG TABLET PO (08:35)
[2022-09-01] MEDS: METHADONE 5 MG TABLET PO (08:35)
[2022-09-01] MEDS: allopurinoL 300 MG TABLET 150 MG PO (08:36)
[2022-09-01] MEDS: SODIUM CHLORIDE 0.9 % (FLUSH) 10 ML SYRINGE 5 ML IVF ×2 (08:38→20:44)
[2022-09-01] MEDS: OCUVITE TABLET 1 TAB PO (08:50)
--- NOTE | 2022-09-01 10:51 | CRLHL7_ITS ---
For Patients: As a result of the Cures Act, medical imaging exams and procedure reports are released immediately into your electronic medical record. You may view this report before your referring provider. If you have questions, please contact your health care provider. INDICATION: Post thoracentesis. TECHNIQUE: Chest 1 views. COMPARISON: August 31, 2022. FINDINGS: Cardiovascular and mediastinum: Heart size and vasculature are normal in caliber and appearance. Lungs and pleural spaces: Moderate right-sided pleural effusion, mildly decreased since prior study. No pneumothorax. Bones and soft tissues: No significant findings. IMPRESSION: Moderate right-sided pleural effusion, mildly decreased since prior study. No pneumothorax. Dictated by Laureano Bennett MD @ 09/01/2022 12:44:05 PM (Electronically Signed)
[2022-09-01 13:02] LABS: BF Total Volume* 240
[2022-09-01 13:03] LABS: BF Clarity* Cloudy; BF Color Blood Tinged; pH Body Fluid* 8.5
--- NOTE | 2022-09-01 13:05 | P.GSCN_ITS ---
History of Present Illness Consult details Date Seen: 09/01/22 Consult date: 09/01/22 Narrative: 82-year-old female with history of COPD on home oxygen was admitted to the hospital with shortness of breath. Patient states that approximately 1-1/2 weeks ago she started to develop increasing shortness of breath. Patient is normally on 2 L of oxygen. She had pneumonia with sepsis in April and June of 2022. Her shortness of breath was more prominent with exertion. Patient was seen in the emergency room on Wednesday and was found to have a large right-sided pleural effusion. Patient was taking Plavix due to history of TIA. She was discharged from the emergency room with a plan for thoracentesis this week. Patient stopped taking Plavix on Wednesday. However, on Wednesday she increased her oxygen to 3 L initially and then 4 L because her shortness of breath was still prominent. She finally presented again to the emergency room yesterday because her shortness of breath was not better with increased oxygen. Patient has never had thoracentesis in the past. Patient had a chest CT during her last ER visit that showed moderately-sized right sided pleural effusion. There was also evidence of severe centrilobular emphysema with a stable nodule. Chest x-ray also showed a large right sided pleural effusion. Review of Systems Narrative: General: no fevers HENT: no problems swallowing CV: + shortness of breath Resp: no cough GI: No nausea, vomiting, abdominal pain Skin: no new rashes Neuro: Needs help with mobility Psyche: no depression, no anxiety PFSH PFSH Medical History (Updated 08/31/22 @ 20:23 by Pranav Marcum MD) Acute insomnia Allergic rhinitis CAD (coronary artery disease) Chronic kidney disease, stage 3b Chronic pain Constipation Controlled substance agreement signed COPD (chronic obstructive pulmonary disease) Depression Gastroparesis GERD (gastroesophageal reflux disease) Gouty arthropathy Hereditary and idiopathic peripheral neuropathy Hypercalcemia Hypertension Hypertriglyceridemia Hypokalemia Hypothyroidism Myocardial infarction Neurogenic bladder Neuropathy HUGO (obstructive sleep apnea) Peripheral autonomic neuropathy due to diabetes mellitus Peripheral vascular disease Pneumonia POLST (Physician Orders for Life-Sustaining Treatment) Pulmonary fibrosis Pulmonary nodule SBO (small bowel obstruction) Slow transit constipation Stroke TIA (transient ischemic attack) Type 2 diabetes mellitus with complication, with long-term current use of insulin Urinary tract infection Surgical History H/O blepharoplasty H/O colonoscopy H/O foot surgery H/O neck surgery H/O: hysterectomy History of cholecystectomy Hx of appendectomy Hx of repair of rotator cuff Hx of tonsillectomy S/P bunionectomy S/P left rotator cuff repair Family History Maternal Grandfather Pancreatic cancer Aunt Breast cancer Uncle Lung cancer Aunt Breast cancer Father Tuberculosis Coronary artery disease Social History Narrative: Lives independently with her boyfriend, Zane, and her daughter, Martín, who lives in the basement. Quit tobacco 1986. No EtOH. Denies recreational drug use. Wants to be DNR/DNI. Highest level of school completed/degree received: some college, no degree Smoking Status: Former smoker Do you use any of these nicotine containing products: None Second hand tobacco smoke exposure: No How often do you have a drink containing alcohol: never How often do you have six or more drinks on one occasion: Never AUDIT-C Alcohol total score: 0 Non-prescribed substance use: denies use Caffeine: Yes Are you using contraception or practicing any form of control: No service: No Meds Home Medications and Allergies Home Medications Medication Instructions Recorded Confirmed Type allopurinol 300 mg tablet 150 mg PO DAILY 04/04/22 08/10/22 History clopidogrel 75 mg tablet 75 mg PO DAILY 04/04/22 08/10/22 History furosemide 20 mg tablet 20 mg PO DAILY 04/04/22 08/10/22 History gabapentin 300 mg capsule 600 mg PO HS 04/04/22 08/10/22 History hydromorphone 8 mg tablet 8 mg PO QAM 04/04/22 08/10/22 History insulin aspart U-100 100 unit/mL 12 unit subcut DAILY@08 04/04/22 08/10/22 History (3 mL) subcutaneous pen (Novolog FlexPen U-100 Insulin aspart) insulin degludec 100 unit/mL (3 26 unit subcut HS 04/04/22 08/10/22 History mL) subcutaneous pen (Tresiba FlexTouch U-100 insulin) loperamide 2 mg capsule 2 mg PO BID PRN 04/04/22 08/10/22 History methadone 5 mg tablet 5 mg PO QAM 04/04/22 08/10/22 History rosuvastatin 20 mg tablet 20 mg PO HS 04/04/22 08/10/22 History semaglutide 1 mg/dose (4 mg/3 mL) 1 mg subcut TH@09 04/04/22 08/10/22 History subcutaneous pen injector (Ozempic) tamsulosin 0.4 mg capsule 0.4 mg PO DAILY 04/04/22 08/10/22 History colchicine 0.6 mg tablet 0.6 mg PO BID PRN 04/11/22 08/10/22 History BIOTENE DRY MOUTH LOZENGES 1 ea mucous membrane QID PRN 05/10/22 08/10/22 History cholecalciferol (vitamin D3) 50 4,000 unit PO DAILY 05/10/22 08/10/22 History mcg (2,000 unit) tablet (Vitamin D3) cyclobenzaprine 5 mg tablet 5 mg PO Q8H PRN 05/10/22 08/10/22 History fexofenadine 180 mg tablet 180 mg PO DAILY PRN 05/10/22 08/10/22 History (Aller-ease) hydromorphone 8 mg tablet 16 mg PO HS 05/10/22 08/10/22 History (Dilaudid) insulin aspart U-100 100 unit/mL 18 unit subcut DAILY@12 05/10/22 08/10/22 His tory (3 mL) subcutaneous pen (Novolog FlexPen U-100 Insulin aspart) levothyroxine 88 mcg tablet 88 mcg PO DAILY 05/10/22 08/10/22 History methadone 5 mg tablet 10 mg PO HS 05/10/22 08/10/22 History naloxone 4 mg/actuation nasal 4 mg intranasal DIRECTED PRN 05/10/22 08/10/22 History spray (Narcan) potassium chloride 20 mEq 20 meq PO BIDWM 05/10/22 08/10/22 History tablet,extended release(part/cryst) (Klor-Con M) prochlorperazine maleate 10 mg 10 mg PO Q6H PRN 05/10/22 08/10/22 History tablet vitamin A-vitamin C-vit E-min 1 tab PO DAILY 05/10/22 08/10/22 History tablet (Ocutabs tablet) albuterol sulfate 2.5 mg/3 mL 2.5 mg inhalation Q4H PRN 07/06/22 08/06/22 History (0.083 %) solution for nebulization insulin aspart U-100 100 unit/mL 26 unit subcut DAILY@18 07/06/22 08/10/22 History (3 mL) subcutaneous pen (Novolog FlexPen U-100 Insulin aspart) Allergies Allergy/AdvReac Type Severity Reaction Status Date / Time cortisone Allergy Severe Anaphylaxis Verified 08/31/22 15:51 prednisone Allergy Severe Verified 08/31/22 15:51 amoxicillin Allergy Intermediate Verified 08/31/22 15:51 cephalexin [From Keflex] Allergy Intermediate Diarrhea Verified 08/31/22 15:51 doxycycline Allergy Intermediate Verified 08/31/22 15:51 duloxetine [From Cymbalta] Allergy Intermediate Verified 08/31/22 15:51 escitalopram [From Lexapro] Allergy Intermediate sleep Verified 08/31/22 15:51 disturbance febuxostat Allergy Intermediate vomitting Verified 08/31/22 15:51 latex Allergy Intermediate Verified 08/31/22 15:51 lisinopril Allergy Intermediate Verified 08/31/22 15:51 losartan [From Cozaar] Allergy Intermediate Verified 08/31/22 15:51 nitrofurantoin Allergy Intermediate Verified 08/31/22 15:51 [From Macrobid] pregabalin [From Lyrica] Allergy Intermediate Nausea Verified 08/31/22 15:51 propoxyphene Allergy Intermediate angioedema Verified 08/31/22 15:51 ramelteon [From Rozerem] Allergy Intermediate Verified 08/31/22 15:51 sulfamethoxazole Allergy Intermediate Verified 08/31/22 15:51 [From Bactrim] tramadol [From Ultram] Allergy Intermediate Verified 08/31/22 15:51 trimethoprim [From Bactrim] Allergy Intermediate Verified 08/31/22 15:51 venlafaxine [From Effexor] Allergy Intermediate Verified 08/31/22 15:51 zolpidem [From Ambien] Allergy Intermediate Confusion Verified 08/31/22 15:51 acetaminophen [From Vicodin] Allergy Mild Nausea Verified 08/31/22 15:51 hydrocodone [From Vicodin] Allergy Mild Nausea Verified 08/31/22 15:51 aspirin Allergy Unknown Verified 08/31/22 15:51 clindamycin Allergy Unknown Verified 08/31/22 15:51 ipratropium [From Atrovent] Allergy Unknown Verified 08/31/22 15:51 Penicillins Allergy Unknown Verified 08/31/22 15:51 pramipexole Allergy Unknown Verified 08/31/22 15:51 trazodone Allergy Unknown Verified 08/31/22 15:51 adhesive tape Allergy huge Verified 08/31/22 15:51 blisters Exam Narrative: Exam Narrative: General appearance: Alert, cooperative, while sitting in her bed patient is gasping for air when talking. Pulmonary: Chest symmetric, bilateral wheezing and decreased breath sounds in the right inferior chest. Cardiovascular Heart: Regular rate and rhythm, S1, S2, no murmurs/rubs/gallops Gastrointestinal Abdominal: not distended Skin: Normal skin color, texture, and turgor. No rashes or lesions. Psychiatric: Alert, cooperative, normal affect. Const: Vital Signs, click to edit/add: Vital Signs - 24 hr 08/31/22 15:44 08/31/22 16:00 08/31/22 17:55 Temperature 97.9 F Pulse Rate Pulse Rate [Pulse Oximeter] 94 Respiratory Rate 21 16 Blood Pressure Blood Pressure [Le ft Arm] Blood Pressure [Ri ght Arm] Blood Pressure [Ri ght Upper Arm] 160/73 H Pulse Oximetry 94 87 L 94 Oxygen Delivery Me thod Nasal Cannula Room Air OxyMask Oxygen Flow Rate 5 08/31/22 16:27 08/31/22 16:30 08/31/22 16:45 Temperature Pulse Rate 87 90 Pulse Rate [Pulse Oximeter] Respiratory Rate Blood Pressure Blood Pressure [Le ft Arm] Blood Pressure [Ri ght Arm] Blood Pressure [Ri ght Upper Arm] Pulse Oximetry 94 95 96 Oxygen Delivery Me thod OxyMask Oxygen Flow Rate 5 08/31/22 17:00 08/31/22 17:15 08/31/22 17:30 Temperature Pulse Rate 83 82 88 Pulse Rate [Pulse Oximeter] Respiratory Rate Blood Pressure Blood Pressure [Le ft Arm] Blood Pressure [Ri ght Arm] Blood Pressure [Ri ght Upper Arm] Pulse Oximetry 95 95 95 Oxygen Delivery Me thod Oxygen Flow Rate 08/31/22 17:45 08/31/22 18:02 08/31/22 18:15 Temperature Pulse Rate 95 82 83 Pulse Rate [Pulse Oximeter] Respiratory Rate Blood Pressure Blood Pressure [Le ft Arm] Blood Pressure [Ri ght Arm] Blood Pressure [Ri ght Upper Arm] Pulse Oximetry 90 97 98 Oxygen Delivery Me thod Oxygen Flow Rate 08/31/22 18:30 08/31/22 18:45 08/31/22 20:49 Temperature 97.7 F Pulse Rate 83 84 Pulse Rate [Pulse Oximeter] 78 Respiratory Rate 20 Blood Pressure 177/83 H Blood Pressure [Le ft Arm] Blood Pressure [Ri ght Arm] 174/74 H Blood Pressure [Ri ght Upper Arm] Pulse Oximetry 96 92 96 Oxygen Delivery Me thod OxyMask OxyMask Oxygen Flow Rate 5 08/31/22 20:49 08/31/22 19:00 08/31/22 23:00 Temperature 97.7 F 97.9 F Pulse Rate Pulse Rate [Pulse Oximeter] 78 88 Respiratory Rate 20 20 18 Blood Pressure Blood Pressure [Le ft Arm] Blood Pressure [Ri ght Arm] 174/74 H 163/90 H Blood Pressure [Ri ght Upper Arm] Pulse Oximetry 96 96 94 Oxygen Delivery Me thod OxyMask OxyMask Oxygen Flow Rate 08/31/22 23:00 08/31/22 23:00 09/01/22 03:00 Temperature 97.9 F Pulse Rate Pulse Rate [Pulse Oximeter] 88 85 Respiratory Rate 18 18 Blood Pressure Blood Pressure [Le ft Arm] Blood Pressure [Ri ght Arm] 137/77 Blood Pressure [Ri ght Upper Arm] Pulse Oximetry 95 Oxygen Delivery Me thod OxyMask OxyMask Oxygen Flow Rate 08/31/22 19:00 09/01/22 03:00 08/31/22 23:00 Temperature Pulse Rate 88 88 88 Pulse Rate [Pulse Oximeter] Respiratory Rate Blood Pressure Blood Pressure [Le ft Arm] Blood Pressure [Ri ght Arm] Blood Pressure [Ri ght Upper Arm] Pulse Oximetry Oxygen Delivery Me thod Oxygen Flow Rate 09/01/22 08:20 09/01/22 08:20 09/01/22 08:20 Temperature 98.4 F Pulse Rate Pulse Rate [Pulse Oximeter] 87 87 Respiratory Rate 18 20 20 Blood Pressure Blood Pressure [Le ft Arm] 123/52 L Blood Pressure [Ri ght Arm] Blood Pressure [Ri ght Upper Arm] Pulse Oximetry 90 90 Oxygen Delivery Me thod OxyMask OxyMask Oxygen Flow Rate 4 4 02/07/23 07:00 Temperature Pulse Rate 80 Pulse Rate [Pulse Oximeter] Respiratory Rate Blood Pressure Blood Pressure [Le ft Arm] Blood Pressure [Ri ght Arm] Blood Pressure [Ri ght Upper Arm] Pulse Oximetry Oxygen Delivery Me thod Oxygen Flow Rate Results Labs Labs: Abnormal lab results 08/31/22 09/01/22 Range/Units 21:27 12:30 TSH 4.510 H (0.270-4.20) uIU/mL Fluid Color Blood Tinged A Fluid Appearance Cloudy A Thyroid panel 08/31/22 Range/Units 21:27 TSH 4.510 H (0.270-4.20) uIU/mL Pituitary panel 08/31/22 Range/Units 21:27 TSH 4.510 H (0.270-4.20) uIU/mL All other labs normal. Assessment and Plan Assessment and plan (1) Pleural effusion: Problem comment: Recommend therapeutic and diagnostic thoracentesis. Cause of the pleural effusion is not clear. Deserves further testing and outpatient follow-up. I warned the patient that these have a tendency to come back. Status: Acute Plan 82-year-old female with history of COPD on home oxygen presents with symptomatic large right-sided pleural effusion. I discussed with the patient her imaging findings. Patient clinically is very uncomfortable from her shortness of breath. The etiology of her shortness of breath is most likely combination of her COPD and pleural effusion. Because of her pleural effusion is on clear. I think would be reasonable to proceed with thoracentesis. I discussed with the patient the procedure itself. The risks associated with the procedure including infection, bleeding, and pneumothorax were also discussed with the patient. Patient is at high risk for bleeding given the fact that her Plavix was held only for 4 days. However I think the benefit of thoracentesis outweighs the slightly increased risk of bleeding from being on Plavix. Patient agreed to proceed. General Surgery Procedures Thoracentesis Time Out Performed: Yes Imaging guidance used ?: Yes Indications: Pleural effusion Procedure: diagnostic thoracentesis (And therapeutic thoracentesis) Location: right Local anesthetic used: lidocaine Amount of anesthesia used (mL): 10 Bedside ultrasound used: yes, fluid confirmed and location marked Preparation: 11 blade used to make be in skin Amount of fluid obtained (mL): 1,450 Fluid: bloody (, dark or bloody but thin and cloudy.) Post Procedure Exam: awake, alert, normal BP, normal HR and normal SpO2 Patient Tolerated Procedure: no complications Additional Details: Post procedure chest x-ray showed no pneumothorax. There was still a moderate amount of residual fluid in the right chest.
[2022-09-01 13:17] LABS: Mononuclear WBC Body Fluid* 95 %; Polynuclear WBC Body Fluid* 6 %; RBC, Body Fluid* 36000 Cells/uL; WBC, Body Fluid* 332 Cells/uL
[2022-09-01 13:22] LABS: Albumin* 3.6 g/dL (3.3-5.0); INR 0.96 (0.91-1.10); Prothrombin Time 13.3 Seconds
[2022-09-01 13:25] LABS: Bilirubin Total* 0.6 mg/dL (0.1-1.5); Lactate Dehydrogenase* 223 U/L (120-246); Total Protein* 6.4 g/dL (6.0-8.3)
[2022-09-01 13:29] LABS: Amylase Body Fluid* 36 U/L; Glucose Body Fluid* 168 mg/dL; LDH Body Fluid* 264 U/L
[2022-09-01 13:30] LABS: Body Fluid Total Protein* 3.9 gm/dL
[2022-09-01] MEDS: HYDROmorphone 2 MG TABLET 8 MG PO (13:44)
--- NOTE | 2022-09-01 15:55 | PM.IMPN1 ---
Progress Note: A&P Assessment and plan (1) Pleural effusion: Problem details: Diagnostic and therapeutic thoracentesis 09/01/22, ~1400cc bloody fluid, sent for diagnostics. - Respiratory status improving. Less SOB. Obtain f/u film in 12 hours since she is at risk for post procedure reinflation pulmonary edema. Status: Acute (2) Hypoxia: Problem details: Acute on chronic due to pleural effusion plus underlying interstitial lung disease and COPD Status: Acute (3) COPD (chronic obstructive pulmonary disease): Problem details: Stable. At baseline. Status: Chronic (4) HUGO (obstructive sleep apnea): Problem details: HUGO 06/05/2007 AHI-14.2 Uses CPAP Uses OXYGEN at night with CPAP and approximately 5-6 hours per day in addition. 04/07/2011 Status: Chronic Plan If does well overnight, d/c home tomorrow. Subjective Time Seen by Provider: 15:20 Date Seen: 09/01/22 Interval history: Ben feels much better. She had immediate relief after thoracentesis and continues to feel better. No other complaints or concerns. Exam Narrative: Exam Narrative: General: No acute distress. Awake, alert, oriented x3. No pallor. No jaundice. Oropharynx: Clear. Mucous membranes moist. Cardiovascular: Regular rate and rhythm. No murmurs, gallops, or rubs. Respiratory: Diminished breath sounds at the right base with occasional expiratory wheeze especially on the right. Const: Vital Signs, click to edit/add: Vital Signs - 24 hr 08/31/22 16:00 08/31/22 17:55 08/31/22 16:27 Temperature Pulse Rate Pulse Rate [Pulse Oximeter] Respiratory Rate 16 Blood Pressure Blood Pressure [Le ft Arm] Blood Pressure [Ri ght Arm] Pulse Oximetry 87 L 94 94 Oxygen Delivery Me thod Room Air OxyMask Oxygen Flow Rate 5 08/31/22 16:30 08/31/22 16:45 08/31/22 17:00 Temperature Pulse Rate 87 90 83 Pulse Rate [Pulse Oximeter] Respiratory Rate Blood Pressure Blood Pressure [Le ft Arm] Blood Pressure [Ri ght Arm] Pulse Oximetry 95 96 95 Oxygen Delivery Me thod OxyMask Oxygen Flow Rate 5 08/31/22 17:15 08/31/22 17:30 08/31/22 17:45 Temperature Pulse Rate 82 88 95 Pulse Rate [Pulse Oximeter] Respiratory Rate Blood Pressure Blood Pressure [Le ft Arm] Blood Pressure [Ri ght Arm] Pulse Oximetry 95 95 90 Oxygen Delivery Me thod Oxygen Flow Rate 08/31/22 18:02 08/31/22 18:15 08/31/22 18:30 Temperature Pulse Rate 82 83 83 Pulse Rate [Pulse Oximeter] Respiratory Rate Blood Pressure Blood Pressure [Le ft Arm] Blood Pressure [Ri ght Arm] Pulse Oximetry 97 98 96 Oxygen Delivery Me thod Oxygen Flow Rate 08/31/22 18:45 08/31/22 20:49 08/31/22 20:49 Temperature 97.7 F Pulse Rate 84 Pulse Rate [Pulse Oximeter] 78 Respiratory Rate 20 20 Blood Pressure 177/83 H Blood Pressure [Le ft Arm] Blood Pressure [Ri ght Arm] 174/74 H Pulse Oximetry 92 96 96 Oxygen Delivery Me thod OxyMask OxyMask OxyMask Oxygen Flow Rate 5 08/31/22 19:00 08/31/22 23:00 08/31/22 23:00 Temperature 97.7 F 97.9 F Pulse Rate Pulse Rate [Pulse Oximeter] 78 88 88 Respiratory Rate 20 18 18 Blood Pressure Blood Pressure [Le ft Arm] Blood Pressure [Ri ght Arm] 174/74 H 163/90 H Pulse Oximetry 96 94 Oxygen Delivery Me thod OxyMask Oxygen Flow Rate 08/31/22 23:00 09/01/22 03:00 08/31/22 19:00 Temperature 97.9 F Pulse Rate 88 Pulse Rate [Pulse Oximeter] 85 Respiratory Rate 18 Blood Pressure Blood Pressure [Le ft Arm] Blood Pressure [Ri ght Arm] 137/77 Pulse Oximetry 95 Oxygen Delivery Me thod OxyMask OxyMask Oxygen Flow Rate 09/01/22 03:00 08/31/22 23:00 09/01/22 08:20 Temperature Pulse Rate 88 88 Pulse Rate [Pulse Oximeter] 87 Respiratory Rate 18 Blood Pressure Blood Pressure [Le ft Arm] Blood Pressure [Ri ght Arm] Pulse Oximetry Oxygen Delivery Me thod Oxygen Flow Rate 09/01/22 08:20 09/01/22 08:20 09/01/22 07:00 Temperature 98.4 F Pulse Rate 80 Pulse Rate [Pulse Oximeter] 87 Respiratory Rate 20 20 Blood Pressure Blood Pressure [Le ft Arm] 123/52 L Blood Pressure [Ri ght Arm] Pulse Oximetry 90 90 Oxygen Delivery Me thod OxyMask OxyMask Oxygen Flow Rate 4 4 09/01/22 12:30 Temperature 98.5 F Pulse Rate Pulse Rate [Pulse Oximeter] 82 Respiratory Rate 18 Blood Pressure Blood Pressure [Le ft Arm] Blood Pressure [Ri ght Arm] 127/57 L Pulse Oximetry 95 Oxygen Delivery Me thod OxyMask Oxygen Flow Rate 2 Documenting provider has reviewed patient's vital signs: yes Labs Labs: Laboratory Results - last 24 hr 08/31/22 08/31/22 09/01/22 18:10 21:27 12:30 INR Total Bilirubin Lactate Dehydrogenase Total Protein Albumin TSH 4.510 H Fluid Volume 240 Fluid Color Blood Tinged A Fluid Appearance Cloudy A Fluid pH 8.5 Fluid WBC 332 Fluid RBC 91973 Fluid Polynuclear WBCs 6 Fluid Mononuclear WBCs 95 Fluid Glucose 168 Fluid Total Protein 3.9 Fluid LDH 264 Fluid Amylase 36 SARS-CoV-2 (PCR) Negative SARS-CoV-2 09/01/22 09/01/22 12:55 12:55 INR 0.96 Total Bilirubin 0.6 Lactate Dehydrogenase 223 Total Protein 6.4 Albumin 3.6 TSH Fluid Volume Fluid Color Fluid Appearance Fluid pH Fluid WBC Fluid RBC Fluid Polynuclear WBCs Fluid Mononuclear WBCs Fluid Glucose Fluid Total Protein Fluid LDH Fluid Amylase SARS-CoV-2 (PCR)
--- NOTE | 2022-09-01 19:52 | PC.NURSE ---
Pt is alert and oriented x3. Pt denies pain, SOB, chest pain, and N/V. Pt O2 sats have been between 90-96%. Pt had a thoracentesis today 09/01/[address] Ruth at 1159 on the left lobe, 1450 ml of fluid was drained. Pt tolerated procedure well, and reported no pain. Incision site is open to air wit no drainage. Right lung sounds are clear the left lung sounds can now be heard clearly with minor inspiratory wheezing. Pt is up IND in room and tolerating a strict diet.
[2022-09-01] MEDS: HYDROmorphone 2 MG TABLET 16 MG PO (20:41)
[2022-09-01] MEDS: METHADONE 5 MG TABLET 10 MG PO (20:42)
[2022-09-01] MEDS: ROSUVASTATIN CALCIUM 10 MG TABLET 20 MG PO (20:43)
[2022-09-01] MEDS: GABAPENTIN 300 MG CAPSULE 600 MG PO (20:43)
[2022-09-02 02:41] VITALS: PULSE 81
[2022-09-02 03:00] VITALS: BP 143/80; PULSE 80; RESP 18; TEMP 36.4; O2SAT 95
[2022-09-02] MEDS: LEVOTHYROXINE 88 MCG TABLET PO (05:55)
--- NOTE | 2022-09-02 06:21 | PC.NURSE ---
Patient is alert and oriented x4. Patient on scheduled pain medications that managing his pain. VSS on 2L of O2 via oxymash, used CPAP from home. Patient is continent of bowel and bladder, independent in room.
--- NOTE | 2022-09-02 07:05 | CRLHL7_ITS ---
For Patients: As a result of the Century Cures Act, medical imaging exams and procedure reports are released immediately into your electronic medical record. You may view this report before your referring provider. If you have questions, please contact your health care provider. INDICATION: Status post thoracentesis COMPARISON: September 01, 2022 at 12:33 p.m. TECHNIQUE: Single-view study September 02, 2022 at 7:18 a.m. FINDINGS: TUBES AND LINES: None. HEART AND MEDIASTINUM: The heart size is normal. The mediastinal contour appears normal for patient age. LUNGS AND PLEURAL SPACES: Normal appearing left lung left pleural space. Persistent right subpulmonic effusion with associated basilar airspace process probably atelectasis.No pneumothorax. OSSEOUS STRUCTURES: Age-appropriate appearance. No acute focal finding. IMPRESSION: No pneumothorax status post thoracentesis. Right basilar airspace process probably atelectasis and persistent subpulmonic effusion Dictated by Carlo Caballero MD @ 09/02/2022 7:50:56 AM (Electronically Signed)
[2022-09-02 07:33] VITALS: BP 123/76; PULSE 93; RESP 20; TEMP 36.7; O2SAT 91
[2022-09-02] MEDS: FUROSEMIDE 20 MG TABLET PO (07:44)
[2022-09-02] MEDS: TAMSULOSIN HCL 0.4 MG CAPSULE PO (07:44)
[2022-09-02] MEDS: METHADONE 5 MG TABLET PO (07:46)
[2022-09-02] MEDS: SENNOSIDES/DOCUSATE TABLET 2 TAB PO (07:46)
[2022-09-02] MEDS: allopurinoL 300 MG TABLET 150 MG PO (07:47)
[2022-09-02] MEDS: HYDROmorphone 2 MG TABLET 8 MG PO (07:47)
[2022-09-02] MEDS: POTASSIUM CITRATE 10 MEQ TABLET.ER 20 MEQ PO (07:48)
[2022-09-02] MEDS: OCUVITE TABLET 1 TAB PO (07:48)
[2022-09-02] MEDS: CLOPIDOGREL 75 MG TABLET PO (07:48)
[2022-09-02] MEDS: ALBUTEROL SULFATE 2.5 MG/3 ML VIAL.NEB NEB (07:51)
[2022-09-02] MEDS: GABAPENTIN 600 MG TABLET PO (07:56)
--- NOTE | 2022-09-02 08:04 | PM.DS1 ---
DS: Providers Provider Date Seen: 09/02/22 Date of admission: 08/31/22 20:34 Primary care physician: Michael Sandy MD Admitting Clinician: Pranav Marcum MD Consults: General Surgery for thoracentesis Attending Physician on discharge: Whitney Fajardo MD Date of Discharge: 09/02/22 DS: Diagnosis Discharge Diagnosis (1) Pleural effusion: Status: Acute Problem details: Diagnostic and therapeutic thoracentesis 09/01/22, ~1400cc bloody fluid, sent for diagnostics, pending at discharge. Patient improved after procedure, repeat CXR reassuring. (2) Hypoxia: Status: Acute Problem details: Acute on chronic due to pleural effusion plus underlying interstitial lung disease and COPD (3) COPD (chronic obstructive pulmonary disease): Status: Chronic Problem details: Stable. At baseline. (4) HUGO (obstructive sleep apnea): Status: Chronic Problem details: HUGO 06/05/2007 AHI-14.2 Uses CPAP Uses OXYGEN at night with CPAP and approximately 5-6 hours per day in addition. 04/07/2011 DS: Summary Hospital Course Hospital Course: Kianna is a pleasant 82-year-old female, admitted to the hospital on 08/31 for a right-sided pleural effusion. She had a successful thoracentesis with Dr. Ruth of General surgery on 09/01; greater than 1400 mL of fluid aspirated. Cytology pending at discharge. Follow-up imaging revealed no concern for post thoracentesis pulmonary edema; patient felt back to baseline and requested discharge home on 09/02. Her multiple medical comorbidities remained stable, she will follow-up with her PCP within the next 10 days. Return precautions reviewed. Status at Discharge Overall status at discharge: patient is back to baseline Time Spent with Patient Time attestation: Total time spent providing and/or coordinating discharge services: Time spent: Greater than 30 minutes Specific discharge activities: Medication reconciliation, care coordination with multidisciplinary team including General surgery, documentation Exam Narrative: Exam Narrative: GEN: Alert and oriented, sitting comfortably in bedside chair and eating breakfast. Answering questions appropriately and speaking in full sentences HEENT: EOMIs bilaterally, no scleral icterus CV: RRR, + systolic murmur without concerning features R: Air movement adequate, soft end-expiratory wheezing in bilateral apices Ext: wwp, no concerning edema Skin: No concerning skin lesions or rashes on exposed skin Neuro: Nonfocal Psych: Appropriate Const: Vital Signs, click to edit/add: Vital Signs - 24 hr stay 09/01/22 08:20 09/01/22 08:20 09/01/22 08:20 Temperature 98.4 F Pulse Rate Pulse Rate [Pulse Oximeter] 87 87 Respiratory Rate 18 20 20 Blood Pressure [Le ft Arm] 123/52 L Blood Pressure [Ri ght Arm] Pulse Oximetry 90 90 Oxygen Delivery Me thod OxyMask OxyMask Oxygen Flow Rate 4 4 09/01/22 12:30 09/01/22 15:00 09/01/22 15:00 Temperature 98.5 F Pulse Rate Pulse Rate [Pulse Oximeter] 82 Respiratory Rate 18 18 16 Blood Pressure [Le ft Arm] Blood Pressure [Ri ght Arm] 127/57 L Pulse Oximetry 95 93 Oxygen Delivery Me thod OxyMask OxyMask Oxygen Flow Rate 2 2 09/01/22 15:00 09/01/22 17:58 09/01/22 19:00 Temperature 97.2 F L 97.8 F Pulse Rate Pulse Rate [Pulse Oximeter] 56 L 88 Respiratory Rate 16 18 Blood Pressure [Le ft Arm] 141/82 H Blood Pressure [Ri ght Arm] 120/63 Pulse Oximetry 93 93 93 Oxygen Delivery Me thod OxyMask OxyMask Oxygen Flow Rate 2 09/01/22 15:00 09/01/22 23:00 09/01/22 23:00 Temperature Pulse Rate 85 Pulse Rate [Pulse Oximeter] 88 Respiratory Rate 18 Blood Pressure [Le ft Arm] Blood Pressure [Ri ght Arm] Pulse Oximetry 94 Oxygen Delivery Me thod OxyMask Oxygen Flow Rate 09/01/22 23:00 09/02/22 02:41 09/02/22 03:00 Temperature 97.6 F 97.5 F L Pulse Rate 81 Pulse Rate [Pulse Oximeter] 82 80 Respiratory Rate 18 18 Blood Pressure [Le ft Arm] 144/83 H 143/80 H Blood Pressure [Ri ght Arm] Pulse Oximetry 94 95 Oxygen Delivery Me thod OxyMask Nasal Cannula CPAP Oxygen Flow Rate 09/02/22 07:33 Temperature 98.0 F Pulse Rate Pulse Rate [Pulse Oximeter] 93 Respiratory Rate 20 Blood Pressure [Le ft Arm] 123/76 Blood Pressure [Ri ght Arm] Pulse Oximetry 91 Oxygen Delivery Me thod Room Air Oxygen Flow Rate DS: Data Data Completed and Pending Completed studies during hospitalization: Procedures Assistance with Respiratory Ventilation, 24-96 Consecutive Hours, High Nasal Flow/Velocity (05/10/22) Introduction of Other Therapeutic Substance into Respiratory Tract, Via Natural or Artificial Opening (07/06/22) Labs on day of discharge: Labs from last 24 hours 09/01/22 09/01/22 09/01/22 12:55 12:55 12:30 INR 0.96 Total Bilirubin 0.6 Lactate Dehydrogenase 223 Total Protein 6.4 Albumin 3.6 Fluid Volume Fluid Color Fluid Appearance Fluid pH Fluid WBC Fluid RBC Fluid Polynuclear WBCs Fluid Mononuclear WBCs Fluid Glucose Fluid Total Protein Fluid LDH Fluid Amylase Cytology Interpretat Pending 09/01/22 12:30 INR Total Bilirubin Lactate Dehydrogenase Total Protein Albumin Fluid Volume 240 Fluid Color Blood Tinged A Fluid Appearance Cloudy A Fluid pH 8.5 Fluid WBC 332 Fluid RBC 59700 Fluid Polynuclear WBCs 6 Fluid Mononuclear WBCs 95 Fluid Glucose 168 Fluid Total Protein 3.9 Fluid LDH 264 Fluid Amylase 36 Cytology Interpretat Discharge Plan Discharge Disposition: Home, Self-Care Date of Admission: 08/31/22 20:34 Attending Provider on Discharge: Whitney Fajardo Consulting Providers: Dayanna Ruth Primary Care Provider: Michael Sandy Condition: Improved Anticipated Discharge Date/Time: 09/02/22 09:00 Discharge Medications: Continued colchicine 0.6 mg tablet 0.6 mg PO BID PRN Label Comments: TAKE ONE TABLET BY MOUTH TWICE DAILY NEEDED levothyroxine 88 mcg tablet 88 mcg PO DAILY Label Comments: Take 1 Tablet (88 mcg) by mouth before breakfast naloxone [Narcan] 4 mg/actuation spray,non-aerosol 4 mg INTRANASAL DIRECTED PRN Label Comments: Inhale 1 [place] into affected nostril(s) each time if needed for Patient Diff To Arouse or Resp Rate < 8 / min. Additional doses may be given fexofenadine [Aller-ease] 180 mg tablet 180 mg PO DAILY PRN cholecalciferol (vitamin D3) [Vitamin D3] 50 mcg (2,000 unit) tablet 4,000 unit PO DAILY cyclobenzaprine 5 mg tablet 5 mg PO Q8H PRN Ocutabs Tablet 1 tab PO DAILY prochlorperazine maleate 10 mg tablet 10 mg PO Q6H PRN Label Comments: TAKE ONE TABLET BY MOUTH EVERY SIX HOURS NEEDED potassium chloride [Klor-Con M20] 20 mEq tablet,ER particles/crystals 20 meq PO BIDWM Label Comments: Take 1 Tablet (20 mEq) by mouth 2 times daily with meals insulin aspart U-100 [Novolog FlexPen U-100 Insulin] 100 unit/mL (3 mL) insulin pen 18 unit subcut DAILY@12 methadone 5 mg tablet 10 mg PO HS BIOTENE DRY MOUTH LOZENGES 1 ea mucous membrane QID PRN hydromorphone [Dilaudid] 8 mg tablet 16 mg PO HS sennosides-docusate sodium [Stool Softener-Laxative] 8.6-50 mg Tablet 4 tab PO BID 30 Days Qty: 240 0RF albuterol sulfate 2.5 mg /3 mL (0.083 %) solution for nebulization 2.5 mg inhalation Q4H PRN insulin aspart U-100 [Novolog FlexPen U-100 Insulin] 100 unit/mL (3 mL) Insulin Pen 26 unit subcut DAILY@18 loperamide 2 mg capsule 2 mg PO BID PRN hydromorphone 8 mg tablet 8 mg PO QAM Rx Instructions: TAKES 1 PILL IN AM AND 2 IN PM clopidogrel 75 mg tablet 75 mg PO DAILY Label Comments: TAKE ONE TABLET BY MOUTH ONE TIME DAILY tamsulosin 0.4 mg capsule 0.4 mg PO DAILY Label Comments: Take 1 Capsule (0.4 mg) by mouth once daily after a meal. gabapentin 300 mg capsule 600 mg PO HS allopurinol 300 mg tablet 150 mg PO DAILY furosemide 20 mg tablet 20 mg PO DAILY Label Comments: Take 1 Tablet (20 mg) by mouth every morning. methadone 5 mg tablet 5 mg PO QAM insulin aspart U-100 [Novolog FlexPen U-100 Insulin] 100 unit/mL (3 mL) insulin pen 12 unit SUBCUT DAILY@08 rosuvastatin 20 mg tablet 20 mg PO HS Label Comments: Take 1 Tablet (20 mg) by mouth at bedtime. insulin degludec [Tresiba FlexTouch U-100] 100 unit/mL (3 mL) insulin pen 26 unit SUBCUT HS Ozempic 1 mg/dose (4 mg/3 mL) pen injector 1 mg SUBCUT TH@09 Rx Instructions: WEEKLY ON WEDNESDAY Discontinued levofloxacin 500 mg tablet 500 mg PO DAILY 5 Days Qty: 5 0RF Discharge Orders: Discharge Order (Routine); Ordered 09/02/22 Ordered By: Whitney Fajardo Patient Education: Sleep Apnea (DC), COPD (Chronic Obstructive Pulmonary Disease) (DC), Pleural Effusion (DC) Additional Instructions: Consider scheduling nebs for the next few days. You can use oxygen during the day as needed, goal is O2 Saturation 90-92%. No changes to home medications otherwise. See Dr. Sandy next week for a hospital followup and lung check. Activity Level: Activity as Tolerated Discharge Diet: Diabetic Follow Up Appointments: Michael Sandy MD [Primary Care Provider] - 09/10/22 12:45 pm Forms: [employer] Info Instructions
[2022-09-02 09:23] VITALS: PULSE 92; O2SAT 84; O2SAT 90
[2022-09-02 09:26] VITALS: O2SAT 92
[2022-09-02 09:41] VITALS: BP 177/83; PULSE 92; RESP 20; TEMP 36.7
--- NOTE | 2022-09-02 10:14 | PC.NURSE ---
Patient discharged home. Tolerating a regular diet. BS 142 this morning. pain controlled. Does have some right sided chest discomfort from thoracenesis yesterday. Does have expiratory wheezes and this was resolved by the use of an albuterol inhaler. Patient is coughing up some yellow junk. MD aware. Afebrile. Chest X-ray obtained this morning. Saturations are 90-92% on RA at rest and when she does do activity, they will drop to 85%. Oxygen was applied with activity and does come back to 92% with 2L. Patient has home oxygen already and a pulse ox. Has follow up with PCP next week. Voiding and passing flatus. No PIV present. All questions answered. Left via wheelchair escort.
== END 2022-09-02 10:17 | disposition home or self-care (01) ==
LOC: ED 17:27 → MEDSURG 20:34
PROVIDERS: Surgery; Admitting Provider Family Medicine; Emergency Provider Emergency Medicine Emergency Medical Services; PCP Surgery; Visit Provider Family Medicine
DX: R09.02 Hypoxemia (principal); J90 Pleural effusion, not elsewhere classified; J84.10 Pulmonary fibrosis, unspecified; J84.9 Interstitial pulmonary disease, unspecified; J44.9 Chronic obstructive pulmonary disease, unspecified; G47.33 Obstructive sleep apnea (adult) (pediatric); Z99.89 Dependence on other enabling machines and devices; Z79.4 Long term (current) use of insulin; Z90.49 Acquired absence of other specified parts of digestive tract; Z90.710 Acquired absence of both cervix and uterus; Z98.890 Other specified postprocedural states; Z87.898 Personal history of other specified conditions; Z66 Do not resuscitate; Z87.891 Personal history of nicotine dependence; Z87.01 Personal history of pneumonia (recurrent); J30.89 Other allergic rhinitis; K21.9 Gastro-esophageal reflux disease without esophagitis; Z87.19 Personal history of other diseases of the digestive system; M10.9 Gout, unspecified; Z86.79 Personal history of other diseases of the circulatory system; E03.9 Hypothyroidism, unspecified; G62.9 Polyneuropathy, unspecified; E11.43 Type 2 diabetes mellitus with diabetic autonomic (poly)neuropathy; E11.22 Type 2 diabetes mellitus with diabetic chronic kidney disease; I12.9 Hypertensive chronic kidney disease with stage 1 through stage 4 chronic kidney disease, or unspecified chronic kidney disease; N18.30 Chronic kidney disease, stage 3 unspecified; Z79.899 Other long term (current) drug therapy
CPT/HCPCS: 32555; 36415; 71045; 82040; 82150; 82247; 82945; 82962; 83615; 83986; 84155; 84157; 84443; 85610; 87015; 87070; 87102; 87116; 87205; 87635; 88112; 88305; 88341; 88342; 88360; 89051; 94640; 94761; 96360; 96361; 96372; 99285; G0378; A9153; A9270; J7120

== ENCOUNTER 2022-09-04 22:55 | Inpatient (IN) | payer MEDICARE, BC, SELFPAY ==
[2022-09-04 23:08] VITALS: BP 189/98; PULSE 92; RESP 30; TEMP 36.7; O2SAT 86; BMI 28.3
--- NOTE | 2022-09-04 23:15 | CRLHL7_ITS ---
For Patients: As a result of the 21st Century Cures Act, medical imaging exams and procedure reports are released immediately into your electronic medical record. You may view this report before your referring provider. If you have questions, please contact your health care provider. INDICATION: Shortness of breath. Abdominal distention. Status post thoracentesis 3 days ago removing 1.5 liters. COMPARISON: CT of the chest from 08/28/2022. CT of the chest, abdomen, and pelvis from 07/06/2022. TECHNIQUE: CT examination of the chest, abdomen, and pelvis was performed with the uneventful intravenous administration of 95 cc of Isovue 370 while 1.5 mm thick axial sections were obtained from above the apices of the lungs through the symphysis pubis. Oral contrast was not administered. Please note that all CT scans at this facility use dose modulation, iterative reconstruction, and/or weight-based dosing when appropriate to reduce radiation dose to as low as reasonably achievable. FINDINGS: : In the chest, there is a large right pleural effusion, the same size as seen on the previous CT from 08/28/2022. Again seen is prominence atelectasis of the majority of the right lower lobe and moderate atelectasis of the medial posterior right middle lobe. There is a new minimal left pleural effusion. There is stable moderate diffuse ground-glass pulmonary fibrosis with stable severe centrilobular emphysema with an upper lobe predominance. There is excellent enhancement of the pulmonary arteries with no sign of pulmonary embolism. There is no sign of mediastinal or hilar mass or adenopathy. There is stable moderate LAD and severe proximal RCA coronary calcification. The heart remains normal in size. There is no sign of a pericardial effusion. There is age appropriate appearance of the thoracic aorta and ascending great vessels. There is no sign of supraclavicular or axillary mass or adenopathy. There is increase in mild ascites. There is now a small amount of fluid around the liver and in both pericolic gutters. There is an moderate amount of fluid in the pelvis. There is new mild diffuse anasarca, most prominent in the abdomen and pelvis. In the abdomen, the liver is seen to have stable mild intrahepatic ductal dilatation. This is associated with stable prominent dilatation of the common bile duct to 15 mm and absence of the gallbladder from cholecystectomy. The findings are consistent with post-cholecystectomy status. The liver is otherwise normal in appearance. The spleen and adrenals are normal in appearance. The pancreas is again seen to be prominently atrophic. There are coarse calcifications at the junction of the pancreatic head and body from previous pancreatitis. Again seen is cortical thinning along the lateral upper pole of the right kidney from previous inflammatory disease. There is a stable 11 millimeter cortical cyst in the interpolar right kidney. The abdominal aorta is normal in caliber with no sign of dilatation. There is no sign of retroperitoneal mass or adenopathy. There is a stable small hiatal hernia. The rest of the stomach, loops of small bowel, and colon in the abdomen are otherwise normal in appearance. In the pelvis, the appendix is nonvisualized, but there is no sign of an inflammatory process in the area of the appendix. The loops of small bowel, colon, and rectum in the pelvis are normal in appearance. The uterus is again seen to be absent and the adnexal regions are normal in appearance. The urinary bladder is normal in appearance. There is no sign of pelvic or inguinal mass or adenopathy. There is no sign of free air or free fluid in the abdomen or pelvis. Again seen is mild scoliosis of the thoracic spine convex towards the right. There is no change in mild anterior wedging of the T5 vertebral body and the mild superior T6 endplate fracture. Again seen is moderate disc degenerative disease on the left at T7-8. There is stable grade 1 anterior subluxation of L3 through S1 with stable mild L3-4 and L4-5 disc degenerative disease and moderate L5-S1 disc degenerative disease. IMPRESSION: CT of the chest shows a large right pleural effusion, similar in size to the CT from 08/28/2022. No change in prominent atelectasis of the majority of the right lower lobe and the inferior medial portion of the right middle lobe. Tiny new left pleural effusion. Stable moderate diffuse ground-glass pulmonary fibrosis and severe centrilobular emphysema with an upper lobe predominance. Increased mild ascites. New mild diffuse anasarca. CT of the abdomen shows stable mild intrahepatic and prominent extrahepatic biliary ductal dilatation consistent with post cholecystectomy status. Markedly atrophic pancreas with coarse calcifications at the junction of the head and body from previous pancreatitis. CT of the pelvis shows stable changes of hysterectomy. Please note that all CT scans at this facility use dose modulation, iterative reconstruction, and/or weight-based dosing when appropriate to reduce radiation dose to as low as reasonably achievable. Dictated by Alcon Bellamy MD @ 09/05/2022 12:55:49 AM (Electronically Signed)
--- NOTE | 2022-09-04 23:15 | ED_ITS ---
HPI - SOB/Dyspnea General Chief Complaint: Shortness of Breath/Dyspnea Stated Complaint: Shortness of Breath Time Seen by Provider: 09/04/22 22:59 History of Present Illness HPI Narrative: Pt is an 82 year old woman who presents with increasing shortness of breath. Pt was discharged two days ago after being hospitalized with a large pleural effusion and COPD. Pt had a large volume thoracentesis of a bloody fluid. Pt was discharged and felt fairly well. Tonight she went and played [employer] and found herself becoming more short of breath over the past 2 hours. Pt is on 2 liters of oxygen at home. She doesn't describe any chest pain but does feel like her abd is more distended although it doesn't hurt. Pt has had no neurological symptoms and has an oxygen saturation of 92% on 2 liters of oxygen. Related Data Home Medications Medication Instructions Recorded Confirmed allopurinol 300 mg tablet 150 mg PO DAILY 04/04/22 09/01/22 clopidogrel 75 mg tablet 75 mg PO DAILY 04/04/22 09/01/22 furosemide 20 mg tablet 20 mg PO DAILY 04/04/22 09/01/22 gabapentin 300 mg capsule 600 mg PO 04/04/22 09/01/22 hydromorphone 8 mg tablet 8 mg PO QAM 04/04/22 09/01/22 insulin aspart U-100 100 unit/mL 12 unit subcut DAILY@04/04/22 09/01/22 (3 mL) subcutaneous pen (Novolog FlexPen U-100 Insulin aspart) insulin degludec 100 unit/mL (3 26 unit subcut 04/04/22 08/10/22 mL) subcutaneous pen (Tresiba FlexTouch U-100 insulin) loperamide 2 mg capsule 2 mg PO BID PRN 04/04/22 08/10/22 methadone 5 mg tablet 5 mg PO QAM 04/04/22 08/10/22 rosuvastatin 20 mg tablet 20 mg PO 04/04/22 08/10/22 semaglutide 1 mg/dose (4 mg/3 mL) 1 mg subcut TH@04/04/22 08/10/22 subcutaneous pen injector (Ozempic) tamsulosin 0.4 mg capsule 0.4 mg PO DAILY 04/04/22 08/10/22 colchicine 0.6 mg tablet 0.6 mg PO BID PRN 04/11/22 09/01/22 BIOTENE DRY MOUTH LOZENGES 1 ea mucous membrane QID PRN 05/10/22 09/01/22 cholecalciferol (vitamin D3) 50 4,000 unit PO DAILY 05/10/22 09/01/22 mcg (2,000 unit) tablet (Vitamin D3) cyclobenzaprine 5 mg tablet 5 mg PO Q8H PRN 05/10/22 09/01/22 fexofenadine 180 mg tablet 180 mg PO DAILY PRN 05/10/22 09/01/22 (Aller-ease) hydromorphone 8 mg tablet 16 mg PO HS 05/10/22 09/01/22 (Dilaudid) insulin aspart U-100 100 unit/mL 18 unit subcut DAILY@12 05/10/22 09/01/22 (3 mL) subcutaneous pen (Novolog FlexPen U-100 Insulin aspart) levothyroxine 88 mcg tablet 88 mcg PO DAILY 05/10/22 08/10/22 methadone 5 mg tablet 10 mg PO HS 05/10/22 08/10/22 naloxone 4 mg/actuation nasal 4 mg intranasal DIRECTED PRN 05/10/22 08/10/22 spray (Narcan) potassium chloride 20 mEq 20 meq PO BIDWM 05/10/22 08/10/22 tablet,extended release(part/cryst) (Klor-Con M) prochlorperazine maleate 10 mg 10 mg PO Q6H PRN 05/10/22 08/10/22 tablet vitamin A-vitamin C-vit E-min 1 tab PO DAILY 05/10/22 08/10/22 tablet (Ocutabs tablet) albuterol sulfate 2.5 mg/3 mL 2.5 mg inhalation Q4H PRN 07/06/22 09/01/22 (0.083 %) solution for nebulization insulin aspart U-100 100 unit/mL 26 unit subcut DAILY@18 07/06/22 09/01/22 (3 mL) subcutaneous pen (Novolog FlexPen U-100 Insulin aspart) Previous Rx's Medication Instructions Recorded sennosides 8.6 mg-docusate sodium 4 tab PO BID 30 days #240 tabs 05/18/22 50 mg tablet (Stool Softener-Laxative) Allergies Allergy/AdvReac Type Severity Reaction Status Date / Time cortisone Allergy Severe Anaphylaxis Verified 09/04/22 23:11 prednisone Allergy Severe Verified 09/04/22 23:11 amoxicillin Allergy Intermediate Verified 09/04/22 23:11 cephalexin [From Keflex] Allergy Intermediate Diarrhea Verified 09/04/22 23:11 doxycycline Allergy Intermediate Verified 09/04/22 23:11 duloxetine [From Cymbalta] Allergy Intermediate Verified 09/04/22 23:11 escitalopram [From Lexapro] Allergy Intermediate sleep Verified 09/04/22 23:11 disturbance febuxostat Allergy Intermediate vomitting Verified 09/04/22 23:11 latex Allergy Intermediate Verified 09/04/22 23:11 lisinopril Allergy Intermediate Verified 09/04/22 23:11 losartan [From Cozaar] Allergy Intermediate Verified 09/04/22 23:11 nitrofurantoin Allergy Intermediate Verified 09/04/22 23:11 [From Macrobid] pregabalin [From Lyrica] Allergy Intermediate Nausea Verified 09/04/22 23:11 propoxyphene Allergy Intermediate angioedema Verified 09/04/22 23:11 ramelteon [From Rozerem] Allergy Intermediate Verified 09/04/22 23:11 sulfamethoxazole Allergy Intermediate Verified 09/04/22 23:11 [From Bactrim] tramadol [From Ultram] Allergy Intermediate Verified 09/04/22 23:11 trimethoprim [From Bactrim] Allergy Intermediate Verified 09/04/22 23:11 venlafaxine [From Effexor] Allergy Intermediate Verified 09/04/22 23:11 zolpidem [From Ambien] Allergy Intermediate Confusion Verified 09/04/22 23:11 acetaminophen [From Vicodin] Allergy Mild Nausea Verified 09/04/22 23:11 hydrocodone [From Vicodin] Allergy Mild Nausea Verified 09/04/22 23:11 aspirin Allergy Unknown Verified 09/04/22 23:11 clindamycin Allergy Unknown Verified 09/04/22 23:11 ipratropium [From Atrovent] Allergy Unknown Verified 09/04/22 23:11 Penicillins Allergy Unknown Verified 09/04/22 23:11 pramipexole Allergy Unknown Verified 09/04/22 23:11 trazodone Allergy Unknown Verified 09/04/22 23:11 adhesive tape Allergy huge Verified 09/04/22 23:11 blisters Review of Systems Status of ROS: Reports: 10 or more systems reviewed and unremarkable except as noted in History and below [facility] Medical History Acute insomnia Allergic rhinitis CAD (coronary artery disease) Chronic kidney disease, stage 3b Chronic pain Constipation Controlled substance agreement signed COPD (chronic obstructive pulmonary disease) Depression Gastroparesis GERD (gastroesophageal reflux disease) Gouty arthropathy Hereditary and idiopathic peripheral neuropathy Hypercalcemia Hypertension Hypertriglyceridemia Hypokalemia Hypothyroidism Myocardial infarction Neurogenic bladder Neuropathy HUGO (obstructive sleep apnea) Peripheral autonomic neuropathy due to diabetes mellitus Peripheral vascular disease Pneumonia POLST (Physician Orders for Life-Sustaining Treatment) Pulmonary fibrosis Pulmonary nodule SBO (small bowel obstruction) Slow transit constipation Stroke TIA (transient ischemic attack) Type 2 diabetes mellitus with complication, with long-term current use of insulin Urinary tract infection Surgical History H/O blepharoplasty H/O colonoscopy H/O foot surgery H/O neck surgery H/O: hysterectomy History of cholecystectomy Hx of appendectomy Hx of repair of rotator cuff Hx of tonsillectomy S/P bunionectomy S/P left rotator cuff repair Family History Maternal Grandfather Pancreatic cancer Aunt Breast cancer Uncle Lung cancer Aunt Breast cancer Father Tuberculosis Coronary artery disease Social History Narrative: Lives independently with her boyfriend, Zane, and her daughter, Martín, who lives in the basement. Quit tobacco 1986. No EtOH. Denies recreational drug use. Wants to be DNR/DNI. Highest level of school completed/degree received: some college, no degree Smoking Status: Former smoker Do you use any of these nicotine containing products: None Second hand tobacco smoke exposure: No How often do you have a drink containing alcohol: never How often do you have six or more drinks on one occasion: Never AUDIT-C Alcohol total score: 0 Non-prescribed substance use: denies use Caffeine: Yes Are you using contraception or practicing any form of control: No service: No Exam Narrative: Exam Narrative: EXAM GENERAL: Patient appears tachypneic and frightened. EYES: No scleral icterus. THYROID: no thyroid nodules or thyromegaly. LYMPH: No supraclavicular or cervical lymphadenopathy. SKIN: Visible skin seen during exam normal or with benign process only. EXT: No dependent lower extremity pedal edema. HEART: Regular rate and rhythm with no murmurs, rubs, or gallops. LUNGS: Clear to auscultation bilaterally with no crackles or wheezes. ABD: Distended with hypoactive bowel sounds no pain to palpation. PSYCH: Good eye contact, speech is not pressured. Neurologic cranial nerves 2-12 grossly intact no focal defects. Const: Vital Signs, click to edit/add: Vital Signs - 24 hr 09/04/22 23:08 09/04/22 23:20 09/04/22 23:19 Temperature 98.0 F Pulse Rate 93 Pulse Rate [Right Pulse Oximeter] 92 Respiratory Rate 30 H Blood Pressure Blood Pressure [Ri ght Upper Arm] 189/98 H Pulse Oximetry 86 L 92 93 Oxygen Delivery Me thod Room Air Nasal Cannula Oxygen Flow Rate 4 09/04/22 23:30 09/04/22 23:31 09/04/22 23:45 Temperature Pulse Rate 95 93 95 Pulse Rate [Right Pulse Oximeter] Respiratory Rate Blood Pressure 189/96 H Blood Pressure [Ri ght Upper Arm] Pulse Oximetry 91 93 91 Oxygen Delivery Me thod Oxygen Flow Rate 09/05/22 00:14 09/05/22 00:15 09/05/22 00:16 Temperature Pulse Rate 88 94 95 Pulse Rate [Right Pulse Oximeter] Respiratory Rate Blood Pressure 172/96 H Blood Pressure [Ri ght Upper Arm] Pulse Oximetry 96 94 96 Oxygen Delivery Me thod Oxygen Flow Rate Course Course Hospital Course: Pt seen and examined. CT chest PE protocol as well as CT abd and pelvis ordered ruth with ABG, CBC, CMP, Amylase, Lactate, Troponin, EKG shows NSR without acute abnormalities. Reevaluation(s) Reevaluation #1: Labs reviewed and significant for low oxygen on blood gas which lab believes to be a venous sample. Hyperglycemia noted. CT chest, abd, pelvis significant for near complete reaccumulation of large pleural effusion which was just tapped 2 days ago. Time: 01:17 Vital Signs Vital signs: Initial Vital Signs Temperature 98.0 F 09/04/22 23:08 Temperature Source Temporal Artery Scan 09/04/22 23:08 Pulse Rate 92 09/04/22 23:08 Pulse Rhythm 09/04/22 23:08 Pulse Strength 3+ Normal 09/04/22 23:08 Respiratory Rate 30 H 09/04/22 23:08 Blood Pressure 189/98 H 09/04/22 23:08 Blood Pressure Mean 128 09/04/22 23:08 Blood Pressure Position Sitting 09/04/22 23:08 Pulse Oximetry 86 L 09/04/22 23:08 Oxygen Delivery Method 09/04/22 23:08 Vital Signs Temperature 98.0 F 09/04/22 23:08 Pulse Rate 92 09/04/22 23:08 Respiratory Rate 30 H 09/04/22 23:08 Blood Pressure 189/98 H 09/04/22 23:08 Pulse Oximetry 86 L 09/04/22 23:08 Oxygen Delivery Method 09/04/22 23:08 Temperature 98.0 F 09/04/22 23:08 Pulse Rate 95 09/05/22 00:16 Respiratory Rate 30 H 09/04/22 23:08 Blood Pressure 172/96 H 09/05/22 00:16 Pulse Oximetry 96 09/05/22 00:16 Oxygen Delivery Method 09/04/22 23:20 Oxygen Flow Rate 4 09/04/22 23:20 MDM - SOB/Dyspnea MDM Narrative Medical decision making narrative: Pt is an 82 year old woman recently discharged from the hospital after treatment for significant pleural effusion which was drained via thoracentesis 2 days ago who presents with worsening shortness of breath. Pt underwent CT chest, abd, pelvis which showed pleural effusion reaccumulation. Pt fairly stable but feels week. I am concerned that symptoms may worsen overnight. Will plan to admit to hospitalist service to discuss further treatment with surgery in the am. Would consider serial troponins as well. Differential Diagnosis Differential diagnosis: Likely acute exacerbation of chronic obstructive airways disease, congestive heart failure, community acquired pneumonia, asthma with exacerbation and pulmonary embolism Medical Records Attestation: I reviewed the patient's medical records. Lab Data Labs: Lab Results 09/04/22 09/04/22 09/04/22 Range/Units 23:15 23:15 23:15 WBC 6.07 (4.50-11.00) K/uL RBC 4.72 (4.00-5.20) m/uL Hgb 13.6 (12.0-16.0) gm/dL Hct 42.9 (33.0-51.0) % MCV 91 (80-100) fL MCH 29 (26-34) pg MCHC 32 (32-36) gm/dL RDW Coeff of [place] 14.0 (11.5-15.5) % Plt Count 245 (140-440) K/uL Neut % (Auto) 64.8 (42.0-72.0) % Lymph % (Auto) 21.9 (20-44) % [place] % (Auto) 7.7 (0.0-11.0) % Eos % (Auto) 4.1 (0.0-7.0) % Baso % (Auto) 0.5 (0.0-3.0) % Neut # (Auto) 3.93 (1.7-7.0) K/uL Lymph # (Auto) 1.33 (0.90-2.90) K/uL [place] # (Auto) 0.50 (0.00-0.90) K/UL Eos # (Auto) 0.25 (0.00-0.50) K/uL Baso # (Auto) 0.03 (0.00-0.30) K/uL ABG pH 7.45 (7.35-7.45) ABG pCO2 42 (35-45) mmHG ABG pO2 40.5 L* (80-105) mmHG ABG HCO3 29 H (21-28) mmol/L ABG Total CO2 26 (21-30) mmol/l ABG O2 Saturation 78 L (92-100) % ABG Base Excess 4.6 H (-3.0-3.0) mmol/L Carboxyhemoglobin 1.5 (0.0-5.0) % Sodium 137 (135-149) mmol/L Potassium 3.6 (3.6-5.1) mmol/L Chloride 101 (96-114) mmol/L Carbon Dioxide 30 (20-32) mmol/L BUN 12 (7-30) mg/dL Creatinine 0.9 (0.5-1.5) mg/dL Estimated Creat Clear 34.64 Estimated GFR 63 ml/min Glucose 344 H (60-115) mg/dL Lactate 2.0 H (0.5-1.9) mmol/L Calcium 8.3 L (8.4-10.6) mg/dL Total Bilirubin 0.4 (0.1-1.5) mg/dL AST 30 (12-35) U/L ALT 18 (4-35) U/L Alkaline Phosphatase 72 (40-150) U/L Troponin I < 0.01 L (0.01-0.04) ng/mL Total Protein 6.6 (6.0-8.3) g/dL Albumin 3.7 (3.3-5.0) g/dL Amylase 52 (18-89) U/L SARS-CoV-2 (PCR) (Negative) Influenza Type A (PCR) (Negative) Influenza Type B (PCR) (Negative) POC Creatinine (0.6-1.3) mg/dl 09/04/22 09/04/22 Range/Units 23:19 23:23 WBC (4.50-11.00) K/uL RBC (4.00-5.20) m/uL Hgb (12.0-16.0) gm/dL Hct (33.0-51.0) % MCV (80-100) fL MCH (26-34) pg MCHC (32-36) gm/dL RDW Coeff of [place] (11.5-15.5) % Plt Count (140-440) K/uL Neut % (Auto) (42.0-72.0) % Lymph % (Auto) (20-44) % [place] % (Auto) (0.0-11.0) % Eos % (Auto) (0.0-7.0) % Baso % (Auto) (0.0-3.0) % Neut # (Auto) (1.7-7.0) K/uL Lymph # (Auto) (0.90-2.90) K/uL [place] # (Auto) (0.00-0.90) K/UL Eos # (Auto) (0.00-0.50) K/uL Baso # (Auto) (0.00-0.30) K/uL ABG pH (7.35-7.45) ABG pCO2 (35-45) mmHG ABG pO2 (80-105) mmHG ABG HCO3 (21-28) mmol/L ABG Total CO2 (21-30) mmol/l ABG O2 Saturation (92-100) % ABG Base Excess (-3.0-3.0) mmol/L Carboxyhemoglobin (0.0-5.0) % Sodium (135-149) mmol/L Potassium (3.6-5.1) mmol/L Chloride (96-114) mmol/L Carbon Dioxide (20-32) mmol/L BUN (7-30) mg/dL Creatinine (0.5-1.5) mg/dL Estimated Creat Clear Estimated GFR ml/min Glucose (60-115) mg/dL Lactate (0.5-1.9) mmol/L Calcium (8.4-10.6) mg/dL Total Bilirubin (0.1-1.5) mg/dL AST (12-35) U/L ALT (4-35) U/L Alkaline Phosphatase (40-150) U/L Troponin I (0.01-0.04) ng/mL Total Protein (6.0-8.3) g/dL Albumin (3.3-5.0) g/dL Amylase (18-89) U/L SARS-CoV-2 (PCR) Negative SARS-CoV-2 (Negative) Influenza Type A (PCR) Negative PCR FLU A (Negative) Influenza Type B (PCR) Negative PCR FLU B (Negative) POC Creatinine 1.0 (0.6-1.3) mg/dl Discharge Plan Discharge Clinical Impression: Pleural effusion Patient Disposition: Admitted As Inpatient Condition: Stable Activity Level: Other Discharge Diet: Other Prescriptions: No Action colchicine 0.6 mg tablet 0.6 mg PO BID PRN Label Comments: TAKE ONE TABLET BY MOUTH TWICE DAILY NEEDED levothyroxine 88 mcg tablet 88 mcg PO DAILY Label Comments: Take 1 Tablet (88 mcg) by mouth before breakfast naloxone [Narcan] 4 mg/actuation spray,non-aerosol 4 mg INTRANASAL DIRECTED PRN Label Comments: Inhale 1 [place] into affected nostril(s) each time if needed for Patient Diff To Arouse or Resp Rate < 8 / min. Additional doses may be given fexofenadine [Aller-ease] 180 mg tablet 180 mg PO DAILY PRN cholecalciferol (vitamin D3) [Vitamin D3] 50 mcg (2,000 unit) tablet 4,000 unit PO DAILY cyclobenzaprine 5 mg tablet 5 mg PO Q8H PRN Ocutabs Tablet 1 tab PO DAILY prochlorperazine maleate 10 mg tablet 10 mg PO Q6H PRN Label Comments: TAKE ONE TABLET BY MOUTH EVERY SIX HOURS NEEDED potassium chloride [Klor-Con M20] 20 mEq tablet,ER particles/crystals 20 meq PO BIDWM Label Comments: Take 1 Tablet (20 mEq) by mouth 2 times daily with meals insulin aspart U-100 [Novolog FlexPen U-100 Insulin] 100 unit/mL (3 mL) insulin pen 18 unit subcut DAILY@12 methadone 5 mg tablet 10 mg PO HS BIOTENE DRY MOUTH LOZENGES 1 ea mucous membrane QID PRN hydromorphone [Dilaudid] 8 mg tablet 16 mg PO HS sennosides-docusate sodium [Stool Softener-Laxative] 8.6-50 mg Tablet 4 tab PO BID 30 Days Qty: 240 0RF albuterol sulfate 2.5 mg /3 mL (0.083 %) solution for nebulization 2.5 mg inhalation Q4H PRN insulin aspart U-100 [Novolog FlexPen U-100 Insulin] 100 unit/mL (3 mL) Insulin Pen 26 unit subcut DAILY@18 loperamide 2 mg capsule 2 mg PO BID PRN hydromorphone 8 mg tablet 8 mg PO QAM Rx Instructions: TAKES 1 PILL IN AM AND 2 IN PM clopidogrel 75 mg tablet 75 mg PO DAILY Label Comments: TAKE ONE TABLET BY MOUTH ONE TIME DAILY tamsulosin 0.4 mg capsule 0.4 mg PO DAILY Label Comments: Take 1 Capsule (0.4 mg) by mouth once daily after a meal. gabapentin 300 mg capsule 600 mg PO HS allopurinol 300 mg tablet 150 mg PO DAILY furosemide 20 mg tablet 20 mg PO DAILY Label Comments: Take 1 Tablet (20 mg) by mouth every morning. methadone 5 mg tablet 5 mg PO QAM insulin aspart U-100 [Novolog FlexPen U-100 Insulin] 100 unit/mL (3 mL) insulin pen 12 unit SUBCUT DAILY@08 rosuvastatin 20 mg tablet 20 mg PO HS Label Comments: Take 1 Tablet (20 mg) by mouth at bedtime. insulin degludec [Tresiba FlexTouch U-100] 100 unit/mL (3 mL) insulin pen 26 unit SUBCUT HS Ozempic 1 mg/dose (4 mg/3 mL) pen injector 1 mg SUBCUT Rx Instructions: WEEKLY ON WEDNESDAY Follow Up/Referrals: Michael Sandy MD [Primary Care Provider] -
[2022-09-04 23:19] VITALS: PULSE 93; O2SAT 93
[2022-09-04 23:20] VITALS: O2SAT 92
[2022-09-04 23:27] LABS: Basophils Absolute Auto 0.03 K/uL (0.00-0.30); Basophils Percent Auto 0.5 % (0.0-3.0); Eosinophils Absolute Auto 0.25 K/uL (0.00-0.50); Eosinophils Percent Auto 4.1 % (0.0-7.0); Hematocrit 42.9 % (33.0-51.0); Hemoglobin* 13.6 gm/dL (12.0-16.0); Immature Granulocytes Abs Auto 0.06 K/uL (0.00-0.30); Lymphocytes Absolute Auto 1.33 K/uL (0.90-2.90); Lymphocytes Percent Auto 21.9 % (20-44); Mean Corpuscular HGB Conc 32 gm/dL (32-36); Mean Corpuscular Hemoglobin 29 pg (26-34); Mean Corpuscular Volume 91 fL (80-100); Monocytes Percent Auto 7.7 % (0.0-11.0); Neutrophils Absolute Auto 3.93 K/uL (1.7-7.0); Neutrophils Percent Auto 64.8 % (42.0-72.0); Platelet Count* 245 K/uL (140-440); Red Blood Count 4.72 m/uL (4.00-5.20); White Blood Count* 6.07 K/uL (4.50-11.00)
[2022-09-04 23:29] LABS: Slide Review Reflex No
[2022-09-04 23:30] VITALS: PULSE 95; O2SAT 91
[2022-09-04 23:31] VITALS: BP 189/96; PULSE 93; O2SAT 93
[2022-09-04 23:39] LABS: ABG PCO2 42 mmHG (35-45); Base Excess ABG 4.6 mmol/L (-3.0-3.0); Carboxyhemoglobin* 1.5 % (0.0-5.0); HCO3 ABG 29 mmol/L (21-28); Oxygen Saturation ABG 78 % (92-100); TCO2 ABG 26 mmol/l (21-30); pH ABG 7.45 (7.35-7.45)
[2022-09-04 23:44] LABS: Albumin* 3.7 g/dL (3.3-5.0); Chloride* 101 mmol/L (96-114); PO2 ABG 40.5 mmHG (80-105); Sodium* 137 mmol/L (135-149)
[2022-09-04 23:45] VITALS: PULSE 95; O2SAT 91
[2022-09-04 23:45] LABS: Potassium* 3.6 mmol/L (3.6-5.1)
[2022-09-04 23:47] LABS: Alkaline Phosphatase* 72 U/L (40-150); Amylase* 52 U/L (18-89); Aspartate Amino Transferase* 30 U/L (12-35); Bilirubin Total* 0.4 mg/dL (0.1-1.5); Blood Urea Nitrogen* 12 mg/dL (7-30); Carbon Dioxide* 30 mmol/L (20-32); Creatinine* 0.9 mg/dL (0.5-1.5); Est. Creatinine Clearance* 34.64; Estimated Glomerular Filt Rate 63 ml/min; Total Protein* 6.6 g/dL (6.0-8.3)
[2022-09-04 23:48] LABS: Alanine Aminotransferase* 18 U/L (4-35); Calcium* 8.3 mg/dL (8.4-10.6); Glucose* 344 mg/dL (60-115)
[2022-09-04 23:59] LABS: Troponin I* < 0.01 ng/mL (0.01-0.04)
[2022-09-05] VITALS (26 sets, daily range): BP systolic 140–187; BP diastolic 70–96; PULSE 77–95; RESP 20–24; TEMP 36.5–36.7; O2SAT 92–100; BMI 29.4
[2022-09-05 00:06] LABS: PCR FLU A Negative PCR FLU A (Negative); PCR FLU B Negative PCR FLU B (Negative); SARS PCR* Negative SARS-CoV-2 (Negative)
--- NOTE | 2022-09-05 01:45 | W.PC.EDHO ---
Patient going to 251- report given to [employer] [facility] Primary Language: Korean Preferred Language: Orientation Status: [] Alert & Oriented Transfers By: [] Assist of 1 Description of Symptoms ED Triage Present Problem CC: Shortness of Breath, Chest Pain Description pt. about an hour ago developed shortness of breath, chest pain. had thoracentesis on wednesday and 1500cc right side. denies nausea/vomiting, diarrhea, fevers. ED Triage Date of Onset of 09/04/22 Symptoms Pain Pain Description [Chest] Tightness Pain Description [Chest] Acute Pain Intensity [Chest] 3 Pain Scale Used [Chest] Numeric (1 - 10) Oxygen Administration Pulse Oximetry 96 Pulse Oximetry 94 Pulse Oximetry 96 Pulse Oximetry 91 Pulse Oximetry 93 Pulse Oximetry 91 Pulse Oximetry 92 Pulse Oximetry 93 Pulse Oximetry 86 Oxygen Delivery Method Nasal Cannula Oxygen Delivery Method Room Air Oxygen Flow Rate 4
--- NOTE | 2022-09-05 02:35 | PM.IMCN1 ---
Date of Consult Consult date: 09/05/22 Primary Care Provider: Michael Sandy MD Consult Narrative Narrative: [facility] ADMISSION SUPPORT NOTE eHospitalist was contacted by Dr. Vela with request of admission support. Chief complaint: SOB HPI: The patient presented to the ED on 08/28. At that time she was evaluated in the ED, found to have pleural effusion and plan was made to coordinate thoracentesis as an outpatient while Plavix was being held. She returned on 08/31 with shortness of breath. At that time she was admitted, underwent thoracentesis with removal of about 1400 cc of fluid. She reports that afterwards she felt absolutely great. She reports that she was playing bingo today when suddenly out of the blue she developed shortness of breath. She was taken home by family but her breathing continued to worsen so she came in for evaluation. Imaging revealed that although she had thoracentesis the pleural effusion had reaccumulated. Review of systems other mention above is negative. Home Medications/Pertinent Medical History/Pertinent Social History: Reviewed see EMR for details PFSH PFS Medical History Acute insomnia Allergic rhinitis CAD (coronary artery disease) Chronic kidney disease, stage 3b Chronic pain Constipation Controlled substance agreement signed COPD (chronic obstructive pulmonary disease) Depression Gastroparesis GERD (gastroesophageal reflux disease) Gouty arthropathy Hereditary and idiopathic peripheral neuropathy Hypercalcemia Hypertension Hypertriglyceridemia Hypokalemia Hypothyroidism Myocardial infarction Neurogenic bladder Neuropathy HUGO (obstructive sleep apnea) Peripheral autonomic neuropathy due to diabetes mellitus Peripheral vascular disease Pneumonia POLST (Physician Orders for Life-Sustaining Treatment) Pulmonary fibrosis Pulmonary nodule SBO (small bowel obstruction) Slow transit constipation Stroke TIA (transient ischemic attack) Type 2 diabetes mellitus with complication, with long-term current use of insulin Urinary tract infection Surgical History H/O blepharoplasty H/O colonoscopy H/O foot surgery H/O neck surgery H/O: hysterectomy History of cholecystectomy Hx of appendectomy Hx of repair of rotator cuff Hx of tonsillectomy S/P bunionectomy S/P left rotator cuff repair Family History Maternal Grandfather Pancreatic cancer Aunt Breast cancer Uncle Lung cancer Aunt Breast cancer Father Tuberculosis Coronary artery disease Social History Narrative: Lives independently with her boyfriend, Zane, and her daughter, Martín, who lives in the basement. Quit tobacco 1986. No EtOH. Denies recreational drug use. Wants to be DNR/DNI. Highest level of school completed/degree received: some college, no degree Smoking Status: Former smoker Do you use any of these nicotine containing products: None Second hand tobacco smoke exposure: No How often do you have a drink containing alcohol: never How often do you have six or more drinks on one occasion: Never AUDIT-C Alcohol total score: 0 Non-prescribed substance use: denies use Caffeine: Yes Are you using contraception or practicing any form of control: No service: No Meds Home Medications and Allergies Home Medications Medication Instructions Recorded Confirmed Type allopurinol 300 mg tablet 150 mg PO DAILY 04/04/22 09/01/22 History clopidogrel 75 mg tablet 75 mg PO DAILY 04/04/22 09/01/22 History furosemide 20 mg tablet 20 mg PO DAILY 04/04/22 09/01/22 History gabapentin 300 mg capsule 600 mg PO HS 04/04/22 09/01/22 History hydromorphone 8 mg tablet 8 mg PO QAM 04/04/22 09/01/22 History insulin aspart U-100 100 unit/mL 12 unit subcut DAILY@08 04/04/22 09/01/22 History (3 mL) subcutaneous pen (Novolog FlexPen U-100 Insulin aspart) insulin degludec 100 unit/mL (3 26 unit subcut HS 04/04/22 08/10/22 History mL) subcutaneous pen (Tresiba FlexTouch U-100 insulin) loperamide 2 mg capsule 2 mg PO BID PRN 04/04/22 08/10/22 History methadone 5 mg tablet 5 mg PO QAM 04/04/22 08/10/22 History rosuvastatin 20 mg tablet 20 mg PO HS 04/04/22 08/10/22 History semaglutide 1 mg/dose (4 mg/3 mL) 1 mg subcut TH@04/04/22 08/10/22 History subcutaneous pen injector (Ozempic) tamsulosin 0.4 mg capsule 0.4 mg PO DAILY 04/04/22 08/10/22 History colchicine 0.6 mg tablet 0.6 mg PO BID PRN 04/11/22 09/01/22 History BIOTENE DRY MOUTH LOZENGES 1 ea mucous membrane QID PRN 05/10/22 09/01/22 History cholecalciferol (vitamin D3) 50 4,000 unit PO DAILY 05/10/22 09/01/22 History mcg (2,000 unit) tablet (Vitamin D3) cyclobenzaprine 5 mg tablet 5 mg PO Q8H PRN 05/10/22 09/01/22 History fexofenadine 180 mg tablet 180 mg PO DAILY PRN 05/10/22 09/01/22 History (Aller-ease) hydromorphone 8 mg tablet 16 mg PO HS 05/10/22 09/01/22 History (Dilaudid) insulin aspart U-100 100 unit/mL 18 unit subcut DAILY@12 05/10/22 09/01/22 History (3 mL) subcutaneous pen (Novolog FlexPen U-100 Insulin aspart) levothyroxine 88 mcg tablet 88 mcg PO DAILY 05/10/22 08/10/22 History methadone 5 mg tablet 10 mg PO HS 05/10/22 08/10/22 History naloxone 4 mg/actuation nasal 4 mg intranasal DIRECTED PRN 05/10/22 08/10/22 History spray (Narcan) potassium chloride 20 mEq 20 meq PO BIDWM 05/10/22 08/10/22 History tablet,extended release(part/cryst) (Klor-Con M) prochlorperazine maleate 10 mg 10 mg PO Q6H PRN 05/10/22 08/10/22 History tablet vitamin A-vitamin C-vit E-min 1 tab PO DAILY 05/10/22 08/10/22 History tablet (Ocutabs tablet) albuterol sulfate 2.5 mg/3 mL 2.5 mg inhalation Q4H PRN 07/06/22 09/01/22 History (0.083 %) solution for nebulization insulin aspart U-100 100 unit/mL 26 unit subcut DAILY@18 07/06/22 09/01/22 History (3 mL) subcutaneous pen (Novolog FlexPen U-100 Insulin aspart) Allergies Allergy/AdvReac Type Severity Reaction Status Date / Time cortisone Allergy Severe Anaphylaxis Verified 09/04/22 23:11 prednisone Allergy Severe Verified 09/04/22 23:11 amoxicillin Allergy Intermediate Verified 09/04/22 23:11 cephalexin [From Keflex] Allergy Intermediate Diarrhea Verified 09/04/22 23:11 doxycycline Allergy Intermediate Verified 09/04/22 23:11 duloxetine [From Cymbalta] Allergy Intermediate Verified 09/04/22 23:11 escitalopram [From Lexapro] Allergy Intermediate sleep Verified 09/04/22 23:11 disturbance febuxostat Allergy Intermediate vomitting Verified 09/04/22 23:11 lisinopril Allergy Intermediate Verified 09/04/22 23:11 losartan [From Cozaar] Allergy Intermediate Verified 09/04/22 23:11 nitrofurantoin Allergy Intermediate Verified 09/04/22 23:11 [From Macrobid] pregabalin [From Lyrica] Allergy Intermediate Nausea Verified 09/04/22 23:11 propoxyphene Allergy Intermediate angioedema Verified 09/04/22 23:11 ramelteon [From Rozerem] Allergy Intermediate Verified 09/04/22 23:11 sulfamethoxazole Allergy Intermediate Verified 09/04/22 23:11 [From Bactrim] tramadol [From Ultram] Allergy Intermediate Verified 09/04/22 23:11 trimethoprim [From Bactrim] Allergy Intermediate Verified 09/04/22 23:11 venlafaxine [From Effexor] Allergy Intermediate Verified 09/04/22 23:11 zolpidem [From Ambien] Allergy Intermediate Confusion Verified 09/04/22 23:11 acetaminophen [From Vicodin] Allergy Mild Nausea Verified 09/04/22 23:11 hydrocodone [From Vicodin] Allergy Mild Nausea Verified 09/04/22 23:11 aspirin Allergy Unknown Verified 09/04/22 23:11 clindamycin Allergy Unknown Verified 09/04/22 23:11 ipratropium [From Atrovent] Allergy Unknown Verified 09/04/22 23:11 Penicillins Allergy Unknown Verified 09/04/22 23:11 pramipexole Allergy Unknown Verified 09/04/22 23:11 trazodone Allergy Unknown Verified 09/04/22 23:11 adhesive tape Allergy huge Verified 09/04/22 23:11 blisters Exam Narrative: Exam Narrative: Exam (performed via interactive video with assistance of bedside nurse): General: Alert, cooperative, no acute distress HEENT: Oral mucosa pink and moist without erythema Lungs: Clear to auscultation bilaterally without crackle or wheeze, however diminished at right lung base CV: Regular rate and rhythm without loud murmur rub or gallop Ext: No pitting edema noted Skin: No rashes, bruises or lesions appreciated on gross visualization of exposed skin Neuro: Alert, oriented x 3. CN III -VII, XI, XII grossly intact, moves all extremities without any significant focal deficit appreciated by nurse Const: Vital Signs, click to edit/add: Vital Signs - 24 hr 09/04/22 23:08 09/04/22 23:20 09/04/22 23:19 Temperature 98.0 F Pulse Rate 93 Pulse Rate [Right Pulse Oximeter] 92 Respiratory Rate 30 H Blood Pressure Blood Pressure [Ri ght Upper Arm] 189/98 H Pulse Oximetry 86 L 92 93 Oxygen Delivery Me thod Room Air Nasal Cannula Oxygen Flow Rate 4 09/04/22 23:30 09/04/22 23:31 09/04/22 23:45 Temperature Pulse Rate 95 93 95 Pulse Rate [Right Pulse Oximeter] Respiratory Rate Blood Pressure 189/96 H Blood Pressure [Ri ght Upper Arm] Pulse Oximetry 91 93 91 Oxygen Delivery Me thod Oxygen Flow Rate 09/05/22 00:14 09/05/22 00:15 09/05/22 00:16 Temperature Pulse Rate 88 94 95 Pulse Rate [Right Pulse Oximeter] Respiratory Rate Blood Pressure 172/96 H Blood Pressure [Ri ght Upper Arm] Pulse Oximetry 96 94 96 Oxygen Delivery Me thod Oxygen Flow Rate 09/05/22 00:17 09/05/22 00:30 09/05/22 00:32 Temperature Pulse Rate 91 87 86 Pulse Rate [Right Pulse Oximeter] Respiratory Rate Blood Pressure 187/90 H Blood Pressure [Ri ght Upper Arm] Pulse Oximetry 95 93 92 Oxygen Delivery Me thod Oxygen Flow Rate 09/05/22 00:45 09/05/22 01:00 09/05/22 01:01 Temperature Pulse Rate 91 88 89 Pulse Rate [Right Pulse Oximeter] Respiratory Rate Blood Pressure 172/91 H Blood Pressure [Ri ght Upper Arm] Pulse Oximetry 92 94 93 Oxygen Delivery Me thod Oxygen Flow Rate 09/05/22 01:15 09/05/22 01:30 09/05/22 01:32 Temperature Pulse Rate 86 86 85 Pulse Rate [Right Pulse Oximeter] Respiratory Rate Blood Pressure 170/90 H Blood Pressure [Ri ght Upper Arm] Pulse Oximetry 93 92 92 Oxygen Delivery Me thod Oxygen Flow Rate 09/05/22 01:45 Temperature Pulse Rate 87 Pulse Rate [Right Pulse Oximeter] Respiratory Rate Blood Pressure Blood Pressure [Ri ght Upper Arm] Pulse Oximetry 94 Oxygen Delivery Me thod Oxygen Flow Rate Labs Labs: Short CBC 09/04/22 Range/Units 23:15 WBC 6.07 (4.50-11.00) K/uL Hgb 13.6 (12.0-16.0) gm/dL Hct 42.9 (33.0-51.0) % Plt Count 245 (140-440) K/uL BMP 09/04/22 23:15 Sodium 137 Potassium 3.6 Chloride 101 Carbon Dioxide 30 BUN 12 Creatinine 0.9 Glucose 344 H Calcium 8.3 L Cardiac Enzymes 09/04/22 Range/Units 23:15 Troponin I < 0.01 L (0.01-0.04) ng/mL Liver Function 09/04/22 Range/Units 23:15 Total Bilirubin 0.4 (0.1-1.5) mg/dL AST 30 (12-35) U/L ALT 18 (4-35) U/L Alkaline Phosphatase 72 (40-150) U/L Albumin 3.7 (3.3-5.0) g/dL Assessment and Plan Assessment and plan (1) Pleural effusion: Status: Acute Plan Recent lab/CT scan of chest: Reviewed see EMR for details EKG: Per my interpretation showed sinus rhythm Assessment and Plan: 1. Recurrent right-sided pleural effusion-patient needs thoracentesis repeated. Uncertain why the pleural effusion reaccumulated so quickly. Follow-up on pathology performed on the initial pleural effusion. 2. Chronic hypoxemic respiratory failure-continue oxygen 3. COPD-continue DuoNebs 4. Gout-stable on allopurinol 5. Neuropathy-stable on gabapentin 6. DM 2-continue insulin 7. DVT prophylaxis-SCDs 8. CODE STATUS DNR/DNI discussed with patient Chart review was performed as well as evaluation of the patient via video. Thank you for involving ehospitalist. Please contact [phone] if further assistance is needed.
--- NOTE | 2022-09-05 04:35 | PC.NURSE ---
09-01: Pt admitted with r side pleural effusion, sob with any activity, just up to br sba but only used the oxygen at 2lpm via nc, which she's using for sleep, no cpap tonight, denies using oxygen constantly at home, oximetry 94-100%.
[2022-09-05] MEDS: DEXTROSE 50 % SYRINGE IVP (06:07)
--- NOTE | 2022-09-05 06:20 | PC.NURSE ---
HYPOGLYCEMIA: Pt used call light stated her insulin monitoring device glucose check was 69, pt symptomatic with lighthead, shaky, diaphoresis. Pt npo thus utilized protocol and administered 20G of D50%, pt states has s&s when glucose less than 100.
[2022-09-05 07:16] LABS: Basophils Absolute Auto 0.03 K/uL (0.00-0.30); Basophils Percent Auto 0.5 % (0.0-3.0); Eosinophils Percent Auto 4.6 % (0.0-7.0); Hematocrit 41.8 % (33.0-51.0); Hemoglobin* 13.3 gm/dL (12.0-16.0); Immature Granulocytes Abs Auto 0.01 K/uL (0.00-0.30); Immature Granulocytes Pct Auto 0.2 %; Lymphocytes Absolute Auto 1.35 K/uL (0.90-2.90); Lymphocytes Percent Auto 20.9 % (20-44); Mean Corpuscular HGB Conc 32 gm/dL (32-36); Mean Corpuscular Hemoglobin 28 pg (26-34); Mean Corpuscular Volume 89 fL (80-100); Neutrophils Absolute Auto 4.13 K/uL (1.7-7.0); Neutrophils Percent Auto 63.8 % (42.0-72.0); Platelet Count* 265 K/uL (140-440); RDW Coefficient of Variation % 13.9 % (11.5-15.5); Red Blood Count 4.69 m/uL (4.00-5.20); White Blood Count* 6.47 K/uL (4.50-11.00)
[2022-09-05 07:25] LABS: Albumin* 3.5 g/dL (3.3-5.0); Chloride* 105 mmol/L (96-114)
[2022-09-05 07:26] LABS: Potassium* 3.6 mmol/L (3.6-5.1); Sodium* 139 mmol/L (135-149)
[2022-09-05 07:28] LABS: Aspartate Amino Transferase* 28 U/L (12-35); Bilirubin Total* 0.4 mg/dL (0.1-1.5); Carbon Dioxide* 29 mmol/L (20-32); Creatinine* 0.7 mg/dL (0.5-1.5); Est. Creatinine Clearance* 34.64; Estimated Glomerular Filt Rate 85 ml/min; Total Protein* 6.3 g/dL (6.0-8.3)
[2022-09-05 07:29] LABS: Alanine Aminotransferase* 16 U/L (4-35); Alkaline Phosphatase* 61 U/L (40-150); Blood Urea Nitrogen* 11 mg/dL (7-30); Calcium* 8.4 mg/dL (8.4-10.6); Glucose* 64 mg/dL (60-115)
[2022-09-05 07:31] LABS: Slide Review Reflex No
--- NOTE | 2022-09-05 09:32 | RESP.RT ---
Patient has an increased RR of 24. Diminished lung sounds bilaterally and expiratory wheeze. SAT 99% on 2L NC. She appears to be very short of breath, and may need to be tapped again.
--- NOTE | 2022-09-05 10:32 | P.IMHP_ITS ---
Hospitalist- H&P: HPI History of Present Illness Date Seen: 09/05/22 Chief complaint: Shortness of Breath Narrative: Kianna Albright is a 82 year old female with past medical history of oxygen dependent COPD (2 liters) and hx of recurrent pleural effusion presenting for evaluation of SOB. at time of evaluation patient initially sleeping, awakens but provides limited hx. Primary hx obtained from chart review. The patient was recently discharged on 09/02. she was admitted for SOB and hypoxia and underwent; Diagnostic and therapeutic thoracentesis 09/01/22, ~1400cc bloody fluid (cytology per report pending). The patient presented back to ED last night for worsening SOB and hypoxia. In the ED CT chest showed CT of the chest shows a large right pleural effusion, similar in size to the CT from 08/28/2022. No change in prominent atelectasis of the majority of the right lower lobe and the inferior medial portion of the right middle lobe. Tiny new left pleural effusion.Stable moderate diffuse ground-glass pulmonary fibrosis and severe centrilobular emphysema with an upper lobe predominance.Increased mild ascites. New mild diffuse anasarca. CT of the abdomen shows stable mild intrahepatic and prominent extrahepatic biliary ductal dilatation consistent with post cholecystectomy status. Review of Systems Status of ROS: Reports: unobtainable due to medical condition PFSH PFSH Medical History Acute insomnia Allergic rhinitis CAD (coronary artery disease) Chronic kidney disease, stage 3b Chronic pain Constipation Controlled substance agreement signed COPD (chronic obstructive pulmonary disease) Depression Gastroparesis GERD (gastroesophageal reflux disease) Gouty arthropathy Hereditary and idiopathic peripheral neuropathy Hypercalcemia Hypertension Hypertriglyceridemia Hypokalemia Hypothyroidism Myocardial infarction Neurogenic bladder Neuropathy HUGO (obstructive sleep apnea) Peripheral autonomic neuropathy due to diabetes mellitus Peripheral vascular disease Pneumonia POLST (Physician Orders for Life-Sustaining Treatment) Pulmonary fibrosis Pulmonary nodule SBO (small bowel obstruction) Slow transit constipation Stroke TIA (transient ischemic attack) Type 2 diabetes mellitus with complication, with long-term current use of insulin Urinary tract infection Surgical History H/O blepharoplasty H/O colonoscopy H/O foot surgery H/O neck surgery H/O: hysterectomy History of cholecystectomy Hx of appendectomy Hx of repair of rotator cuff Hx of tonsillectomy S/P bunionectomy S/P left rotator cuff repair Family History Maternal Grandfather Pancreatic cancer Aunt Breast cancer Uncle Lung cancer Aunt Breast cancer Father Tuberculosis Coronary artery disease Social History Narrative: Lives independently with her boyfriend, Zane, and her daughter, Martín, who lives in the basement. Quit tobacco 1986. No EtOH. Denies recreational drug use. Wants to be DNR/DNI. Highest level of school completed/degree received: some college, no degree Smoking Status: Former smoker Do you use any of these nicotine containing products: None Second hand tobacco smoke exposure: No How often do you have a drink containing alcohol: never How often do you have six or more drinks on one occasion: Never AUDIT-C Alcohol total score: 0 Non-prescribed substance use: denies use Caffeine: Yes Are you using contraception or practicing any form of control: No service: No Meds Home Medications and Allergies Home Medications Medication Instructions Recorded Confirmed Type allopurinol 300 mg tablet 150 mg PO DAILY 04/04/22 09/05/22 History clopidogrel 75 mg tablet 75 mg PO DAILY 04/04/22 09/05/22 History furosemide 20 mg tablet 20 mg PO DAILY 04/04/22 09/05/22 History gabapentin 300 mg capsule 600 mg PO HS 04/04/22 09/05/22 History hydromorphone 8 mg tablet 8 mg PO QAM 04/04/22 09/05/22 History insulin aspart U-100 100 unit/mL 12 unit subcut DAILY@08 04/04/22 09/05/22 History (3 mL) subcutaneous pen (Novolog FlexPen U-100 Insulin aspart) insulin degludec 100 unit/mL (3 26 unit subcut HS 04/04/22 09/05/22 History mL) subcutaneous pen (Tresiba FlexTouch U-100 insulin) loperamide 2 mg capsule 2 mg PO BID PRN 04/04/22 09/05/22 History methadone 5 mg tablet 5 mg PO QAM 04/04/22 09/05/22 History rosuvastatin 20 mg tablet 20 mg PO HS 04/04/22 09/05/22 History semaglutide 1 mg/dose (4 mg/3 mL) 1 mg subcut TH@09 04/04/22 09/05/22 History subcutaneous pen injector (Ozempic) tamsulosin 0.4 mg capsule 0.4 mg PO DAILY 04/04/22 09/05/22 History colchicine 0.6 mg tablet 0.6 mg PO BID PRN 04/11/22 09/05/22 History BIOTENE DRY MOUTH LOZENGES 1 ea mucous membrane QID PRN 05/10/22 09/05/22 History cholecalciferol (vitamin D3) 50 4,000 unit PO DAILY 05/10/22 09/05/22 History mcg (2,000 unit) tablet (Vitamin D3) cyclobenzaprine 5 mg tablet 5 mg PO Q8H PRN 05/10/22 09/05/22 History fexofenadine 180 mg tablet 180 mg PO DAILY PRN 05/10/22 09/05/22 History (Aller-ease) hydromorphone 8 mg tablet 16 mg PO HS 05/10/22 09/05/22 History (Dilaudid) insulin aspart U-100 100 unit/mL 18 unit subcut DAILY@12 05/10/22 09/05/22 H istory (3 mL) subcutaneous pen (Novolog FlexPen U-100 Insulin aspart) levothyroxine 88 mcg tablet 88 mcg PO DAILY 05/10/22 09/05/22 History methadone 5 mg tablet 10 mg PO HS 05/10/22 09/05/22 History naloxone 4 mg/actuation nasal 4 mg intranasal DIRECTED PRN 05/10/22 09/05/22 History spray (Narcan) potassium chloride 20 mEq 20 meq PO BIDWM 05/10/22 09/05/22 History tablet,extended release(part/cryst) (Klor-Con M) prochlorperazine maleate 10 mg 10 mg PO Q6H PRN 05/10/22 09/05/22 History tablet vitamin A-vitamin C-vit E-min 1 tab PO DAILY 05/10/22 09/05/22 History tablet (Ocutabs tablet) albuterol sulfate 2.5 mg/3 mL 2.5 mg inhalation Q4H PRN 07/06/22 09/05/22 History (0.083 %) solution for nebulization insulin aspart U-100 100 unit/mL 26 unit subcut DAILY@18 07/06/22 09/05/22 History (3 mL) subcutaneous pen (Novolog FlexPen U-100 Insulin aspart) Allergies Allergy/AdvReac Type Severity Reaction Status Date / Time cortisone Allergy Severe Anaphylaxis Verified 09/04/22 23:11 prednisone Allergy Severe Verified 09/04/22 23:11 amoxicillin Allergy Intermediate Verified 09/04/22 23:11 cephalexin [From Keflex] Allergy Intermediate Diarrhea Verified 09/04/22 23:11 doxycycline Allergy Intermediate Verified 09/04/22 23:11 duloxetine [From Cymbalta] Allergy Intermediate Verified 09/04/22 23:11 escitalopram [From Lexapro] Allergy Intermediate sleep Verified 09/04/22 23:11 disturbance febuxostat Allergy Intermediate vomitting Verified 09/04/22 23:11 lisinopril Allergy Intermediate Verified 09/04/22 23:11 losartan [From Cozaar] Allergy Intermediate Verified 09/04/22 23:11 nitrofurantoin Allergy Intermediate Verified 09/04/22 23:11 [From Macrobid] pregabalin [From Lyrica] Allergy Intermediate Nausea Verified 09/04/22 23:11 propoxyphene Allergy Intermediate angioedema Verified 09/04/22 23:11 ramelteon [From Rozerem] Allergy Intermediate Verified 09/04/22 23:11 sulfamethoxazole Allergy Intermediate Verified 09/04/22 23:11 [From Bactrim] tramadol [From Ultram] Allergy Intermediate Verified 09/04/22 23:11 trimethoprim [From Bactrim] Allergy Intermediate Verified 09/04/22 23:11 venlafaxine [From Effexor] Allergy Intermediate Verified 09/04/22 23:11 zolpidem [From Ambien] Allergy Intermediate Confusion Verified 09/04/22 23:11 acetaminophen [From Vicodin] Allergy Mild Nausea Verified 09/04/22 23:11 hydrocodone [From Vicodin] Allergy Mild Nausea Verified 09/04/22 23:11 aspirin Allergy Unknown Verified 09/04/22 23:11 clindamycin Allergy Unknown Verified 09/04/22 23:11 ipratropium [From Atrovent] Allergy Unknown Verified 09/04/22 23:11 Penicillins Allergy Unknown Verified 09/04/22 23:11 pramipexole Allergy Unknown Verified 09/04/22 23:11 trazodone Allergy Unknown Verified 09/04/22 23:11 adhesive tape Allergy huge Verified 09/04/22 23:11 blisters Exam Narrative: Exam Narrative: Gen: moderate distress HEENT: NCAT EOMI mmm Neck: Supple CV: RRR normal s1 s2 Lungs: diminished breath sounds Abd: Soft,nt, nd Neuro: Alert in bed; initially sleeping; able to follow commands Psych: flat affect MSK: age appropriate muscle mass Skin; Warm, dry no rash on face Const: Vital Signs, click to edit/add: Vital Signs - 24 hr 09/04/22 23:08 09/04/22 23:20 09/04/22 23:19 Temperature 98.0 F Pulse Rate 93 Pulse Rate [Right Pulse Oximeter] 92 Respiratory Rate 30 H Blood Pressure Blood Pressure [Ri ght Arm] Blood Pressure [Ri ght Upper Arm] 189/98 H Pulse Oximetry 86 L 92 93 Oxygen Delivery Me thod Room Air Nasal Cannula Oxygen Flow Rate 4 09/04/22 23:30 09/04/22 23:31 09/04/22 23:45 Temperature Pulse Rate 95 93 95 Pulse Rate [Right Pulse Oximeter] Respiratory Rate Blood Pressure 189/96 H Blood Pressure [Ri ght Arm] Blood Pressure [Ri ght Upper Arm] Pulse Oximetry 91 93 91 Oxygen Delivery Me thod Oxygen Flow Rate 09/05/22 00:14 09/05/22 00:15 09/05/22 00:16 Temperature Pulse Rate 88 94 95 Pulse Rate [Right Pulse Oximeter] Respiratory Rate Blood Pressure 172/96 H Blood Pressure [Ri ght Arm] Blood Pressure [Ri ght Upper Arm] Pulse Oximetry 96 94 96 Oxygen Delivery Me thod Oxygen Flow Rate 09/05/22 00:17 09/05/22 00:30 09/05/22 00:32 Temperature Pulse Rate 91 87 86 Pulse Rate [Right Pulse Oximeter] Respiratory Rate Blood Pressure 187/90 H Blood Pressure [Ri ght Arm] Blood Pressure [Ri ght Upper Arm] Pulse Oximetry 95 93 92 Oxygen Delivery Me thod Oxygen Flow Rate 09/05/22 00:45 09/05/22 01:00 09/05/22 01:01 Temperature Pulse Rate 91 88 89 Pulse Rate [Right Pulse Oximeter] Respiratory Rate Blood Pressure 172/91 H Blood Pressure [Ri ght Arm] Blood Pressure [Ri ght Upper Arm] Pulse Oximetry 92 94 93 Oxygen Delivery Me thod Oxygen Flow Rate 09/05/22 01:15 09/05/22 01:30 09/05/22 01:32 Temperature Pulse Rate 86 86 85 Pulse Rate [Right Pulse Oximeter] Respiratory Rate Blood Pressure 170/90 H Blood Pressure [Ri ght Arm] Blood Pressure [Ri ght Upper Arm] Pulse Oximetry 93 92 92 Oxygen Delivery Me thod Oxygen Flow Rate 09/05/22 01:45 09/05/22 03:06 09/05/22 03:17 Temperature 98.1 F Pulse Rate 87 Pulse Rate [Right Pulse Oximeter] 82 82 Respiratory Rate 20 20 Blood Pressure Blood Pressure [Ri ght Arm] 162/70 H Blood Pressure [Ri ght Upper Arm] Pulse Oximetry 94 98 99 Oxygen Delivery Me thod Nasal Cannula Nasal Cannula Oxygen Flow Rate 2 2 09/05/22 03:19 09/05/22 03:19 09/05/22 07:00 Temperature Pulse Rate Pulse Rate [Right Pulse Oximeter] Respiratory Rate 20 Blood Pressure Blood Pressure [Ri ght Arm] Blood Pressure [Ri ght Upper Arm] Pulse Oximetry 98 98 98 Oxygen Delivery Me thod Nasal Cannula Oxygen Flow Rate 2 09/05/22 07:00 09/05/22 07:00 09/05/22 07:00 Temperature 98.1 F Pulse Rate Pulse Rate [Right Pulse Oximeter] 77 77 Respiratory Rate 20 20 20 Blood Pressure Blood Pressure [Ri ght Arm] 161/83 H Blood Pressure [Ri ght Upper Arm] Pulse Oximetry 98 98 Oxygen Delivery Me thod Nasal Cannula Nasal Cannula Oxygen Flow Rate 2 2 Hospitalist - H&P: Result Labs Labs: Short CBC 09/04/22 09/05/22 Range/Units 23:15 05:45 WBC 6.07 6.47 (4.50-11.00) K/uL Hgb 13.6 13.3 (12.0-16.0) gm/dL Hct 42.9 41.8 (33.0-51.0) % Plt Count 245 265 (140-440) K/uL BMP 09/04/22 09/05/22 23:15 05:45 Sodium 137 139 Potassium 3.6 3.6 Chloride 101 105 Carbon Dioxide 30 29 BUN 12 11 Creatinine 0.9 0.7 Glucose 344 H 64 Calcium 8.3 L 8.4 Cardiac Enzymes 09/04/22 Range/Units 23:15 Troponin I < 0.01 L (0.01-0.04) ng/mL Liver Function 09/04/22 09/05/22 Range/Units 23:15 05:45 Total Bilirubin 0.4 0.4 (0.1-1.5) mg/dL AST 30 28 (12-35) U/L ALT 18 16 (4-35) U/L Alkaline Phosphatase 72 61 (40-150) U/L Albumin 3.7 3.5 (3.3-5.0) g/dL Assessment and Plan Assessment and plan (1) COPD (chronic obstructive pulmonary disease): Problem comment: Stable. At baseline. Status: Chronic (2) Pleural effusion: Problem comment: Diagnostic and therapeutic thoracentesis 09/01/22, ~1400cc bloody fluid, sent for diagnostics, pending at discharge. Patient improved after procedure, repeat CXR reassuring. Status: Acute (3) Interstitial pulmonary fibrosis: Status: Acute (4) HUGO (obstructive sleep apnea): Problem comment: HUGO 06/05/2007 AHI-14.2 Uses CPAP Uses OXYGEN at night with CPAP and approximately 5-6 hours per day in addition. 04/07/2011 Status: Chronic Plan Assessment: Kianna Albright is a 82 year old female with past medical history of oxygen dependent COPD (2 liters) and hx of recurrent pleural effusion presenting for evaluation of SOB. at time of evaluation patient initially sleeping, awakens but provides limited hx. Primary hx obtained from chart review. The patient was recently discharged on 09/02. she was admitted for SOB and hypoxia and underwent; Diagnostic and therapeutic thoracentesis 09/01/22, ~1400cc bloody fluid (cytology per report pending). The patient presented back to ED last night for worsening SOB and hypoxia. In the ED CT chest showed CT of the chest shows a large right pleural effusion, similar in size to the CT from 08/28/2022. No change in prominent atelectasis of the majority of the right lower lobe and the inferior medial portion of the right middle lobe. Tiny new left pleural effusion.Stable moderate diffuse ground-glass pulmonary fibrosis and severe centrilobular emphysema with an upper lobe predominance.Increased mild ascites. New mild diffuse anasarca. CT of the abdomen shows stable mild intrahepatic and prominent extrahepatic biliary ductal dilatation consistent with post cholecystectomy status. 1. Recurrent Pleural Effusion; Right; thought to be secondary to her ILD 2. Chronic hypoxic respiratory failure (baseline 2-4 liters oxygen at home) 3. Severe oxygen dependent COPD/Severe emphysema/Severe pulmonary Fibrosis 4. Hx of HUGO 5. Generalized weakness 6. Ansarca Plan -Echo -BNP -IV lasix -scheduled nebs -Needs outpatient Pulmonary Medicine referral for management of recurrent pleural effusions -check LFTs -allergic to steroids -hold plavix for possible thoracentesis -surgery recommending on holding off on thoracentesis for now -VBG -procal RUQ Discussed with patient and family; patient seen 3X Code-DNR/DNI DVT ppx-SCd
[2022-09-05 11:35] LABS: HCO3 VBG 30 mmol/L (21-28); PCO2 VBG 43 mmHG (40-50); PO2 VBG 50.8 mmHG (25-47); pH VBG 7.447 (7.32-7.43)
[2022-09-05 12:43] LABS: Procalcitonin* 0.07 ng/mL (<0.50)
[2022-09-05 12:46] LABS: NT Pro B Type NatriureticPept* 157 pg/mL
[2022-09-05] MEDS: ALBUTEROL SULFATE 2.5 MG/3 ML VIAL.NEB NEB ×3 (13:07→23:40)
[2022-09-05] MEDS: POTASSIUM CHLORIDE 10 MEQ CAPSULE ER 40 MEQ PO (13:26)
[2022-09-05] MEDS: FUROSEMIDE 10 MG/ML inj 40 MG IVP (13:26)
[2022-09-05] MEDS: LORazepam 2 MG/ML inj 1 MG IVP (15:53)
[2022-09-05] MEDS: POTASSIUM CHLORIDE 10 MEQ CAPSULE ER 20 MEQ PO (17:32)
[2022-09-05] MEDS: HYDROmorphone 2 MG TABLET 16 MG PO (21:30)
[2022-09-05] MEDS: GABAPENTIN 300 MG CAPSULE 600 MG PO (21:30)
[2022-09-05] MEDS: SENNOSIDES/DOCUSATE TABLET 4 TAB PO (21:30)
[2022-09-05] MEDS: METHADONE 5 MG TABLET 10 MG PO (21:31)
[2022-09-05] MEDS: SODIUM CHLORIDE 0.9 % (FLUSH) 10 ML SYRINGE 5 ML IVF (21:33)
[2022-09-06] VITALS (11 sets, daily range): BP systolic 104–162; BP diastolic 54–88; PULSE 72–86; RESP 12–20; TEMP 36.4–36.6; O2SAT 95–100
[2022-09-06] MEDS: LEVOTHYROXINE 88 MCG TABLET PO (06:04)
--- NOTE | 2022-09-06 06:26 | PC.NURSE ---
19-: pleasant and cooperative. SBA/Indep to [facility]. No c/o pain. Pt states occasionally she will hear ?music? in her lungs (audible wheeze), to which she will cough and be able to clear out orange sputum (orange soda at bedside). Pt states her breathing has improved; she does however continue to feel SOB with exertion. Pt on 2L O2, sats 99-100%. Tele = NS w/ 1st degree HB.
--- NOTE | 2022-09-06 07:00 | CRLHL7_ITS ---
For Patients: As a result of the Century Cures Act, medical imaging exams and procedure reports are released immediately into your electronic medical record. You may view this report before your referring provider. If you have questions, please contact your health care provider. HISTORY: Right pleural effusion. TECHNIQUE: Two views of the chest. COMPARISON: 09/02/2022. FINDINGS: Increased right-sided pleural effusion which is moderate to large. There is likely underlying right lower lung zone atelectasis. Left lung appears clear. No pneumothorax. Cardiac size within normal limits. Mild scoliosis. IMPRESSION: Increased right-sided pleural effusion, likely with underlying right lower lung zone atelectasis. Dictated by Armando Coronado MD @ 09/06/2022 10:25:55 AM Dictated by: Armando Coronado MD @ 09/06/2022 10:26:00 (Electronically Signed)
[2022-09-06 07:09] LABS: Chloride* 105 mmol/L (96-114); Sodium* 140 mmol/L (135-149)
[2022-09-06 07:11] LABS: Creatinine* 0.8 mg/dL (0.5-1.5); Est. Creatinine Clearance* 34.64; Estimated Glomerular Filt Rate 73 ml/min
[2022-09-06 07:12] LABS: Basophils Absolute Auto 0.04 K/uL (0.00-0.30); Basophils Percent Auto 0.6 % (0.0-3.0); Blood Urea Nitrogen* 13 mg/dL (7-30); Calcium* 8.6 mg/dL (8.4-10.6); Carbon Dioxide* 29 mmol/L (20-32); Eosinophils Absolute Auto 0.31 K/uL (0.00-0.50); Eosinophils Percent Auto 4.9 % (0.0-7.0); Glucose* 146 mg/dL (60-115); Hematocrit 43.4 % (33.0-51.0); Hemoglobin* 13.8 gm/dL (12.0-16.0); Immature Granulocytes Abs Auto 0.01 K/uL (0.00-0.30); Immature Granulocytes Pct Auto 0.2 %; Lymphocytes Absolute Auto 1.73 K/uL (0.90-2.90); Lymphocytes Percent Auto 27.2 % (20-44); Mean Corpuscular HGB Conc 32 gm/dL (32-36); Mean Corpuscular Hemoglobin 28 pg (26-34); Mean Corpuscular Volume 89 fL (80-100); Monocytes Percent Auto 10.4 % (0.0-11.0); Neutrophils Absolute Auto 3.61 K/uL (1.7-7.0); Neutrophils Percent Auto 56.7 % (42.0-72.0); Platelet Count* 279 K/uL (140-440); RDW Coefficient of Variation % 14.2 % (11.5-15.5); Red Blood Count 4.88 m/uL (4.00-5.20); White Blood Count* 6.36 K/uL (4.50-11.00)
[2022-09-06 07:56] LABS: Slide Review Reflex No
[2022-09-06] MEDS: allopurinoL 300 MG TABLET 150 MG PO (08:53)
[2022-09-06] MEDS: SENNOSIDES/DOCUSATE TABLET 4 TAB PO ×2 (08:53→20:36)
[2022-09-06] MEDS: POTASSIUM CHLORIDE 10 MEQ CAPSULE ER 20 MEQ PO ×2 (08:56→18:12)
[2022-09-06] MEDS: TAMSULOSIN HCL 0.4 MG CAPSULE PO (08:56)
[2022-09-06] MEDS: METHADONE 5 MG TABLET PO (08:57)
[2022-09-06] MEDS: ALBUTEROL SULFATE 2.5 MG/3 ML VIAL.NEB NEB ×4 (08:57→20:44)
[2022-09-06] MEDS: HYDROmorphone 2 MG TABLET 8 MG PO (08:57)
[2022-09-06] MEDS: FUROSEMIDE 10 MG/ML inj 20 MG IVP ×2 (08:59→15:03)
[2022-09-06] MEDS: SODIUM CHLORIDE 0.9 % (FLUSH) 10 ML SYRINGE 5 ML IVF ×2 (09:10→21:00)
--- NOTE | 2022-09-06 11:00 | P.IMPN_ITS ---
Progress Note: A&P Assessment and plan (1) Pleural effusion: Problem details: Diagnostic and therapeutic thoracentesis 09/01/22, ~1400cc bloody fluid, Status: Acute Assessment and Plan: Recurrent Pleural Effusion; Needs Pulmonary referral; ? ocean transportation intermediary if she needs pleurx catheter? refferal to Thoracic. Discussed with patient and family that Pleural effusions likely to continue and persist Etiology of Pleural Effusion thought to be secondary to ILD; cytology from last thoracentesis is still pending Normal WBC, procal reassuring from infectious etiology Will defer consideration of repeat Thoracentesis to Surgery; she has been off plavix Surgery updated with AM Xray AM CXR from Today IMPRESSION: Increased right-sided pleural effusion, likely with underlying right lower lung zone atelectasis. Echo from Yesterday normal EF Normal RV size and function Left atrium mildly enlarged No significant valvular disease (2) Interstitial pulmonary fibrosis: Status: Acute (3) COPD (chronic obstructive pulmonary disease): Problem details: Stable. At baseline. Status: Chronic Assessment and Plan: unable to tolerate steroids (4) Chronic constipation: Status: Acute (5) HUGO (obstructive sleep apnea): Problem details: HUGO 06/05/2007 AHI-14.2 Uses CPAP Uses OXYGEN at night with CPAP and approximately 5-6 hours per day in addition. 04/07/2011 Status: Chronic Plan Goals of care-lengthy discussion with patient and daughter has had multiple admissions in the last 6 months; may benefit from outpatient palliative evaluation; at this time not ready for Hospice. I anticipate frequency of hospit al readmissions to increase. Discussed my recommendations for [place] Referral to Pulmonary Medicine as a starting point Subjective Date Seen: 09/06/22 Interval history: patient slept better last night after given ativan still c/o SOB but slightly improved from yesterda denies chest pain denies fever Daughter at bedside; discussed goals of care; my recommendation for [place] [facility] and possible Thoracic Surgery referral unable to tolerate steroids d/t severe anaphylaxis AM CXR IMPRESSION: Increased right-sided pleural effusion, likely with underlying right lower lung zone atelectasis. Echo from Yesterday normal EF Normal RV size and function Left atrium mildly enlarged No significant valvular disease Exam Narrative: Exam Narrative: Gen: no acute distress HEENT: NCAT EOMI mmm Neck: Supple CV: RRR normal s1 s2 Lungs: diminised breath sounds on right; +wheezing Abd: Soft,nt, nd Neuro: Alert, oriented, CN grossly intact; nonfocal screening?exam Psych: appropriate affect MSK: age appropriate muscle mass Skin; Warm, dry no rash on face Const: Vital Signs, click to edit/add: Vital Signs - 24 hr 09/05/22 12:41 09/05/22 12:41 09/05/22 15:00 Temperature Pulse Rate 86 Pulse Rate [Right Pulse Oximeter] Respiratory Rate Blood Pressure [Le ft Arm] Blood Pressure [Ri ght Arm] Pulse Oximetry 99 98 Oxygen Delivery Me thod Oxygen Flow Rate 09/05/22 15:00 09/05/22 15:00 09/05/22 15:00 Temperature 98.0 F Pulse Rate Pulse Rate [Right Pulse Oximeter] 93 93 Respiratory Rate 20 20 20 Blood Pressure [Le ft Arm] Blood Pressure [Ri ght Arm] 163/74 H Pulse Oximetry 98 98 Oxygen Delivery Me thod Nasal Cannula Nasal Cannula Oxygen Flow Rate 2 2 09/05/22 19:00 09/05/22 20:41 09/05/22 21:56 Temperature 97.7 F Pulse Rate Pulse Rate [Right Pulse Oximeter] 90 Respiratory Rate 24 Blood Pressure [Le ft Arm] 154/72 H Blood Pressure [Ri ght Arm] Pulse Oximetry 100 100 100 Oxygen Delivery Me thod Nasal Cannula Oxygen Flow Rate 2 09/05/22 21:56 09/05/22 21:56 09/05/22 20:41 Temperature Pulse Rate 86 Pulse Rate [Right Pulse Oximeter] 90 Respiratory Rate 24 24 Blood Pressure [Le ft Arm] Blood Pressure [Ri ght Arm] Pulse Oximetry 100 Oxygen Delivery Me thod Nasal Cannula Oxygen Flow Rate 2 09/05/22 23:00 09/06/22 03:00 09/06/22 04:00 Temperature 97.8 F 97.5 F L Pulse Rate Pulse Rate [Right Pulse Oximeter] 80 72 Respiratory Rate 20 20 Blood Pressure [Le ft Arm] 140/72 H 104/54 L Blood Pressure [Ri ght Arm] Pulse Oximetry 99 100 100 Oxygen Delivery Me thod Nasal Cannula Nasal Cannula Oxygen Flow Rate 2 2 Labs Labs: Laboratory Results - last 24 hr 09/05/22 09/05/22 09/06/22 11:20 11:20 05:40 WBC 6.36 RBC 4.88 Hgb 13.8 Hct 43.4 MCV 89 MCH 28 MCHC 32 RDW Coeff of [place] 14.2 Plt Count 279 Neut % (Auto) 56.7 Lymph % (Auto) 27.2 [place] % (Auto) 10.4 Eos % (Auto) 4.9 Baso % (Auto) 0.6 Neut # (Auto) 3.61 Lymph # (Auto) 1.73 [place] # (Auto) 0.70 Eos # (Auto) 0.31 Baso # (Auto) 0.04 VBG pH 7.447 H VBG pCO2 43 VBG pO2 50.8 H VBG HCO3 30 H Sodium Potassium Chloride Carbon Dioxide BUN Creatinine Estimated Creat Clear Estimated GFR Glucose Calcium NT-Pro-B Natriuret Pep 157 Procalcitonin 0.07 09/06/22 05:40 WBC RBC Hgb Hct MCV MCH MCHC RDW Coeff of [place] Plt Count Neut % (Auto) Lymph % (Auto) [place] % (Auto) Eos % (Auto) Baso % (Auto) Neut # (Auto) Lymph # (Auto) [place] # (Auto) Eos # (Auto) Baso # (Auto) VBG pH VBG pCO2 VBG pO2 VBG HCO3 Sodium 140 Potassium 4.0 Chloride 105 Carbon Dioxide 29 BUN 13 Creatinine 0.8 Estimated Creat Clear 34.64 Estimated GFR 73 Glucose 146 H Calcium 8.6 NT-Pro-B Natriuret Pep Procalcitonin
[2022-09-06 12:15] LABS: Albumin* 3.5 g/dL (3.3-5.0)
[2022-09-06 12:18] LABS: Cholesterol* 160 mg/dL (90-199); INR 0.97 (0.91-1.10); Lactate Dehydrogenase* 368 U/L (120-246); Prothrombin Time 13.4 Seconds; Total Protein* 6.5 g/dL (6.0-8.3)
--- NOTE | 2022-09-06 13:52 | CRLHL7_ITS ---
For Patients: As a result of the Century Cures Act, medical imaging exams and procedure reports are released immediately into your electronic medical record. You may view this report before your referring provider. If you have questions, please contact your health care provider. INDICATION: POST THORA Examination: Chest one view. Comparison: 09/06/22. History: Post thoracentesis. Findings: Interval reduction in size of the right pleural effusion post thoracentesis. No pneumothorax. Otherwise stable exam. Impression: 1. No pneumothorax post thoracentesis. 2. Report called to Dr. Ruth, 09/06/22, 1445 hours. Dictated by: Miguel Leone MD @ 09/06/2022 14:49:44 (Electronically Signed)
--- NOTE | 2022-09-06 14:02 | PM.GSCN ---
History of Present Illness Consult details Date Seen: 09/06/22 Consult date: 09/06/22 Narrative: 82-year-old female was readmitted to the hospital with increasing shortness of breath. Patient was found to have a large right-sided pleural effusion. Patient underwent thoracentesis only last Wednesday with 1450 mL of fluid removed. Surgery was asked to be involved for a repeat thoracentesis. Review of Systems Narrative: General: no fevers CV: Increasing shortness of breath Resp: no cough GI: No nausea, vomiting, abdominal pain Skin: no new rashes Psyche: no depression, no anxiety PFSH PFSH Medical History Acute insomnia Allergic rhinitis CAD (coronary artery disease) Chronic kidney disease, stage 3b Chronic pain Constipation Controlled substance agreement signed COPD (chronic obstructive pulmonary disease) Depression Gastroparesis GERD (gastroesophageal reflux disease) Gouty arthropathy Hereditary and idiopathic peripheral neuropathy Hypercalcemia Hypertension Hypertriglyceridemia Hypokalemia Hypothyroidism Myocardial infarction Neurogenic bladder Neuropathy HUGO (obstructive sleep apnea) Peripheral autonomic neuropathy due to diabetes mellitus Peripheral vascular disease Pneumonia POLST (Physician Orders for Life-Sustaining Treatment) Pulmonary fibrosis Pulmonary nodule SBO (small bowel obstruction) Slow transit constipation Stroke TIA (transient ischemic attack) Type 2 diabetes mellitus with complication, with long-term current use of insulin Urinary tract infection Surgical History H/O blepharoplasty H/O colonoscopy H/O foot surgery H/O neck surgery H/O: hysterectomy History of cholecystectomy Hx of appendectomy Hx of repair of rotator cuff Hx of tonsillectomy S/P bunionectomy S/P left rotator cuff repair Family History Maternal Grandfather Pancreatic cancer Aunt Breast cancer Uncle Lung cancer Aunt Breast cancer Father Tuberculosis Coronary artery disease Social History Narrative: Lives independently with her boyfriend, Zane, and her daughter, Martín, who lives in the basement. Quit tobacco 1986. No EtOH. Denies recreational drug use. Wants to be DNR/DNI. Highest level of school completed/degree received: some college, no degree Smoking Status: Former smoker Do you use any of these nicotine containing products: None Second hand tobacco smoke exposure: No How often do you have a drink containing alcohol: never How often do you have six or more drinks on one occasion: Never AUDIT-C Alcohol total score: 0 Non-prescribed substance use: denies use Caffeine: Yes Are you using contraception or practicing any form of control: No service: No Meds Home Medications and Allergies Home Medications Medication Instructions Recorded Confirmed Type allopurinol 300 mg tablet 150 mg PO DAILY 04/04/22 09/05/22 History clopidogrel 75 mg tablet 75 mg PO DAILY 04/04/22 09/05/22 History furosemide 20 mg tablet 20 mg PO DAILY 04/04/22 09/05/22 History gabapentin 300 mg capsule 600 mg PO HS 04/04/22 09/05/22 History hydromorphone 8 mg tablet 8 mg PO QAM 04/04/22 09/05/22 History insulin aspart U-100 100 unit/mL 12 unit subcut DAILY@08 04/04/22 09/05/22 History (3 mL) subcutaneous pen (Novolog FlexPen U-100 Insulin aspart) insulin degludec 100 unit/mL (3 26 unit subcut HS 04/04/22 09/05/22 History mL) subcutaneous pen (Tresiba FlexTouch U-100 insulin) loperamide 2 mg capsule 2 mg PO BID PRN 04/04/22 09/05/22 History methadone 5 mg tablet 5 mg PO QAM 04/04/22 09/05/22 History rosuvastatin 20 mg tablet 20 mg PO HS 04/04/22 09/05/22 History semaglutide 1 mg/dose (4 mg/3 mL) 1 mg subcut TH@04/04/22 09/05/22 History subcutaneous pen injector (Ozempic) tamsulosin 0.4 mg capsule 0.4 mg PO DAILY 04/04/22 09/05/22 History colchicine 0.6 mg tablet 0.6 mg PO BID PRN 04/11/22 09/05/22 History BIOTENE DRY MOUTH LOZENGES 1 ea mucous membrane QID PRN 05/10/22 09/05/22 History cholecalciferol (vitamin D3) 50 4,000 unit PO DAILY 05/10/22 09/05/22 History mcg (2,000 unit) tablet (Vitamin D3) cyclobenzaprine 5 mg tablet 5 mg PO Q8H PRN 05/10/22 09/05/22 History fexofenadine 180 mg tablet 180 mg PO DAILY PRN 05/10/22 09/05/22 History (Aller-ease) hydromorphone 8 mg tablet 16 mg PO HS 05/10/22 09/05/22 History (Dilaudid) insulin aspart U-100 100 unit/mL 18 unit subcut DAILY@12 05/10/22 09/05/22 History (3 mL) subcutaneous pen (Novolog FlexPen U-100 Insulin aspart) levothyroxine 88 mcg tablet 88 mcg PO DAILY 05/10/22 09/05/22 History methadone 5 mg tablet 10 mg PO HS 05/10/22 09/05/22 History naloxone 4 mg/actuation nasal 4 mg intranasal DIRECTED PRN 05/10/22 09/05/22 History spray (Narcan) potassium chloride 20 mEq 20 meq PO BIDWM 05/10/22 09/05/22 History tablet,extended release(part/cryst) (Klor-Con M) prochlorperazine maleate 10 mg 10 mg PO Q6H PRN 05/10/22 09/05/22 History tablet vitamin A-vitamin C-vit E-min 1 tab PO DAILY 05/10/22 09/05/22 History tablet (Ocutabs tablet) albuterol sulfate 2.5 mg/3 mL 2.5 mg inhalation Q4H PRN 07/06/22 09/05/22 History (0.083 %) solution for nebulization insulin aspart U-100 100 unit/mL 26 unit subcut DAILY@18 07/06/22 09/05/22 History (3 mL) subcutaneous pen (Novolog FlexPen U-100 Insulin aspart) Allergies Allergy/AdvReac Type Severity Reaction Status Date / Time cortisone Allergy Severe Anaphylaxis Verified 09/04/22 23:11 prednisone Allergy Severe Verified 09/04/22 23:11 amoxicillin Allergy Intermediate Verified 09/04/22 23:11 cephalexin [From Keflex] Allergy Intermediate Diarrhea Verified 09/04/22 23:11 doxycycline Allergy Intermediate Verified 09/04/22 23:11 duloxetine [From Cymbalta] Allergy Intermediate Verified 09/04/22 23:11 escitalopram [From Lexapro] Allergy Intermediate sleep Verified 09/04/22 23:11 disturbance febuxostat Allergy Intermediate vomitting Verified 09/04/22 23:11 lisinopril Allergy Intermediate Verified 09/04/22 23:11 losartan [From Cozaar] Allergy Intermediate Verified 09/04/22 23:11 nitrofurantoin Allergy Intermediate Verified 09/04/22 23:11 [From Macrobid] pregabalin [From Lyrica] Allergy Intermediate Nausea Verified 09/04/22 23:11 propoxyphene Allergy Intermediate angioedema Verified 09/04/22 23:11 ramelteon [From Rozerem] Allergy Intermediate Verified 09/04/22 23:11 sulfamethoxazole Allergy Intermediate Verified 09/04/22 23:11 [From Bactrim] tramadol [From Ultram] Allergy Intermediate Verified 09/04/22 23:11 trimethoprim [From Bactrim] Allergy Intermediate Verified 09/04/22 23:11 venlafaxine [From Effexor] Allergy Intermediate Verified 09/04/22 23:11 zolpidem [From Ambien] Allergy Intermediate Confusion Verified 09/04/22 23:11 acetaminophen [From Vicodin] Allergy Mild Nausea Verified 09/04/22 23:11 hydrocodone [From Vicodin] Allergy Mild Nausea Verified 09/04/22 23:11 aspirin Allergy Unknown Verified 09/04/22 23:11 clindamycin Allergy Unknown Verified 09/04/22 23:11 ipratropium [From Atrovent] Allergy Unknown Verified 09/04/22 23:11 Penicillins Allergy Unknown Verified 09/04/22 23:11 pramipexole Allergy Unknown Verified 09/04/22 23:11 trazodone Allergy Unknown Verified 09/04/22 23:11 adhesive tape Allergy huge Verified 09/04/22 23:11 blisters Exam Narrative: Exam Narrative: General appearance: Alert, cooperative, and in no distress Pulmonary: Chest symmetric, bilateral wheezing, decreased breath sounds in the right lower chest. Previous thoracentesis incision is healing well with somewhat irritated skin but no surrounding erythema concerning for cellulitis. Cardiovascular Heart: Regular rate and rhythm, S1, S2, no murmurs/rubs/gallops Skin: Normal skin color, texture, and turgor. No rashes or lesions. Psychiatric: Alert, cooperative, normal affect. Const: Vital Signs, click to edit/add: Vital Signs - 24 hr 02/11/23 15:00 09/05/22 15:00 09/05/22 15:00 Temperature Pulse Rate Pulse Rate [Right Pulse Oximeter] 93 Respiratory Rate 20 20 Blood Pressure [Le ft Arm] Blood Pressure [Ri ght Arm] Pulse Oximetry 98 98 Oxygen Delivery Me thod Nasal Cannula Oxygen Flow Rate 2 09/05/22 15:00 09/05/22 19:00 09/05/22 20:41 Temperature 98.0 F 97.7 F Pulse Rate Pulse Rate [Right Pulse Oximeter] 93 90 Respiratory Rate 20 24 Blood Pressure [Le ft Arm] 154/72 H Blood Pressure [Ri ght Arm] 163/74 H Pulse Oximetry 98 100 100 Oxygen Delivery Me thod Nasal Cannula Nasal Cannula Oxygen Flow Rate 2 2 09/05/22 21:56 09/05/22 21:56 09/05/22 21:56 Temperature Pulse Rate Pulse Rate [Right Pulse Oximeter] 90 Respiratory Rate 24 24 Blood Pressure [Le ft Arm] Blood Pressure [Ri ght Arm] Pulse Oximetry 100 100 Oxygen Delivery Me thod Nasal Cannula Oxygen Flow Rate 2 09/05/22 20:41 09/05/22 23:00 09/06/22 03:00 Temperature 97.8 F 97.5 F L Pulse Rate 86 Pulse Rate [Right Pulse Oximeter] 80 72 Respiratory Rate 20 20 Blood Pressure [Le ft Arm] 140/72 H 104/54 L Blood Pressure [Ri ght Arm] Pulse Oximetry 99 100 Oxygen Delivery Me thod Nasal Cannula Nasal Cannula Oxygen Flow Rate 2 2 09/06/22 04:00 09/06/22 07:00 09/06/22 07:00 Temperature Pulse Rate Pulse Rate [Right Pulse Oximeter] 81 Respiratory Rate 20 Blood Pressure [Le ft Arm] Blood Pressure [Ri ght Arm] Pulse Oximetry 100 95 Oxygen Delivery Me thod Oxygen Flow Rate 09/06/22 07:00 09/06/22 07:00 09/06/22 11:00 Temperature 97.6 F 97.8 F Pulse Rate Pulse Rate [Right Pulse Oximeter] 81 84 Respiratory Rate 20 20 20 Blood Pressure [Le ft Arm] 162/88 H 152/73 H Blood Pressure [Ri ght Arm] Pulse Oximetry 95 95 100 Oxygen Delivery Me thod Nasal Cannula Nasal Cannula Nasal Cannula Oxygen Flow Rate 2 2 2 09/06/22 12:00 Temperature Pulse Rate Pulse Rate [Right Pulse Oximeter] Respiratory Rate Blood Pressure [Le ft Arm] Blood Pressure [Ri ght Arm] Pulse Oximetry 100 Oxygen Delivery Me thod Oxygen Flow Rate Results Labs Labs: Abnormal lab results 09/06/22 09/06/22 Range/Units 05:40 05:40 Glucose 146 H (60-115) mg/dL Lactate Dehydrogenase 368 H (120-246) U/L Diabetes panel 09/06/22 09/06/22 Range/Units 05:40 05:40 Sodium 140 (135-149) mmol/L Potassium 4.0 (3.6-5.1) mmol/L Chloride 105 (96-114) mmol/L Carbon Dioxide 29 (20-32) mmol/L BUN 13 (7-30) mg/dL Creatinine 0.8 (0.5-1.5) mg/dL Glucose 146 H (60-115) mg/dL Calcium 8.6 (8.4-10.6) mg/dL Total Protein 6.5 (6.0-8.3) g/dL Albumin 3.5 (3.3-5.0) g/dL Calcium panel 09/06/22 09/06/22 Range/Units 05:40 05:40 Calcium 8.6 (8.4-10.6) mg/dL Albumin 3.5 (3.3-5.0) g/dL Pituitary panel 09/06/22 Range/Units 05:40 Sodium 140 (135-149) mmol/L Potassium 4.0 (3.6-5.1) mmol/L Chloride 105 (96-114) mmol/L Carbon Dioxide 29 (20-32) mmol/L BUN 13 (7-30) mg/dL Creatinine 0.8 (0.5-1.5) mg/dL Glucose 146 H (60-115) mg/dL Calcium 8.6 (8.4-10.6) mg/dL Adrenal panel 09/06/22 09/06/22 Range/Units 05:40 05:40 Sodium 140 (135-149) mmol/L Potassium 4.0 (3.6-5.1) mmol/L Chloride 105 (96-114) mmol/L Carbon Dioxide 29 (20-32) mmol/L BUN 13 (7-30) mg/dL Creatinine 0.8 (0.5-1.5) mg/dL Glucose 146 H (60-115) mg/dL Calcium 8.6 (8.4-10.6) mg/dL Total Protein 6.5 (6.0-8.3) g/dL Albumin 3.5 (3.3-5.0) g/dL All other labs normal. General Surgery Procedures Thoracentesis Time Out Performed: Yes Imaging guidance used ?: Yes Indications: Pleural effusion Procedure: diagnostic thoracentesis (And therapeutic thoracentesis) Location: right Local anesthetic used: lidocaine Amount of anesthesia used (mL): 5 Bedside ultrasound used: yes, real-time guidance Preparation: sterile prep and drape and 11 blade used to make be in skin Amount of fluid obtained (mL): 1,350 Fluid: bloody (But thin, not bright) Post Procedure Exam: awake, alert, normal BP, normal HR and normal SpO2 Patient Tolerated Procedure: well Complications: none
[2022-09-06 14:30] LABS: BF Clarity* Slightly Cloudy; BF Color Blood Tinged; BF Total Volume* 220; pH Body Fluid* 8.5
[2022-09-06 14:39] LABS: Albumin Body Fluid* 2.2 gm/dL; Amylase Body Fluid* < 30 U/L; Body Fluid Total Protein* 3.9 gm/dL; Glucose Body Fluid* 177 mg/dL; LDH Body Fluid* 319 U/L
[2022-09-06 14:40] LABS: Cholesterol Body Fluid* 65 mg/dL
[2022-09-06 14:43] LABS: Mononuclear WBC Body Fluid* 93 %; Polynuclear WBC Body Fluid* 7 %; RBC, Body Fluid* 38000 Cells/uL; WBC, Body Fluid* 983 Cells/uL
--- NOTE | 2022-09-06 16:45 | PC.NURSE ---
End of shift: pleasant and cooperative. SBA/Indep to BSC. No c/o pain. Pt has an audible wheeze bilaterally, productive to non-productive cough present. Pt states her breathing has improved; she does however continue to feel SOB with exertion. Pt on 2L O2, sats 99-100%. Tele = NS w/ 1st?degree HB. Pt. had thoracentesis procedure done today at [address] Ruth, 1350 CC fluid removed and partially sent to lab for testing. Pt. stated she felt relief after procedure. Pt. tolerating reg. diet, significant other at bedside most of the day and very supportive.
--- NOTE | 2022-09-06 18:29 | PC.NURSE ---
End of Shift ([id number]): Patient pleasant and cooperative. Patient is vitally stable, lungs with expiratory wheezes and course crackles, BS WNL, IV intact. Patient denies pain. Patient independent to BSC. Patient on 2L NS with sats 98-100%. Patient reports feeling and breathing much better since thoracentesis, patient appears much more comfortable. Blood sugars 178 and 316. Patient in bed enjoying super bowl appetizers with family. Patient with 2 small incisions on back from thoracentesis, glued closed, no drainage. Patient tolerating diet and urinating.
[2022-09-06] MEDS: MAGNESIUM OXIDE 400 MG TABLET 800 MG PO (18:45)
[2022-09-06] MEDS: HYDROmorphone 2 MG TABLET 16 MG PO (20:36)
[2022-09-06] MEDS: GABAPENTIN 300 MG CAPSULE 600 MG PO (20:37)
[2022-09-06] MEDS: METHADONE 5 MG TABLET 10 MG PO (20:37)
[2022-09-07 02:32] VITALS: BP 110/60; PULSE 84; RESP 18; TEMP 36.4; O2SAT 99
[2022-09-07 04:00] VITALS: O2SAT 99
[2022-09-07 05:56] LABS: Basophils Absolute Auto 0.04 K/uL (0.00-0.30); Basophils Percent Auto 0.6 % (0.0-3.0); Eosinophils Absolute Auto 0.38 K/uL (0.00-0.50); Hematocrit 42.9 % (33.0-51.0); Hemoglobin* 13.6 gm/dL (12.0-16.0); Immature Granulocytes Abs Auto 0.04 K/uL (0.00-0.30); Immature Granulocytes Pct Auto 0.6 %; Lymphocytes Absolute Auto 1.78 K/uL (0.90-2.90); Lymphocytes Percent Auto 28.3 % (20-44); Mean Corpuscular HGB Conc 32 gm/dL (32-36); Mean Corpuscular Hemoglobin 28 pg (26-34); Mean Corpuscular Volume 89 fL (80-100); Neutrophils Absolute Auto 3.37 K/uL (1.7-7.0); Neutrophils Percent Auto 53.5 % (42.0-72.0); Platelet Count* 263 K/uL (140-440); Red Blood Count 4.82 m/uL (4.00-5.20)
[2022-09-07 06:00] LABS: Slide Review Reflex No
[2022-09-07 06:10] LABS: Chloride* 103 mmol/L (96-114); Potassium* 4.1 mmol/L (3.6-5.1); Sodium* 137 mmol/L (135-149)
--- NOTE | 2022-09-07 06:12 | PC.NURSE ---
19-: pleasant and cooperative. Pt stated she is feeling much better after thoracentesis. Lung sounds clear in right lung, exp wheezes auscultated in left lung, encouraged deep breathing exercises. Remains on 2L O2 chronically, sats 98-100%. BG 400 at HS, pt stated she had too many sweets during the Super Bowl, SSI and Levemir given at HS.
[2022-09-07 06:13] LABS: Blood Urea Nitrogen* 16 mg/dL (7-30); Carbon Dioxide* 29 mmol/L (20-32); Creatinine* 0.8 mg/dL (0.5-1.5); Est. Creatinine Clearance* 34.64; Estimated Glomerular Filt Rate 73 ml/min; Glucose* 165 mg/dL (60-115)
[2022-09-07 06:14] LABS: Calcium* 8.3 mg/dL (8.4-10.6); Magnesium* 2.3 mg/dL (1.5-2.6)
[2022-09-07] MEDS: LEVOTHYROXINE 88 MCG TABLET PO (06:36)
[2022-09-07 07:00] VITALS: BP 117/56; PULSE 67; PULSE 78; RESP 18; TEMP 36.7; O2SAT 100; O2SAT 99
[2022-09-07] MEDS: TAMSULOSIN HCL 0.4 MG CAPSULE PO (08:53)
[2022-09-07] MEDS: POTASSIUM CHLORIDE 10 MEQ CAPSULE ER 20 MEQ PO (08:53)
[2022-09-07] MEDS: MAGNESIUM OXIDE 400 MG TABLET PO (08:53)
[2022-09-07] MEDS: CLOPIDOGREL 75 MG TABLET PO (08:53)
[2022-09-07] MEDS: allopurinoL 300 MG TABLET 150 MG PO (08:53)
[2022-09-07] MEDS: SENNOSIDES/DOCUSATE TABLET 4 TAB PO (08:54)
[2022-09-07] MEDS: METHADONE 5 MG TABLET PO (08:54)
[2022-09-07] MEDS: FUROSEMIDE 40 MG TABLET PO (08:55)
[2022-09-07] MEDS: ALBUTEROL SULFATE 2.5 MG/3 ML VIAL.NEB NEB (08:55)
[2022-09-07] MEDS: HYDROmorphone 2 MG TABLET 8 MG PO (08:55)
[2022-09-07] MEDS: SODIUM CHLORIDE 0.9 % (FLUSH) 10 ML SYRINGE 5 ML IVF (08:56)
--- NOTE | 2022-09-07 11:18 | PM.DS1 ---
DS: Providers Provider Date Seen: 09/07/22 Date of admission: 09/05/22 10:43 Primary care physician: Michael Sandy MD Admitting Clinician: Blade Vela MD Consults: 09/05/22 09:06 Consult to Physician [CONS] Routine Comment: recurrent pleural effusion thoracentesis Consulting Provider: Dayanna Ruth Has provider been notified: No Attending Physician on discharge: Whitney Fajardo MD Date of Discharge: 09/07/22 DS: Diagnosis Discharge Diagnosis (1) Pleural effusion: Status: Acute Problem details: - Recurrent: underwent diagnostic and therapeutic RIGHT sided thoracentesis with Dr. Ruth of General Surgery on 09/06 with 1350mL of fluid return - Also had RIGHT thoracentesis with Dr. Ruth on 09/01/22, ~1400cc bloody fluid noted during that procedure (still awaiting meaningful pathology results) - Given recurrent effusion, TTE performed 09/05/22: Final Impressions: Limited Echocardiogram 1. Normal LV size, normal global systolic function with an estimated EF of 65 - 70%. 2. Right ventricular cavity size is normal, global systolic RV function is normal. 3. No significant valve disease detected. 4. Normal estimated CVP. (2) Interstitial pulmonary fibrosis: Status: Acute Problem details: - stable (3) COPD (chronic obstructive pulmonary disease): Status: Chronic Problem details: - stable, at baseline (4) HUGO (obstructive sleep apnea): Status: Chronic Problem details: - stable - HUGO 06/05/2007 AHI-14.2 - Uses CPAP, uses OXYGEN at night with CPAP and approximately 5-6 hours per day in addition. 04/07/2011 DS: Summary Hospital Course Hospital Course: Ben is a micaela 82-year-old female, well-known to the hospitalist service, who was admitted on 09/05/2022 for recurrent right-sided pleural effusion. She had a successful thoracentesis on the right 1 week ago, pathology pending at this time. Upon admission, she had a repeat right-sided thoracentesis with Dr. Ruth of general surgery, with 1350mL fluid return, sent to pathology. Comorbidities remained stable throughout stay, and patient was medically appropriate for discharge home 09/07/22. Discussed the fact the patient will need pulmonology follow-up given recurrent pleural effusions; case was discussed with her PCP, Dr. Sandy, who will see the patient in the clinic tomorrow to discuss follow-up plan. Time Spent with Patient Time attestation: Total time spent providing and/or coordinating discharge services: Time spent: Greater than 30 minutes Specific discharge activities: Care coordination with multidisciplinary team and PCP, chart review and discharge planning Exam Narrative: Exam Narrative: GEN: Alert and oriented, sitting comfortably in bed and answering questions appropriately. Does not appear toxic HEENT: Normal external ears, EOMIs bilaterally, no scleral icterus CV: RRR, No concerning murmurs, rubs, or gallops R: Mild bibasilar rhonchi, clears with deep breath. No wheezing Ext: wwp, no concerning edema Skin: No concerning skin lesions or rashes on exposed skin Neuro: Nonfocal Psych: Appropriate Const: Vital Signs, click to edit/add: Vital Signs - 24 hr 09/06/22 12:00 09/06/22 15:00 09/06/22 15:00 Temperature 97.8 F Pulse Rate 78 Pulse Rate [Right Pulse Oximeter] 79 Respiratory Rate 12 Blood Pressure [Le ft Arm] 106/58 L Pulse Oximetry 100 100 Oxygen Delivery Me thod Nasal Cannula Oxygen Flow Rate 2 09/06/22 15:00 09/06/22 15:00 09/06/22 15:00 Temperature Pulse Rate Pulse Rate [Right Pulse Oximeter] 79 Respiratory Rate 12 12 Blood Pressure [Le ft Arm] Pulse Oximetry 100 100 Oxygen Delivery Me thod Nasal Cannula Oxygen Flow Rate 2 09/06/22 20:00 09/06/22 22:00 09/06/22 22:00 Temperature Pulse Rate Pulse Rate [Right Pulse Oximeter] 79 Respiratory Rate 18 Blood Pressure [Le ft Arm] Pulse Oximetry 99 99 Oxygen Delivery Me thod Oxygen Flow Rate 09/06/22 22:00 09/06/22 22:11 09/06/22 19:00 Temperature 97.6 F Pulse Rate 84 Pulse Rate [Right Pulse Oximeter] 81 Respiratory Rate 18 18 Blood Pressure [Le ft Arm] 142/59 H Pulse Oximetry 99 99 Oxygen Delivery Me thod Nasal Cannula Nasal Cannula Oxygen Flow Rate 2 2 09/06/22 23:00 09/07/22 02:32 09/07/22 04:00 Temperature 97.8 F 97.5 F L Pulse Rate Pulse Rate [Right Pulse Oximeter] 85 84 Respiratory Rate 18 18 Blood Pressure [Le ft Arm] 134/65 110/60 Pulse Oximetry 100 99 99 Oxygen Delivery Me thod Nasal Cannula Nasal Cannula Oxygen Flow Rate 2 2 09/07/22 07:00 09/07/22 07:00 09/07/22 07:00 Temperature Pulse Rate Pulse Rate [Right Pulse Oximeter] 78 Respiratory Rate 18 18 Blood Pressure [Le ft Arm] Pulse Oximetry 99 100 Oxygen Delivery Me thod Nasal Cannula Oxygen Flow Rate 2 09/07/22 07:00 09/07/22 07:00 Temperature 98.1 F Pulse Rate 67 Pulse Rate [Right Pulse Oximeter] 78 Respiratory Rate 18 Blood Pressure [Le ft Arm] 117/56 L Pulse Oximetry 100 Oxygen Delivery Me thod Nasal Cannula Oxygen Flow Rate 2 DS: Data Data Completed and Pending Completed studies during hospitalization: Procedures Assistance with Respiratory Ventilation, 24-96 Consecutive Hours, High Nasal Flow/Velocity (05/10/22) Introduction of Other Therapeutic Substance into Respiratory Tract, Via Natural or Artificial Opening (07/06/22) Labs on day of discharge: Labs from last 24 hours 09/07/22 09/07/22 09/06/22 05:36 05:36 13:55 WBC 6.30 RBC 4.82 Hgb 13.6 Hct 42.9 MCV 89 MCH 28 MCHC 32 RDW Coeff of Thais 14.0 Plt Count 263 Neut % (Auto) 53.5 Lymph % (Auto) 28.3 [place] % (Auto) 11.0 Eos % (Auto) 6.0 Baso % (Auto) 0.6 Neut # (Auto) 3.37 Lymph # (Auto) 1.78 [place] # (Auto) 0.70 Eos # (Auto) 0.38 Baso # (Auto) 0.04 INR Sodium 137 Potassium 4.1 Chloride 103 Carbon Dioxide 29 BUN 16 Creatinine 0.8 Estimated Creat Clear 34.64 Estimated GFR 73 Glucose 165 H Calcium 8.3 L Magnesium 2.3 Lactate Dehydrogenase Total Protein Albumin Cholesterol Fluid Volume 220 Fluid Color Blood Tinged A Fluid Appearance Slightly Cloudy A Fluid pH 8.5 Fluid WBC 983 Fluid RBC 89707 Fluid Polynuclear WBCs 7 Fluid Mononuclear WBCs 93 Fluid Glucose 177 Fluid Total Protein 3.9 Fluid Albumin 2.2 Fluid LDH 319 Fluid Amylase < 30 Fluid Cholesterol 65 09/06/22 09/06/22 05:40 05:40 WBC RBC Hgb Hct MCV MCH MCHC RDW Coeff of Thais Plt Count Neut % (Auto) Lymph % (Auto) [place] % (Auto) Eos % (Auto) Baso % (Auto) Neut # (Auto) Lymph # (Auto) [place] # (Auto) Eos # (Auto) Baso # (Auto) INR 0.97 Sodium Potassium Chloride Carbon Dioxide BUN Creatinine Estimated Creat Clear Estimated GFR Glucose Calcium Magnesium Lactate Dehydrogenase 368 H Total Protein 6.5 Albumin 3.5 Cholesterol 160 Fluid Volume Fluid Color Fluid Appearance Fluid pH Fluid WBC Fluid RBC Fluid Polynuclear WBCs Fluid Mononuclear WBCs Fluid Glucose Fluid Total Protein Fluid Albumin Fluid LDH Fluid Amylase Fluid Cholesterol Preliminary micro results at discharge 09/06/22 13:55 Body Fluid Culture - Preliminary Pleural Fluid No growth. Discharge Plan Discharge Disposition: Home, Self-Care Date of Admission: 09/05/22 10:43 Attending Provider on Discharge: Whitney Fajardo Consulting Providers: Dayanna Ruth Primary Care Provider: Michael Sandy Condition: Stable Anticipated Discharge Date/Time: 09/07/22 10:56 Discharge Medications: Continued colchicine 0.6 mg tablet 0.6 mg PO BID PRN Label Comments: TAKE ONE TABLET BY MOUTH TWICE DAILY NEEDED levothyroxine 88 mcg tablet 88 mcg PO DAILY Label Comments: Take 1 Tablet (88 mcg) by mouth before breakfast naloxone [Narcan] 4 mg/actuation spray,non-aerosol 4 mg INTRANASAL DIRECTED PRN Label Comments: Inhale 1 [place] into affected nostril(s) each time if needed for Patient Diff To Arouse or Resp Rate < 8 / min. Additional doses may be given fexofenadine [Aller-ease] 180 mg tablet 180 mg PO DAILY PRN cholecalciferol (vitamin D3) [Vitamin D3] 50 mcg (2,000 unit) tablet 4,000 unit PO DAILY cyclobenzaprine 5 mg tablet 5 mg PO Q8H PRN Ocutabs Tablet 1 tab PO DAILY prochlorperazine maleate 10 mg tablet 10 mg PO Q6H PRN Label Comments: TAKE ONE TABLET BY MOUTH EVERY SIX HOURS NEEDED potassium chloride [Klor-Con M20] 20 mEq tablet,ER particles/crystals 20 meq PO BIDWM Label Comments: Take 1 Tablet (20 mEq) by mouth 2 times daily with meals insulin aspart U-100 [Novolog FlexPen U-100 Insulin] 100 unit/mL (3 mL) insulin pen 18 unit subcut DAILY@12 methadone 5 mg tablet 10 mg PO HS BIOTENE DRY MOUTH LOZENGES 1 ea mucous membrane QID PRN hydromorphone [Dilaudid] 8 mg tablet 16 mg PO HS sennosides-docusate sodium [Stool Softener-Laxative] 8.6-50 mg Tablet 4 tab PO BID 30 Days Qty: 240 0RF albuterol sulfate 2.5 mg /3 mL (0.083 %) solution for nebulization 2.5 mg inhalation Q4H PRN insulin aspart U-100 [Novolog FlexPen U-100 Insulin] 100 unit/mL (3 mL) Insulin Pen 26 unit subcut DAILY@18 loperamide 2 mg capsule 2 mg PO BID PRN hydromorphone 8 mg tablet 8 mg PO QAM Rx Instructions: TAKES 1 PILL IN AM AND 2 IN PM clopidogrel 75 mg tablet 75 mg PO DAILY Label Comments: TAKE ONE TABLET BY MOUTH ONE TIME DAILY tamsulosin 0.4 mg capsule 0.4 mg PO DAILY Label Comments: Take 1 Capsule (0.4 mg) by mouth once daily after a meal. gabapentin 300 mg capsule 600 mg PO HS allopurinol 300 mg tablet 150 mg PO DAILY furosemide 20 mg tablet 20 mg PO DAILY Label Comments: Take 1 Tablet (20 mg) by mouth every morning. methadone 5 mg tablet 5 mg PO QAM insulin aspart U-100 [Novolog FlexPen U-100 Insulin] 100 unit/mL (3 mL) insulin pen 12 unit SUBCUT DAILY@08 rosuvastatin 20 mg tablet 20 mg PO HS Label Comments: Take 1 Tablet (20 mg) by mouth at bedtime. insulin degludec [Tresiba FlexTouch U-100] 100 unit/mL (3 mL) insulin pen 26 unit SUBCUT HS Ozempic 1 mg/dose (4 mg/3 mL) pen injector 1 mg SUBCUT TH@09 Rx Instructions: WEEKLY ON WEDNESDAY Discharge Orders: Discharge Order (Routine); Ordered 09/07/22 Ordered By: Whitney Fajardo Consulting provider completed their portion of the discharge: Yes Patient Education: Pleural Effusion (DC) Additional Instructions: See Dr. Sandy tomorrow at 1:10pm. No changes to home medications. Activity Level: Activity as Tolerated Discharge Diet: Regular Follow Up Appointments: Michael Sandy MD [Primary Care Provider] - Forms: [employer] Info Instructions
--- NOTE | 2022-09-07 12:38 | PC.NURSE ---
Discharge: Patient reports feeling and breathing much better since thoracentesis, VSS. Denies any chest pain, N/V or SOB. Pt's BG 116 this morning no sliding scale used. Pt. discharged at 1210 to home via wheelchair accompanied by significant other. Pt's IV removed intact. Pt. verbalized understanding of discharge instructions and signed form.
== END 2022-09-07 12:10 | disposition home or self-care (01) | DRG 187 ==
LOC: ED 09-05 01:22 → MEDSURG 09-05 01:52
PROVIDERS: Internal Medicine; Surgery; Admitting Provider Internal Medicine; Emergency Provider Internal Medicine; PCP Surgery; Visit Provider Hospitalist
DX: J90 Pleural effusion, not elsewhere classified (principal); J96.11 Chronic respiratory failure with hypoxia; J44.9 Chronic obstructive pulmonary disease, unspecified; J84.10 Pulmonary fibrosis, unspecified; G47.33 Obstructive sleep apnea (adult) (pediatric); I12.9 Hypertensive chronic kidney disease with stage 1 through stage 4 chronic kidney disease, or unspecified chronic kidney disease; N18.32 Chronic kidney disease, stage 3b; E11.43 Type 2 diabetes mellitus with diabetic autonomic (poly)neuropathy; E11.51 Type 2 diabetes mellitus with diabetic peripheral angiopathy without gangrene; R91.1 Solitary pulmonary nodule; Z79.4 Long term (current) use of insulin; G89.29 Other chronic pain; E78.1 Pure hyperglyceridemia; I25.10 Atherosclerotic heart disease of native coronary artery without angina pectoris; M10.9 Gout, unspecified; I25.2 Old myocardial infarction; E03.9 Hypothyroidism, unspecified; K21.9 Gastro-esophageal reflux disease without esophagitis; G47.00 Insomnia, unspecified; F32.A Depression, unspecified; Z79.85 Long-term (current) use of injectable non-insulin antidiabetic drugs
CPT/HCPCS: 32555; 36415; 36600; 71045; 71046; 71260; 74177; 80048; 80053; 82040; 82042; 82150; 82247; 82465; 82565; 82803; 82945; 82962; 83605; 83615; 83735; 83880; 83986; 84145; 84155; 84157; 84311; 84443; 84484; 85025; 85610; 87015; 87070; 87075; 87102; 87116; 87186; 87205; 87631; 87635; 88112; 88305; 88341; 88342; 88360; 89051; 93005; 93308; 93321; 93325; 94640; 94761; 96360; 96361; 96372; 99283; 99285; G0378; A9153; A9270; J1940; J2060; J7120; Q9967

== ENCOUNTER 2022-09-11 12:59 | Outpatient (CLI) | payer MEDICARE, BC, SELFPAY ==
--- NOTE | 2022-09-11 13:00 | CRLHL7_ITS ---
For Patients: As a result of the Century Cures Act, medical imaging exams and procedure reports are released immediately into your electronic medical record. You may view this report before your referring provider. If you have questions, please contact your health care provider. INDICATION: MALIGNANT NEOPLASM OF OVARY COMPARISON: CT 09/05/2022 TECHNIQUE: 2D oswald scale and color Doppler images were acquired of the pelvis using a transabdominal and transvaginal approach. FINDINGS: Postoperative changes of hysterectomy. The ovaries are not visualized. Moderate pelvic free fluid. IMPRESSION: Moderate pelvic free fluid. Nonvisualization of the ovaries. Dictated by Power Oconnell MD @ 09/11/2022 2:14:45 PM (Electronically Signed)
== END 2022-09-11 13:00 | disposition home or self-care (01) ==
PROVIDERS: PCP Surgery; Visit Provider Surgery
DX: C56.9 Malignant neoplasm of unspecified ovary (principal)
CPT/HCPCS: 76830; 76856

== ENCOUNTER 2022-09-14 18:54 | Emergency (ER) | payer MEDICARE, BC, SELFPAY ==
[2022-09-14] VITALS (25 sets, daily range): BP systolic 128–157; BP diastolic 53–69; PULSE 80–89; RESP 20–26; TEMP 36.5; O2SAT 89–95; BMI 26.6
--- NOTE | 2022-09-14 20:13 | CRLHL7_ITS ---
For Patients: As a result of the Century Cures Act, medical imaging exams and procedure reports are released immediately into your electronic medical record. You may view this report before your referring provider. If you have questions, please contact your health care provider. Indication: Pleural effusion Technique: Chest 1 view Comparison: September 06, 2022 Findings/Impression: Stable cardiac size. Slight interval increase in size of moderate right pleural effusion. Underlying atelectasis or infiltrate cannot be excluded. The left lung is clear. No pneumothorax. No acute osseous abnormality. Dictated by Ina Tirado MD @ 09/14/2022 9:03:30 PM (Electronically Signed)
[2022-09-14 20:41] LABS: Basophils Absolute Auto 0.03 K/uL (0.00-0.30); Basophils Percent Auto 0.5 % (0.0-3.0); Eosinophils Absolute Auto 0.45 K/uL (0.00-0.50); Eosinophils Percent Auto 6.8 % (0.0-7.0); Hematocrit 43.8 % (33.0-51.0); Hemoglobin* 13.9 gm/dL (12.0-16.0); Immature Granulocytes Abs Auto 0.01 K/uL (0.00-0.30); Immature Granulocytes Pct Auto 0.2 %; Lymphocytes Absolute Auto 1.71 K/uL (0.90-2.90); Lymphocytes Percent Auto 25.8 % (20-44); Mean Corpuscular HGB Conc 32 gm/dL (32-36); Mean Corpuscular Hemoglobin 28 pg (26-34); Mean Corpuscular Volume 89 fL (80-100); Monocytes Percent Auto 9.5 % (0.0-11.0); Neutrophils Absolute Auto 3.79 K/uL (1.7-7.0); Neutrophils Percent Auto 57.2 % (42.0-72.0); Platelet Count* 254 K/uL (140-440); RDW Coefficient of Variation % 13.7 % (11.5-15.5); Slide Review Reflex No; White Blood Count* 6.62 K/uL (4.50-11.00)
--- NOTE | 2022-09-14 20:49 | ED.SOB ---
HPI - SOB/Dyspnea General Chief Complaint: Shortness of Breath/Dyspnea Stated Complaint: short of breath Time Seen by Provider: 09/14/22 20:05 History of Present Illness HPI Narrative: 82-year-old woman presenting to the emergency department with her daughter with whom she lives with concern of increasing shortness of breath over the last couple of days. Was difficult specially today. Does have a history of COPD. She does use oxygen with CPAP also overnight. Has been using oxygen though now up to 4-5 L. arrives clearly breathless. She is not having chest pain. No fever Does have a history of now diagnosed as metastatic ovarian cancer with recurrent right-sided pleural effusion. Had a therapeutic and diagnostic tap 8 days ago. Was drained of a little more than 1300 mL of fluid. About 6 days prior to that had a therapeutic tap drained of 1450 mL. She says I am not having a COPD exacerbation. She has not had a fever. No cough. As recommended has been lying on her right side. Daughter notes also that stomach tends to get a little distended when she builds up fluid in her lungs. No abdominal ascites history noted. Is requesting intervention wanting to breathe easier. Related Data Home Medications Medication Instructions Recorded Confirmed allopurinol 300 mg tablet 150 mg PO DAILY 04/04/22 09/05/22 clopidogrel 75 mg tablet 75 mg PO DAILY 04/04/22 09/05/22 furosemide 20 mg tablet 20 mg PO DAILY 04/04/22 09/05/22 gabapentin 300 mg capsule 600 mg PO HS 04/04/22 09/05/22 hydromorphone 8 mg tablet 8 mg PO QAM 04/04/22 09/05/22 insulin aspart U-100 100 unit/mL 12 unit subcut DAILY@08 04/04/22 09/05/22 (3 mL) subcutaneous pen (Novolog FlexPen U-100 Insulin aspart) insulin degludec 100 unit/mL (3 26 unit subcut HS 04/04/22 09/05/22 mL) subcutaneous pen (Tresiba FlexTouch U-100 insulin) loperamide 2 mg capsule 2 mg PO BID PRN 04/04/22 09/05/22 methadone 5 mg tablet 5 mg PO QAM 04/04/22 09/05/22 rosuvastatin 20 mg tablet 20 mg PO HS 04/04/22 09/05/22 semaglutide 1 mg/dose (4 mg/3 mL) 1 mg subcut TH@04/04/22 09/05/22 subcutaneous pen injector (Ozempic) tamsulosin 0.4 mg capsule 0.4 mg PO DAILY 04/04/22 09/05/22 colchicine 0.6 mg tablet 0.6 mg PO BID PRN 04/11/22 09/05/22 BIOTENE DRY MOUTH LOZENGES 1 ea mucous membrane QID PRN 05/10/22 09/05/22 cholecalciferol (vitamin D3) 50 4,000 unit PO DAILY 05/10/22 09/05/22 mcg (2,000 unit) tablet (Vitamin D3) cyclobenzaprine 5 mg tablet 5 mg PO Q8H PRN 05/10/22 09/05/22 fexofenadine 180 mg tablet 180 mg PO DAILY PRN 05/10/22 09/05/22 (Aller-ease) hydromorphone 8 mg tablet 16 mg PO HS 05/10/22 09/05/22 (Dilaudid) insulin aspart U-100 100 unit/mL 18 unit subcut DAILY@12 05/10/22 09/05/22 (3 mL) subcutaneous pen (Novolog FlexPen U-100 Insulin aspart) levothyroxine 88 mcg tablet 88 mcg PO DAILY 05/10/22 09/05/22 methadone 5 mg tablet 10 mg PO HS 05/10/22 09/05/22 naloxone 4 mg/actuation nasal 4 mg intranasal DIRECTED PRN 05/10/22 09/05/22 spray (Narcan) potassium chloride 20 mEq 20 meq PO BIDWM 05/10/22 09/05/22 tablet,extended release(part/cryst) (Klor-Con M) prochlorperazine maleate 10 mg 10 mg PO Q6H PRN 05/10/22 09/05/22 tablet vitamin A-vitamin C-vit E-min 1 tab PO DAILY 05/10/22 09/05/22 tablet (Ocutabs tablet) albuterol sulfate 2.5 mg/3 mL 2.5 mg inhalation Q4H PRN 07/06/22 09/05/22 (0.083 %) solution for nebulization insulin aspart U-100 100 unit/mL 26 unit subcut DAILY@18 07/06/22 09/05/22 (3 mL) subcutaneous pen (Novolog FlexPen U-100 Insulin aspart) hydroxyzine HCl 25 mg tablet mg 09/14/22 Previous Rx's Medication Instructions Recorded sennosides 8.6 mg-docusate sodium 4 tab PO BID 30 days #240 tabs 05/18/22 50 mg tablet (Stool Softener-Laxative) Allergies Allergy/AdvReac Type Severity Reaction Status Date / Time cortisone Allergy Severe Anaphylaxis Verified 09/04/22 23:11 prednisone Allergy Severe Verified 09/04/22 23:11 amoxicillin Allergy Intermediate Verified 09/04/22 23:11 cephalexin [From Keflex] Allergy Intermediate Diarrhea Verified 09/04/22 23:11 doxycycline Allergy Intermediate Verified 09/04/22 23:11 duloxetine [From Cymbalta] Allergy Intermediate Verified 09/04/22 23:11 escitalopram [From Lexapro] Allergy Intermediate sleep Verified 09/04/22 23:11 disturbance febuxostat Allergy Intermediate vomitting Verified 09/04/22 23:11 lisinopril Allergy Intermediate Verified 09/04/22 23:11 losartan [From Cozaar] Allergy Intermediate Verified 09/04/22 23:11 nitrofurantoin Allergy Intermediate Verified 09/04/22 23:11 [From Macrobid] pregabalin [From Lyrica] Allergy Intermediate Nausea Verified 09/04/22 23:11 propoxyphene Allergy Intermediate angioedema Verified 09/04/22 23:11 ramelteon [From Rozerem] Allergy Intermediate Verified 09/04/22 23:11 sulfamethoxazole Allergy Intermediate Verified 09/04/22 23:11 [From Bactrim] tramadol [From Ultram] Allergy Intermediate Verified 09/04/22 23:11 trimethoprim [From Bactrim] Allergy Intermediate Verified 09/04/22 23:11 venlafaxine [From Effexor] Allergy Intermediate Verified 09/04/22 23:11 zolpidem [From Ambien] Allergy Intermediate Confusion Verified 09/04/22 23:11 acetaminophen [From Vicodin] Allergy Mild Nausea Verified 09/04/22 23:11 hydrocodone [From Vicodin] Allergy Mild Nausea Verified 09/04/22 23:11 aspirin Allergy Unknown Verified 09/04/22 23:11 clindamycin Allergy Unknown Verified 09/04/22 23:11 ipratropium [From Atrovent] Allergy Unknown Verified 09/04/22 23:11 Penicillins Allergy Unknown Verified 09/04/22 23:11 pramipexole Allergy Unknown Verified 09/04/22 23:11 trazodone Allergy Unknown Verified 09/04/22 23:11 adhesive tape Allergy huge Verified 09/04/22 23:11 blisters Review of Systems Status of ROS: Reports: 6 or more systems reviewed and unremarkable except as noted in History and below PFSH PFSH Medical History Acute insomnia Allergic rhinitis CAD (coronary artery disease) Chronic constipation Chronic kidney disease, stage 3b Chronic pain Constipation Controlled substance agreement signed COPD (chronic obstructive pulmonary disease) Depression Gastroparesis GERD (gastroesophageal reflux disease) Gouty arthropathy Hereditary and idiopathic peripheral neuropathy Hypercalcemia Hypertension Hypertriglyceridemia Hypokalemia Hypothyroidism Interstitial pulmonary fibrosis Myocardial infarction Neurogenic bladder Neuropathy HUGO (obstructive sleep apnea) Peripheral autonomic neuropathy due to diabetes mellitus Peripheral vascular disease Pneumonia POLST (Physician Orders for Life-Sustaining Treatment) Pulmonary fibrosis Pulmonary nodule SBO (small bowel obstruction) Slow transit constipation Stroke TIA (transient ischemic attack) Type 2 diabetes mellitus with complication, with long-term current use of insulin Urinary tract infection Surgical History H/O blepharoplasty H/O colonoscopy H/O foot surgery H/O neck surgery H/O: hysterectomy History of cholecystectomy Hx of appendectomy Hx of repair of rotator cuff Hx of tonsillectomy S/P bunionectomy S/P left rotator cuff repair Family History Maternal Grandfather Pancreatic cancer Aunt Breast cancer Uncle Lung cancer Aunt Breast cancer Father Tuberculosis Coronary artery disease Social History Narrative: Lives independently with her boyfriend, Zane, and her daughter, Martín, who lives in the basement. Quit tobacco 1986. No EtOH. Denies recreational drug use. Wants to be DNR/DNI. Highest level of school completed/degree received: some college, no degree Smoking Status: Former smoker Do you use any of these nicotine containing products: None Second hand tobacco smoke exposure: No How often do you have a drink containing alcohol: never How often do you have six or more drinks on one occasion: Never AUDIT-C Alcohol total score: 0 Non-prescribed substance use: denies use Caffeine: Yes Are you using contraception or practicing any form of control: No service: No Exam Narrative: Exam Narrative: Mildly distressed. Appears anxious. She is labored and tachypneic in her breathing. Diminished breath sounds in the right lower lung. No wheeze. Skin is warm and dry. No inflammatory changes. There is no peripheral edema. Abdomen is soft and nontender. Heart in a regular rate and rhythm. Vitals are noted satting 92-90% room air. This is below baseline on my review of record. Const: Vital Signs, click to edit/add: Vital Signs - 24 hr 09/14/22 19:12 09/14/22 19:18 09/14/22 19:19 Temperature 97.7 F Pulse Rate 85 86 Pulse Rate [Pulse Oximeter] 80 Respiratory Rate 26 H Blood Pressure 153/64 H Blood Pressure [Le ft Upper Arm] 157/69 H Pulse Oximetry 92 89 89 Oxygen Delivery [facility] Room Air 09/14/22 19:30 09/14/22 19:31 09/14/22 19:45 Temperature Pulse Rate 83 84 82 Pulse Rate [Pulse Oximeter] Respiratory Rate Blood Pressure 140/60 H Blood Pressure [Le ft Upper Arm] Pulse Oximetry 91 93 90 Oxygen Delivery [facility] Room Air 09/14/22 20:00 09/14/22 20:02 09/14/22 20:29 Temperature Pulse Rate 84 84 Pulse Rate [Pulse Oximeter] Respiratory Rate Blood Pressure 151/56 H Blood Pressure [Le ft Upper Arm] Pulse Oximetry 91 92 Oxygen Delivery [facility] Room Air 09/14/22 20:03 09/14/22 20:15 09/14/22 20:30 Temperature Pulse Rate 84 88 87 Pulse Rate [Pulse Oximeter] Respiratory Rate Blood Pressure Blood Pressure [Le ft Upper Arm] Pulse Oximetry 91 93 89 Oxygen Delivery [facility] 09/14/22 20:32 09/14/22 20:33 09/14/22 20:45 Temperature Pulse Rate 88 88 89 Pulse Rate [Pulse Oximeter] Respiratory Rate Blood Pressure 138/65 Blood Pressure [Le ft Upper Arm] Pulse Oximetry 90 91 90 Oxygen Delivery [facility] 09/14/22 21:00 09/14/22 21:02 09/14/22 21:03 Temperature Pulse Rate 87 87 87 Pulse Rate [Pulse Oximeter] Respiratory Rate Blood Pressure 132/53 L Blood Pressure [Le ft Upper Arm] Pulse Oximetry 91 92 91 Oxygen Delivery [facility] Room Air 09/14/22 21:15 09/14/22 21:30 09/14/22 21:31 Temperature Pulse Rate 87 83 85 Pulse Rate [Pulse Oximeter] Respiratory Rate Blood Pressure 128/53 L Blood Pressure [Le ft Upper Arm] Pulse Oximetry 90 89 89 Oxygen Delivery [facility] 09/14/22 21:45 09/14/22 21:57 09/14/22 22:00 Temperature Pulse Rate 87 86 Pulse Rate [Pulse Oximeter] 89 Respiratory Rate 20 Blood Pressure Blood Pressure [Le ft Upper Arm] Pulse Oximetry 92 95 94 Oxygen Delivery [facility] Room Air 09/14/22 22:02 09/14/22 22:15 Temperature Pulse Rate 84 84 Pulse Rate [Pulse Oximeter] Respiratory Rate Blood Pressure 142/58 H Blood Pressure [Le ft Upper Arm] Pulse Oximetry 95 94 Oxygen Delivery [facility] Documenting provider has reviewed patient's vital signs: yes Course Vital Signs Vital signs: Initial Vital Signs Temperature 97.7 F 09/14/22 19:12 Temperature Source Temporal Artery Scan 09/14/22 19:12 Pulse Rate 80 09/14/22 19:12 Respiratory Rate 26 H 09/14/22 19:12 Blood Pressure 157/69 H 09/14/22 19:12 Blood Pressure Mean 98 09/14/22 19:12 Pulse Oximetry 92 09/14/22 19:12 Oxygen Delivery Method 09/14/22 19:12 Vital Signs Temperature 97.7 F 09/14/22 19:12 Pulse Rate 80 09/14/22 19:12 Respiratory Rate 26 H 09/14/22 19:12 Blood Pressure 157/69 H 09/14/22 19:12 Pulse Oximetry 92 09/14/22 19:12 Oxygen Delivery Method 09/14/22 19:12 Temperature 97.7 F 09/14/22 19:12 Pulse Rate 84 09/14/22 22:15 Respiratory Rate 20 09/14/22 21:57 Blood Pressure 142/58 H 09/14/22 22:02 Pulse Oximetry 94 09/14/22 22:15 Oxygen Delivery Method 09/14/22 21:57 MDM - SOB/Dyspnea MDM Narrative Medical decision making narrative: I am presuming reaccumulation of this pleural effusion. Exam does not appear to be consistent with COPD exacerbation. Pneumonia or PE in differential as well. I think also symptoms are exacerbated by anxiety. In further conversation she does acknowledge this. Notes the primary has given her hydroxyzine and that this has been helpful with anxiety and therefore sleep. I did give a dose here in the emergency department. X-ray confirms on my read right-sided moderate pleural effusion. It appears less than the pre-tap imaging but certainly more than postprocedural from 8 days ago. No apparent infiltrate otherwise. White count is not elevated. Will be contacting General surgery during busy emergency department to try to assist. I would think at a minimum needs to schedule regularly scheduled drainage given review of history more recently. Spoke with General surgery and I do acknowledge that this is perhaps not emergent and I think could be arranged outpatient especially as upon re-evaluation Ms. Webb appears much more relaxed, frankly absent of intervention. This was prior to giving hydroxyzine. Oxygen saturations still though low at 92%. Addition of some nasal cannula oxygen has brought her up to 94-95%. She does have this at home if necessary. Potentially complicating therapeutic tap is clopidogrel. Last dose was early this morning. Recommendations per surgeon are to hold tomorrow's dose in anticipation of potential therapeutic tap. Medical Records Attestation: I reviewed the patient's medical records. Lab Data Attestation: I reviewed the patient's lab results. Labs: Lab Results 09/14/22 09/14/22 09/14/22 Range/Units 20:20 20:20 20:30 WBC 6.62 (4.50-11.00) K/uL RBC 4.90 (4.00-5.20) m/uL Hgb 13.9 (12.0-16.0) gm/dL Hct 43.8 (33.0-51.0) % MCV 89 (80-100) fL MCH 28 (26-34) pg MCHC 32 (32-36) gm/dL RDW Coeff of [place] 13.7 (11.5-15.5) % Plt Count 254 (140-440) K/uL Neut % (Auto) 57.2 (42.0-72.0) % Lymph % (Auto) 25.8 (20-44) % [place] % (Auto) 9.5 (0.0-11.0) % Eos % (Auto) 6.8 (0.0-7.0) % Baso % (Auto) 0.5 (0.0-3.0) % Neut # (Auto) 3.79 (1.7-7.0) K/uL Lymph # (Auto) 1.71 (0.90-2.90) K/uL [place] # (Auto) 0.60 (0.00-0.90) K/UL Eos # (Auto) 0.45 (0.00-0.50) K/uL Baso # (Auto) 0.03 (0.00-0.30) K/uL INR 0.90 L (0.91-1.10) APTT 32 (23-33) Seconds SARS-CoV-2 (PCR) Negative SARS-CoV-2 (Negative) Influenza Type A (PCR) Negative PCR FLU A (Negative) Influenza Type B (PCR) Negative PCR FLU B (Negative) RSV (PCR) Negative PCR RSV (Negative) ECG Data Attestation: I personally reviewed and interpreted this ECG as follows: (Normal sinus 79) Discharge Plan Discharge Clinical Impression: Anxiety, Pleural effusion, Hypoxia Patient Disposition: Home w/ Parent or Adult Condition: Improved Instructions: Pleural Effusion (ED) Additional Instructions: It's so good you have help at home. You can use the oxygen during the day if you need up to 2 L until you get your tap. With your diagnosis of COPD we have to be careful with using too much oxygen as you can actually get worse. I would expect a call tomorrow from scheduling to try to arrange for this tap, ideally tomorrow. Hold tomorrow's dose of plavix. Prescriptions: No Action colchicine 0.6 mg tablet 0.6 mg PO BID PRN Label Comments: TAKE ONE TABLET BY MOUTH TWICE DAILY NEEDED levothyroxine 88 mcg tablet 88 mcg PO DAILY Label Comments: Take 1 Tablet (88 mcg) by mouth before breakfast naloxone [Narcan] 4 mg/actuation spray,non-aerosol 4 mg INTRANASAL DIRECTED PRN Label Comments: Inhale 1 [place] into affected nostril(s) each time if needed for Patient Diff To Arouse or Resp Rate < 8 / min. Additional doses may be given fexofenadine [Aller-ease] 180 mg tablet 180 mg PO DAILY PRN cholecalciferol (vitamin D3) [Vitamin D3] 50 mcg (2,000 unit) tablet 4,000 unit PO DAILY cyclobenzaprine 5 mg tablet 5 mg PO Q8H PRN Ocutabs Tablet 1 tab PO DAILY prochlorperazine maleate 10 mg tablet 10 mg PO Q6H PRN Label Comments: TAKE ONE TABLET BY MOUTH EVERY SIX HOURS NEEDED potassium chloride [Klor-Con M20] 20 mEq tablet,ER particles/crystals 20 meq PO BIDWM Label Comments: Take 1 Tablet (20 mEq) by mouth 2 times daily with meals insulin aspart U-100 [Novolog FlexPen U-100 Insulin] 100 unit/mL (3 mL) insulin pen 18 unit subcut DAILY@12 methadone 5 mg tablet 10 mg PO HS BIOTENE DRY MOUTH LOZENGES 1 ea mucous membrane QID PRN hydromorphone [Dilaudid] 8 mg tablet 16 mg PO HS sennosides-docusate sodium [Stool Softener-Laxative] 8.6-50 mg Tablet 4 tab PO BID 30 Days Qty: 240 0RF albuterol sulfate 2.5 mg /3 mL (0.083 %) solution for nebulization 2.5 mg inhalation Q4H PRN insulin aspart U-100 [Novolog FlexPen U-100 Insulin] 100 unit/mL (3 mL) Insulin Pen 26 unit subcut DAILY@18 hydroxyzine HCl 25 mg tablet Label Comments: TAKE ONE TABLET BY MOUTH EVERY SIX HOURS NEEDED FOR ANXIETY loperamide 2 mg capsule 2 mg PO BID PRN hydromorphone 8 mg tablet 8 mg PO QAM Rx Instructions: TAKES 1 PILL IN AM AND 2 IN PM clopidogrel 75 mg tablet 75 mg PO DAILY Label Comments: TAKE ONE TABLET BY MOUTH ONE TIME DAILY tamsulosin 0.4 mg capsule 0.4 mg PO DAILY Label Comments: Take 1 Capsule (0.4 mg) by mouth once daily after a meal. gabapentin 300 mg capsule 600 mg PO HS allopurinol 300 mg tablet 150 mg PO DAILY furosemide 20 mg tablet 20 mg PO DAILY Label Comments: Take 1 Tablet (20 mg) by mouth every morning. methadone 5 mg tablet 5 mg PO QAM insulin aspart U-100 [Novolog FlexPen U-100 Insulin] 100 unit/mL (3 mL) insulin pen 12 unit SUBCUT DAILY@08 rosuvastatin 20 mg tablet 20 mg PO HS Label Comments: Take 1 Tablet (20 mg) by mouth at bedtime. insulin degludec [Tresiba FlexTouch U-100] 100 unit/mL (3 mL) insulin pen 26 unit SUBCUT HS Ozempic 1 mg/dose (4 mg/3 mL) pen injector 1 mg SUBCUT TH@09 Rx Instructions: WEEKLY ON WEDNESDAY Follow Up/Referrals: Michael Sandy MD [Primary Care Provider] - Stand Alone Forms: [facility]
[2022-09-14 20:56] LABS: Prothrombin Time 12.7 Seconds
[2022-09-14 20:57] LABS: Partial Thromboplastin Time* 32 Seconds (23-33)
[2022-09-14 21:23] LABS: PCR FLU A Negative PCR FLU A (Negative); PCR FLU B Negative PCR FLU B (Negative); PCR RSV Negative PCR RSV (Negative)
[2022-09-14 21:32] LABS: SARS PCR* Negative SARS-CoV-2 (Negative)
[2022-09-14] MEDS: hydrOXYzine pamoate 25 MG CAPSULE PO (21:56)
== END 2022-09-14 22:55 | disposition home or self-care (01) ==
PROVIDERS: Emergency Provider Family Medicine; PCP Surgery
DX: Z20.822 Contact with and (suspected) exposure to COVID-19 (principal); I26.99 Other pulmonary embolism without acute cor pulmonale; R09.02 Hypoxemia; F41.9 Anxiety disorder, unspecified
CPT/HCPCS: 36415; 71045; 85025; 85610; 85730; 87502; 87631; 87634; 87635; 93005; 94761; 99284; 99285; A9270

== ENCOUNTER 2022-09-15 11:23 | Outpatient (CLI) | payer MEDICARE, BC, SELFPAY ==
[2022-09-15 11:30] VITALS: BP 142/64; PULSE 87; RESP 22; TEMP 36.2; O2SAT 92
[2022-09-15 11:41] VITALS: BP 157/88; PULSE 78; RESP 20; O2SAT 92
[2022-09-15 11:47] VITALS: BP 120/57; PULSE 85; RESP 20; O2SAT 95
[2022-09-15 11:55] VITALS: BP 131/61; PULSE 83; RESP 20; O2SAT 95
--- NOTE | 2022-09-15 11:59 | CRLHL7_ITS ---
For Patients: As a result of the Cures Act, medical imaging exams and procedure reports are released immediately into your electronic medical record. You may view this report before your referring provider. If you have questions, please contact your health care provider. INDICATION: S/P THORACENTESIS TECHNIQUE: Chest 1 view COMPARISON: 09/14/2022 FINDINGS: Decreased right pleural effusion. No pneumothorax. Stable mediastinum. IMPRESSION: No pneumothorax status post right-sided thoracentesis. Dictated by Power Oconnell MD @ 09/15/2022 12:29:17 PM (Electronically Signed)
--- NOTE | 2022-09-15 12:01 | PM.PROC ---
Procedure Note Date Seen: 09/15/22 Date of procedure: 09/15/22 Will [facility] bill your pro fee for this procedure?: Yes Pre-op diagnosis: Recurrent right-sided pleural effusion Post-op diagnosis: same Procedure: Right-sided thoracentesis Procedure Description: The patient was seen in the procedure area. Vital signs were remarkable for oxygen level 89% on room air. On exam heart rate was regular. Lungs were clear on the left. Decreased breath sounds on the right base. After discussion of the risks and benefits the patient was placed in a seated position leaning over a table. Ultrasound guidance was used to identify the effusion. Once this was done the site was marked. The area was prepped and draped in the usual sterile fashion. Local anesthetic was used to anesthetize the skin and subcutaneous tissue down to the rib. Once the rib was encountered, the needle was advanced over the top of the rib into the pleural space. This was confirmed by the aspiration of clear fluid. A skin be was made with an 11 blade. The thoracentesis catheter was advanced into the pleural cavity while aspirating. Once the pleural fluid was aspirated confirming entrance into the chest cavity, the needle was removed and the sheath advanced. 1500 mL of fluid were then aspirated before the fluid did not return any further. The patient had previously had specimen sent x2 and further workup is pending for possible gynecologic malignancy. The ultrasound was used to confirm successful aspiration evidence by no further remaining fluid. The catheter was then removed, and an occlusive dressing was placed over the skin site. Patient tolerated the procedure well. Estimated blood loss 1 mL Postprocedure chest x-ray revealed no pneumothorax. Anesthesia: local Surgeon: Elida Javier MD Estimated blood loss (mL): 1 Pathology: none sent Condition: stable Disposition: observation
== END 2022-09-15 12:34 | disposition home or self-care (01) ==
LOC: US 11:24
PROVIDERS: PCP Surgery; Visit Provider Surgery
DX: J90 Pleural effusion, not elsewhere classified (principal)
CPT/HCPCS: 32555; 71045

== ENCOUNTER 2022-09-19 10:22 | Emergency (ER) | payer MEDICARE, BC, SELFPAY ==
[2022-09-19] VITALS (7 sets, daily range): BP systolic 131–182; BP diastolic 53–83; PULSE 74–83; RESP 28; TEMP 36.8; O2SAT 90–93; BMI 29.1
--- NOTE | 2022-09-19 11:13 | ED_ITS ---
HPI - General Adult General Time Seen by Provider: 11:13 Date Seen: 09/19/22 Chief complaint: Shortness of Breath/Dyspnea Stated complaint: Fluid build up in the legs Time Seen by Provider: 09/19/22 11:09 Source: patient, RN notes reviewed and old records reviewed Mode of arrival: ambulatory Limitations: no limitations History of Present Illness HPI narrative: Akil is a 82-year-old female accompanied to the ER by her daughter with complaints of increasing shortness of breath and difficulty breathing. The triage set as lower extremity edema but this is not the case. She denies any fluid buildup in her legs. Her abdomen has felt a bit more distended which is typical when her fluid buildup in her lungs. She has had a recurrent malignant right pleural effusion. In the records it was tapped on September 06, repeat on September 15. Her daughter is also had presumed viral upper respiratory infection, wonder if her mom could be suffering from that. They agree to the triple viral swab for testing. There has been no fevers. She has been suffering from some anxiety with this and their primary care doctor did initiate Vistaril. Her daughter did not give it to her this morning and they are wondering if she could get a pill. They are staying away from benzodiazepines due to her narcotic use, were told that benzodiazepines and narcotics were con traindicated together. I certainly will order Vistaril and support her primary care provider's concerns about mixing the 2 classes of medicines. Patient is suffering from metastatic ovarian cancer. Related Data Home Medications Medication Instructions Recorded Confirmed allopurinol 300 mg tablet 150 mg PO DAILY 04/04/22 09/05/22 clopidogrel 75 mg tablet 75 mg PO DAILY 04/04/22 09/05/22 furosemide 20 mg tablet 20 mg PO DAILY 04/04/22 09/05/22 gabapentin 300 mg capsule 600 mg PO HS 04/04/22 09/05/22 hydromorphone 8 mg tablet 8 mg PO QAM 04/04/22 09/05/22 insulin aspart U-100 100 unit/mL 12 unit subcut DAILY@08 04/04/22 09/05/22 (3 mL) subcutaneous pen (Novolog FlexPen U-100 Insulin aspart) insulin degludec 100 unit/mL (3 26 unit subcut 04/04/22 09/05/22 mL) subcutaneous pen (Tresiba FlexTouch U-100 insulin) loperamide 2 mg capsule 2 mg PO BID PRN 04/04/22 09/05/22 methadone 5 mg tablet 5 mg PO QAM 04/04/22 09/05/22 rosuvastatin 20 mg tablet 20 mg PO HS 04/04/22 09/05/22 semaglutide 1 mg/dose (4 mg/3 mL) 1 mg subcut TH@09 04/04/22 09/05/22 subcutaneous pen injector (Ozempic) tamsulosin 0.4 mg capsule 0.4 mg PO DAILY 04/04/22 09/05/22 colchicine 0.6 mg tablet 0.6 mg PO BID PRN 04/11/22 09/05/22 BIOTENE DRY MOUTH LOZENGES 1 ea mucous membrane QID PRN 05/10/22 09/05/22 cholecalciferol (vitamin D3) 50 4,000 unit PO DAILY 05/10/22 09/05/22 mcg (2,000 unit) tablet (Vitamin D3) cyclobenzaprine 5 mg tablet 5 mg PO Q8H PRN 05/10/22 09/05/22 fexofenadine 180 mg tablet 180 mg PO DAILY PRN 05/10/22 09/05/22 (Aller-ease) hydromorphone 8 mg tablet 16 mg PO HS 05/10/22 09/05/22 (Dilaudid) insulin aspart U-100 100 unit/mL 18 unit subcut DAILY@12 05/10/22 09/05/22 (3 mL) subcutaneous pen (Novolog FlexPen U-100 Insulin aspart) levothyroxine 88 mcg tablet 88 mcg PO DAILY 05/10/22 09/05/22 methadone 5 mg tablet 10 mg PO HS 05/10/22 09/05/22 naloxone 4 mg/actuation nasal 4 mg intranasal DIRECTED PRN 05/10/22 09/05/22 spray (Narcan) potassium chloride 20 mEq 20 meq PO BIDWM 05/10/22 09/05/22 tablet,extended release(part/cryst) (Klor-Con M) prochlorperazine maleate 10 mg 10 mg PO Q6H PRN 05/10/22 09/05/22 tablet vitamin A-vitamin C-vit E-min 1 tab PO DAILY 05/10/22 09/05/22 tablet (Ocutabs tablet) albuterol sulfate 2.5 mg/3 mL 2.5 mg inhalation Q4H PRN 07/06/22 09/05/22 (0.083 %) solution for nebulization insulin aspart U-100 100 unit/mL 26 unit subcut DAILY@18 07/06/22 09/05/22 (3 mL) subcutaneous pen (Novolog FlexPen U-100 Insulin aspart) hydroxyzine HCl 25 mg tablet mg 09/14/22 Previous Rx's Medication Instructions Recorded sennosides 8.6 mg-docusate sodium 4 tab PO BID 30 days #240 tabs 05/18/22 50 mg tablet (Stool Softener-Laxative) Allergies Allergy/AdvReac Type Severity Reaction Status Date / Time cortisone Allergy Severe Anaphylaxis Verified 09/04/22 23:11 prednisone Allergy Severe Verified 09/04/22 23:11 amoxicillin Allergy Intermediate Verified 09/04/22 23:11 cephalexin [From Keflex] Allergy Intermediate Diarrhea Verified 09/04/22 23:11 doxycycline Allergy Intermediate Verified 09/04/22 23:11 duloxetine [From Cymbalta] Allergy Intermediate Verified 09/04/22 23:11 escitalopram [From Lexapro] Allergy Intermediate sleep Verified 09/04/22 23:11 disturbance febuxostat Allergy Intermediate vomitting Verified 09/04/22 23:11 lisinopril Allergy Intermediate Verified 09/04/22 23:11 losartan [From Cozaar] Allergy Intermediate Verified 09/04/22 23:11 nitrofurantoin Allergy Intermediate Verified 09/04/22 23:11 [From Macrobid] pregabalin [From Lyrica] Allergy Intermediate Nausea Verified 09/04/22 23:11 propoxyphene Allergy Intermediate angioedema Verified 09/04/22 23:11 ramelteon [From Rozerem] Allergy Intermediate Verified 09/04/22 23:11 sulfamethoxazole Allergy Intermediate Verified 09/04/22 23:11 [From Bactrim] tramadol [From Ultram] Allergy Intermediate Verified 09/04/22 23:11 trimethoprim [From Bactrim] Allergy Intermediate Verified 09/04/22 23:11 venlafaxine [From Effexor] Allergy Intermediate Verified 09/04/22 23:11 zolpidem [From Ambien] Allergy Intermediate Confusion Verified 09/04/22 23:11 acetaminophen [From Vicodin] Allergy Mild Nausea Verified 09/04/22 23:11 hydrocodone [From Vicodin] Allergy Mild Nausea Verified 09/04/22 23:11 aspirin Allergy Unknown Verified 09/04/22 23:11 clindamycin Allergy Unknown Verified 09/04/22 23:11 ipratropium [From Atrovent] Allergy Unknown Verified 09/04/22 23:11 Penicillins Allergy Unknown Verified 09/04/22 23:11 pramipexole Allergy Unknown Verified 09/04/22 23:11 trazodone Allergy Unknown Verified 09/04/22 23:11 adhesive tape Allergy huge Verified 09/04/22 23:11 blisters Review of Systems Status of ROS: Reports: 10 or more systems reviewed and unremarkable except as noted in History and below PFSH [facility] Medical History Acute insomnia Allergic rhinitis CAD (coronary artery disease) Chronic constipation Chronic kidney disease, stage 3b Chronic pain Constipation Controlled substance agreement signed COPD (chronic obstructive pulmonary disease) Depression Gastroparesis GERD (gastroesophageal reflux disease) Gouty arthropathy Hereditary and idiopathic peripheral neuropathy Hypercalcemia Hypertension Hypertriglyceridemia Hypokalemia Hypothyroidism Interstitial pulmonary fibrosis Myocardial infarction Neurogenic bladder Neuropathy HUGO (obstructive sleep apnea) Peripheral autonomic neuropathy due to diabetes mellitus Peripheral vascular disease Pneumonia POLST (Physician Orders for Life-Sustaining Treatment) Pulmonary fibrosis Pulmonary nodule SBO (small bowel obstruction) Slow transit constipation Stroke TIA (transient ischemic attack) Type 2 diabetes mellitus with complication, with long-term current use of insulin Urinary tract infection Surgical History H/O blepharoplasty H/O colonoscopy H/O foot surgery H/O neck surgery H/O: hysterectomy History of cholecystectomy Hx of appendectomy Hx of repair of rotator cuff Hx of tonsillectomy S/P bunionectomy S/P left rotator cuff repair Family History Maternal Grandfather Pancreatic cancer Aunt Breast cancer Uncle Lung cancer Aunt Breast cancer Father Tuberculosis Coronary artery disease Social History Narrative: Lives independently with her boyfriend, Zane, and her daughter, Martín, who lives in the basement. Quit tobacco 1986. No EtOH. Denies recreational drug use. Wants to be DNR/DNI. Highest level of school completed/degree received: some college, no degree Smoking Status: Former smoker Do you use any of these nicotine containing products: None Second hand tobacco smoke exposure: No How often do you have a drink containing alcohol: never How often do you have six or more drinks on one occasion: Never AUDIT-C Alcohol total score: 0 Non-prescribed substance use: denies use Caffeine: Yes Are you using contraception or practicing any form of control: No service: No Exam Const: Vital Signs, click to edit/add: Vital Signs - 24 hr 09/19/22 10:35 09/19/22 11:22 Temperature 98.2 F Pulse Rate [Right Pulse Oximeter] 80 Respiratory Rate 28 H Blood Pressure [Ri ght Upper Arm] 131/53 L Pulse Oximetry 90 93 Oxygen Delivery Me thod Room Air Documenting provider has reviewed patient's vital signs: yes Common normals: no apparent distress, average body habitus, oriented x3, no limitations and alert General appearance: cooperative, comfortable, well kempt, well developed, anxious ( Is anxious but not overtly in any distress), ill appearing and frail appearing HENMT: Common normals: normocephalic, head/scalp atraumatic, hearing grossly normal bilaterally, external ears normal, nasal mucous membranes and turbinates normal, moist oral mucous membranes and oropharynx normal Head and scalp: normocephalic and atraumatic Nose: nasal mucous membranes and turbinates normal External ear: external ears normal Eye: Common normals: PERRL, EOMs intact bilaterally, conjunctivae normal and no scleral icterus Conjunctiva: conjunctiva(e) normal Pupil: PERRL Neck & C-Spine: Common normals: full ROM, no lymphadenopathy, supple, no meningeal signs, no JVD and thyroid normal Thyroid: thyroid normal Chest: Common normals: inspection of chest normal and palpation of chest normal Resp: Common normals: normal respiratory effort, no retractions and no use of accessory muscles Other: definitely has diminished breath sounds, cannot hear any breath sounds about longterm up the posterior lung field on the right, left is clear. Cardio: Common normals: no JVD, regular rate, regular rhythm, S1 normal heart sound, S2 normal heart sound, no gallops, no clicks, no murmurs and no rub Rate: regular rate Rhythm: regular rhythm Heart sounds: S1 normal and S2 normal GI: Common normals: soft to palpation and non-tender Palpation: soft Other: Abdomen mildly distended but nontender. Extremity: Other: No lower extremity edema, calves are nontender. Neuro: Common normals: oriented x3 Sensorium/orientation: alert Meningeal signs: no meningeal signs Psych: Appearance: well kempt Course Course Hospital Course: Will observe her on pulse oximetry for oxygenation. Not requiring oxygen at this time. She did try some oxygen at home and it did not help her symptomatically at all. She is not hypoxic at this time here. Will do the triple viral swab looking for underlying potential viral etiology. Will obtain repeat chest x-ray. Patient does have a history of coronary artery disease and could be confounding here. Will consider thromboembolic disease as well given underlying cancer. Most likely, this is a repeat malignant right pleural effusion. Will need to talk to our surgeon if that is the case. Reevaluation(s) Reevaluation #1: Have reviewed the normal chest x-ray, negative triple viral swab but the elevated D-dimer. We are still waiting on some of our labs. They are aware that we are going to proceed with chest CT PE protocol. Patient has been coughing quite a bit while here. Think this is likely the viral upper respiratory infection that she has likely caught from her daughter. Her daughter worries about pneumonia. Reassured her that the chest CT will definitely pick pulling machine tender any areas that are concern for pneumonia. I frequently find that chest x-rays can look normal early on in pneumonia but we will find them on a chest CT. They did wonder if there was enough fluid to tap and it is my perception that this pleural effusion is not significant enough at this time. Will await chest CT PE protocol to be done. With the amount of coughing she is doing right now, the smaller pleural effusion seen on the right side, feel that going after the level of fluid she has in the coughing she is exhibiting, could potentially make this a more dangerous adventure. Can consider talking to our general surgeon for their opinion but will await my chest CT PE protocol 1st. Time: 13:57 Reevaluation #2: Have reviewed that the CT is not showing any acute change. There is no pulmonary embolus, no pneumonia. Her labs are not suggesting any need for antibiotics. Unfortunately, I do think she has a URI which is inducing her COPD. She does not tolerate steroids. She will not take them. She has albuterol nebs at home and oxygen. They also note that she has an Aerobika. She should be using all of these modalities. I do not have anything further at this time to offer, do not feel confident with all her allergies that I could add in other inhalers for her. Time: 15:32 Vital Signs Vital signs: Initial Vital Signs Temperature 98.2 F 09/19/22 10:35 Temperature Source Temporal Artery Scan 09/19/22 10:35 Pulse Rate 80 09/19/22 10:35 Respiratory Rate 28 H 09/19/22 10:35 Respiratory Effort 09/19/22 10:35 Respiratory Depth Normal 09/19/22 10:35 Respiratory Pattern 09/19/22 10:35 Blood Pressure 131/53 L 09/19/22 10:35 Blood Pressure Mean 79 09/19/22 10:35 Blood Pressure Position Sitting 09/19/22 10:35 Pulse Oximetry 90 09/19/22 10:35 Oxygen Delivery Method 09/19/22 10:35 Vital Signs Temperature 98.2 F 09/19/22 10:35 Pulse Rate 80 09/19/22 10:35 Respiratory Rate 28 H 09/19/22 10:35 Blood Pressure 131/53 L 09/19/22 10:35 Pulse Oximetry 90 09/19/22 10:35 Oxygen Delivery Method 09/19/22 10:35 Temperature 98.2 F 09/19/22 10:35 Pulse Rate 80 09/19/22 10:35 Respiratory Rate 28 H 09/19/22 10:35 Blood Pressure 131/53 L 09/19/22 10:35 Pulse Oximetry 93 09/19/22 11:22 Oxygen Delivery Method 09/19/22 10:35 Medical Decision Making Lab Data Lab results reviewed: Yes I reviewed the patient's lab results Labs: Lab Results 09/19/22 09/19/22 09/19/22 Range/Units 11:22 12:45 12:45 WBC 5.84 (4.50-11.00) K/uL RBC 5.12 (4.00-5.20) m/uL Hgb 14.6 (12.0-16.0) gm/dL Hct 44.4 (33.0-51.0) % MCV 87 (80-100) fL MCH 29 (26-34) pg MCHC 33 (32-36) gm/dL RDW Coeff of Thais 13.9 (11.5-15.5) % Plt Count 233 (140-440) K/uL Neut % (Auto) 72.1 H (42.0-72.0) % Lymph % (Auto) 15.9 L (20-44) % Whitley % (Auto) 7.5 (0.0-11.0) % Eos % (Auto) 3.9 (0.0-7.0) % Baso % (Auto) 0.3 (0.0-3.0) % Neut # (Auto) 4.20 (1.7-7.0) K/uL Lymph # (Auto) 0.90 (0.90-2.90) K/uL Whitley # (Auto) 0.40 (0.00-0.90) K/UL Eos # (Auto) 0.23 (0.00-0.50) K/uL Baso # (Auto) 0.02 (0.00-0.30) K/uL Diff Slide Review Acceptable Review (Acceptable) D-Dimer Quant (PE/DVT) (0.00-0.50) ug/ml VBG pH (7.32-7.43) VBG pCO2 (40-50) mmHG VBG pO2 (25-47) mmHG VBG HCO3 (21-28) mmol/L Sodium 137 (135-149) mmol/L Potassium 4.5 (3.6-5.1) mmol/L Chloride 105 (96-114) mmol/L Carbon Dioxide 28 (20-32) mmol/L BUN 12 (7-30) mg/dL Creatinine 0.8 (0.5-1.5) mg/dL Estimated Creat Clear 33.12 Estimated GFR 73 ml/min Glucose 174 H (60-115) mg/dL Lactate (0.5-1.9) mmol/L Calcium 8.7 (8.4-10.6) mg/dL Total Bilirubin 0.5 (0.1-1.5) mg/dL AST 32 (12-35) U/L ALT 16 (4-35) U/L Alkaline Phosphatase 71 (40-150) U/L Troponin I (0.01-0.04) ng/mL C-Reactive Protein 0.7 (0.5-1.0) mg/dL NT-Pro-B Natriuret Pep pg/mL Total Protein 6.4 (6.0-8.3) g/dL Albumin 3.5 (3.3-5.0) g/dL Procalcitonin (<0.50) ng/mL SARS-CoV-2 (PCR) Negative SARS-CoV-2 (Negative) Influenza Type A (PCR) Negative PCR FLU A (Negative) Influenza Type B (PCR) Negative PCR FLU B (Negative) RSV (PCR) Negative PCR RSV (Negative) 09/19/22 09/19/22 09/19/22 Range/Units 12:45 12:45 13:00 WBC (4.50-11.00) K/uL RBC (4.00-5.20) m/uL Hgb (12.0-16.0) gm/dL Hct (33.0-51.0) % MCV (80-100) fL MCH (26-34) pg MCHC (32-36) gm/dL RDW Coeff of Thais (11.5-15.5) % Plt Count (140-440) K/uL Neut % (Auto) (42.0-72.0) % Lymph % (Auto) (20-44) % Whitley % (Auto) (0.0-11.0) % Eos % (Auto) (0.0-7.0) % Baso % (Auto) (0.0-3.0) % Neut # (Auto) (1.7-7.0) K/uL Lymph # (Auto) (0.90-2.90) K/uL Whitley # (Auto) (0.00-0.90) K/UL Eos # (Auto) (0.00-0.50) K/uL Baso # (Auto) (0.00-0.30) K/uL Diff Slide Review (Acceptable) D-Dimer Quant (PE/DVT) 4.76 H (0.00-0.50) ug/ml VBG pH 7.441 H (7.32-7.43) VBG pCO2 42 (40-50) mmHG VBG pO2 63.8 H (25-47) mmHG VBG HCO3 28 (21-28) mmol/L Sodium (135-149) mmol/L Potassium (3.6-5.1) mmol/L Chloride (96-114) mmol/L Carbon Dioxide (20-32) mmol/L BUN (7-30) mg/dL Creatinine (0.5-1.5) mg/dL Estimated Creat Clear Estimated GFR ml/min Glucose (60-115) mg/dL Lactate 1.0 (0.5-1.9) mmol/L Calcium (8.4-10.6) mg/dL Total Bilirubin (0.1-1.5) mg/dL AST (12-35) U/L ALT (4-35) U/L Alkaline Phosphatase (40-150) U/L Troponin I < 0.01 L (0.01-0.04) ng/mL C-Reactive Protein (0.5-1.0) mg/dL NT-Pro-B Natriuret Pep 209 pg/mL Total Protein (6.0-8.3) g/dL Albumin (3.3-5.0) g/dL Procalcitonin 0.09 (<0.50) ng/mL SARS-CoV-2 (PCR) (Negative) Influenza Type A (PCR) (Negative) Influenza Type B (PCR) (Negative) RSV (PCR) (Negative) Imaging Data Chest x-ray: Attestation: I have reviewed the pertinent imaging results. My impression: In comparison to her pre and post procedural chest x-rays done on September 14 and September 15 respectively, her effusion is less than it was before her last thoracentesis but has mildly increased again. Radiologist's impression: Patient: AKIL PRADO Facility:?[facility] Patient ID:?[id number] Site Patient ID:?[id number]. Site :?[id number] Study:?XRay Chest PORTABLE-09/19/2022 11:52:48 AM Ordering Physician:Yelena Blackwell Final Report: INDICATION: Short of breath. History of a pleural effusion. TECHNIQUE: Portable AP view of the chest. COMPARISON: 09/15/2022. FINDINGS: Heart size is with normal limits. Pulmonary vasculature is unremarkable. There is a small right pleural effusion, which has slightly increased in size in the interval. Right basilar atelectasis is again noted. No pneumothorax. IMPRESSION: Small right pleural effusion has slightly increased in size in the interval. Dictated by Lake Beltrán MD @ 09/19/2022 12:24:36 PM (Electronic Signature) CT scan - chest: Attestation: I have reviewed the pertinent imaging results. Radiologist's impression: Patient: AKIL PRADO Facility:?[facility] Patient ID:?[id number] Site Patient ID:?[id number]. Site :?[id number] Study:?CT Chest Angio ISOVUE 370 95CC-09/19/2022 2:46:02 PM Ordering Physician:Yelena Blackwell Final Report: INDICATION: Shortness of breath. Elevated D-dimer. Metastatic ovarian cancer. Evaluate for PE. COMPARISON: 09/05/2022 CT chest, abdomen pelvis. TECHNIQUE: CT angiography of the chest PE protocol. 95 cc Isovue-370. FINDINGS: No filling defect to indicate acute PE. Heart is normal in size. No pericardial effusion. Coronary artery calcifications are again noted. No enlarged thoracic lymph nodes. Mild ascites is partially imaged. Cholecystectomy. Degenerative changes in the spine. Small to moderate right pleural effusion is decreased. Severe emphysema is again noted. Basilar atelectasis. No pneumothorax. IMPRESSION: 1. No acute PE. 2. Decreased right pleural effusion. 3. Severe emphysema, similar to prior. Please note that all CT scans at this facility use dose modulation, iterative reconstruction, and/or weight-based dosing when appropriate to reduce radiation dose to as low as reasonably achievable. Dictated by Power Reed MD @ 09/19/2022 3:03:13 PM (Electronic Signature) ECG Data Attestation: I personally reviewed and interpreted this ECG as follows: ( Sinus rhythm, 76 beats per minute. No ischemic change seen. QT corrected 438 milliseconds.) Prior ECG tracings: not available for review Critical Care Time Critical Care Time Critical Care Time: No Discharge Plan Discharge Clinical Impression: Emphysema/COPD, Upper respiratory infection, viral Patient Disposition: Home, Self-Care Condition: Stable Instructions: Upper Respiratory Infection (ED), Emphysema (ED) Additional Instructions: Continue with supplemental oxygen at home. Do recommend using your albuterol nebs every 4 hours if needed for coughing or shortness of breath. Continue using the Aerobika. Follow up in clinic with your primary care provider if you are not improving over the next week. Certainly return to the ER if you have worsening symptoms, difficulty breathing. Will need to continue to work with general surgery for routine scheduling of outpatient thoracentesis. Activity Level: Activity as Tolerated Prescriptions: No Action colchicine 0.6 mg tablet 0.6 mg PO BID PRN Label Comments: TAKE ONE TABLET BY MOUTH TWICE DAILY NEEDED levothyroxine 88 mcg tablet 88 mcg PO DAILY Label Comments: Take 1 Tablet (88 mcg) by mouth before breakfast naloxone [Narcan] 4 mg/actuation spray,non-aerosol 4 mg INTRANASAL DIRECTED PRN Label Comments: Inhale 1 Mobridge into affected nostril(s) each time if needed for Patient Diff To Arouse or Resp Rate < 8 / min. Additional doses may be given fexofenadine [Aller-ease] 180 mg tablet 180 mg PO DAILY PRN cholecalciferol (vitamin D3) [Vitamin D3] 50 mcg (2,000 unit) tablet 4,000 unit PO DAILY cyclobenzaprine 5 mg tablet 5 mg PO Q8H PRN Ocutabs Tablet 1 tab PO DAILY prochlorperazine maleate 10 mg tablet 10 mg PO Q6H PRN Label Comments: TAKE ONE TABLET BY MOUTH EVERY SIX HOURS NEEDED potassium chloride [Klor-Con M20] 20 mEq tablet,ER particles/crystals 20 meq PO BIDWM Label Comments: Take 1 Tablet (20 mEq) by mouth 2 times daily with meals insulin aspart U-100 [Novolog FlexPen U-100 Insulin] 100 unit/mL (3 mL) insulin pen 18 unit subcut DAILY@12 methadone 5 mg tablet 10 mg PO HS BIOTENE DRY MOUTH LOZENGES 1 ea mucous membrane QID PRN hydromorphone [Dilaudid] 8 mg tablet 16 mg PO HS sennosides-docusate sodium [Stool Softener-Laxative] 8.6-50 mg Tablet 4 tab PO BID 30 Days Qty: 240 0RF albuterol sulfate 2.5 mg /3 mL (0.083 %) solution for nebulization 2.5 mg inhalation Q4H PRN insulin aspart U-100 [Novolog FlexPen U-100 Insulin] 100 unit/mL (3 mL) Insu bill Pen 26 unit subcut DAILY@18 hydroxyzine HCl 25 mg tablet Label Comments: TAKE ONE TABLET BY MOUTH EVERY SIX HOURS NEEDED FOR ANXIETY loperamide 2 mg capsule 2 mg PO BID PRN hydromorphone 8 mg tablet 8 mg PO QAM Rx Instructions: TAKES 1 PILL IN AM AND 2 IN PM clopidogrel 75 mg tablet 75 mg PO DAILY Label Comments: TAKE ONE TABLET BY MOUTH ONE TIME DAILY tamsulosin 0.4 mg capsule 0.4 mg PO DAILY Label Comments: Take 1 Capsule (0.4 mg) by mouth once daily after a meal. gabapentin 300 mg capsule 600 mg PO HS allopurinol 300 mg tablet 150 mg PO DAILY furosemide 20 mg tablet 20 mg PO DAILY Label Comments: Take 1 Tablet (20 mg) by mouth every morning. methadone 5 mg tablet 5 mg PO QAM insulin aspart U-100 [Novolog FlexPen U-100 Insulin] 100 unit/mL (3 mL) insulin pen 12 unit SUBCUT DAILY@08 rosuvastatin 20 mg tablet 20 mg PO HS Label Comments: Take 1 Tablet (20 mg) by mouth at bedtime. insulin degludec [Tresiba FlexTouch U-100] 100 unit/mL (3 mL) insulin pen 26 unit SUBCUT HS Ozempic 1 mg/dose (4 mg/3 mL) pen injector 1 mg SUBCUT TH@09 Rx Instructions: WEEKLY ON WEDNESDAY Follow Up/Referrals: Michael Sandy MD [Primary Care Provider] - Stand Alone Forms: [facility] Info Instructions
--- NOTE | 2022-09-19 11:22 | CRLHL7_ITS ---
For Patients: As a result of the Century Cures Act, medical imaging exams and procedure reports are released immediately into your electronic medical record. You may view this report before your referring provider. If you have questions, please contact your health care provider. INDICATION: Short of breath. History of a pleural effusion. TECHNIQUE: Portable AP view of the chest. COMPARISON: 09/15/2022. FINDINGS: Heart size is with normal limits. Pulmonary vasculature is unremarkable. There is a small right pleural effusion, which has slightly increased in size in the interval. Right basilar atelectasis is again noted. No pneumothorax. IMPRESSION: Small right pleural effusion has slightly increased in size in the interval. Dictated by Lake Beltrán MD @ 09/19/2022 12:24:36 PM (Electronically Signed)
[2022-09-19] MEDS: hydrOXYzine pamoate 25 MG CAPSULE PO (12:06)
[2022-09-19 12:07] LABS: PCR FLU A Negative PCR FLU A (Negative); PCR FLU B Negative PCR FLU B (Negative); PCR RSV Negative PCR RSV (Negative)
[2022-09-19 12:24] LABS: SARS PCR* Negative SARS-CoV-2 (Negative)
[2022-09-19 12:52] LABS: HCO3 VBG 28 mmol/L (21-28); PCO2 VBG 42 mmHG (40-50); PO2 VBG 63.8 mmHG (25-47); pH VBG 7.441 (7.32-7.43)
[2022-09-19 12:56] LABS: Basophils Absolute Auto 0.02 K/uL (0.00-0.30); Basophils Percent Auto 0.3 % (0.0-3.0); Eosinophils Absolute Auto 0.23 K/uL (0.00-0.50); Eosinophils Percent Auto 3.9 % (0.0-7.0); Hematocrit 44.4 % (33.0-51.0); Hemoglobin* 14.6 gm/dL (12.0-16.0); Immature Granulocytes Abs Auto 0.02 K/uL (0.00-0.30); Immature Granulocytes Pct Auto 0.3 %; Lymphocytes Percent Auto 15.9 % (20-44); Mean Corpuscular HGB Conc 33 gm/dL (32-36); Mean Corpuscular Hemoglobin 29 pg (26-34); Mean Corpuscular Volume 87 fL (80-100); Monocytes Percent Auto 7.5 % (0.0-11.0); Neutrophils Percent Auto 72.1 % (42.0-72.0); Platelet Count* 233 K/uL (140-440); RDW Coefficient of Variation % 13.9 % (11.5-15.5); Red Blood Count 5.12 m/uL (4.00-5.20); White Blood Count* 5.84 K/uL (4.50-11.00)
[2022-09-19 12:59] LABS: Slide Review Acceptable Review (Acceptable); Slide Review Reflex Yes
[2022-09-19 13:36] LABS: Albumin* 3.5 g/dL (3.3-5.0); Chloride* 105 mmol/L (96-114); Sodium* 137 mmol/L (135-149)
[2022-09-19 13:37] LABS: Potassium* 4.5 mmol/L (3.6-5.1)
[2022-09-19 13:38] LABS: D Dimer Quantitative* 4.76 ug/ml (0.00-0.50)
[2022-09-19 13:39] LABS: Bilirubin Total* 0.5 mg/dL (0.1-1.5); Creatinine* 0.8 mg/dL (0.5-1.5); Est. Creatinine Clearance* 33.12; Estimated Glomerular Filt Rate 73 ml/min
[2022-09-19 13:40] LABS: Alanine Aminotransferase* 16 U/L (4-35); Alkaline Phosphatase* 71 U/L (40-150); Aspartate Amino Transferase* 32 U/L (12-35); Blood Urea Nitrogen* 12 mg/dL (7-30); Calcium* 8.7 mg/dL (8.4-10.6); Carbon Dioxide* 28 mmol/L (20-32); Glucose* 174 mg/dL (60-115); Total Protein* 6.4 g/dL (6.0-8.3)
[2022-09-19 13:43] LABS: C Reactive Protein* 0.7 mg/dL (0.5-1.0)
--- NOTE | 2022-09-19 13:53 | CRLHL7_ITS ---
For Patients: As a result of the Century Cures Act, medical imaging exams and procedure reports are released immediately into your electronic medical record. You may view this report before your referring provider. If you have questions, please contact your health care provider. INDICATION: Shortness of breath. Elevated D-dimer. Metastatic ovarian cancer. Evaluate for PE. COMPARISON: 09/05/2022 CT chest, abdomen pelvis. TECHNIQUE: CT angiography of the chest PE protocol. 95 cc [id number]. FINDINGS: No filling defect to indicate acute PE. Heart is normal in size. No pericardial effusion. Coronary artery calcifications are again noted. No enlarged thoracic lymph nodes. Mild ascites is partially imaged. Cholecystectomy. Degenerative changes in the spine. Small to moderate right pleural effusion is decreased. Severe emphysema is again noted. Basilar atelectasis. No pneumothorax. IMPRESSION: 1. No acute PE. 2. Decreased right pleural effusion. 3. Severe emphysema, similar to prior. Please note that all CT scans at this facility use dose modulation, iterative reconstruction, and/or weight-based dosing when appropriate to reduce radiation dose to as low as reasonably achievable. Dictated by Power Reed MD @ 09/19/2022 3:03:13 PM (Electronically Signed)
[2022-09-19 13:57] LABS: Procalcitonin* 0.09 ng/mL (<0.50)
[2022-09-19 13:58] LABS: NT Pro B Type NatriureticPept* 209 pg/mL; Troponin I* < 0.01 ng/mL (0.01-0.04)
== END 2022-09-19 15:40 | disposition home or self-care (01) ==
PROVIDERS: Emergency Provider Family Medicine; PCP Surgery
DX: J43.9 Emphysema, unspecified (principal); J06.9 Acute upper respiratory infection, unspecified
CPT/HCPCS: 36415; 71045; 71260; 80053; 82803; 83605; 83880; 84145; 84484; 85025; 85379; 86140; 87502; 87634; 87635; 93005; 94761; 99284; 99285; A9270; Q9967

== ENCOUNTER 2022-09-24 10:52 | Outpatient (CLI) | payer MEDICARE, BC, SELFPAY ==
[2022-09-24 11:02] VITALS: BP 137/86; PULSE 79; RESP 20; O2SAT 93
[2022-09-24 11:28] VITALS: BP 117/53; PULSE 69; RESP 16; O2SAT 96
--- NOTE | 2022-09-24 11:28 | CRLHL7_ITS ---
For Patients: As a result of the Cures Act, medical imaging exams and procedure reports are released immediately into your electronic medical record. You may view this report before your referring provider. If you have questions, please contact your health care provider. INDICATION: Thoracentesis. TECHNIQUE: AP portable chest. COMPARISON: September 19, 2022. FINDINGS: Small right-sided pleural effusion has decrease compared to the prior study. Right basilar atelectasis. Clear left lung. Overall heart size is within normal limits. IMPRESSION: Interval decrease in the size of the right-sided pleural effusion. No hydropneumothorax. Dictated by Tim Gautam MD @ 09/24/2022 11:48:55 AM (Electronically Signed)
--- NOTE | 2022-09-24 11:31 | P.GSPN_ITS ---
Subjective Subjective Date Seen: 09/24/22 Interval history: Patient presents for right thoracentesis due to increasing shortness of breath. Her last thoracentesis was 10 days ago. Patient started to feel short of breath a few days after the procedure. Exam Const: Vital Signs, click to edit/add: Vital Signs - 24 hr 09/24/22 11:02 Pulse Rate [Left P ulse Oximeter] 79 Respiratory Rate 20 Blood Pressure [Ri ght Arm] 137/86 Pulse Oximetry 93 Oxygen Delivery Me thod Room Air General Surgery Procedures Thoracentesis Time Out Performed: Yes Imaging guidance used ?: Yes Indication: Pleural effusion (Recurrent pleural effusion on the right.) Procedure: therapeutic thoracentesis Location: right Local anesthetic used: lidocaine and with Epi Amount of anesthesia used (mL): 5 Bedside ultrasound used: yes, fluid confirmed and location marked and yes, real- time guidance Preparation: sterile prep and drape and 11 blade used to make be in skin Amount of fluid obtained (mL): 800 Fluid: bloody (Thin bloody fluid obtained.) Post Procedure Exam: awake, alert, normal BP, normal HR and normal SpO2 Patient Tolerated Procedure: well
== END 2022-09-24 11:47 | disposition home or self-care (01) ==
PROVIDERS: PCP Surgery; Visit Provider Surgery
DX: J90 Pleural effusion, not elsewhere classified (principal)
CPT/HCPCS: 32555; 71045

== ENCOUNTER 2022-09-26 12:53 | Emergency (ER) | payer MEDICARE, BC, SELFPAY ==
[2022-09-26 13:01] VITALS: BP 172/74; PULSE 75; RESP 20; TEMP 36.2; O2SAT 94; BMI 28.3
--- NOTE | 2022-09-26 13:13 | CRLHL7_ITS ---
For Patients: As a result of the Century Cures Act, medical imaging exams and procedure reports are released immediately into your electronic medical record. You may view this report before your referring provider. If you have questions, please contact your health care provider. INDICATION: Shortness of breath TECHNIQUE: Chest 2 views. COMPARISON: Chest x-ray 09/24/2022 FINDINGS: The heart is normal in size. The pulmonary vasculature is within normal limits. There is atherosclerotic calcification of the aortic arch. There improved aeration of the lung bases persistent, yet decreased right pleural effusion. Bibasilar atelectasis. IMPRESSION: Further decrease in the right pleural effusion. Mild bibasilar atelectasis. Dictated by Alix Hui MD @ 09/26/2022 1:53:51 PM Dictated by: Alix Hui MD @ 09/26/2022 13:54:50 (Electronically Signed)
[2022-09-26 13:58] LABS: Basophils Absolute Auto 0.04 K/uL (0.00-0.30); Basophils Percent Auto 0.5 % (0.0-3.0); Eosinophils Absolute Auto 0.46 K/uL (0.00-0.50); Eosinophils Percent Auto 5.3 % (0.0-7.0); Hematocrit 46.6 % (33.0-51.0); Hemoglobin* 14.7 gm/dL (12.0-16.0); Immature Granulocytes Abs Auto 0.02 K/uL (0.00-0.30); Immature Granulocytes Pct Auto 0.2 %; Lymphocytes Percent Auto 17.2 % (20-44); Mean Corpuscular HGB Conc 32 gm/dL (32-36); Mean Corpuscular Hemoglobin 28 pg (26-34); Mean Corpuscular Volume 88 fL (80-100); Monocytes Percent Auto 7.4 % (0.0-11.0); Neutrophils Absolute Auto 6.01 K/uL (1.7-7.0); Neutrophils Percent Auto 69.4 % (42.0-72.0); Platelet Count* 277 K/uL (140-440); RDW Coefficient of Variation % 14.2 % (11.5-15.5); Red Blood Count 5.27 m/uL (4.00-5.20); White Blood Count* 8.66 K/uL (4.50-11.00)
[2022-09-26 14:01] LABS: Slide Review Reflex No
--- NOTE | 2022-09-26 14:05 | ED.GENADULT ---
HPI - General Adult General Chief complaint: Shortness of Breath/Dyspnea Stated complaint: possible pneumonia Time Seen by Provider: 09/26/22 12:59 Source: patient Mode of arrival: ambulatory Limitations: no limitations History of Present Illness HPI narrative: 82-year-old female coming in today concerned that she has pneumonia. She states that she is coughing in the cough is productive. She states that this is what her pneumonia always feels like. She is concerned because she tells me she has been hospitalized twice now with pneumonia and sepsis. She can feel it when it is coming on and she would like treatment today. Patient does have a very complicated medical history as noted in her chart. She denies chest or abdominal pain. She denies fevers or chills. She denies swelling of her extremities. She denies difficulty lying down at night. Related Data Home Medications Medication Instructions Recorded Confirmed allopurinol 300 mg tablet 150 mg PO DAILY 04/04/22 09/05/22 clopidogrel 75 mg tablet 75 mg PO DAILY 04/04/22 09/05/22 furosemide 20 mg tablet 20 mg PO DAILY 04/04/22 09/05/22 gabapentin 300 mg capsule 600 mg PO HS 04/04/22 09/05/22 hydromorphone 8 mg tablet 8 mg PO QAM 04/04/22 09/05/22 insulin aspart U-100 100 unit/mL 12 unit subcut DAILY@04/04/22 09/05/22 (3 mL) subcutaneous pen (Novolog FlexPen U-100 Insulin aspart) insulin degludec 100 unit/mL (3 26 unit subcut 04/04/22 09/05/22 mL) subcutaneous pen (Tresiba FlexTouch U-100 insulin) loperamide 2 mg capsule 2 mg PO BID PRN 04/04/22 09/05/22 methadone 5 mg tablet 5 mg PO QAM 04/04/22 09/05/22 rosuvastatin 20 mg tablet 20 mg PO HS 04/04/22 09/05/22 semaglutide 1 mg/dose (4 mg/3 mL) 1 mg subcut TH@04/04/22 09/05/22 subcutaneous pen injector (Ozempic) tamsulosin 0.4 mg capsule 0.4 mg PO DAILY 04/04/22 09/05/22 colchicine 0.6 mg tablet 0.6 mg PO BID PRN 04/11/22 09/05/22 BIOTENE DRY MOUTH LOZENGES 1 ea mucous membrane QID PRN 05/10/22 09/05/22 cholecalciferol (vitamin D3) 50 4,000 unit PO DAILY 05/10/22 09/05/22 mcg (2,000 unit) tablet (Vitamin D3) cyclobenzaprine 5 mg tablet 5 mg PO Q8H PRN 05/10/22 09/05/22 fexofenadine 180 mg tablet 180 mg PO DAILY PRN 05/10/22 09/05/22 (Aller-ease) hydromorphone 8 mg tablet 16 mg PO HS 05/10/22 09/05/22 (Dilaudid) insulin aspart U-100 100 unit/mL 18 unit subcut DAILY@12 05/10/22 09/05/22 (3 mL) subcutaneous pen (Novolog FlexPen U-100 Insulin aspart) levothyroxine 88 mcg tablet 88 mcg PO DAILY 05/10/22 09/05/22 methadone 5 mg tablet 10 mg PO HS 05/10/22 09/05/22 naloxone 4 mg/actuation nasal 4 mg intranasal DIRECTED PRN 05/10/22 09/05/22 spray (Narcan) potassium chloride 20 mEq 20 meq PO BIDWM 05/10/22 09/05/22 tablet,extended release(part/cryst) (Klor-Con M) prochlorperazine maleate 10 mg 10 mg PO Q6H PRN 05/10/22 09/05/22 tablet vitamin A-vitamin C-vit E-min 1 tab PO DAILY 05/10/22 09/05/22 tablet (Ocutabs tablet) albuterol sulfate 2.5 mg/3 mL 2.5 mg inhalation Q4H PRN 07/06/22 09/05/22 (0.083 %) solution for nebulization insulin aspart U-100 100 unit/mL 26 unit subcut DAILY@18 07/06/22 09/05/22 (3 mL) subcutaneous pen (Novolog FlexPen U-100 Insulin aspart) hydroxyzine HCl 25 mg tablet mg 09/14/22 Previous Rx's Medication Instructions Recorded sennosides 8.6 mg-docusate sodium 4 tab PO BID 30 days #240 tabs 05/18/22 50 mg tablet (Stool Softener-Laxative) azithromycin 250 mg tablet See Taper PO DIRECTED #6 tabs 09/26/22 Allergies Allergy/AdvReac Type Severity Reaction Status Date / Time cortisone Allergy Severe Anaphylaxis Verified 09/26/22 13:06 prednisone Allergy Severe Verified 09/26/22 13:06 amoxicillin Allergy Intermediate Verified 09/26/22 13:06 cephalexin [From Keflex] Allergy Intermediate Diarrhea Verified 09/26/22 13:06 doxycycline Allergy Intermediate Verified 09/26/22 13:06 duloxetine [From Cymbalta] Allergy Intermediate Verified 09/26/22 13:06 escitalopram [From Lexapro] Allergy Intermediate sleep Verified 09/26/22 13:06 disturbance febuxostat Allergy Intermediate vomitting Verified 09/26/22 13:06 lisinopril Allergy Intermediate Verified 09/26/22 13:06 losartan [From Cozaar] Allergy Intermediate Verified 09/26/22 13:06 nitrofurantoin Allergy Intermediate Verified 09/26/22 13:06 [From Macrobid] pregabalin [From Lyrica] Allergy Intermediate Nausea Verified 09/26/22 13:06 propoxyphene Allergy Intermediate angioedema Verified 09/26/22 13:06 ramelteon [From Rozerem] Allergy Intermediate Verified 09/26/22 13:06 sulfamethoxazole Allergy Intermediate Verified 09/26/22 13:06 [From Bactrim] tramadol [From Ultram] Allergy Intermediate Verified 09/26/22 13:06 trimethoprim [From Bactrim] Allergy Intermediate Verified 09/26/22 13:06 venlafaxine [From Effexor] Allergy Intermediate Verified 09/26/22 13:06 zolpidem [From Ambien] Allergy Intermediate Confusion Verified 09/26/22 13:06 acetaminophen [From Vicodin] Allergy Mild Nausea Verified 09/26/22 13:06 hydrocodone [From Vicodin] Allergy Mild Nausea Verified 09/26/22 13:06 aspirin Allergy Unknown Verified 09/26/22 13:06 clindamycin Allergy Unknown Verified 09/26/22 13:06 ipratropium [From Atrovent] Allergy Unknown Verified 09/26/22 13:06 Penicillins Allergy Unknown Verified 09/26/22 13:06 pramipexole Allergy Unknown Verified 09/26/22 13:06 trazodone Allergy Unknown Verified 09/26/22 13:06 adhesive tape Allergy huge Verified 09/26/22 13:06 blisters Review of Systems Status of ROS: Reports: 10 or more systems reviewed and unremarkable except as noted in History and below PFSH PFS Medical History Acute insomnia Allergic rhinitis CAD (coronary artery disease) Chronic constipation Chronic kidney disease, stage 3b Chronic pain Constipation Controlled substance agreement signed COPD (chronic obstructive pulmonary disease) Depression Gastroparesis GERD (gastroesophageal reflux disease) Gouty arthropathy Hereditary and idiopathic peripheral neuropathy Hypercalcemia Hypertension Hypertriglyceridemia Hypokalemia Hypothyroidism Interstitial pulmonary fibrosis Myocardial infarction Neurogenic bladder Neuropathy HUGO (obstructive sleep apnea) Peripheral autonomic neuropathy due to diabetes mellitus Peripheral vascular disease Pneumonia POLST (Physician Orders for Life-Sustaining Treatment) Pulmonary fibrosis Pulmonary nodule SBO (small bowel obstruction) Slow transit constipation Stroke TIA (transient ischemic attack) Type 2 diabetes mellitus with complication, with long-term current use of insulin Urinary tract infection Surgical History H/O blepharoplasty H/O colonoscopy H/O foot surgery H/O neck surgery H/O: hysterectomy History of cholecystectomy Hx of appendectomy Hx of repair of rotator cuff Hx of tonsillectomy S/P bunionectomy S/P left rotator cuff repair Family History Maternal Grandfather Pancreatic cancer Aunt Breast cancer Uncle Lung cancer Aunt Breast cancer Father Tuberculosis Coronary artery disease Social History Narrative: Lives independently with her boyfriend, Zane, and her daughter, Martín, who lives in the basement. Quit tobacco 1986. No EtOH. Denies recreational drug use. Wants to be DNR/DNI. Highest level of school completed/degree received: some college, no degree Smoking Status: Former smoker Do you use any of these nicotine containing products: None Second hand tobacco smoke exposure: No How often do you have a drink containing alcohol: never How often do you have six or more drinks on one occasion: Never AUDIT-C Alcohol total score: 0 Non-prescribed substance use: denies use Caffeine: Yes Are you using contraception or practicing any form of control: No service: No Exam Narrative: Exam Narrative: Well-nourished well-developed patient in no acute distress. Alert and oriented. Answers questions appropriately. Mood and affect are appropriate. Thoughts are goal oriented and rational. No tangential or magical thinking noted. Patient is slightly tachypneic. HEENT: Normocephalic atraumatic. Pupils are equally round reactive to light. Extraocular muscles are intact. Conjunctivae are moist without any icterus noted. Moist mucous membranes. Posterior pharynx is normal. Neck is soft. Cardiovascular: Heart is regular rate and rhythm S1 and S2 are present without any murmurs. Lungs: Patient has rhonchi bilaterally. There is no wheezing appreciated. Abdomen: Soft and nontender nondistended with normal bowel sounds. Extremities: Bilateral lower extremities are without edema. Skin: Well perfused without any obvious rashes. Const: Vital Signs, click to edit/add: Vital Signs - 24 hr 09/26/22 13:01 Temperature 97.2 F L Pulse Rate [Pulse Oximeter] 75 Respiratory Rate 20 Blood Pressure [Ri ght Upper Arm] 172/74 H Pulse Oximetry 94 Oxygen Delivery Me thod Room Air Course Course Hospital Course: Triple swab was negative. CBC unremarkable. Chest x-ray, read by me, does not show any acute infiltrate consistent with pneumonia. I discussed these findings with the patient and she tells me that this is not the 1st time that she has had pneumonia without anything showing up. She tells me that she is certain that she has pneumonia and her treatment is 1 dose of IM Rocephin and azithromycin. Did go over her allergies with her and she tells me that she is not allergic to Rocephin. Patient is requesting treatment at this time again, stating that she is certain she has pneumonia. Did go ahead and do an EKG to make sure there is no evidence of QT prolongation. EKG, read by me, shows normal sinus rhythm with a pulse of 67. Vital Signs Vital signs: Initial Vital Signs Temperature 97.2 F L 09/26/22 13:01 Temperature Source Temporal Artery Scan 09/26/22 13:01 Pulse Rate 75 09/26/22 13:01 Pulse Rhythm 09/26/22 13:01 Pulse Strength 3+ Normal 09/26/22 13:01 Respiratory Rate 20 09/26/22 13:01 Blood Pressure 172/74 H 09/26/22 13:01 Blood Pressure Mean 106 09/26/22 13:01 Blood Pressure Position Sitting 09/26/22 13:01 Pulse Oximetry 94 09/26/22 13:01 Oxygen Delivery Method 09/26/22 13:01 Vital Signs Temperature 97.2 F L 09/26/22 13:01 Pulse Rate 75 09/26/22 13:01 Respiratory Rate 20 09/26/22 13:01 Blood Pressure 172/74 H 09/26/22 13:01 Pulse Oximetry 94 09/26/22 13:01 Oxygen Delivery Method 09/26/22 13:01 Temperature 97.2 F L 09/26/22 13:01 Pulse Rate 75 09/26/22 13:01 Respiratory Rate 20 09/26/22 13:01 Blood Pressure 172/74 H 09/26/22 13:01 Pulse Oximetry 94 09/26/22 13:01 Oxygen Delivery Method 09/26/22 13:01 Medical Decision Making MDM Narrative Medical decision making narrative: 82-year-old female with productive cough. No findings of infection on workup today however again patient telling me she is certain that she has pneumonia and is requesting treatment today. Therefore we did comply and patient is treated with IM Rocephin and sent home with azithromycin. Follow up with primary care as needed return to the ER if she is feeling worse. Medical Records Medical records reviewed: Yes I reviewed the patient's medical records Lab Data Lab results reviewed: Yes I reviewed the patient's lab results Labs: Lab Results 09/26/22 09/26/22 Range/Units 13:18 13:50 WBC 8.66 (4.50-11.00) K/uL RBC 5.27 H (4.00-5.20) m/uL Hgb 14.7 (12.0-16.0) gm/dL Hct 46.6 (33.0-51.0) % MCV 88 (80-100) fL MCH 28 (26-34) pg MCHC 32 (32-36) gm/dL RDW Coeff of [place] 14.2 (11.5-15.5) % Plt Count 277 (140-440) K/uL Neut % (Auto) 69.4 (42.0-72.0) % Lymph % (Auto) 17.2 L (20-44) % [place] % (Auto) 7.4 (0.0-11.0) % Eos % (Auto) 5.3 (0.0-7.0) % Baso % (Auto) 0.5 (0.0-3.0) % Neut # (Auto) 6.01 (1.7-7.0) K/uL Lymph # (Auto) 1.50 (0.90-2.90) K/uL [place] # (Auto) 0.60 (0.00-0.90) K/UL Eos # (Auto) 0.46 (0.00-0.50) K/uL Baso # (Auto) 0.04 (0.00-0.30) K/uL SARS-CoV-2 (PCR) Negative SARS-CoV-2 (Negative) Influenza Type A (PCR) Negative PCR FLU A (Negative) Influenza Type B (PCR) Negative PCR FLU B (Negative) RSV (PCR) Negative PCR RSV (Negative) Imaging Data Chest x-ray: Attestation: I have reviewed the pertinent imaging results. Radiologist's impression: Chest 2 views. COMPARISON: Chest x-ray 09/24/2022 FINDINGS: The heart is normal in size. The pulmonary vasculature is within normal limits. There is atherosclerotic calcification of the aortic arch. There improved aeration of the lung bases persistent, yet decreased right pleural effusion. Bibasilar atelectasis. IMPRESSION: Further decrease in the right pleural effusion. Mild bibasilar atelectasis. ECG Data Attestation: I personally reviewed and interpreted this ECG as follows: Discharge Plan Discharge Clinical Impression: Cough Patient Disposition: Home, Self-Care Condition: Stable Additional Instructions: Follow-up with your primary care provider as needed or return to the ER if you feel like you are getting worse. Activity Level: No Restrictions Discharge Diet: Regular Prescriptions: New azithromycin 250 mg tablet See Taper PO DIRECTED Qty: 6 0RF Taper: Z-CARMELA 500 mg Q24H for 1 Day and 0 Hour 250 mg Q24H for 4 Days and 0 Hour Rx Instructions: For 250 mg dose pack: take 500 mg today (day 1), then 250 mg for 4 days (days 2-5) No Action colchicine 0.6 mg tablet 0.6 mg PO BID PRN Label Comments: TAKE ONE TABLET BY MOUTH TWICE DAILY NEEDED levothyroxine 88 mcg tablet 88 mcg PO DAILY Label Comments: Take 1 Tablet (88 mcg) by mouth before breakfast naloxone [Narcan] 4 mg/actuation spray,non-aerosol 4 mg INTRANASAL DIRECTED PRN Label Comments: Inhale 1 [place] into affected nostril(s) each time if needed for Patient Diff To Arouse or Resp Rate < 8 / min. Additional doses may be given fexofenadine [Aller-ease] 180 mg tablet 180 mg PO DAILY PRN cholecalciferol (vitamin D3) [Vitamin D3] 50 mcg (2,000 unit) tablet 4,000 unit PO DAILY cyclobenzaprine 5 mg tablet 5 mg PO Q8H PRN Ocutabs Tablet 1 tab PO DAILY prochlorperazine maleate 10 mg tablet 10 mg PO Q6H PRN Label Comments: TAKE ONE TABLET BY MOUTH EVERY SIX HOURS NEEDED potassium chloride [Klor-Con M20] 20 mEq tablet,ER particles/crystals 20 meq PO BIDWM Label Comments: Take 1 Tablet (20 mEq) by mouth 2 times daily with meals insulin aspart U-100 [Novolog FlexPen U-100 Insulin] 100 unit/mL (3 mL) insulin pen 18 unit subcut DAILY@12 methadone 5 mg tablet 10 mg PO HS BIOTENE DRY MOUTH LOZENGES 1 ea mucous membrane QID PRN hydromorphone [Dilaudid] 8 mg tablet 16 mg PO HS sennosides-docusate sodium [Stool Softener-Laxative] 8.6-50 mg Tablet 4 tab PO BID 30 Days Qty: 240 0RF albuterol sulfate 2.5 mg /3 mL (0.083 %) solution for nebulization 2.5 mg inhalation Q4H PRN insulin aspart U-100 [Novolog FlexPen U-100 Insulin] 100 unit/mL (3 mL) Insulin Pen 26 unit subcut DAILY@18 hydroxyzine HCl 25 mg tablet Label Comments: TAKE ONE TABLET BY MOUTH EVERY SIX HOURS NEEDED FOR ANXIETY loperamide 2 mg capsule 2 mg PO BID PRN hydromorphone 8 mg tablet 8 mg PO QAM Rx Instructions: TAKES 1 PILL IN AM AND 2 IN PM clopidogrel 75 mg tablet 75 mg PO DAILY Label Comments: TAKE ONE TABLET BY MOUTH ONE TIME DAILY tamsulosin 0.4 mg capsule 0.4 mg PO DAILY Label Comments: Take 1 Capsule (0.4 mg) by mouth once daily after a meal. gabapentin 300 mg capsule 600 mg PO HS allopurinol 300 mg tablet 150 mg PO DAILY furosemide 20 mg tablet 20 mg PO DAILY Label Comments: Take 1 Tablet (20 mg) by mouth every morning. methadone 5 mg tablet 5 mg PO QAM insulin aspart U-100 [Novolog FlexPen U-100 Insulin] 100 unit/mL (3 mL) insulin pen 12 unit SUBCUT DAILY@08 rosuvastatin 20 mg tablet 20 mg PO HS Label Comments: Take 1 Tablet (20 mg) by mouth at bedtime. insulin degludec [Tresiba FlexTouch U-100] 100 unit/mL (3 mL) insulin pen 26 unit SUBCUT HS Ozempic 1 mg/dose (4 mg/3 mL) pen injector 1 mg SUBCUT TH@09 Rx Instructions: WEEKLY ON WEDNESDAY Follow Up/Referrals: Migdalia Vidal MD [Primary Care Provider] - Stand Alone Forms: [facility] Info Instructions
[2022-09-26 14:09] LABS: PCR FLU A Negative PCR FLU A (Negative); PCR FLU B Negative PCR FLU B (Negative); PCR RSV Negative PCR RSV (Negative)
[2022-09-26 14:13] LABS: SARS PCR* Negative SARS-CoV-2 (Negative)
[2022-09-26] MEDS: LIDOCAINE 1% 5 ml (pf) 5 ML VIAL 2.1 ML IM (14:52)
[2022-09-26] MEDS: cefTRIAXone 1 GM VIAL IM (14:52)
== END 2022-09-26 15:09 | disposition home or self-care (01) ==
PROVIDERS: Emergency Provider Family Medicine; PCP Family Medicine
DX: R05.9 Cough, unspecified (principal)
CPT/HCPCS: 36415; 71046; 85025; 87502; 87634; 87635; 93005; 96372; 99284; 99285; J0696